=== PATIENT | male | born 1965 | race American Indian/Alaskan Native ===

== ENCOUNTER 2018-12-09 07:05 | Emergency (ER) | payer SELFPAY ==
[2018-12-09] MEDS ORDERED: ASPIRIN PO ONE (07:25)
--- NOTE | 2018-12-09 07:52 | XRay Report ---
ROUTINE CHEST, TWO VIEWS: HISTORY: chest pain. The trachea, heart, mediastinal contour, lung benoit and bony thorax are unremarkable. IMPRESSION: Unremarkable chest x-ray.
[2018-12-09 07:59] LABS: BUN/Creatinine Ratio 10; Blood Urea Nitrogen 7 mg/dL (9-20); Calcium 8.6 mg/dL (8.4-10.2); Hemolysis Index 8
[2018-12-09 08:39] LABS: Hematocrit 45.8 % (35.5-45.6); Hemoglobin 15.6 gm/dl (11.8-15.2); Mean Corpuscular HGB Conc 34 % (32-34); Mean Corpuscular Volume 105 fl (84-94); Platelet Count 110 K/mm3 (140-440); Red Blood Count 4.36 M/mm3 (3.65-5.03); Red Cell Distribution Width 14.3 % (13.2-15.2)
[2018-12-09] MEDS ORDERED: MORPHINE IV ONE (09:17)
[2018-12-09 10:06] LABS: Basophils % (Manual) 0 % (0.0-1.8); Total Cells Counted 100
[2018-12-09 10:07] LABS: Platelet Estimate Consistent w Auto; RBC Morphology Normal
--- NOTE | 2018-12-09 11:07 | Cat Scan Report ---
PROCEDURE: CT ANGIO CHEST TECHNIQUE: Multiple axial images were obtained through the chest after administration of IV contrast . Reformatted sagittal and coronal images were available for review. HISTORY: chest pain and sob h/o of DVT not taking warfarin COMPARISONS: None FINDINGS: Heart and pericardium: Normal. Thoracic aorta: Normal caliber. Conventional branching pattern of the aortic arch. Pulmonary vasculature: No filling defect to suggest pulmonary embolism. Lymph nodes: No enlarged thoracic lymph nodes. Lungs: Scattered peribronchovascular glass opacities in the right middle lobe and right lower lobe. Paraseptal blebs in the right apex. Pleural space: No effusion, thickening, or pneumothorax. Musculoskeletal structures: No significant abnormality. Upper abdominal structures: No significant abnormality. IMPRESSION: No evidence of pulmonary embolism. Groundglass opacities in the right middle lobe and right lower lobe concerning for infection or infla mmation. This document is electronically signed by Silvana Wong MD., December 09 2018 11:05:18 AM ET
[2018-12-09] MEDS ORDERED: VIBRAMYCIN PO ONE (12:10)
[2018-12-09] MEDS ORDERED: ZITHROMAX PO ONE (12:10)
--- NOTE | 2018-12-09 12:14 | Emergency Department Report ---
ED General Adult HPI - General Chief complaint: Chest Pain Stated complaint: CHEST PAINS Time Seen by Provider: 12/09/18 09:00 Source: patient Mode of arrival: Ambulatory Limitations: No Limitations - History of Present Illness Initial comments: She is a 53-year-old male past medical history of DVT who presents with chest pain that occurred earlier on today while he was working. He states that the pain is an 8 out of 10 as a intermittent type pain and he felt his heart was pounding hard when this occurred. He states that he is supposed to be on Cou madin for his DVT but he hasn't been on because he couldn't stand taking the medicine Severity scale (0 -10): 7 - Related Data Previous Rx's Medication Instructions Recorded Last Taken Type HYDROcodone/APAP 5-325 [[place] 1 each PO Q6HR PRN #15 tablet 09/25/13 Unknown Rx 5-325 mg TAB] Naproxen Sodium (Nf) [Anaprox DS 550 mg PO BID PRN #14 tablet 09/25/13 Unknown Rx TAB] Warfarin Sodium [Coumadin] 12.5 mg PO DAILY 30 Days tablet 09/15/14 Unknown Rx levoFLOXacin [Levaquin] 750 mg PO QDAY #3 tablet 12/09/18 Unknown Rx Allergies Allergy/AdvReac Type Severity Reaction Status Date / Time No Known Allergies Allergy Unverified 06/11/13 13:49 ED Review of Systems ROS: Stated complaint: CHEST PAINS Other details as noted in HPI Constitutional: denies: chills, fever Eyes: denies: eye pain, eye discharge, vision change ENT: denies: ear pain, throat pain Respiratory: denies: cough, shortness of breath, wheezing Cardiovascular: chest pain. denies: palpitations Endocrine: no symptoms reported Gastrointestinal: denies: abdominal pain, nausea, diarrhea Genitourinary: denies: urgency, dysuria Musculoskeletal: denies: back pain, joint swelling, arthralgia Skin: denies: rash, lesions Neurological: denies: headache, weakness, paresthesias Psychiatric: denies: anxiety, depression Hematological/Lymphatic: denies: easy bleeding, easy bruising ED Past Medical Hx - Past Medical History Previous Medical History?: Yes Hx Hypertension: Yes Hx Heart Attack/AMI: No Hx Congestive Heart Failure: No Hx Diabetes: Yes (Brother) Hx Deep Vein Thrombosis: Yes Hx Pulmonary Embolism: Yes Hx Liver Disease: No Hx Renal Disease: No Hx Sickle Cell Disease: No Hx Arthritis: No Hx Seizures: No Hx Kidney Stones: No Hx Asthma: No Hx COPD: No Hx Tuberculosis: No Hx Dementia: No Hx HIV: No Additional medical history: DVT BLE - Surgical History Past Surgical History?: No Hx Coronary Stent: No Hx Open Heart Surgery: No Hx Pacemaker: No Hx Internal Defibrillator: No Hx Cholecystectomy: No Hx Appendectomy: No Hx Breast Surgery: No - Social History Smoking Status: Current Every Day Smoker Substance Use Type: Alcohol - Medications Home Medications: Home Medications Medication Instructions Recorded Confirmed Last Taken Type HYDROcodone/APAP 5-325 [[place] 1 each PO Q6HR PRN #15 tablet 09/25/13 09/08/14 Unknown Rx 5-325 mg TAB] Naproxen Sodium (Nf) [Anaprox DS 550 mg PO BID PRN #14 tablet 09/25/13 09/08/14 Unknown Rx TAB] Warfarin Sodium [Coumadin] 12.5 mg PO DAILY 30 Days tablet 09/15/14 Unknown Rx levoFLOXacin [Levaquin] 750 mg PO QDAY #3 tablet 12/09/18 Unknown Rx ED Physical Exam - General Limitations: No Limitations General appearance: alert, in no apparent distress - Head Head exam: Present: atraumatic, normocephalic - Eye Eye exam: Present: normal appearance - ENT ENT exam: Present: mucous membranes moist - Neck Neck exam: Present: normal inspection - Respiratory Respiratory exam: Present: normal lung sounds bilaterally. Absent: respiratory distress - Cardiovascular Cardiovascular Exam: Present: regular rate, normal rhythm. Absent: systolic murmur, diastolic murmur, rubs, gallop - GI/Abdominal GI/Abdominal exam: Present: soft, normal bowel sounds - Rectal Rectal exam: Present: deferred - Extremities Exam Extremities exam: Present: normal inspection - Back Exam Back exam: Present: normal inspection - Neurological Exam Neurological exam: Present: alert, oriented X3 - Psychiatric Psychiatric exam: Present: normal affect, normal mood - Skin Skin exam: Present: warm, dry, intact, normal color. Absent: rash ED Course Vital Signs 12/09/18 12/09/18 12/09/18 08:51 09:00 09:15 Pulse Rate 81 76 81 Respiratory 18 12 16 Rate Blood Pressure 125/86 132/90 O2 Sat by Pulse 100 99 98 Oximetry 12/09/18 12/09/18 12/09/18 09:30 09:45 10:17 Pulse Rate 97 H 74 Respiratory 24 18 Rate Blood Pressure 128/86 131/84 131/84 O2 Sat by Pulse 97 96 99 Oximetry 12/09/18 12/09/18 12/09/18 10:30 10:45 11:00 Pulse Rate 61 53 L 53 L Respiratory 14 14 13 Rate Blood Pressure 134/81 130/79 137/81 O2 Sat by Pulse 95 97 Oximetry 12/09/18 12/09/18 12/09/18 11:15 11:30 11:45 Pulse Rate 54 L 79 83 Respiratory 16 14 14 Rate Blood Pressure 127/76 117/85 127/76 O2 Sat by Pulse 96 94 Oximetry 12/09/18 12/09/18 12/09/18 13:30 13:45 14:00 Pulse Rate Respiratory Rate Blood Pressure 132/78 121/75 122/75 O2 Sat by Pulse Oximetry 12/09/18 12/09/18 12/09/18 14:15 14:30 14:45 Pulse Rate Respiratory Rate Blood Pressure 119/67 124/73 123/69 O2 Sat by Pulse Oximetry 12/09/18 15:00 Pulse Rate Respiratory Rate Blood Pressure 119/70 O2 Sat by Pulse Oximetry ED Medical Decision Making - Lab Data Result diagrams: 12/09/18 07:29 12/09/18 07:26 Lab Results 12/09/18 12/09/18 12/09/18 Range/Units 07:26 07:29 10:26 WBC 3.7 L (4.5-11.0) K/mm3 RBC 4.36 (3.65-5.03) M/mm3 Hgb 15.6 H (11.8-15.2) gm/dl Hct 45.8 H (35.5-45.6) % MCV 105 H (84-94) fl MCH 36 H (28-32) pg MCHC 34 (32-34) % RDW 14.3 (13.2-15.2) % Plt Count 110 L (140-440) K/mm3 Add Manual Diff Complete Total Counted 100 Seg Neutrophils % Major Gifts Officer Seg Neuts % (Manual) 28.0 L (40.0-70.0) % Band Neutrophils % 0 % Lymphocytes % (Manual) 58.0 H (13.4-35.0) % Reactive Lymphs % (Man) 0 % Monocytes % (Manual) 10.0 H (0.0-7.3) % Eosinophils % (Manual) 4.0 (0.0-4.3) % Basophils % (Manual) 0 (0.0-1.8) % Metamyelocytes % 0 % Myelocytes % 0 % Promyelocytes % 0 % Blast Cells % 0 % Nucleated RBC % Not Reportable Seg Neutrophils # Man 1.0 L (1.8-7.7) K/mm3 Band Neutrophils # 0.0 K/mm3 Lymphocytes # (Manual) 2.1 (1.2-5.4) K/mm3 Abs React Lymphs (Man) 0.0 K/mm3 Monocytes # (Manual) 0.4 (0.0-0.8) K/mm3 Eosinophils # (Manual) 0.1 (0.0-0.4) K/mm3 Basophils # (Manual) 0.0 (0.0-0.1) K/mm3 Metamyelocytes # 0.0 K/mm3 Myelocytes # 0.0 K/mm3 Promyelocytes # 0.0 K/mm3 Blast Cells # 0.0 K/mm3 WBC Morphology Not Reportable Hypersegmented Neuts Not Reportable Hyposegmented Neuts Not Reportable Hypogranular Neuts Not Reportable Smudge Cells Not Reportable Toxic Granulation Not Reportable Toxic Vacuolation Not Reportable Dohle Bodies Not Reportable Pelger-Huet Anomaly Not Reportable Zeina Rods Not Reportable Platelet Estimate Consistent w auto Clumped Platelets Not Reportable Plt Clumps, EDTA Not Reportable Large Platelets Not Reportable Giant Platelets Not Reportable Platelet Satelliting Not Reportable Plt Morphology Comment Not Reportable RBC Morphology Normal Dimorphic RBCs Not Reportable Polychromasia Not Reportable Hypochromasia Not Reportable Poikilocytosis Not Reportable Anisocytosis Not Reportable Microcytosis Not Reportable Macrocytosis Not Reportable Spherocytes Not Reportable Pappenheimer Bodies Not Reportable Sickle Cells Not Reportable Target Cells Not Reportable Tear Drop Cells Not Reportable Ovalocytes Not Reportable Helmet Cells Not Reportable Triana-O'Neill Bodies Not Reportable Polk Rings Not Reportable Audrey Cells Not Reportable Bite Cells Not Reportable Crenated Cell Not Reportable Elliptocytes Not Reportable Acanthocytes (Spur) Not Reportable Rouleaux Not Reportable Hemoglobin C Crystals Not Reportable Schistocytes Not Reportable Malaria parasites Not Reportable Barry Bodies Not Reportable Hem Pathologist Commnt No Sodium 144 (137-145) mmol/L Potassium 4.8 (3.6-5.0) mmol/L Chloride 100.7 (98-107) mmol/L Carbon Dioxide 26 (22-30) mmol/L Anion Gap 22 mmol/L BUN 7 L (9-20) mg/dL Creatinine 0.7 L (0.8-1.5) mg/dL Estimated GFR > 60 ml/min BUN/Creatinine Ratio 10 % Glucose 81 (75-100) mg/dL Calcium 8.6 (8.4-10.2) mg/dL Troponin T < 0.010 < 0.010 (0.00-0.029) ng/mL - EKG Data -: EKG Interpreted by Me - EKG Data 12/09/18 12:16 EKG shows sinus rhythm, probable atrial septal infarct and no T-wave inversions or ST depressions normal axis - Radiology Data Radiology results: report reviewed, image reviewed - Medical Decision Making Chief medical diagnosis: Pneumonia Differential medical diagnosis: DVT, SVT I will get CT scan of chest I will get CBC BMP oral pain medicine and give patient oral antibiotics. An IV pain medication Next patient's ultrasound of leg just shows chronic DVT and CTA of the chest shows pna Critical care attestation.: If time is entered above; I have spent that time in minutes in the direct care of this critically ill patient, excluding procedure time. ED Disposition Clinical Impression: DVT (deep venous thrombosis) Qualifiers: DVT location: lower extremity Affected thrombotic vein of extremity: unspecified vein of extremity Chronicity: chronic Laterality: left Qualified Code(s): I82.502 - Chronic embolism and thrombosis of unspecified deep veins of left lower extremity Pneumonia Qualifiers: Pneumonia type: due to unspecified organism Laterality: right Lung location: unspecified part of lung Qualified Code(s): J18.9 - Pneumonia, unspecified organism Disposition: DC-01 TO HOME OR SELFCARE Is pt being admited?: No Does the pt Need Aspirin: No Condition: Stable Instructions: Bacterial Pneumonia (ED) Prescriptions: levoFLOXacin [Levaquin] 750 mg PO QDAY #3 tablet Referrals: RICCO BELL MD [Primary Care Provider] - 3-5 Days
--- NOTE | 2018-12-09 14:30 | Vascular Lab Report ---
PROCEDURE: VL VENOUS DUPLEX LE LT TECHNIQUE: Duplex Doppler imaging of the veins of the left lower extremity was performed HISTORY: left leg swelling COMPARISONS: Lower extremity venous ultrasound performed on September 07, 2014 FINDINGS: The left common femoral vein, superficial femoral vein, popliteal vein, and peroneal veins are partia lly compressible. No definite echogenic thrombus is visualized within the lumen of these veins. There are normal waveforms and augmentation. There is deformity venous reflux within the left popliteal ve in measuring approximately 1258 ms. Of note findings are overall similar to the study performed in 2015. IMPRESSION: Partially compressible left common femoral vein, superficial femoral vein, popliteal vein, and perone al veins, similar to the study performed in 2015. Findings likely represent chronic thrombosis, howev er nonocclusive acute thrombus is not excluded. This document is electronically signed by Silvana Wong MD., December 09 2018 02:28:07 PM ET
[2018-12-09 15:10] VITALS: BP 119/70
== END 2018-12-09 15:29 | disposition home or self-care (01) ==
LOC: ED 07:05
DX: J18.9 Pneumonia, unspecified organism (principal); I82.502 Chronic embolism and thrombosis of unspecified deep veins of left lower extremity; I10 Essential (primary) hypertension; E11.9 Type 2 diabetes mellitus without complications; F17.200 Nicotine dependence, unspecified, uncomplicated; Z79.899 Other long term (current) drug therapy; Z86.711 Personal history of pulmonary embolism
CPT/HCPCS: 36415; 71046; 71275; 80048; 84484; 85007; 85025; 93005; 93010; 93971; 96374; 99285; J2270; Q9967

== ENCOUNTER 2019-11-09 15:05 | Emergency (ER) | payer SELFPAY ==
--- NOTE | 2019-11-09 15:57 | Emergency Department Report ---
Blank Doc - Documentation Documentation: 54-year-old male that presents with chest pain, SOB, and left leg pain and swe lling. This initial assessment/diagnostic orders/clinical plan/treatment(s) is/are subject to change based on patient's health status, clinical progression and re- assessment by fellow clinical providers in the ED. Further treatment and workup at subsequent clinical providers discretion. Patient/guardians urged not to elope from the ED as their condition may be serious if not clinically assessed and managed. Initial orders include: 1- Patient sent to MAIN ED for further evaluation and treatment 2- cardiac work-up 3- US doppler LE
--- NOTE | 2019-11-09 16:23 | XRay Report ---
CHEST 2 VIEWS INDICATION: Chest Pain. COMPARISON: 12/09/2018 FINDINGS: Support devices: None. Heart: Within normal limits. Lungs/pleura: No acute air space or interstitial disease. No pneumothorax. Additional findings: None. IMPRESSION: No acute findings. Signer Name: Pascual Bertrand Jr, MD Signed: 11/09/2019 4:19 PM Workstation Name: [id number]
[2019-11-09 16:39] LABS: Basophils % (Auto) 1.1 % (0.0-1.8); Eosinophils % (Auto) 0.9 % (0.0-4.3); Hematocrit 38.8 % (35.5-45.6); Hemoglobin 13.2 gm/dl (11.8-15.2); Lymphocytes # (Auto) 2.1 K/mm3 (1.2-5.4); Lymphocytes % (Auto) 50.4 % (13.4-35.0); Mean Corpuscular HGB Conc 34 % (32-34); Mean Corpuscular Volume 105 fl (84-94); Monocytes # (Auto) 0.5 K/mm3 (0.0-0.8); Monocytes % (Auto) 11.1 % (0.0-7.3); Platelet Count 124 K/mm3 (140-440); Red Blood Count 3.68 M/mm3 (3.65-5.03); Red Cell Distribution Width 15.6 % (13.2-15.2)
[2019-11-09 16:48] LABS: INR 0.94 (0.87-1.13); Partial Thromboplastin Time 29.7 Sec. (24.2-36.6)
[2019-11-09 16:51] LABS: Alanine Aminotransferase 23 units/L (7-56); Albumin 4.2 g/dL (3.9-5); BUN/Creatinine Ratio 13; Blood Urea Nitrogen 8 mg/dL (9-20); Calcium 8.4 mg/dL (8.4-10.2); Hemolysis Index 9
--- NOTE | 2019-11-09 18:56 | Vascular Lab Report ---
DUPLEX DOPPLER LOWER EXTREMITY VEINS, LEFT INDICATION: left leg pain and swelling. TECHNIQUE: Duplex doppler imaging was performed through the veins of the left lower extremity using venous compr ession and other maneuvers. COMPARISON: None available. FINDINGS: Common Femoral vein: Nonocclusive thrombus Superficial Femoral vein: Occlusive thrombus. Popliteal vein: Nonocclusive thrombus. Calf veins: Negative. Additional findings: There is a 3.9 cm left popliteal/Hicks's cyst. IMPRESSION: 1. Extensive deep venous thrombosis left lower extremity, as above. Signer Name: Ar Willams MD Signed: 11/09/2019 6:52 PM Workstation Name: [id number]
[2019-11-09] MEDS ORDERED: HEPARIN 10,000 UNITS/10 ML VIAL IV ONE (20:13)
[2019-11-09] MEDS ORDERED: ENOXAPARIN 100 MG/1 ML INJ SUB-Q ONE (20:29)
[2019-11-09] MEDS ORDERED: HEPARIN/ 0.45% NACL DRIP 25,000 UNIT/500 ML BAG IV SCH (21:00)
--- NOTE | 2019-11-09 21:49 | Emergency Department Report ---
ED Lower Extremity HPI - General Chief Complaint: Extremity Problem,Nontraumatic Stated Complaint: CHEST PAIN, BLOOD CLOT Time Seen by Provider: 11/09/19 15:55 Source: patient, old records reviewed Mode of arrival: Ambulatory Limitations: No Limitations - History of Present Illness Initial Comments: 54-year-old male with a past medical history of previous DVT 3 to 4 years ago of Coumadin for at least 2 years presents to the hospital complaining of left leg pain and swelling x2 weeks. Patient denies any recent trauma or injury. Patient has been noncompliant with the Coumadin and he denies having a Maura filter. Patient also is experiencing bilateral chest pain, shortness of breath, and back pain. He denies history of coagulopathy or long distance travel. As per triage patient reported a 30 pound weight loss in the last 4 months. Patient has been noncompliant with Coumadin because he feels like he makes him feel off balance. Upon medical record review patient was here in December 2018 with left leg DVT and medication noncompliance as well - Related Data Previous Rx's Medication Instructions Recorded Last Taken Type HYDROcodone/APAP 5-325 [[place] 1 each PO Q6HR PRN #15 tablet 09/25/13 Unknown Rx 5-325 mg TAB] Naproxen Sodium (Nf) [Anaprox DS 550 mg PO BID PRN #14 tablet 09/25/13 Unknown Rx TAB] Warfarin Sodium [Coumadin] 12.5 mg PO DAILY 30 Days tablet 09/15/14 Unknown Rx levoFLOXacin [Levaquin] 750 mg PO QDAY #3 tablet 12/09/18 Unknown Rx Apixaban [Eliquis] 1 dose PO BID 30 Days tablet 11/09/19 Unknown Rx Allergies Allergy/AdvReac Type Severity Reaction Status Date / Time No Known Allergies Allergy Unverified 06/11/13 13:49 ED Review of Systems ROS: Stated complaint: CHEST PAIN, BLOOD CLOT Other details as noted in HPI Comment: All other systems reviewed and negative ED Past Medical Hx - Past Medical History Previous Medical History?: Yes Hx Hypertension: Yes Hx Heart Attack/AMI: No Hx Congestive Heart Failure: No Hx Diabetes: Yes (Brother) Hx Deep Vein Thrombosis: Yes Hx Pulmonary Embolism: Yes Hx Liver Disease: No Hx Renal Disease: No Hx Sickle Cell Disease: No Hx Arthritis: No Hx Seizures: No Hx Kidney Stones: No Hx Asthma: No Hx COPD: No Hx Tuberculosis: No Hx Dementia: No Hx HIV: No Additional medical history: DVT BLE - Surgical History Past Surgical History?: No Hx Coronary Stent: No Hx Open Heart Surgery: No Hx Pacemaker: No Hx Internal Defibrillator: No Hx Cholecystectomy: No Hx Appendectomy: No Hx Breast Surgery: No - Social History Smoking Status: Never Smoker Substance Use Type: None - Medications Home Medications: Home Medications Medication Instructions Recorded Confirmed Last Taken Type HYDROcodone/APAP 5-325 [[place] 1 each PO Q6HR PRN #15 tablet 09/25/13 09/08/14 Unknown Rx 5-325 mg TAB] Naproxen Sodium (Nf) [Anaprox DS 550 mg PO BID PRN #14 tablet 09/25/13 09/08/14 Unknown Rx TAB] Warfarin Sodium [Coumadin] 12.5 mg PO DAILY 30 Days tablet 09/15/14 Unknown Rx levoFLOXacin [Levaquin] 750 mg PO QDAY #3 tablet 12/09/18 Unknown Rx Apixaban [Eliquis] 1 dose PO BID 30 Days tablet 11/09/19 Unknown Rx ED Physical Exam - General Limitations: No Limitations - Other Other exam information: General: No acute distress Head: Atraumatic Eyes: normal appearance ENT: Moist mucous membranes Neck: Normal appearance, no midline tenderness Chest: Clear to auscultation bilaterally CV: Regular rate and rhythm Abdomen: Soft, normal bowel sounds, nontender, nondistended, no rebound or guarding Back: Normal inspection Extremity: Left leg swelling and calf tenderness, no warmth or erythema Neuro: Alert O x 3, no facial asymmetry, speech clear, no gross motor sensory deficit Psych: Appropriate behavior Skin: No rash ED Course Vital Signs 11/09/19 11/09/19 16:09 20:47 Temperature 98.9 F Pulse Rate 104 H 70 Respiratory 18 14 Rate Blood Pressure 131/85 144/87 O2 Sat by Pulse 97 100 Oximetry ED Lower Extremity MDM - Lab Data Result diagrams: 11/09/19 16:13 11/09/19 16:13 Lab Results 11/09/19 11/09/19 11/09/19 Range/Units 16:13 16:13 16:13 WBC 4.1 L (4.5-11.0) K/mm3 RBC 3.68 (3.65-5.03) M/mm3 Hgb 13.2 (11.8-15.2) gm/dl Hct 38.8 (35.5-45.6) % MCV 105 H (84-94) fl MCH 36 H (28-32) pg MCHC 34 (32-34) % RDW 15.6 H (13.2-15.2) % Plt Count 124 L (140-440) K/mm3 Lymph % (Auto) 50.4 H (13.4-35.0) % [place] % (Auto) 11.1 H (0.0-7.3) % Eos % (Auto) 0.9 (0.0-4.3) % Baso % (Auto) 1.1 (0.0-1.8) % Lymph # 2.1 (1.2-5.4) K/mm3 [place] # 0.5 (0.0-0.8) K/mm3 Eos # 0.0 (0.0-0.4) K/mm3 Baso # 0.0 (0.0-0.1) K/mm3 Seg Neutrophils % 36.5 L (40.0-70.0) % Seg Neutrophils # 1.5 L (1.8-7.7) K/mm3 PT 12.7 (12.2-14.9) Sec. INR 0.94 (0.87-1.13) APTT 29.7 (24.2-36.6) Sec. Sodium 140 (137-145) mmol/L Potassium 3.0 L (3.6-5.0) mmol/L Chloride 101.2 (98-107) mmol/L Carbon Dioxide 21 L (22-30) mmol/L Anion Gap 21 mmol/L BUN 8 L (9-20) mg/dL Creatinine 0.6 L (0.8-1.5) mg/dL Estimated GFR > 60 ml/min BUN/Creatinine Ratio 13 % Glucose 134 H (75-100) mg/dL Calcium 8.4 (8.4-10.2) mg/dL Total Bilirubin 0.60 (0.1-1.2) mg/dL AST 55 H (5-40) units/L ALT 23 (7-56) units/L Alkaline Phosphatase 59 (35-129) units/L Troponin T (0.00-0.029) ng/mL Total Protein 7.2 (6.3-8.2) g/dL Albumin 4.2 (3.9-5) g/dL Albumin/Globulin Ratio 1.4 % 11/09/19 11/09/19 Range/Units 16:13 19:35 WBC (4.5-11.0) K/mm3 RBC (3.65-5.03) M/mm3 Hgb (11.8-15.2) gm/dl Hct (35.5-45.6) % MCV (84-94) fl MCH (28-32) pg MCHC (32-34) % RDW (13.2-15.2) % Plt Count (140-440) K/mm3 Lymph % (Auto) (13.4-35.0) % [place] % (Auto) (0.0-7.3) % Eos % (Auto) (0.0-4.3) % Baso % (Auto) (0.0-1.8) % Lymph # (1.2-5.4) K/mm3 [place] # (0.0-0.8) K/mm3 Eos # (0.0-0.4) K/mm3 Baso # (0.0-0.1) K/mm3 Seg Neutrophils % (40.0-70.0) % Seg Neutrophils # (1.8-7.7) K/mm3 PT (12.2-14.9) Sec. INR (0.87-1.13) APTT (24.2-36.6) Sec. Sodium (137-145) mmol/L Potassium (3.6-5.0) mmol/L Chloride (98-107) mmol/L Carbon Dioxide (22-30) mmol/L Anion Gap mmol/L BUN (9-20) mg/dL Creatinine (0.8-1.5) mg/dL Estimated GFR ml/min BUN/Creatinine Ratio % Glucose (75-100) mg/dL Calcium (8.4-10.2) mg/dL Total Bilirubin (0.1-1.2) mg/dL AST (5-40) units/L ALT (7-56) units/L Alkaline Phosphatase (35-129) units/L Troponin T < 0.010 < 0.010 (0.00-0.029) ng/mL Total Protein (6.3-8.2) g/dL Albumin (3.9-5) g/dL Albumin/Globulin Ratio % - Radiology Data Radiology results: report reviewed CHEST 2 VIEWS INDICATION: Chest Pain. COMPARISON: 12/09/2018 FINDINGS: Support devices: None. Heart: Within normal limits. Lungs/pleura: No acute air space or interstitial disease. No pneumothorax. Additional findings: None. IMPRESSION: No acute findings. DUPLEX DOPPLER LOWER EXTREMITY VEINS, LEFT INDICATION: left leg pain and swelling. TECHNIQUE: Duplex doppler imaging was performed through the veins of the left lower extremity using venous compression and other maneuvers. COMPARISON: None available. FINDINGS: Common Femoral vein: Nonocclusive thrombus Superficial Femoral vein: Occlusive thrombus. Popliteal vein: Nonocclusive thrombus. Calf veins: Negative. Additional findings: There is a 3.9 cm left popliteal/Hicks's cyst. IMPRESSION: 1. Extensive deep venous thrombosis left lower extremity, as above. CTA chest: no acute PTE, chronic nonocclusive PTE in the proximal right lower lobe pulmonary arterial tree identical to exam from 11 months ago (12/09/2018) Mild groundglass and reticular opacities in the right lower lung are stable. May be postinflammatory change. Mild dependent atelectasis in the left lung base otherwise lung clear - Medical Decision Making Patient presents to the hospital left leg pain and recurrent diagnosis of left leg DVT compared to December 2018. CTA nonocclusive PTE chronic as per radiology read. Patient does not want admission to the hospital and will sign AMA. Maggi ent has been noncompliant with Coumadin because it makes him feel unsteady when he walks. He will be provided a 30-day free trial off her Eliquis and encouraged to follow-up with vascular and primary care doctor as an outpatient. Patient did receive 1 dose of Lovenox in the ED prior to discharge. Patient provided p.o. potassium prior to discharge for mild hypokalemia - Differential Diagnosis DVT, PE Critical Care Time: No Critical care attestation.: If time is entered above; I have spent that time in minutes in the direct care of this critically ill patient, excluding procedure time. ED Disposition Clinical Impression: Chronic pulmonary embolism, Noncompliance with medication regimen DVT (deep venous thrombosis) Qualifiers: DVT location: lower extremity Chronicity: acute Laterality: left Disposition: - LEFT AGAINST MED ADVICE Is pt being admited?: No Does the pt Need Aspirin: No Condition: Stable Instructions: Pulmonary Embolism (GEN), Deep Venous Thrombosis (ED) Additional Instructions: Take the medication as prescribed. You have been provided a 30-day trial offer for Eliquis. Start your medication in the morning. Please follow-up with a primary care doctor for further refills in his medication. Also follow-up with the vascular surgeon for further treatment and monitoring of your blood clot. Follow-up with your doctor or doctor/clinic provided. Return if symptoms worsen as indicated by your discharge instructions. Prescriptions: Apixaban [Eliquis] 1 dose PO BID 30 Days tablet Referrals: UNIQUE STUBBSPASADENA MD MATT [Primary Care Provider] - 3-5 Days PAULA WASHINGTON MD [Staff Physician] - 3-5 Days [facility] [Provider Group] - 3-5 Days [facility] [Provider Group] - 3-5 Days Forms: AMA Form, Work/School Release Form(ED) Time of Disposition: 22:30
[2019-11-09] MEDS ORDERED: POTASSIUM CHLORIDE ER 20 MEQ TAB PO ONE (22:00)
[2019-11-09 22:54] VITALS: BP 122/79
--- NOTE | 2019-11-10 14:43 | Cat Scan Report ---
CTA CHEST WITH IV CONTRAST INDICATION: sob, + dvt. TECHNIQUE: Axial CT images were obtained through the chest after injection of IV contrast. 3 plane MIP reconstru ctions were produced. All CT scans at this location are performed using CT dose reduction for ALARA b y means of automated exposure control. COMPARISON: CT 12/09/2018 FINDINGS: Pulmonary Arteries: There is a small amount of nonocclusive, chronic PTE within the proximal right lo wer lobe pulmonary arterial tree (series 3 images 184-201). No acute, occlusive PTE. Thoracic Aorta: No acute abnormality. Heart: Normal. Lungs: There is mild groundglass and reticular disease within the inferior right middle lobe and with in the posterior right lower lobe, this is similar to the prior. There is mild atelectasis in the dep endent left lung base. Pleura: No pleural effusion. No pneumothorax. Lymph Nodes: No significant adenopathy. Additional Findings: None. Upper Abdomen: No acute findings. Skeletal Structures: No significant osseous abnormality. IMPRESSION: 1. No acute PTE. Chronic nonocclusive PTE in the proximal right lower lobe pulmonary arterial tree is identical to the exam from 11 months ago. 2. Mild groundglass and reticular opacities in the right lower lung are stable. This may be postinfla mmatory change. There is mild dependent atelectasis in the left lung base. Lungs are otherwise clear. Signer Name: Ar Willams MD Signed: 11/09/2019 9:06 PM Workstation Name: [id number]
== END 2019-11-09 22:56 | disposition left against medical advice (07) ==
LOC: ED 15:05
DX: I27.82 Chronic pulmonary embolism (principal); I82.492 Acute embolism and thrombosis of other specified deep vein of left lower extremity; I10 Essential (primary) hypertension; E11.9 Type 2 diabetes mellitus without complications; Z79.899 Other long term (current) drug therapy; Z91.14 Patient's other noncompliance with medication regimen
CPT/HCPCS: 36415; 71046; 71275; 80053; 84484; 85025; 85610; 85730; 93005; 93010; 93971; 96372; 99285; J1650; Q9967

== ENCOUNTER 2019-12-23 12:36 | Inpatient (IN) | payer SELFPAY ==
--- NOTE | 2019-12-23 13:19 | XRay Report ---
CHEST 2 VIEWS INDICATION: Chest Pain. COMPARISON: Chest x-ray from 11/09/2019 FINDINGS: Support devices: None. Heart: Within normal limits. Lungs/pleura: No acute air space or interstitial disease. No pneumothorax. Additional findings: None. IMPRESSION: 1. No acute findings. Signer Name: Trenton Ty MD Signed: 12/23/2019 1:15 PM Workstation Name: [id number]
[2019-12-23 14:06] LABS: Basophils # (Auto) 0.1 K/mm3 (0.0-0.1); Basophils % (Auto) 2.7 % (0.0-1.8); Eosinophils % (Auto) 0.8 % (0.0-4.3); Hematocrit 41.5 % (35.5-45.6); Hemoglobin 14.2 gm/dl (11.8-15.2); Lymphocytes # (Auto) 1.8 K/mm3 (1.2-5.4); Lymphocytes % (Auto) 50.8 % (13.4-35.0); Mean Corpuscular HGB Conc 34 % (32-34); Mean Corpuscular Volume 106 fl (84-94); Monocytes # (Auto) 0.4 K/mm3 (0.0-0.8); Monocytes % (Auto) 10.1 % (0.0-7.3); Platelet Count 189 K/mm3 (140-440); Red Blood Count 3.93 M/mm3 (3.65-5.03); Red Cell Distribution Width 15.6 % (13.2-15.2)
--- NOTE | 2019-12-23 15:28 | Emergency Department Report ---
ED Chest Pain HPI - General Chief Complaint: Chest Pain Stated Complaint: CHEST PAIN Time Seen by Provider: 12/23/19 15:08 Source: patient Mode of arrival: Ambulatory Limitations: No Limitations - History of Present Illness Initial Comments: 54-year-old male with a past medical history of pulmonary embolism, DVT, and hypertension presents to the hospital complaining of intermittent chest tightness across his chest x1 week. Symptoms come and go without exertion. Very mild shortness of breath reported without nausea, vomiting, or diaphoresis. Pain was more persistent since 4 AM. Patient complains of intermittent cough productive of green phlegm without fever. Patient was seen by me last month and had a CT angiogram that showed a nonocclusive chronic PE as well as extensive deep venous thrombosis left lower extremity. Patient was noncompliant with his Coumadin at that time. Patient does not have a [place] filter. I started the patient on Eliquis twice daily x30-day supply. Patient states he has about 6 tablets left. He admits to intermittent compliance with Eliquis stating that when he drinks alcohol he does not take the Eliquis. Patient apparently drinks most weekends. Patient has not followed up with her primary care doctor as advised. He reports he had a negative stress test 4 to 5 years ago, he smokes cigarettes, denies elevated cholesterol. History of hypertension but he has never been placed on meds. Patient states his mom might have had CAD before the age of 65, - Related Data Home Medications Medication Instructions Recorded Confirmed Last Taken Apixaban [Eliquis] 5 mg PO BID 12/23/19 12/23/19 Unknown Allergies Allergy/AdvReac Type Severity Reaction Status Date / Time No Known Allergies Allergy Unverified 06/11/13 13:49 Heart Score - HEART Score History: Slightly suspicious EKG: Normal Age: 45-65 Risk factors: 1-2 risk factors Troponin: < normal limit HEART Score: 2 ED Review of Systems ROS: Stated complaint: CHEST PAIN Other details as noted in HPI Comment: All other systems reviewed and negative ED Past Medical Hx - Past Medical History Previous Medical History?: Yes Hx Hypertension: Yes Hx Heart Attack/AMI: No Hx Congestive Heart Failure: No Hx Diabetes: Yes (Brother) Hx Deep Vein Thrombosis: Yes Hx Pulmonary Embolism: Yes Hx Liver Disease: No Hx Renal Disease: No Hx Sickle Cell Disease: No Hx Arthritis: No Hx Seizures: No Hx Kidney Stones: No Hx Asthma: No Hx COPD: No Hx Tuberculosis: No Hx Dementia: No Hx HIV: No Additional medical history: DVT BLE - Surgical History Past Surgical History?: No Hx Coronary Stent: No Hx Open Heart Surgery: No Hx Pacemaker: No Hx Internal Defibrillator: No Hx Cholecystectomy: No Hx Appendectomy: No Hx Breast Surgery: No - Social History Smoking Status: Current Every Day Smoker Substance Use Type: Alcohol - Medications Home Medications: Home Medications Medication Instructions Recorded Confirmed Last Taken Type Apixaban [Eliquis] 5 mg PO BID 12/23/19 12/23/19 Unknown History ED Physical Exam - General Limitations: No Limitations ED Course Vital Signs 12/23/19 12/23/19 12/23/19 12:48 14:35 15:14 Temperature 98.6 F Pulse Rate 98 H 52 L 80 Respiratory 18 25 H 17 Rate Blood Pressure 116/73 141/100 141/100 O2 Sat by Pulse 98 99 99 Oximetry 12/23/19 12/23/19 12/23/19 15:19 15:30 15:45 Temperature Pulse Rate 69 68 62 Respiratory 10 L 20 21 Rate Blood Pressure 120/87 133/82 O2 Sat by Pulse 100 99 99 Oximetry 12/23/19 12/23/19 12/23/19 16:00 16:15 17:27 Temperature Pulse Rate 57 L 80 78 Respiratory 20 18 16 Rate Blood Pressure 139/85 139/85 147/76 O2 Sat by Pulse 99 99 99 Oximetry 12/23/19 17:30 Temperature Pulse Rate 57 L Respiratory 19 Rate Blood Pressure 142/79 O2 Sat by Pulse 99 Oximetry - Consultations Consultation #1: 12/23/19 18:36 case d/w With cardiology Dr booth. possible nstemi, heparin drip has been initiated, will consult, repeat trop pending FRANCOISE score - Francoise Score Age > 65: (0) No Aspirin use within the Past 7 Days: (0) No 3 or more CAD Risk Factors: (0) No 2 or more Angina events in past 24 hrs: (1) Yes Known CAD with more than 50% Stenosis: (0) No Elevated Cardiac Markers: (0) No ST Deviation Greater than 0.5mm: (0) No FRANCOISE Score: 1 ED Medical Decision Making - Lab Data Result diagrams: 12/23/19 13:24 12/23/19 13:24 Lab Results 12/23/19 12/23/19 12/23/19 Range/Units 13:24 13:24 15:24 WBC 3.5 L (4.5-11.0) K/mm3 RBC 3.93 (3.65-5.03) M/mm3 Hgb 14.2 (11.8-15.2) gm/dl Hct 41.5 (35.5-45.6) % MCV 106 H (84-94) fl MCH 36 H (28-32) pg MCHC 34 (32-34) % RDW 15.6 H (13.2-15.2) % Plt Count 189 (140-440) K/mm3 Lymph % (Auto) 50.8 H (13.4-35.0) % [place] % (Auto) 10.1 H (0.0-7.3) % Eos % (Auto) 0.8 (0.0-4.3) % Baso % (Auto) 2.7 H (0.0-1.8) % Lymph # 1.8 (1.2-5.4) K/mm3 [place] # 0.4 (0.0-0.8) K/mm3 Eos # 0.0 (0.0-0.4) K/mm3 Baso # 0.1 (0.0-0.1) K/mm3 Seg Neutrophils % 35.6 L (40.0-70.0) % Seg Neutrophils # 1.2 L (1.8-7.7) K/mm3 PT (12.2-14.9) Sec. INR (0.87-1.13) APTT (24.2-36.6) Sec. Sodium 140 (137-145) mmol/L Potassium 3.8 (3.6-5.0) mmol/L Chloride 103.4 (98-107) mmol/L Carbon Dioxide 25 (22-30) mmol/L Anion Gap 15 mmol/L BUN 8 L (9-20) mg/dL Creatinine 0.7 L (0.8-1.5) mg/dL Estimated GFR > 60 ml/min BUN/Creatinine Ratio 11 % Glucose 80 (75-100) mg/dL Calcium 9.1 (8.4-10.2) mg/dL Troponin T 0.165 H* (0.00-0.029) ng/mL Triglycerides 85 (2-149) mg/dL Cholesterol 174 (50-199) mg/dL LDL Cholesterol Direct 70 (50-130) mg/dL HDL Cholesterol 101 H (40-59) mg/dL Cholesterol/HDL Ratio 1.72 % 12/23/19 Range/Units 16:36 WBC (4.5-11.0) K/mm3 RBC (3.65-5.03) M/mm3 Hgb (11.8-15.2) gm/dl Hct (35.5-45.6) % MCV (84-94) fl MCH (28-32) pg MCHC (32-34) % RDW (13.2-15.2) % Plt Count (140-440) K/mm3 Lymph % (Auto) (13.4-35.0) % [place] % (Auto) (0.0-7.3) % Eos % (Auto) (0.0-4.3) % Baso % (Auto) (0.0-1.8) % Lymph # (1.2-5.4) K/mm3 [place] # (0.0-0.8) K/mm3 Eos # (0.0-0.4) K/mm3 Baso # (0.0-0.1) K/mm3 Seg Neutrophils % (40.0-70.0) % Seg Neutrophils # (1.8-7.7) K/mm3 PT 12.9 (12.2-14.9) Sec. INR 0.96 (0.87-1.13) APTT 30.9 (24.2-36.6) Sec. Sodium (137-145) mmol/L Potassium (3.6-5.0) mmol/L Chloride (98-107) mmol/L Carbon Dioxide (22-30) mmol/L Anion Gap mmol/L BUN (9-20) mg/dL Creatinine (0.8-1.5) mg/dL Estimated GFR ml/min BUN/Creatinine Ratio % Glucose (75-100) mg/dL Calcium (8.4-10.2) mg/dL Troponin T (0.00-0.029) ng/mL Triglycerides (2-149) mg/dL Cholesterol (50-199) mg/dL LDL Cholesterol Direct (50-130) mg/dL HDL Cholesterol (40-59) mg/dL Cholesterol/HDL Ratio % - EKG Data -: EKG Interpreted by Me EKG shows normal: sinus rhythm, ST-T waves (No STEMI) Rate: normal (87) - EKG Data When compared to previous EKG there are: no significant change - Radiology Data Radiology results: report reviewed CHEST 2 VIEWS INDICATION: Chest Pain. COMPARISON: Chest x-ray from 11/09/2019 FINDINGS: Support devices: None. Heart: Within normal limits. Lungs/pleura: No acute air space or interstitial disease. No pneumothorax. Additional findings: None. IMPRESSION: 1. No acute findings. CT angiography of the chest with 2-D reconstructions INDICATION: Chest pain, prior PTE COMPARISON: 11/09/2019 Thin section axial images were obtained as well as 2-D reformatted MIP images in all 3 planes FINDINGS: There is no hilar or mediastinal adenopathy. No pleural or pericardial effusion. Lung windows show no nodules, masses or infiltrates. Interstitial lung disease appears unchanged. There is no thoracic aortic aneurysm or dissection present. Routine axial images as well as 2-D reconstructions through the pulmonary arteries show the previously described chronic PTE in the right lower lobe but no new emboli are seen.. IMPRESSION: No appreciable change. - Medical Decision Making pt with intermittent chest tightness with mild elevation in troponin which is new compared to previous ED work-up. CT angiogram without acute changes and shows continued chronic nonocclusive pulmonary embolism. Patient provided aspirin and heparin drip initiated. Cardiology consulted. - Differential Diagnosis VT, UNSTABLE ANGINA, PE, ATYPICAL CP Critical Care Time: No Critical care attestation.: If time is entered above; I have spent that time in minutes in the direct care of this critically ill patient, excluding procedure time. ED Disposition Clinical Impression: Chronic pulmonary embolism, Chest pain, Noncompliance with medication regimen, Alcohol use disorder, Elevated troponin, Smoker Disposition: OP ADMIT IP TO THIS HOSP Is pt being admited?: Yes Condition: Stable Time of Disposition: 18:19 (Dr Villagomez/hosp)
[2019-12-23] MEDS ORDERED: ASPIRIN 325 MG TAB PO ONE (16:06)
[2019-12-23 16:12] LABS: BUN/Creatinine Ratio 11; Blood Urea Nitrogen 8 mg/dL (9-20); Calcium 9.1 mg/dL (8.4-10.2); Hemolysis Index 1
[2019-12-23 16:21] LABS: Chol/HDL Ratio 1.72 %
[2019-12-23 16:57] LABS: INR 0.96 (0.87-1.13)
[2019-12-23 16:58] LABS: Partial Thromboplastin Time 30.9 Sec. (24.2-36.6)
--- NOTE | 2019-12-23 18:08 | Cat Scan Report ---
CT angiography of the chest with 2-D reconstructions INDICATION: Chest pain, prior PTE COMPARISON: 11/09/2019 Thin section axial images were obtained as well as 2-D reformatted MIP images in all 3 planes FINDINGS: There is no hilar or mediastinal adenopathy. No pleural or pericardial effusion. Lung windo ws show no nodules, masses or infiltrates. Interstitial lung disease appears unchanged. There is no t horacic aortic aneurysm or dissection present. Routine axial images as well as 2-D reconstructions th rough the pulmonary arteries show the previously described chronic PTE in the right lower lobe but no new emboli are seen.. IMPRESSION: No appreciable change. Automated exposure control was utilized to diminish radiation dose. Signer Name: William Urena MD Signed: 12/23/2019 4:50 PM Workstation Name: [id number]
[2019-12-23] MEDS: HEPARIN/ 0.45% NACL DRIP 25,000 UNIT/500 ML BAG IV SCH (18:14)
[2019-12-23] MEDS: HEPARIN 10,000 UNITS/10 ML VIAL IV ONE (18:14)
--- NOTE | 2019-12-23 20:09 | History and Physical Report ---
History of Present Illness Date of examination: 12/23/19 Date of admission: 12/23/19 18:43 Chief complaint: Chest pain for 1 week History of present illness: 54-year-old male with a past medical history of pulmonary embolism, DVT, and hypertension presents to the hospital complaining of intermittent chest tightness across his chest x1 week. Symptoms come and go without exertion. Very mild shortness of breath reported without nausea, vomiting, or diaphoresis. Pain was more persistent since 4 AM. Patient complains of intermittent cough productive of green phlegm without fever. Patient was seen by me last month and had a CT angiogram that showed a nonocclusive chronic PE as well as extensive deep venous thrombosis left lower extremity. Patient was noncompliant with his Coumadin at that time. Patient does not have a [place] filter. I started the patient on Eliquis twice daily x30-day supply. Patient states he has about 6 tablets left. He admits to intermittent compliance with Eliquis stating that when he drinks alcohol he does not take the Eliquis. Patient apparently drinks most weekends. Patient has not followed up with her primary care doctor as advised. He reports he had a negative stress test 4 to 5 years ago, he smokes cigarettes, denies elevated cholesterol. History of hypertension but he has never been placed on meds. Patient states his mom might have had CAD before the age of 65, Past Medical History Previous Medical History?: Yes Hypertension: Yes Diabetes: Yes (Brother) Deep Vein Thrombosis: Yes Pulmonary Embolism: Yes Additional medical history: DVT BLE Surgical History Past Surgical History?: No Social History Smoking Status: Current Every Day Smoker Substance Use Type: Alcohol Family history Htn - Medications Home Medications: Home Medications Medication Instructions Recorded Confirmed Last Taken Type Apixaban [Eliquis] 5 mg PO BID 12/23/19 12/23/19 Unknown History Review of Systems ROS: Constitutional no weight loss or weight gain no fever or chills HEENT no sore throat no post nasal drip no diplopia Neck no neck stiffness no lymph gland enlargement Chest and lungs no shortness of breath cough or wheezing CVS no chest pain no diaphoresis no palpitations GI no nausea no vomiting no diarrhea Genitourinary system no dysuria no flank pain Musculoskeletal system no muscle pains no joint pains LENS MARKER no syncope no seizures Skin no rash no itching Psychiatric no depression no homicidal or suicidal tendencies Hematologic no lymphedema or bruising Endocrine no polydipsia no polyuria no cold intolerance no heat intolerance Medications and Allergies Allergies Allergy/AdvReac Type Severity Reaction Status Date / Time No Known Allergies Allergy Unverified 06/11/13 13:49 Home Medications Medication Instructions Recorded Confirmed Last Taken Type Apixaban [Eliquis] 5 mg PO BID 12/23/19 12/23/19 Unknown History Active Meds: Active Medications Heparin Sodium/Sodium Chloride (Heparin/ 0.45% Nacl-25,000 Unit/500 Ml) 25,000 unit in 500 mls @ 18 mls/hr IV TITRATE VERENICE; Protocol Last Admin: 12/23/19 18:14 Dose: 900 units/hr, 18 mls/hr Documented by: Exam - Constitutional Vitals: Temp Pulse Resp BP Pulse Ox 98.6 F 63 19 129/78 98 12/23/19 12:48 12/23/19 19:45 12/23/19 19:45 12/23/19 19:45 12/23/19 19:45 General appearance: Present: no acute distress, well-nourished - EENT Eyes: Present: PERRL ENT: hearing intact, clear oral mucosa - Neck Neck: Present: supple, normal ROM - Respiratory Respiratory effort: normal Respiratory: bilateral: CTA - Cardiovascular Heart rate: 78 Rhythm: regular Heart Sounds: Present: S1 & S2. Absent: rub, click - Extremities Extremities: no ischemia, pulses intact, pulses symmetrical, No edema Peripheral Pulses: within normal limits - Abdominal General gastrointestinal: Present: soft, non-tender, non-distended, normal bowel sounds Male genitourinary: Present: normal - Integumentary Integumentary: Present: clear, warm, dry - Musculoskeletal Musculoskeletal: gait normal, strength equal bilaterally - Psychiatric Psychiatric: appropriate mood/affect, intact judgment & insight - Neurologic Neurologic: CNII-XII intact, moves all extremities - Allied Health Allied health notes reviewed: nursing, case management FRANCOISE score - Francoise Score Age > 65: (0) No Aspirin use within the Past 7 Days: (0) No 3 or more CAD Risk Factors: (0) No 2 or more Angina events in past 24 hrs: (1) Yes Known CAD with more than 50% Stenosis: (0) No Elevated Cardiac Markers: (1) Yes ST Deviation Greater than 0.5mm: (0) No FRANCOISE Score: 2 Results - Labs CBC & Chem 7: 12/23/19 13:24 12/23/19 13:24 Labs: Laboratory Last Values WBC 3.5 K/mm3 (4.5-11.0) L 12/23/19 13:24 RBC 3.93 M/mm3 (3.65-5.03) 12/23/19 13:24 Hgb 14.2 gm/dl (11.8-15.2) 12/23/19 13:24 Hct 41.5 % (35.5-45.6) 12/23/19 13:24 MCV 106 fl (84-94) H 12/23/19 13:24 MCH 36 pg (28-32) H 12/23/19 13:24 MCHC 34 % (32-34) 12/23/19 13:24 RDW 15.6 % (13.2-15.2) H 12/23/19 13:24 Plt Count 189 K/mm3 (140-440) 12/23/19 13:24 Lymph % (Auto) 50.8 % (13.4-35.0) H 12/23/19 13:24 [place] % (Auto) 10.1 % (0.0-7.3) H 12/23/19 13:24 Eos % (Auto) 0.8 % (0.0-4.3) 12/23/19 13:24 Baso % (Auto) 2.7 % (0.0-1.8) H 12/23/19 13:24 Lymph # 1.8 K/mm3 (1.2-5.4) 12/23/19 13:24 [place] # 0.4 K/mm3 (0.0-0.8) 12/23/19 13:24 Eos # 0.0 K/mm3 (0.0-0.4) 12/23/19 13:24 Baso # 0.1 K/mm3 (0.0-0.1) 12/23/19 13:24 Seg Neutrophils % 35.6 % (40.0-70.0) L 12/23/19 13:24 Seg Neutrophils # 1.2 K/mm3 (1.8-7.7) L 12/23/19 13:24 PT 12.9 Sec. (12.2-14.9) 12/23/19 16:36 INR 0.96 (0.87-1.13) 12/23/19 16:36 APTT 30.9 Sec. (24.2-36.6) 12/23/19 16:36 Sodium 140 mmol/L (137-145) 12/23/19 13:24 Potassium 3.8 mmol/L (3.6-5.0) 12/23/19 13:24 Chloride 103.4 mmol/L (98-107) 12/23/19 13:24 Carbon Dioxide 25 mmol/L (22-30) 12/23/19 13:24 Anion Gap 15 mmol/L 12/23/19 13:24 BUN 8 mg/dL (9-20) L 12/23/19 13:24 Creatinine 0.7 mg/dL (0.8-1.5) L 12/23/19 13:24 Estimated GFR > 60 ml/min 12/23/19 13:24 BUN/Creatinine Ratio 11 % 12/23/19 13:24 Glucose 80 mg/dL (75-100) 12/23/19 13:24 Calcium 9.1 mg/dL (8.4-10.2) 12/23/19 13:24 Troponin T 0.165 ng/mL (0.00-0.029) H* 12/23/19 15:24 Triglycerides 85 mg/dL (2-149) 12/23/19 15:24 Cholesterol 174 mg/dL (50-199) 12/23/19 15:24 LDL Cholesterol Direct 70 mg/dL (50-130) 12/23/19 15:24 HDL Cholesterol 101 mg/dL (40-59) H 12/23/19 15:24 Cholesterol/HDL Ratio 1.72 % 12/23/19 15:24 Short CBC 12/23/19 Range/Units 13:24 WBC 3.5 L (4.5-11.0) K/mm3 Hgb 14.2 (11.8-15.2) gm/dl Hct 41.5 (35.5-45.6) % Plt Count 189 (140-440) K/mm3 BMP 12/23/19 13:24 Sodium 140 Potassium 3.8 Chloride 103.4 Carbon Dioxide 25 BUN 8 L Creatinine 0.7 L Glucose 80 Calcium 9.1 Cardiac Enzymes 04/12/23/19 12/23/19 Range/Units 15:24 21:00 23:48 Troponin T 0.165 H* 0.356 H* D 0.276 H* D (0.00-0.029) ng/mL 12/24/19 Range/Units 04:28 Troponin T 0.284 H* (0.00-0.029) ng/mL - Imaging and Cardiology EKG: report reviewed Chest x-ray: report reviewed (NAF) CT scan - chest: report reviewed (CTA Chest --NAF) Davis/IV: IV Catheter Type [Left INT / Saline Lock Antecubital] Assessment and Plan Advance Directives: Yes (FC) VTE prophylaxis?: Chemical Plan of care discussed with patient/family: Yes - Patient Problems (1) NSTEMI (non-ST elevated myocardial infarction) Current Visit: Yes Status: Acute Plan to address problem: On IV Heparin drip For Lexiscan Cardiology consult (2) HTN (hypertension) Current Visit: No Status: Chronic Qualifiers: Hypertension type: essential hypertension Qualified Code(s): I10 - Essential (primary) hypertension Plan to address problem: cont Antihypertensives (3) History of DVT (deep vein thrombosis) Current Visit: No Status: Chronic Plan to address problem: On Eliquis but noncompliant (4) DVT prophylaxis Current Visit: Yes Status: Acute Plan to address problem: On Heparin drip
[2019-12-23] MEDS ORDERED: APIXABAN 5 MG TAB PO SCH (22:00)
[2019-12-24] MEDS ORDERED: ACETAMINOPHEN 325 MG TAB PO PRN (08:00)
[2019-12-24] MEDS ORDERED: oxyCODONE /ACETAMINOPHEN 5-325MG TAB PO PRN (08:00)
[2019-12-24] MEDS ORDERED: ONDANSETRON 4 MG/2 ML INJ IV PRN (08:00)
[2019-12-24] MEDS ORDERED: HYDROmorphone 1 MG/1 ML INJ IV PRN (08:00)
[2019-12-24] MEDS ORDERED: METOCLOPRAMIDE 10 MG/2 ML INJ IV PRN (08:00)
[2019-12-24] MEDS: HEPARIN/ 0.45% NACL DRIP 25,000 UNIT/500 ML BAG IV SCH (09:03)
[2019-12-24] MEDS ORDERED: FAMOTIDINE 20 MG TAB PO SCH (10:00)
[2019-12-24] MEDS ORDERED: SODIUM CHLORIDE 0.9% 500 ML 500 ML IV SCH (10:00)
--- NOTE | 2019-12-24 10:48 | Consultation ---
History of Present Illness Consult date: 12/24/19 Requesting physician: SELVIN FISHER Consult reason: chest pain, elevated troponin History of present illness: The pt is a 54-year-old male with a past medical history of PE and DVT initially diagnosed 4-5 years ago, HTN, tobacco use, ETOH abuse, noncompliance. He has been seen by our practice on a prior admission. He presented with c/o intermittent chest tightness across his chest x1 week. Symptoms come and go without exertion. Very mild shortness of breath reported without nausea, vomiting, or diaphoresis. Pain was more persistent since 4 AM yesterday morning. Patient was seen here in ED last month and had a CT angiogram that showed a nonocclusive chronic PE as well as extensive deep venous thrombosis left lower extremity. Patient was noncompliant with his Coumadin at that time. Patient does not have a Maura filter. Patient was discharged on Eliquis twice daily x30-day supply although he admits that he has not taken any Eliquis in about 2 weeks. Patient has not followed up with any primary care doctor as advised. Echo done 09/2014 showed normal lv function and no wall motion abnormalities. Stress test done 09/2014 was negative for ischemia. Past History Past Medical History: other (as per HPI) Medications and Allergies Allergies Allergy/AdvReac Type Severity Reaction Status Date / Time No Known Allergies Allergy Unverified 06/11/13 13:49 Home Medications Medication Instructions Recorded Confirmed Last Taken Type Apixaban [Eliquis] 5 mg PO BID 12/23/19 12/23/19 Unknown History Active Meds: Active Medications Acetaminophen (Tylenol) 650 mg PO Q4H PRN PRN Reason: Pain MILD(1-3)/Fever >100.5/TROY Famotidine (Pepcid) 20 mg PO BID VERENICE Last Admin: 12/24/19 09:04 Dose: 20 mg Documented by: Hydromorphone HCl (Dilaudid) 0.5 mg IV Q3H PRN PRN Reason: Pain , Severe (7-10) Heparin Sodium/Sodium Chloride (Heparin/ 0.45% Nacl-25,000 Unit/500 Ml) 25,000 unit in 500 mls @ 18 mls/hr IV TITRATE VERENICE; Protocol Last Admin: 12/24/19 09:03 Dose: 950 units/hr, 19 mls/hr Documented by: Sodium Chloride (Nacl 0.9% 500 Ml) 500 mls @ 50 mls/hr IV DIRECT [facility] Stop: 12/24/19 19:59 Metoclopramide HCl (Reglan) 10 mg IV Q6H PRN PRN Reason: Nausea And Vomiting Ondansetron HCl (Zofran) 4 mg IV Q8H PRN PRN Reason: Nausea And Vomiting Oxycodone/Acetaminophen (Percocet 5/325) 1 tab PO Q6H PRN PRN Reason: Pain, Moderate (4-6) Sodium Chloride (Sodium Chloride Flush Syringe 10 Ml) 10 ml IV BID [facility] Last Admin: 12/24/19 09:05 Dose: 10 ml Documented by: Sodium Chloride (Sodium Chloride Flush Syringe 10 Ml) 10 ml IV PRN PRN PRN Reason: LINE FLUSH Review of Systems Constitutional: no weight loss, no weight gain, no fever, no chills, no sweats Ears, nose, mouth and throat: no ear pain, no nose pain, no sinus pressure, no sinus pain Cardiovascular: chest pain, shortness of breath, no orthopnea, no palpitations, no rapid/irregular heart beat, no edema, no syncope, no lightheadedness Respiratory: shortness of breath, no cough, no congestion, no wheezing, no pain on inspiration Gastrointestinal: nausea, no abdominal pain, no vomiting, no diarrhea, no constipation, no change in bowel habits Genitourinary Male: no dysuria, no hematuria, no flank pain, no discharge, no urinary frequency, no urinary hesitancy Musculoskeletal: no neck stiffness, no neck pain, no shooting arm pain, no arm numbness/tingling, no low back pain, no shooting leg pain Integumentary: no rash, no pruritis, no redness, no sores, no wounds Neurological: no head injury, no paralysis, no weakness, no parathesias, no numbness, no tingling, no seizures, no syncope Psychiatric: no anxiety Endocrine: no cold intolerance, no heat intolerance Hematologic/Lymphatic: no easy bruising Allergic/Immunologic: no urticaria Physical Examination Vital Signs Temp Pulse Resp BP Pulse Ox 98.6 F 98 H 18 116/73 98 12/23/19 12:48 12/23/19 12:48 12/23/19 12:48 12/23/19 12:48 12/23/19 12:48 General appearance: no acute distress HEENT: Positive: PERRL, Normocephaly, Mucus Membranes Moist Neck: Positive: neck supple, trachea midline Cardiac: Positive: Reg Rate and Rhythm, S1/S2 Lungs: Positive: Decreased Breath Sounds Neuro: Positive: Grossly Intact Abdomen: Negative: Tender Skin: Negative: Rash Musculoskeletal: No Pain Extremities: Absent: edema Results 12/23/19 13:24 12/23/19 13:24 Coagulation 12/23/19 Range/Units 16:36 PT 12.9 (12.2-14.9) Sec. INR 0.96 (0.87-1.13) APTT 30.9 (24.2-36.6) Sec. Lipids 12/23/19 Range/Units 15:24 Triglycerides 85 (2-149) mg/dL Cholesterol 174 (50-199) mg/dL HDL Cholesterol 101 H (40-59) mg/dL Cholesterol/HDL Ratio 1.72 % CBC 12/23/19 Range/Units 13:24 WBC 3.5 L (4.5-11.0) K/mm3 RBC 3.93 (3.65-5.03) M/mm3 Hgb 14.2 (11.8-15.2) gm/dl Hct 41.5 (35.5-45.6) % Plt Count 189 (140-440) K/mm3 Lymph # 1.8 (1.2-5.4) K/mm3 Dale # 0.4 (0.0-0.8) K/mm3 Eos # 0.0 (0.0-0.4) K/mm3 Baso # 0.1 (0.0-0.1) K/mm3 Comprehensive Metabolic Panel 12/23/19 Range/Units 13:24 Sodium 140 (137-145) mmol/L Potassium 3.8 (3.6-5.0) mmol/L Chloride 103.4 (98-107) mmol/L Carbon Dioxide 25 (22-30) mmol/L BUN 8 L (9-20) mg/dL Creatinine 0.7 L (0.8-1.5) mg/dL Glucose 80 (75-100) mg/dL Calcium 9.1 (8.4-10.2) mg/dL - Imaging and Cardiology Echo: pending EKG: report reviewed, image reviewed EKG interpretations - Telemetry EKG Rhythm: Sinus Rhythm - EKG Sinus rhythms and dysrhythmias: sinus rhythm Assessment and Plan s/p lexiscan MPI stress test today which was negative for ischemia, EF 45%. echo pending. Currently stable cardiac status. Pt may discharge from cardiology standpoint on present cardiac regimen, including Eliquis 5mg BID. Recommend pt follow up in our office with Dr. Cuevas within 2 weeks of disc harge ([phone]). The patient has been seen in conjunction with Dr. Cuevas who agrees with the assessment and plan of care. - Patient Problems (1) NSTEMI (non-ST elevated myocardial infarction) Current Visit: Yes Status: Acute (2) Noncompliance with medication regimen Current Visit: Yes Status: Chronic (3) History of pulmonary embolism Current Visit: Yes Status: Chronic (4) HTN (hypertension) Current Visit: Yes Status: Chronic Qualifiers: Hypertension type: essential hypertension Qualified Code(s): I10 - Essential (primary) hypertension (5) History of DVT (deep vein thrombosis) Current Visit: Yes Status: Chronic (6) Tobacco use Current Visit: Yes Status: Chronic (7) ETOH abuse Current Visit: Yes Status: Chronic
[2019-12-24] MEDS ORDERED: REGADENOSON 0.4 MG/5 ML INJ IV ONE (10:56)
--- NOTE | 2019-12-24 12:13 | Progress Note ---
Assessment and Plan Assessment and plan: (1) NSTEMI (non-ST elevated myocardial infarction) Current Visit: Yes Status: Acute Plan to address problem: On IV Heparin drip For Lexiscan Cardiology consult (2) HTN (hypertension) Current Visit: No Status: Chronic Qualifiers: Hypertension type: essential hypertension Qualified Code(s): I10 - E ssential (primary) hypertension Plan to address problem: cont Antihypertensives (3) History of DVT (deep vein thrombosis) Current Visit: No Status: Chronic Plan to address problem: On Eliquis but noncompliant (4) DVT prophylaxis Current Visit: Yes Status: Acute Plan to address problem: On Heparin drip Hospitalist Physical - Physical exam Narrative exam: GEN: Not in acute distress, obese, lying in bed HEENT: Normocephalic, atraumatic, Neck: supple, No JVD Lungs: Clear to auscultation bilaterally, heart;S1 and S2 reg, no murmurs, rubs or gallop Abd:soft, non tender, non distended, normal bowel sounds, Ext: No edema, no clubbing, no cyanosis, Neuro: Awake,alert,oriented X3 , no focal signs, - Constitutional Vitals: Temp Pulse Resp BP Pulse Ox 98.5 F 74 18 156/84 99 12/24/19 07:41 12/24/19 11:33 12/24/19 10:00 12/24/19 11:33 12/24/19 10:00 General appearance: Present: no acute distress FRANCOISE score - Francoise Score Age > 65: (0) No Aspirin use within the Past 7 Days: (0) No 3 or more CAD Risk Factors: (0) No 2 or more Angina events in past 24 hrs: (1) Yes Known CAD with more than 50% Stenosis: (0) No Elevated Cardiac Markers: (1) Yes ST Deviation Greater than 0.5mm: (0) No FRANCOISE Score: 2 Results - Labs CBC & Chem 7: 12/23/19 13:24 12/23/19 13:24 Labs: Laboratory Last Values WBC 3.5 K/mm3 (4.5-11.0) L 12/23/19 13:24 RBC 3.93 M/mm3 (3.65-5.03) 12/23/19 13:24 Hgb 14.2 gm/dl (11.8-15.2) 12/23/19 13:24 Hct 41.5 % (35.5-45.6) 12/23/19 13:24 MCV 106 fl (84-94) H 12/23/19 13:24 MCH 36 pg (28-32) H 12/23/19 13:24 MCHC 34 % (32-34) 12/23/19 13:24 RDW 15.6 % (13.2-15.2) H 12/23/19 13:24 Plt Count 189 K/mm3 (140-440) 12/23/19 13:24 Lymph % (Auto) 50.8 % (13.4-35.0) H 12/23/19 13:24 [place] % (Auto) 10.1 % (0.0-7.3) H 12/23/19 13:24 Eos % (Auto) 0.8 % (0.0-4.3) 12/23/19 13:24 Baso % (Auto) 2.7 % (0.0-1.8) H 12/23/19 13:24 Lymph # 1.8 K/mm3 (1.2-5.4) 12/23/19 13:24 [place] # 0.4 K/mm3 (0.0-0.8) 12/23/19 13:24 Eos # 0.0 K/mm3 (0.0-0.4) 12/23/19 13:24 Baso # 0.1 K/mm3 (0.0-0.1) 12/23/19 13:24 Seg Neutrophils % 35.6 % (40.0-70.0) L 12/23/19 13:24 Seg Neutrophils # 1.2 K/mm3 (1.8-7.7) L 12/23/19 13:24 PT 12.9 Sec. (12.2-14.9) 12/23/19 16:36 INR 0.96 (0.87-1.13) 12/23/19 16:36 APTT 30.9 Sec. (24.2-36.6) 12/23/19 16:36 Heparin Anti-Xa Level 0.34 U.I./ml (0.3-0.7) 12/24/19 06:51 Sodium 140 mmol/L (137-145) 12/23/19 13:24 Potassium 3.8 mmol/L (3.6-5.0) 12/23/19 13:24 Chloride 103.4 mmol/L (98-107) 12/23/19 13:24 Carbon Dioxide 25 mmol/L (22-30) 12/23/19 13:24 Anion Gap 15 mmol/L 12/23/19 13:24 BUN 8 mg/dL (9-20) L 12/23/19 13:24 Creatinine 0.7 mg/dL (0.8-1.5) L 12/23/19 13:24 Estimated GFR > 60 ml/min 12/23/19 13:24 BUN/Creatinine Ratio 11 % 12/23/19 13:24 Glucose 80 mg/dL (75-100) 12/23/19 13:24 Hemoglobin A1c 4.9 % (4-6) 12/24/19 07:31 Calcium 9.1 mg/dL (8.4-10.2) 12/23/19 13:24 Troponin T 0.284 ng/mL (0.00-0.029) H* 12/24/19 04:28 Triglycerides 85 mg/dL (2-149) 12/23/19 15:24 Cholesterol 174 mg/dL (50-199) 12/23/19 15:24 LDL Cholesterol Direct 70 mg/dL (50-130) 12/23/19 15:24 HDL Cholesterol 101 mg/dL (40-59) H 12/23/19 15:24 Cholesterol/HDL Ratio 1.72 % 12/23/19 15:24 Davis/IV: Voiding Method Urinal IV Catheter Type [Left Forearm Peripheral IV ] IV Catheter Type [Left INT / Saline Lock Antecubital] Active Medications - Current Medications Current Medications: Generic Name Dose Route Start Last Admin Trade Name Freq PRN Reason Stop Dose Admin Acetaminophen 650 mg 12/24/19 08:00 Tylenol PO Q4H PRN Pain MILD(1-3)/Fever >100.5/TROY Famotidine 20 mg 12/24/19 10:00 12/24/19 09:04 Pepcid PO 20 mg BID VERENICE Administration Hydromorphone HCl 0.5 mg 12/24/19 08:00 Dilaudid IV Q3H PRN Pain , Severe (7-10) Heparin Sodium/Sodium Chloride 25,000 unit in 500 mls @ 18 mls/hr 12/23/19 18:00 12/24/19 09:03 Heparin/ 0.45% Nacl-25,000 Unit/500 Ml IV 950 units/hr TITRATE VERENICE 19 mls/hr Administration Protocol 900 UNITS/HR Sodium Chloride 500 mls @ 50 mls/hr 12/24/19 10:00 Nacl 0.9% 500 Ml IV 12/24/19 19:59 DIRECT VERENICE Metoclopramide HCl 10 mg 12/24/19 08:00 Reglan IV Q6H PRN Nausea And Vomiting Ondansetron HCl 4 mg 12/24/19 08:00 Zofran IV Q8H PRN Nausea And Vomiting Oxycodone/Acetaminophen 1 tab 12/24/19 08:00 Percocet 5/325 PO Q6H PRN Pain, Moderate (4-6) Sodium Chloride 10 ml 12/24/19 10:00 12/24/19 09:05 Sodium Chloride Flush Syringe 10 Ml IV 10 ml BID VERENICE Administration Sodium Chloride 10 ml 12/24/19 08:00 Sodium Chloride Flush Syringe 10 Ml IV PRN PRN LINE FLUSH
[2019-12-24 13:42] VITALS: BP 132/92
--- NOTE | 2019-12-24 13:59 | Discharge Summary ---
Providers - Providers Date of Admission: 12/23/19 18:43 Date of discharge: 12/24/19 Attending physician: MANA HOLDER 12/23/19 18:36 Consult to Physician [CONS] Urgent Comment: DR PHILLIP BROWN W/DR GROSS @[id number] Consulting Provider: ERIBERTO GROSS Physician Instructions: Reason For Exam: elevated trop, chest pain, chronic pe Primary care physician: PROCESS CHECKER Hospitalization Condition: Fair Disposition: DC-01 TO HOME OR SELFCARE Core Measure Documentation - Palliative Care Palliative Care/ Comfort Measures: Not Applicable - Core Measures Any of the following diagnoses?: none Exam - Constitutional Vitals: Temp Pulse Resp BP Pulse Ox 98.5 F 58 L 22 132/92 99 12/24/19 12:56 12/24/19 13:41 12/24/19 12:56 12/24/19 13:41 12/24/19 12:56 Plan Activity: no restrictions Diet: low fat, low cholesterol, low salt Plan of Treatment: 1.Follow u with PCP in 1 week. 2.Follow up with Dr. Cuevas in 2 weeks Follow up with: PRIMARY CARE,MD [Primary Care Provider] - 7 Days Prescriptions: Aspirin EC [Halfprin EC] 81 mg PO QDAY #30 tablet. AtorvaSTATin [Lipitor] 40 mg PO QHS #30 tablet Metoprolol [Lopressor TAB] 25 mg PO BID #60 tablet
[2019-12-24] MEDS ORDERED: METOPROLOL TARTRATE 25 MG TAB PO SCH (14:00)
[2019-12-24] MEDS ORDERED: APIXABAN 5 MG TAB PO SCH (14:00)
[2019-12-25] MEDS ORDERED: ASPIRIN 81 MG TAB CHEW PO SCH (10:00)
== END 2019-12-24 16:27 | disposition home or self-care (01) | DRG 281 ==
LOC: ED 12:36 → 4A 18:43
PROVIDERS: ADMIT Internal Medicine; ATTEND Internal Medicine
DX: I21.4 Non-ST elevation (NSTEMI) myocardial infarction (principal); F10.99 Alcohol use, unspecified with unspecified alcohol-induced disorder; I27.82 Chronic pulmonary embolism; I10 Essential (primary) hypertension; E78.00 Pure hypercholesterolemia, unspecified; F17.210 Nicotine dependence, cigarettes, uncomplicated; E11.9 Type 2 diabetes mellitus without complications; Z91.14 Patient's other noncompliance with medication regimen; Z86.718 Personal history of other venous thrombosis and embolism; Z79.01 Long term (current) use of anticoagulants; Z82.49 Family history of ischemic heart disease and other diseases of the circulatory system; Z83.3 Family history of diabetes mellitus; Y90.9 Presence of alcohol in blood, level not specified
CPT/HCPCS: 36415; 71046; 71275; 78452; 80048; 80061; 83036; 84484; 85025; 85520; 85610; 85730; 93005; 93017; 93306; G0378; A9502; J1644; J2785; Q9967

== ENCOUNTER 2020-07-13 01:18 | Emergency (ER) | payer SELFPAY ==
--- NOTE | 2020-07-13 03:35 | XRay Report ---
CHEST 1 VIEW INDICATION / CLINICAL INFORMATION: Chest Pain. COMPARISON: 12/23/2019 FINDINGS: SUPPORT DEVICES: None. HEART / MEDIASTINUM: No significant abnormality. LUNGS / PLEURA: No significant pulmonary or pleural abnormality. No pneumothorax. ADDITIONAL FINDINGS: No significant additional findings. IMPRESSION: 1. No acute findings. No interval change. Signer Name: Sil Patino MD Signed: 07/13/2020 3:31 AM Workstation Name: [id number]
[2020-07-13 03:37] LABS: Hematocrit 42.4 % (35.5-45.6); Hemoglobin 14.8 gm/dl (11.8-15.2); Mean Corpuscular HGB Conc 35 % (32-34); Mean Corpuscular Volume 110 fl (84-94); Red Blood Count 3.87 M/mm3 (3.65-5.03); Red Cell Distribution Width 15.5 % (13.2-15.2)
--- NOTE | 2020-07-13 03:37 | Emergency Department Report ---
ED Chest Pain HPI - General Chief Complaint: Chest Pain Stated Complaint: LF SIDE PAIN Time Seen by Provider: 07/13/20 02:56 Source: patient Mode of arrival: Ambulatory Limitations: No Limitations - History of Present Illness Initial Comments: 85-year-old male presents to ED with left-sided pain x3 days. Patient states pain initially started in his left shoulder and has since radiated down to his left leg and across his entire chest. Patient states pain in the left shoulder is worse with movement of shoulder or rotation of neck leftward . Patient reports runny nose, congestion, cough. He denies fever. Patient denies Covid infection or known exposure to anyone who has tested positive for COVID-19. MD Complaint: chest pain -: days(s) (3) Onset: during rest Pain Location: other (Anterior chest) Pain Radiation: other (Entire left side) Severity: mild Quality: other (Muscle ache) Consistency: intermittent Improves With: remaining still Worsens With: movement re: denies: nausea, vomting, diaphoresis, dyspnea Other Symptoms: cough. denies: fever, leg swelling - Related Data Home Medications Medication Instructions Recorded Confirmed Last Taken Apixaban [Eliquis] 5 mg PO BID 12/23/19 12/23/19 Unknown Previous Rx's Medication Instructions Recorded Last Taken Type Aspirin EC [Halfprin EC] 81 mg PO QDAY #30 tablet. 12/24/19 Unknown Rx AtorvaSTATin [Lipitor] 40 mg PO QHS #30 tablet 12/24/19 Unknown Rx Metoprolol [Lopressor TAB] 25 mg PO BID #60 tablet 12/24/19 Unknown Rx Allergies Allergy/AdvReac Type Severity Reaction Status Date / Time No Known Allergies Allergy Unverified 06/11/13 13:49 Heart Score - HEART Score History: Slightly suspicious EKG: Non-specific Age: 45-65 Risk factors: 1-2 risk factors Troponin: < normal limit HEART Score: 3 ED Review of Systems ROS: Stated complaint: LF SIDE PAIN Other details as noted in HPI Comment: All other systems reviewed and negative Constitutional: denies: fever Respiratory: cough. denies: shortness of breath Cardiovascular: chest pain Musculoskeletal: as per HPI ED Past Medical Hx - Past Medical History Previous Medical History?: Yes Hx Hypertension: Yes Hx Heart Attack/AMI: No Hx Congestive Heart Failure: No Hx Diabetes: Yes (Brother) Hx Deep Vein Thrombosis: Yes Hx Pulmonary Embolism: Yes Hx Liver Disease: No Hx Renal Disease: No Hx Sickle Cell Disease: No Hx Arthritis: No Hx Seizures: No Hx Kidney Stones: No Hx Asthma: No Hx COPD: No Hx Tuberculosis: No Hx Dementia: No Hx HIV: No Additional medical history: DVT BLE - Surgical History Hx Coronary Stent: No Hx Open Heart Surgery: No Hx Pacemaker: No Hx Internal Defibrillator: No Hx Cholecystectomy: No Hx Appendectomy: No Hx Breast Surgery: No - Social History Smoking Status: Current Every Day Smoker Substance Use Type: Alcohol - Medications Home Medications: Home Medications Medication Instructions Recorded Confirmed Last Taken Type Apixaban [Eliquis] 5 mg PO BID 12/23/19 12/23/19 Unknown History Aspirin EC [Halfprin EC] 81 mg PO QDAY #30 tablet. 12/24/19 Unknown Rx AtorvaSTATin [Lipitor] 40 mg PO QHS #30 tablet 12/24/19 Unknown Rx Metoprolol [Lopressor TAB] 25 mg PO BID #60 tablet 12/24/19 Unknown Rx ED Physical Exam - General Limitations: No Limitations General appearance: alert, in no apparent distress - Head Head exam: Present: atraumatic, normocephalic - Eye Eye exam: Present: normal appearance, EOMI - ENT ENT exam: Present: mucous membranes moist - Neck Neck exam: Present: normal inspection - Respiratory Respiratory exam: Present: normal lung sounds bilaterally, chest wall tenderness. Absent: respiratory distress - Cardiovascular Cardiovascular Exam: Present: regular rate, normal rhythm - GI/Abdominal GI/Abdominal exam: Present: soft. Absent: distended, tenderness - Extremities Exam Extremities exam: Present: other (No swelling or deformity to left shoulder, pain with range of motion of left shoulder, tenderness to the left trapezius area) - Neurological Exam Neurological exam: Present: alert, oriented X3 - Psychiatric Psychiatric exam: Present: normal affect, normal mood - Skin Skin exam: Present: warm, dry, intact, normal color ED Course Vital Signs 07/13/20 07/13/20 07/13/20 02:38 03:15 03:30 Temperature 98.1 F 98.5 F Pulse Rate 90 76 78 Respiratory 17 19 13 Rate Blood Pressure 117/80 132/82 132/88 Blood Pressure 132/82 [Left] O2 Sat by Pulse 98 99 94 Oximetry 07/13/20 07/13/20 07/13/20 03:45 04:00 04:15 Temperature Pulse Rate 93 H 67 69 Respiratory 15 19 18 Rate Blood Pressure 132/88 137/83 137/83 Blood Pressure [Left] O2 Sat by Pulse 100 95 96 Oximetry FRANCOISE score - Francoise Score Age > 65: (0) No Aspirin use within the Past 7 Days: (0) No 3 or more CAD Risk Factors: (0) No 2 or more Angina events in past 24 hrs: (1) Yes Known CAD with more than 50% Stenosis: (0) No Elevated Cardiac Markers: (1) Yes ST Deviation Greater than 0.5mm: (0) No FRANCOISE Score: 2 ED Medical Decision Making - Lab Data Result diagrams: 07/13/20 03:00 07/13/20 03:00 - EKG Data -: EKG Interpreted by Me EKG shows normal: sinus rhythm, axis, intervals, QRS complexes, ST-T waves Rate: normal - EKG Data Interpretation: nonspecific ST-T wave yandel - Radiology Data Radiology results: report reviewed, image reviewed - Medical Decision Making 55-year-old male with URI symptoms and left shoulder pain that radiates across the chest and down his left side. Pain seems to be musculoskeletal in origin. EKG shows no acute changes. Troponin is negative. Chest x-ray is unremarkable. Patient had a normal stress test December 2019. Vital signs are stable. Will discharge at this time. Advised patient to obtain Covid testing. - Differential Diagnosis Musculoskeletal strain, ACS, COVID-19 Critical care attestation.: If time is entered above; I have spent that time in minutes in the direct care of this critically ill patient, excluding procedure time. ED Disposition Clinical Impression: URI (upper respiratory infection), Left shoulder strain, Hypokalemia Disposition: TO HOME OR SELFCARE Is pt being admited?: No Condition: Stable Instructions: Viral Respiratory Infection, [id number], Muscle Strain Additional Instructions: You should obtain outpatient COVID-19 testing. Referrals: PRIMARY MD ZHANG [Primary Care Provider] - 3-5 Days [facility] [Provider Group] - 3-5 Days Time of Disposition: 04:54
[2020-07-13 03:55] LABS: Blood Urea Nitrogen 6 mg/dL (9-20); Calcium 8.5 mg/dL (8.4-10.2); Hemolysis Index 7
[2020-07-13 03:58] LABS: BUN/Creatinine Ratio 9
[2020-07-13 04:26] LABS: Platelet Count 81 K/mm3 (140-440)
[2020-07-13] MEDS ORDERED: POTASSIUM CHLORIDE ER 20 MEQ TAB PO ONE (04:55)
[2020-07-13 05:05] VITALS: BP 136/80
[2020-07-13 06:27] LABS: Basophils % (Manual) 0 % (0.0-1.8); Eosinophils % (Manual) 0 % (0.0-4.3); Total Cells Counted 100
[2020-07-13 06:29] LABS: Platelet Estimate Consistent w Auto
== END 2020-07-13 05:10 | disposition home or self-care (01) ==
LOC: ED 01:18
DX: S46.912A Strain of unspecified muscle, fascia and tendon at shoulder and upper arm level, left arm, initial encounter (principal); E87.6 Hypokalemia; J06.9 Acute upper respiratory infection, unspecified; I10 Essential (primary) hypertension; E11.9 Type 2 diabetes mellitus without complications; F17.200 Nicotine dependence, unspecified, uncomplicated; Z79.82 Long term (current) use of aspirin; Z79.899 Other long term (current) drug therapy; X50.9XXA Other and unspecified overexertion or strenuous movements or postures, initial encounter; Y93.89 Activity, other specified; Y92.89 Other specified places as the place of occurrence of the external cause; Y99.8 Other external cause status
CPT/HCPCS: 36415; 71045; 80048; 84484; 85007; 85025; 93005

== ENCOUNTER 2020-07-22 13:50 | Emergency (ER) | payer SELFPAY ==
--- NOTE | 2020-07-22 14:33 | Event Note ---
ED Screening Note ED Screening Note: productive cough 3 days ago chest discomfort after cough no SOB no fever +diarrhea no n/v no sore throat no ear pain no abd pain no leg swelling PMHx DVT 8-9 years ago, HTN was previously on coumadin, stopped about a year ago no allergies to meds This initial assessment/diagnostic orders/clinical plan/treatment(s) is/are subject to change based on patients health status, clinical progression and re- assessment by fellow clinical providers in the ED. Further treatment and workup at subsequent clinical providers discretion. Patient/guardian urged not to elope from the ED as their condition may be serious if not clinically assessed and managed. Initial orders include: labs, cxr, ekg
[2020-07-22 15:01] LABS: Hematocrit 42.8 % (35.5-45.6); Hemoglobin 14.7 gm/dl (11.8-15.2); Mean Corpuscular HGB Conc 34 % (32-34); Red Blood Count 3.88 M/mm3 (3.65-5.03)
[2020-07-22 15:16] LABS: Alanine Aminotransferase 30 units/L (7-56); Albumin 3.9 g/dL (3.9-5); Blood Urea Nitrogen 5 mg/dL (9-20); Calcium 8.7 mg/dL (8.4-10.2); Hemolysis Index 8
[2020-07-22 15:17] LABS: BUN/Creatinine Ratio 8
[2020-07-22 15:18] LABS: Mean Corpuscular Volume 110 fl (84-94); Platelet Count 90 K/mm3 (140-440)
--- NOTE | 2020-07-22 15:24 | XRay Report ---
CHEST 2 VIEWS INDICATION / CLINICAL INFORMATION: productive cough. COMPARISON: 07/13/2020 FINDINGS: SUPPORT DEVICES: None. HEART / MEDIASTINUM: No significant abnormality. LUNGS / PLEURA: No significant pulmonary or pleural abnormality. No pneumothorax. ADDITIONAL FINDINGS: No significant additional findings. IMPRESSION: 1. No acute findings. No significant change Signer Name: Abhilash Priest MD Signed: 07/22/2020 3:19 PM Workstation Name: [id number]
[2020-07-22 15:40] LABS: Basophils % (Manual) 0 % (0.0-1.8); Total Cells Counted 100
[2020-07-22 15:43] LABS: Anisocytosis 1+; Ovalocytes Few; Platelet Estimate Consistent w Auto
--- NOTE | 2020-07-22 22:08 | Emergency Department Report ---
- General Chief Complaint: Chest Pain Stated Complaint: CHEST PAIN/BODY ACHES Time Seen by Provider: 07/22/20 14:31 Source: patient Mode of arrival: Ambulatory Limitations: No Limitations - History of Present Illness Initial Comments: Patient is a 55-year-old F [place] male who works at the [employer] [place] who is presenting with 4 days of cough which is productive of yellow sputum. Patient also states he has some body aches and some subjective chills. He is a heavy smoker. Patient was told he was unable to return back to work until he has COVID-19 testing. He denies any sore throat neck stiffness nausea vomiting. States he does have some sharp pains when he coughs occasionally but this is not consistent. - Related Data Home Medications Medication Instructions Recorded Confirmed Last Taken Apixaban [Eliquis] 5 mg PO BID 12/23/19 12/23/19 Unknown Previous Rx's Medication Instructions Recorded Last Taken Type Aspirin EC [Halfprin EC] 81 mg PO QDAY #30 tablet. 12/24/19 Unknown Rx AtorvaSTATin [Lipitor] 40 mg PO QHS #30 tablet 12/24/19 Unknown Rx Metoprolol [Lopressor TAB] 25 mg PO BID #60 tablet 12/24/19 Unknown Rx methOCARBAMOL [Robaxin TAB] 500 mg PO Q8HR PRN #20 tablet 07/13/20 Unknown Rx Albuterol Mdi (or & Nicu Only) 2 puff IH QID PRN #1 inhalation 07/22/20 Unknown Rx [ProAir HFA Inhaler] Azithromycin [Zithromax Z-AFTAB] 250 mg PO DAILY #6 tablet 07/22/20 Unknown Rx Benzonatate [Tessalon Perles] 100 mg PO Q8HR #14 capsule 07/22/20 Unknown Rx Fluticasone [Flonase] 1 spray NS QDAY #1 bottle 07/22/20 Unknown Rx HYDROcodone/APAP 5-325 [[place] 1 each PO Q6HR PRN #14 tablet 07/22/20 Unknown Rx 5/325] predniSONE [Deltasone] 20 mg PO QDAY #5 tab 07/22/20 Unknown Rx Allergies Allergy/AdvReac Type Severity Reaction Status Date / Time No Known Allergies Allergy Verified 07/22/20 14:02 ED Review of Systems ROS: Stated complaint: CHEST PAIN/BODY ACHES Other details as noted in HPI Comment: All other systems reviewed and negative ED Past Medical Hx - Past Medical History Hx Hypertension: Yes Hx Heart Attack/AMI: No Hx Congestive Heart Failure: No Hx Diabetes: Yes (Brother) Hx Deep Vein Thrombosis: Yes Hx Pulmonary Embolism: Yes Hx Liver Disease: No Hx Renal Disease: No Hx Sickle Cell Disease: No Hx Arthritis: No Hx Seizures: No Hx Kidney Stones: No Hx Asthma: No Hx COPD: No Hx Tuberculosis: No Hx Dementia: No Hx HIV: No Additional medical history: DVT BLE - Surgical History Hx Coronary Stent: No Hx Open Heart Surgery: No Hx Pacemaker: No Hx Internal Defibrillator: No Hx Cholecystectomy: No Hx Appendectomy: No Hx Breast Surgery: No - Social History Smoking Status: Current Every Day Smoker Substance Use Type: Alcohol - Medications Home Medications: Home Medications Medication Instructions Recorded Confirmed Last Taken Type Apixaban [Eliquis] 5 mg PO BID 12/23/19 12/23/19 Unknown History Aspirin EC [Halfprin EC] 81 mg PO QDAY #30 tablet. 12/24/19 Unknown Rx AtorvaSTATin [Lipitor] 40 mg PO QHS #30 tablet 12/24/19 Unknown Rx Metoprolol [Lopressor TAB] 25 mg PO BID #60 tablet 12/24/19 Unknown Rx methOCARBAMOL [Robaxin TAB] 500 mg PO Q8HR PRN #20 tablet 07/13/20 Unknown Rx Albuterol Mdi (or & Nicu Only) 2 puff IH QID PRN #1 inhalation 07/22/20 Unknown Rx [ProAir HFA Inhaler] Azithromycin [Zithromax Z-AFTBA] 250 mg PO DAILY #6 tablet 07/22/20 Unknown Rx Benzonatate [Tessalon Perles] 100 mg PO Q8HR #14 capsule 07/22/20 Unknown Rx Fluticasone [Flonase] 1 spray NS QDAY #1 bottle 07/22/20 Unknown Rx HYDROcodone/APAP 5-325 [[place] 1 each PO Q6HR PRN #14 tablet 07/22/20 Unknown Rx 5/325] predniSONE [Deltasone] 20 mg PO QDAY #5 tab 07/22/20 Unknown Rx ED Physical Exam - General Limitations: No Limitations General appearance: alert, in no apparent distress - Head Head exam: Present: atraumatic, normocephalic - Eye Eye exam: Present: normal appearance - ENT ENT exam: Present: normal orophraynx, mucous membranes moist - Neck Neck exam: Present: normal inspection - Respiratory Respiratory exam: Present: normal lung sounds bilaterally. Absent: respiratory distress, wheezes, rales, rhonchi - Cardiovascular Cardiovascular Exam: Present: regular rate, normal rhythm, normal heart sounds. Absent: systolic murmur, diastolic murmur, rubs, gallop - GI/Abdominal GI/Abdominal exam: Present: soft, normal bowel sounds. Absent: distended, tenderness, guarding, rebound - Rectal Rectal exam: Present: deferred - Extremities Exam Extremities exam: Present: normal inspection - Back Exam Back exam: Present: normal inspection - Neurological Exam Neurological exam: Present: alert, oriented X3 - Psychiatric Psychiatric exam: Present: normal affect, normal mood - Skin Skin exam: Present: warm, dry, intact, normal color. Absent: rash ED Course Vital Signs 07/22/20 14:03 Temperature 99.0 F Pulse Rate 121 H Respiratory 18 Rate Blood Pressure 128/99 O2 Sat by Pulse 98 Oximetry ED Medical Decision Making - Lab Data Result diagrams: 07/22/20 14:43 07/22/20 14:43 Lab Results 07/22/20 07/22/20 Range/Units 14:43 14:43 WBC 2.8 L (4.5-11.0) K/mm3 RBC 3.88 (3.65-5.03) M/mm3 Hgb 14.7 (11.8-15.2) gm/dl Hct 42.8 (35.5-45.6) % MCV 110 H (84-94) fl MCH 38 H (28-32) pg MCHC 34 (32-34) % RDW 15.0 (13.2-15.2) % Plt Count 90 L (140-440) K/mm3 [place] % (Auto) Medical Aides Teacher Add Manual Diff Complete Total Counted 100 Seg Neuts % (Manual) 56.0 (40.0-70.0) % Band Neutrophils % 0 % Lymphocytes % (Manual) 26.0 (13.4-35.0) % Reactive Lymphs % (Man) 0 % Monocytes % (Manual) 17.0 H (0.0-7.3) % Eosinophils % (Manual) 1.0 (0.0-4.3) % Basophils % (Manual) 0 (0.0-1.8) % Metamyelocytes % 0 % Myelocytes % 0 % Promyelocytes % 0 % Blast Cells % 0 % Nucleated RBC % Not Reportable Seg Neutrophils # Man 1.6 L (1.8-7.7) K/mm3 Band Neutrophils # 0.0 K/mm3 Lymphocytes # (Manual) 0.7 L (1.2-5.4) K/mm3 Abs React Lymphs (Man) 0.0 K/mm3 Monocytes # (Manual) 0.5 (0.0-0.8) K/mm3 Eosinophils # (Manual) 0.0 (0.0-0.4) K/mm3 Basophils # (Manual) 0.0 (0.0-0.1) K/mm3 Metamyelocytes # 0.0 K/mm3 Myelocytes # 0.0 K/mm3 Promyelocytes # 0.0 K/mm3 Blast Cells # 0.0 K/mm3 WBC Morphology Not Reportable Hypersegmented Neuts Not Reportable Hyposegmented Neuts Not Reportable Hypogranular Neuts Not Reportable Smudge Cells Not Reportable Toxic Granulation Not Reportable Toxic Vacuolation Not Reportable Dohle Bodies Not Reportable Pelger-Huet Anomaly Not Reportable Zeina Rods Not Reportable Platelet Estimate Consistent w auto Clumped Platelets Not Reportable Plt Clumps, EDTA Not Reportable Large Platelets Not Reportable Giant Platelets Not Reportable Platelet Satelliting Not Reportable Plt Morphology Comment Not Reportable RBC Morphology Not Reportable Dimorphic RBCs Not Reportable Polychromasia Not Reportable Hypochromasia Not Reportable Poikilocytosis Not Reportable Anisocytosis 1+ Microcytosis Not Reportable Macrocytosis Not Reportable Spherocytes Not Reportable Pappenheimer Bodies Not Reportable Sickle Cells Not Reportable Target Cells Not Reportable Tear Drop Cells Not Reportable Ovalocytes Few Helmet Cells Not Reportable Triana-[place] Bodies Not Reportable [place] Rings Not Reportable [place] Cells Not Reportable Bite Cells Not Reportable Crenated Cell Not Reportable Elliptocytes Not Reportable Acanthocytes (Spur) Not Reportable Rouleaux Not Reportable Hemoglobin C Crystals Not Reportable Schistocytes Not Reportable Malaria parasites Not Reportable Barry Bodies Not Reportable Hem Pathologist Commnt No Sodium 139 (137-145) mmol/L Potassium 3.1 L (3.6-5.0) mmol/L Chloride 96.8 L (98-107) mmol/L Carbon Dioxide 30 (22-30) mmol/L Anion Gap 15 mmol/L BUN 5 L (9-20) mg/dL Creatinine 0.6 L (0.8-1.3) mg/dL Estimated GFR > 60 ml/min BUN/Creatinine Ratio 8 % Glucose 93 (75-100) mg/dL Calcium 8.7 (8.4-10.2) mg/dL Total Bilirubin 0.90 (0.1-1.2) mg/dL AST 73 H (5-40) units/L ALT 30 (7-56) units/L Alkaline Phosphatase 71 (35-129) units/L Troponin T < 0.010 (0.00-0.029) ng/mL Total Protein 7.7 (6.3-8.2) g/dL Albumin 3.9 (3.9-5) g/dL Albumin/Globulin Ratio 1.0 % - Radiology Data Patient: OLGA TOBIN MR#: [id number] : 1965 Acct:[id number] Age/Sex: 55 / M ADM Date: 07/22/20 Loc: ED Attending Dr: Ordering Physician: ASHLEY MILLER Date of Service: 07/22/20 Procedure(s): XR chest routine 2V Accession Number(s): [id number] cc: ASHLEY MILLER Fluoro Time In Minutes: CHEST 2 VIEWS INDICATION / CLINICAL INFORMATION: productive cough. COMPARISON: 07/13/2020 FINDINGS: SUPPORT DEVICES: None. HEART / MEDIASTINUM: No significant abnormality. LUNGS / PLEURA: No significant pulmonary or pleural abnormality. No pneumothorax. ADDITIONAL FINDINGS: No significant additional findings. IMPRESSION: 1. No acute findings. No significant change Signer Name: Abhilash Priest MD Signed: 07/22/2020 3:19 PM Workstation Name: [id number] - Medical Decision Making Patient's differential includes pneumonia, acute bronchitis, smokers bronchitis, bronchitis secondary to COVID-19. Acute coronary syndrome congestive heart failure. Patient's chest x-ray is within normal limits. His oxygen levels 100%. There is since the patient does have a chills body aches cough and diarrhea COVID-19 is top of the differential. He does have an appointment in 3 days to get COVID-19 testing. Patient is been instructed to quarantine until that time. Will give medication for symptomatic relief. Will add azithromycin since the patient bronchitis is of a high risk nature since the patient does have a heavy smoking history. Patient will be discharged home. Critical care attestation.: If time is entered above; I have spent that time in minutes in the direct care of this critically ill patient, excluding procedure time. ED Disposition Clinical Impression: Acute bronchitis, Suspected COVID-19 virus infection, Costochondral chest pain, Smoker Disposition: TO HOME OR SELFCARE Is pt being admited?: No Does the pt Need Aspirin: No Condition: Stable Instructions: Acute Bronchitis (ED), Chest Pain (ED), Acute Bronchitis, Adult, Chest Wall Pain, [id number], COVID-19 Frequently Asked Questions, Coping with Quitting Smoking, Steps to Quit Smoking Referrals: [facility] MD MATT [Referring] - 3-5 Days Time of Disposition: 22:11
[2020-07-22 22:25] VITALS: BP 127/68
== END 2020-07-22 22:23 | disposition home or self-care (01) ==
LOC: ED 13:50
DX: J20.9 Acute bronchitis, unspecified (principal); M94.0 Chondrocostal junction syndrome [Tietze]; F17.200 Nicotine dependence, unspecified, uncomplicated; I10 Essential (primary) hypertension; E11.9 Type 2 diabetes mellitus without complications; Z79.82 Long term (current) use of aspirin; Z79.899 Other long term (current) drug therapy; Z20.828 Contact with and (suspected) exposure to other viral communicable diseases
CPT/HCPCS: 36415; 71046; 80053; 84484; 85007; 85025; 93005; 99283

== ENCOUNTER 2020-12-07 16:21 | Observation (INO) | payer OTHER, SELFPAY ==
--- NOTE | 2020-12-07 17:29 | Event Note ---
ED Screening Note Date of service: 12/07/20 Time: 17:27 ED Screening Note: 55-year-old male patient with history of hypertension, venous thromboembolism, and tobacco use presents to emergency department with complaints of chest pain and back pain starting yesterday. Patient attributes his pain to lifting something heavy at work. Describes the pain as "sharp." States he was previously treated for DVT with Coumadin but stopped taking his medication "a while ago." General: Awake, appropriately interactive, no acute distress. Neck: Supple. Full range of motion intact. Cardiovascular: Regular rate and rhythm. Normal peripheral perfusion. Reproducible anterior chest wall tenderness. Pulmonary: No respiratory distress. Patient is speaking normally without use of accessory muscles. Skin: No apparent rashes or lesions. Neurological: No facial asymmetry. Speech is clear. Follows commands. Patient is alert and oriented. Musculoskeletal: Moves all four extremities spontaneously with normal range of motion. Psych: Cooperative. Appropriate mood and affect. I have greeted and performed a focused rapid initial assessment of this patient. A comprehensive ED assessment and evaluation of the patient, analysis of all test results, and completion of the medical decision-making process will be conducted by additional ED providers. This initial assessment/diagnostic orders/clinical plan/treatment(s) is/are subject to change based on patients health status, clinical progression and re-assessment. Further treatment and workup at subsequent clinical provider's discretion. Patient/guardian urged not to elope from the ED as their condition may be serious if not clinically assessed and managed.
[2020-12-07 17:40] LABS: Hematocrit 39.8 % (35.5-45.6); Hemoglobin 13.8 gm/dl (11.8-15.2); Mean Corpuscular HGB Conc 35 % (32-34); Red Blood Count 3.53 M/mm3 (3.65-5.03); Red Cell Distribution Width 14.8 % (13.2-15.2)
[2020-12-07 17:45] LABS: Mean Corpuscular Volume 113 fl (84-94); Platelet Count 73 K/mm3 (140-440)
--- NOTE | 2020-12-07 18:06 | XRay Report ---
CHEST PA AND LATERAL VIEWS INDICATION: chest pain. COMPARISON: 07/22/2020 FINDINGS: Support devices: None Heart: Normal and unchanged Lungs/Pleura: No acute pulmonary or pleural findings. IMPRESSION: 1. No active disease and no interval change. 2 Signer Name: Francisco J Valencia MD Signed: 12/07/2020 6:01 PM Workstation Name: [id number]
[2020-12-07 18:08] LABS: Alanine Aminotransferase 44 units/L (7-56); BUN/Creatinine Ratio 13; Blood Urea Nitrogen 10 mg/dL (9-20); Calcium 8.4 mg/dL (8.4-10.2); Hemolysis Index 17
[2020-12-07 18:18] LABS: Total Cells Counted 100
[2020-12-07 18:20] LABS: Anisocytosis 1+; Macrocytosis Rare; Platelet Estimate Consistent w Auto
[2020-12-08] MEDS ORDERED: MAGNESIUM SULFATE 2 GM/50 ML BAG IV ONE (00:58)
[2020-12-08] MEDS ORDERED: metroNIDAZOLE 500 MG TAB PO ONE (01:07)
[2020-12-08] MEDS ORDERED: ASPIRIN 325 MG TAB PO ONE (01:08)
[2020-12-08] MEDS ORDERED: fentaNYL 100 MCG/2 ML INJ IV ONE (01:08)
[2020-12-08] MEDS ORDERED: ONDANSETRON 4 MG/2 ML INJ IV ONE (01:08)
[2020-12-08] MEDS ORDERED: CYCLOBENZAPRINE 10 MG TAB PO ONE (01:08)
--- NOTE | 2020-12-08 01:12 | Emergency Department Report ---
HPI - General Chief Complaint: Extremity Injury, Upper Time Seen by Provider: 12/08/20 00:57 - HPI HPI: Room 23 The patient is a 55-year-old male present with a chief complaint of chest pain, back pain and STD exposure. The patient states yesterday while pulling machine up the stairs he felt a pull in his back in the lumbar spine region. Patient states he has had pain ever since. The patient states approximate 1 hour later he developed intermittent substernal chest pain has been sharp in nature associated with shortness of breath. Patient denies nausea/vomiting or diaphoresis. Patient denies cough or fever. The patient notes also states that his sexual partner was recently diagnosed with trichomonas and told him that he needs to be checked out. Patient denies dysuria or penile discharge. The patient states he last had intercourse with his partner 2 days ago. Patient states his last stress test occurred 2 years ago but he is never had a cardiac catheterization ED Past Medical Hx - Past Medical History Hx Hypertension: Yes Hx Deep Vein Thrombosis: Yes Hx Pulmonary Embolism: Yes Additional medical history: DVT BLE - Family History Family history: diabetes (Brother) - Social History Smoking Status: Current Every Day Smoker (1/2 pack/day) Substance Use Type: None (Denies illicit drug use), Alcohol (Frequently) - Medications Home Medications: Home Medications Medication Instructions Recorded Confirmed Last Taken Type Apixaban [Eliquis] 5 mg PO BID 12/23/19 12/23/19 Unknown History Aspirin EC [Halfprin EC] 81 mg PO QDAY #30 tablet. 12/24/19 Unknown Rx AtorvaSTATin [Lipitor] 40 mg PO QHS #30 tablet 12/24/19 Unknown Rx Metoprolol [Lopressor TAB] 25 mg PO BID #60 tablet 12/24/19 Unknown Rx methOCARBAMOL [Robaxin TAB] 500 mg PO Q8HR PRN #20 tablet 07/13/20 Unknown Rx Albuterol Mdi (or & Nicu Only) 2 puff IH QID PRN #1 inhalation 07/22/20 Unknown Rx [ProAir HFA Inhaler] Azithromycin [Zithromax Z-AFTAB] 250 mg PO DAILY #6 tablet 07/22/20 Unknown Rx Benzonatate [Tessalon Perles] 100 mg PO Q8HR #14 capsule 07/22/20 Unknown Rx Fluticasone [Flonase] 1 spray NS QDAY #1 bottle 07/22/20 Unknown Rx HYDROcodone/APAP 5-325 [[place] 1 each PO Q6HR PRN #14 tablet 07/22/20 Unknown Rx 5/325] predniSONE [Deltasone] 20 mg PO QDAY #5 tab 07/22/20 Unknown Rx ED Review of Systems ROS: Stated complaint: CHEST PAIN Other details as noted in HPI Constitutional: denies: diaphoresis, fever Eyes: denies: eye pain ENT: denies: throat pain Respiratory: shortness of breath. denies: cough Cardiovascular: chest pain Endocrine: no symptoms reported Gastrointestinal: denies: nausea, vomiting Genitourinary: denies: dysuria, discharge Musculoskeletal: back pain Neurological: denies: headache Physical Exam - Physical Exam Vital Signs: Vital Signs 12/07/20 17:16 Temperature 98.2 F Pulse Rate 96 H Respiratory 16 Rate Blood Pressure 127/78 O2 Sat by Pulse 95 Oximetry Physical Exam: GENERAL: The patient is well-developed well-nourished male lying on stretcher not appearing to be in acute distress. [] HEENT: Normocephalic. Atraumatic. Extraocular motions are intact. Patient has moist mucous membranes. NECK: Supple. Trachea midline CHEST/LUNGS: Clear to auscultation. There is no respiratory distress noted. HEART/CARDIOVASCULAR: Regular. There is no tachycardia. There is no gallop rub or murmur. ABDOMEN: Abdomen is soft, nontender. Patient has normal bowel sounds. There is no abdominal distention. SKIN: There is no rash. There is no edema. There is no diaphoresis. NEURO: The patient is awake, alert, and oriented. The patient is cooperative. The patient has no focal neurologic deficits. The patient has normal speech MUSCULOSKELETAL: There is paraspinous lumbar pain. There is no evidence of acute injury. ED Course Vital Signs 12/07/20 17:16 Temperature 98.2 F Pulse Rate 96 H Respiratory 16 Rate Blood Pressure 127/78 O2 Sat by Pulse 95 Oximetry ED Medical Decision Making - Lab Data Result diagrams: 12/07/20 17:24 12/07/20 17:24 Laboratory Tests 12/07/20 12/07/20 12/07/20 17:24 17:24 20:51 WBC 3.3 L RBC 3.53 L Hgb 13.8 Hct 39.8 MCV 113 H MCH 39 H MCHC 35 H RDW 14.8 Plt Count 73 L [place] % (Auto) Manager Fine Add Manual Diff Complete Total Counted 100 Seg Neuts % (Manual) 64.0 Lymphocytes % (Manual) 25.0 Monocytes % (Manual) 11.0 H Promyelocytes % 0 Nucleated RBC % Not Reportable Seg Neutrophils # Man 2.1 Band Neutrophils # 0.0 Lymphocytes # (Manual) 0.8 L Abs React Lymphs (Man) 0.0 Monocytes # (Manual) 0.4 Eosinophils # (Manual) 0.0 Basophils # (Manual) 0.0 Metamyelocytes # 0.0 Myelocytes # 0.0 Promyelocytes # 0.0 Blast Cells # 0.0 WBC Morphology Not Reportable Hypersegmented Neuts Not Reportable Hyposegmented Neuts Not Reportable Hypogranular Neuts Not Reportable Smudge Cells Not Reportable Toxic Granulation Not Reportable Toxic Vacuolation Not Reportable Dohle Bodies Not Reportable Pelger-Huet Anomaly Not Reportable Zeina Rods Not Reportable Platelet Estimate Consistent w auto Clumped Platelets Not Reportable Plt Clumps, EDTA Not Reportable Large Platelets Not Reportable Giant Platelets Not Reportable Platelet Satelliting Not Reportable Plt Morphology Comment Not Reportable RBC Morphology Not Reportable Dimorphic RBCs Not Reportable Polychromasia Not Reportable Hypochromasia Not Reportable Poikilocytosis Not Reportable Anisocytosis 1+ Microcytosis Not Reportable Macrocytosis Rare Spherocytes Not Reportable Pappenheimer Bodies Not Reportable Sickle Cells Not Reportable Target Cells Not Reportable Tear Drop Cells Not Reportable Ovalocytes Not Reportable Helmet Cells Not Reportable Triana-[place] Bodies Not Reportable [place] Rings Not Reportable [place] Cells Not Reportable Bite Cells Not Reportable Crenated Cell Not Reportable Elliptocytes Not Reportable Acanthocytes (Spur) Not Reportable Rouleaux Not Reportable Hemoglobin C Crystals Not Reportable Schistocytes Not Reportable Malaria parasites Not Reportable Barry Bodies Not Reportable Hem Pathologist Commnt No D-Dimer Sodium 142 Potassium 3.8 Chloride 101.8 Carbon Dioxide 26 Anion Gap 18 BUN 10 Creatinine 0.8 Estimated GFR > 60 BUN/Creatinine Ratio 13 Glucose 81 Calcium 8.4 Magnesium 1.50 L Total Bilirubin 0.80 AST 121 H ALT 44 Alkaline Phosphatase 69 Troponin T < 0.010 < 0.010 Total Protein 7.2 Albumin 4.0 Albumin/Globulin Ratio 1.3 12/08/20 01:10 WBC RBC Hgb Hct MCV MCH MCHC RDW Plt Count [place] % (Auto) Add Manual Diff Total Counted Seg Neuts % (Manual) Lymphocytes % (Manual) Monocytes % (Manual) Promyelocytes % Nucleated RBC % Seg Neutrophils # Man Band Neutrophils # Lymphocytes # (Manual) Abs React Lymphs (Man) Monocytes # (Manual) Eosinophils # (Manual) Basophils # (Manual) Metamyelocytes # Myelocytes # Promyelocytes # Blast Cells # WBC Morphology Hypersegmented Neuts Hyposegmented Neuts Hypogranular Neuts Smudge Cells Toxic Granulation Toxic Vacuolation Dohle Bodies Pelger-Huet Anomaly Zeina Rods Platelet Estimate Clumped Platelets Plt Clumps, EDTA Large Platelets Giant Platelets Platelet Satelliting Plt Morphology Comment RBC Morphology Dimorphic RBCs Polychromasia Hypochromasia Poikilocytosis Anisocytosis Microcytosis Macrocytosis Spherocytes Pappenheimer Bodies Sickle Cells Target Cells Tear Drop Cells Ovalocytes Helmet Cells Triana-[place] Bodies [place] Rings [place] Cells Bite Cells Crenated Cell Elliptocytes Acanthocytes (Spur) Rouleaux Hemoglobin C Crystals Schistocytes Malaria parasites Barry Bodies Hem Pathologist Commnt D-Dimer 1749.30 H Sodium Potassium Chloride Carbon Dioxide Anion Gap BUN Creatinine Estimated GFR BUN/Creatinine Ratio Glucose Calcium Magnesium Total Bilirubin AST ALT Alkaline Phosphatase Troponin T Total Protein Albumin Albumin/Globulin Ratio - EKG Data -: EKG Interpreted by Me EKG shows normal: sinus rhythm Rate: normal - EKG Data When compared to previous EKG there are: changes noted Interpretation: nonspecific ST-T wave yandel (New biphasic T waves in leads V4, V5 when compared to previous EKG dated 07/22/2020) - Radiology Data Radiology results: report reviewed (Chest x-ray, CT chest), image reviewed (Chest x-ray, CT chest) interpreted by me: Chest x-ray-no focal infiltrates, no pneumothorax. No foreign body seen [facility] [address] [place] [address] XRay Report Signed Patient: OLGA TOBIN MR#: [id number] : 1965 Acct:[id number] Age/Sex: 55 / M ADM Date: 12/07/20 Loc: ED Attending Dr: Ordering Physician: ASHLEY JUAREZ Date of Service: 12/07/20 Procedure(s): XR chest routine 2V Accession Number(s): [id number] cc: ASHLEY JUAREZ Fluoro Time In Minutes: CHEST PA AND LATERAL VIEWS INDICATION: chest pain. COMPARISON: 07/22/2020 FINDINGS: Support devices: None Heart: Normal and unchanged Lungs/Pleura: No acute pulmonary or pleural findings. IMPRESSION: 1. No active disease and no interval change. 2 Signer Name: Francisco J Valencia MD Signed: 12/07/2020 6:01 PM Workstation Name: [id number] Transcribed By: TM Dictated By: Francisco J Valencia MD Electronically Authenticated By: Francisco J Valencia MD Signed Date/Time: 12/07/201800 DD/ 1800 TD/TT: [place] [address] Cat Scan Report Signed Patient: OLGA TOBIN MR#: [id number] : 1965 Acct:[id number] Age/Sex: 55 / M ADM Date: 12/07/20 Loc: ED Attending Dr: Ordering Physician: ENRICO RAO MD Date of Service: 12/08/20 Procedure(s): CT angio chest Accession Number(s): [id number] cc: ENRICO RAO MD CTA CHEST WITH CONTRAST INDICATION / CLINICAL INFORMATION: P.E. PROTOCOL!!! Sharp chest pain, S.O.B. Hx of P.E.'s and DVT. TECHNIQUE: Axial CT images were obtained through the chest after injection of 100 cc of Omnipaque 350 IV contrast. 3 plane MIP and/or 3D reconstructions were produced. All CT scans at this location are performed using CT dose reduction for ALARA by means of automated exposure control. COMPARISON: None available. FINDINGS: PULMONARY ARTERIES: No acute pulmonary emboli. The right pulmonary arteries are small characteristic of prior pulmonary embolus. THORACIC AORTA: No significant abnormality. HEART: No significant abnormality. CORONARY ARTERY CALCIFICATION: None. MEDIASTINUM / ROSA MARIA: No significant abnormality. PLEURA: No pleural effusion. No pneumothorax. LUNGS: There are chronic parenchymal opacities in the right lung base characteristic of scar. ADDITIONAL FINDINGS: None. UPPER ABDOMEN: No acute findings. SKELETAL STRUCTURES: No significant osseous abnormality. IMPRESSION: 1. No CT evidence for acute pulmonary embolism. 2. No acute findings. Signer Name: Abhilash Priest MD Signed: 12/08/2020 2:53 AM Workstation Name: [id number] Transcribed By: SS Dictated By: Abhilash Priest MD Electronically Authenticated By: Abhilash Priest MD Signed Date/Time: 12/08/20252 DD/ 6 TD/TT: Print Cancel - Differential Diagnosis ACS, PE, pericarditis, GERD, lumbar strain, STD exposure Critical care attestation.: If time is entered above; I have spent that time in minutes in the direct care of this critically ill patient, excluding procedure time. ED Disposition Clinical Impression: Chest pain, Acute lumbar myofascial strain, Exposure to trichomonas Disposition: OP ADMIT IP TO THIS HOSP Is pt being admited?: Yes Does the pt Need Aspirin: Yes Condition: Fair Instructions: Nonspecific Chest Pain, Adult Referrals: JUAQUIN QUEVEDO MD [Primary Care Provider] - 3-5 Days Time of Disposition: 03:01 (Hospitalist paged Dr Gabriel)) Heart Score - HEART Score History: Moderately suspicious EKG: Non-specific Age: 45-65 Risk factors: 1-2 risk factors Troponin: < normal limit HEART Score: 4 - EKG Read Time Time EKG Completed: 02:06 EKG Read Time: 02:06
[2020-12-08] MEDS ORDERED: NITROGLYCERIN 2% OINT 1 GM TP ONE (02:36)
--- NOTE | 2020-12-08 02:58 | Cat Scan Report ---
CTA CHEST WITH CONTRAST INDICATION / CLINICAL INFORMATION: P.E. PROTOCOL!!! Sharp chest pain, S.O.B. Hx of P.E.'s and DVT. TECHNIQUE: Axial CT images were obtained through the chest after injection of 100 cc of Omnipaque 350 IV contrast. 3 plane MIP and/or 3D reconstructions were produced. All CT scans at this location are performed using CT dose reduction for ALARA by means of automated exposure control. COMPARISON: None available. FINDINGS: PULMONARY ARTERIES: No acute pulmonary emboli. The right pulmonary arteries are small characteristic of prior pulmonary embolus. THORACIC AORTA: No significant abnormality. HEART: No significant abnormality. CORONARY ARTERY CALCIFICATION: None. MEDIASTINUM / ROSA MARIA: No significant abnormality. PLEURA: No pleural effusion. No pneumothorax. LUNGS: There are chronic parenchymal opacities in the right lung base characteristic of scar. ADDITIONAL FINDINGS: None. UPPER ABDOMEN: No acute findings. SKELETAL STRUCTURES: No significant osseous abnormality. IMPRESSION: 1. No CT evidence for acute pulmonary embolism. 2. No acute findings. Signer Name: Abhilash Priest MD Signed: 12/08/2020 2:53 AM Workstation Name: [id number]
[2020-12-08 04:02] LABS: Bilirubin,Urine NEG (Negative); Blood,Urine NEG (Negative); Color,Urine Yellow (Yellow); Mucus,Urine 3+ /HPF; WBC,Urine < 1.0 /HPF (0.0-6.0)
[2020-12-08] MEDS ORDERED: ALBUTEROL 8.5 GM MDI INHALATION IH PRN (04:30)
[2020-12-08] MEDS ORDERED: HYDROcodone/ACETAMINOPHEN 5-325 MG TAB PO PRN (04:30)
[2020-12-08] MEDS ORDERED: NITROGLYCERIN 0.4 MG TAB SUBL SL PRN (04:31)
[2020-12-08] MEDS ORDERED: ACETAMINOPHEN 325 MG TAB PO PRN (04:31)
[2020-12-08] MEDS ORDERED: traMADol 50 MG TAB PO PRN (04:31)
[2020-12-08] MEDS ORDERED: hydrALAZINE 20 MG/1 ML INJ IV PRN (04:33)
[2020-12-08] MEDS ORDERED: MORPHINE 2 MG/1 ML INJ IV PRN (04:33)
--- NOTE | 2020-12-08 04:39 | History and Physical Report ---
History of Present Illness Date of examination: 12/08/20 Date of admission: 12/08/20 03:03 Chief complaint: Chest pain back pain History of present illness: 55-year-old male with history of hypertension, venous thromboembolism, and tobacco use presents to emergency department with complaints of chest pain and back pain starting yesterday. Chest pain to lifting something heavy at work. Patient developed intermittent substernal chest pain has been sharp in nature associated with shortness of breath. Patient denies nausea/vomiting or diaphoresis. The patient notes also states that his sexual partner was recently diagnosed with trichomonas and told him that he needs to be checked out. Patient denies dysuria or penile discharge. Patient was previously treated for DVT with Coumadin but stopped taking his medication "a while ago." Past History Past Medical History: DVT, hypertension, pulmonary embolism, other (Smoker) Medications and Allergies Allergies Allergy/AdvReac Type Severity Reaction Status Date / Time No Known Allergies Allergy Verified 07/22/20 14:02 Home Medications Medication Instructions Recorded Confirmed Last Taken Type Apixaban [Eliquis] 5 mg PO BID 12/23/19 12/08/20 Unknown History Aspirin EC [Halfprin EC] 81 mg PO QDAY #30 tablet. 12/24/19 12/08/20 Unknown Rx AtorvaSTATin [Lipitor] 40 mg PO QHS #30 tablet 12/24/19 12/08/20 Unknown Rx Metoprolol [Lopressor TAB] 25 mg PO BID #60 tablet 12/24/19 12/08/20 Unknown Rx methOCARBAMOL [Robaxin TAB] 500 mg PO Q8HR PRN #20 tablet 07/13/20 12/08/20 Unknown Rx Albuterol Mdi (or & Nicu Only) 2 puff IH QID PRN #1 inhalation 07/22/20 12/08/20 Unknown Rx [ProAir HFA Inhaler] Benzonatate [Tessalon Perles] 100 mg PO Q8HR #14 capsule 07/22/20 12/08/20 Unknown Rx Fluticasone [Flonase] 1 spray NS QDAY #1 bottle 07/22/20 12/08/20 Unknown Rx HYDROcodone/APAP 5-325 [[place] 1 each PO Q6HR PRN #14 tablet 07/22/20 12/08/20 Unknown Rx 5/325] Active Meds: Active Medications Albuterol (Albuterol 8.5 Gm Mdi Inhalation) 2 puff IH QID PRN PRN Reason: Shortness Of Breath Aspirin (Aspirin Ec 81 Mg Tab) 81 mg PO QDAY [facility] Atorvastatin Calcium (Atorvastatin 40 Mg Tab) 40 mg PO QHS [facility] Benzonatate (Benzonatate 100 Mg Cap) 100 mg PO Q8HR [facility] Fluticasone Propionate (Fluticasone Propionate Nasal [place] 16 Gm) 50 mcg NS QDAY [facility] Miscellaneous Medication (Apixaban) 5 mg PO BID [facility] Review of Systems Cardiovascular: chest pain Musculoskeletal: low back pain Exam - Constitutional Vitals: Temp Pulse Resp BP Pulse Ox 98.2 F 96 H 16 127/78 95 12/07/20 17:16 12/07/20 17:16 12/07/20 17:16 12/07/20 17:16 12/07/20 17:16 General appearance: Present: no acute distress, well-nourished - EENT Eyes: Present: PERRL ENT: hearing intact, clear oral mucosa - Neck Neck: Present: supple, normal ROM - Respiratory Respiratory effort: normal Respiratory: bilateral: CTA - Cardiovascular Heart Sounds: Present: S1 & S2. Absent: rub, click - Extremities Extremities: pulses symmetrical, No edema Peripheral Pulses: within normal limits - Abdominal General gastrointestinal: Present: soft, non-tender, non-distended, normal bowel sounds Male genitourinary: Present: normal - Integumentary Integumentary: Present: clear, warm, dry - Musculoskeletal Musculoskeletal: strength equal bilaterally, other (Back pain) - Psychiatric Psychiatric: appropriate mood/affect, intact judgment & insight - Neurologic Neurologic: CNII-XII intact, moves all extremities HEART Score - HEART Score EKG: Non-specific Age: 45-65 Risk factors: 1-2 risk factors Troponin: Troponin T < 0.010 ng/mL (0.00-0.029) 12/07/20 20:51 Troponin: < normal limit Results - Labs CBC & Chem 7: 12/07/20 17:24 12/07/20 17:24 Labs: Laboratory Last Values WBC 3.3 K/mm3 (4.5-11.0) L 12/07/20 17:24 RBC 3.53 M/mm3 (3.65-5.03) L 12/07/20 17:24 Hgb 13.8 gm/dl (11.8-15.2) 12/07/20 17:24 Hct 39.8 % (35.5-45.6) 12/07/20 17:24 MCV 113 fl (84-94) H 12/07/20 17:24 MCH 39 pg (28-32) H 12/07/20 17:24 MCHC 35 % (32-34) H 12/07/20 17:24 RDW 14.8 % (13.2-15.2) 12/07/20 17:24 Plt Count 73 K/mm3 (140-440) L 12/07/20 17:24 [place] % (Auto) Hydramatic Specialist 12/07/20 17:24 Add Manual Diff Complete 12/07/20 17:24 Total Counted 100 12/07/20 17:24 Seg Neuts % (Manual) 64.0 % (40.0-70.0) 12/07/20 17:24 Lymphocytes % (Manual) 25.0 % (13.4-35.0) 12/07/20 17:24 Monocytes % (Manual) 11.0 % (0.0-7.3) H 12/07/20 17:24 Promyelocytes % 0 % 12/07/20 17:24 Nucleated RBC % Not Reportable 12/07/20 17:24 Seg Neutrophils # Man 2.1 K/mm3 (1.8-7.7) 12/07/20 17:24 Band Neutrophils # 0.0 K/mm3 12/07/20 17:24 Lymphocytes # (Manual) 0.8 K/mm3 (1.2-5.4) L 12/07/20 17:24 Abs React Lymphs (Man) 0.0 K/mm3 12/07/20 17:24 Monocytes # (Manual) 0.4 K/mm3 (0.0-0.8) 12/07/20 17:24 Eosinophils # (Manual) 0.0 K/mm3 (0.0-0.4) 12/07/20 17:24 Basophils # (Manual) 0.0 K/mm3 (0.0-0.1) 12/07/20 17:24 Metamyelocytes # 0.0 K/mm3 12/07/20 17:24 Myelocytes # 0.0 K/mm3 12/07/20 17:24 Promyelocytes # 0.0 K/mm3 12/07/20 17:24 Blast Cells # 0.0 K/mm3 12/07/20 17:24 WBC Morphology Not Reportable 12/07/20 17:24 Hypersegmented Neuts Not Reportable 12/07/20 17:24 Hyposegmented Neuts Not Reportable 12/07/20 17:24 Hypogranular Neuts Not Reportable 12/07/20 17:24 Smudge Cells Not Reportable 12/07/20 17:24 Toxic Granulation Not Reportable 12/07/20 17:24 Toxic Vacuolation Not Reportable 12/07/20 17:24 Dohle Bodies Not Reportable 12/07/20 17:24 Pelger-Huet Anomaly Not Reportable 12/07/20 17:24 Zeina Rods Not Reportable 12/07/20 17:24 Platelet Estimate Consistent w auto 12/07/20 17:24 Clumped Platelets Not Reportable 12/07/20 17:24 Plt Clumps, EDTA Not Reportable 12/07/20 17:24 Large Platelets Not Reportable 12/07/20 17:24 Giant Platelets Not Reportable 12/07/20 17:24 Platelet Satelliting Not Reportable 12/07/20 17:24 Plt Morphology Comment Not Reportable 12/07/20 17:24 RBC Morphology Not Reportable 12/07/20 17:24 Dimorphic RBCs Not Reportable 12/07/20 17:24 Polychromasia Not Reportable 12/07/20 17:24 Hypochromasia Not Reportable 12/07/20 17:24 Poikilocytosis Not Reportable 12/07/20 17:24 Anisocytosis 1+ 12/07/20 17:24 Microcytosis Not Reportable 12/07/20 17:24 Macrocytosis Rare 12/07/20 17:24 Spherocytes Not Reportable 12/07/20 17:24 Pappenheimer Bodies Not Reportable 12/07/20 17:24 Sickle Cells Not Reportable 12/07/20 17:24 Target Cells Not Reportable 12/07/20 17:24 Tear Drop Cells Not Reportable 12/07/20 17:24 Ovalocytes Not Reportable 12/07/20 17:24 Helmet Cells Not Reportable 12/07/20 17:24 [place] Bodies Not Reportable 12/07/20 17:24 [place] Rings Not Reportable 12/07/20 17:24 [place] Cells Not Reportable 12/07/20 17:24 Bite Cells Not Reportable 12/07/20 17:24 Crenated Cell Not Reportable 12/07/20 17:24 Elliptocytes Not Reportable 12/07/20 17:24 Acanthocytes (Spur) Not Reportable 12/07/20 17:24 Rouleaux Not Reportable 12/07/20 17:24 Hemoglobin C Crystals Not Reportable 12/07/20 17:24 Schistocytes Not Reportable 12/07/20 17:24 Malaria parasites Not Reportable 12/07/20 17:24 [place] Bodies Not Reportable 12/07/20 17:24 Hem Pathologist Commnt No 12/07/20 17:24 D-Dimer 1749.30 ng/mlDDU (0-234) H 12/08/20 01:10 Sodium 142 mmol/L (137-145) 12/07/20 17:24 Potassium 3.8 mmol/L (3.6-5.0) 12/07/20 17:24 Chloride 101.8 mmol/L (98-107) 12/07/20 17:24 Carbon Dioxide 26 mmol/L (22-30) 12/07/20 17:24 Anion Gap 18 mmol/L 12/07/20 17:24 BUN 10 mg/dL (9-20) 12/07/20 17:24 Creatinine 0.8 mg/dL (0.8-1.3) 12/07/20 17:24 Estimated GFR > 60 ml/min 12/07/20 17:24 BUN/Creatinine Ratio 13 % 12/07/20 17:24 Glucose 81 mg/dL (75-100) 12/07/20 17:24 Calcium 8.4 mg/dL (8.4-10.2) 12/07/20 17:24 Magnesium 1.50 mg/dL (1.7-2.3) L 12/07/20 17:24 Total Bilirubin 0.80 mg/dL (0.1-1.2) 12/07/20 17:24 AST 121 units/L (5-40) H 12/07/20 17:24 ALT 44 units/L (7-56) 12/07/20 17:24 Alkaline Phosphatase 69 units/L (35-129) 12/07/20 17:24 Troponin T < 0.010 ng/mL (0.00-0.029) 12/07/20 20:51 Total Protein 7.2 g/dL (6.3-8.2) 12/07/20 17:24 Albumin 4.0 g/dL (3.9-5) 12/07/20 17:24 Albumin/Globulin Ratio 1.3 % 12/07/20 17:24 Urine Color Yellow (Yellow) 12/08/20 03:46 Urine Turbidity Clear (Clear) 12/08/20 03:46 Urine pH 6.0 (5.0-7.0) 12/08/20 03:46 Ur Specific [place] 1.040 (1.003-1.030) H 12/08/20 03:46 Urine Protein 30 mg/dl mg/dL (Negative) 12/08/20 03:46 Urine Glucose (UA) Neg mg/dL (Negative) 12/08/20 03:46 Urine Ketones Neg mg/dL (Negative) 12/08/20 03:46 Urine Blood Neg (Negative) 12/08/20 03:46 Urine Nitrite Neg (Negative) 12/08/20 03:46 Urine Bilirubin Neg (Negative) 12/08/20 03:46 Urine Urobilinogen 4.0 mg/dL (<2.0) 12/08/20 03:46 Ur Leukocyte Esterase Neg (Negative) 12/08/20 03:46 Urine WBC (Auto) < 1.0 /HPF (0.0-6.0) 12/08/20 03:46 Urine RBC (Auto) 3.0 /HPF (0.0-6.0) 12/08/20 03:46 Urine Mucus 3+ /HPF 12/08/20 03:46 - Imaging and Cardiology Chest x-ray: image reviewed CT scan - chest: image reviewed Assessment and Plan VTE prophylaxis?: Chemical Plan of care discussed with patient/family: Yes - Patient Problems (1) Chest pain Current Visit: Yes Status: Acute Plan to address problem: Admit the patient to the cardiac telemetry. Put the patient on chest pain pathway. Aspirin 81 mg p.o. daily. Lipitor 40 mg p.o. daily. We do the serial cardiac enzyme. We also do Lexiscan. If needed will consult cardiology. Lipid panel BMP in the morning. Eliquis 5 mg p.o. twice a day (2) Acute lumbar myofascial strain Current Visit: Yes Status: Acute Plan to address problem: Tylenol 650 mg p.o. every 6 hours as needed. Morphine 2 mg IV every 4 hours as needed. (3) Exposure to trichomonas Current Visit: Yes Status: Acute Plan to address problem: Terazol 500 mg IV every 8 hours. we will send the urine for culture. If needed will consult ID (4) Chronic pulmonary embolism Current Visit: No Status: Acute Plan to address problem: Patient is on Eliquis 5 mg p.o. twice a day for pulmonary embolism and DVT prophylaxis (5) DVT prophylaxis Current Visit: No Status: Acute Plan to address problem: Patient is on Eliquis 5 mg p.o. twice a day for DVT prophylaxis and Protonix 40 mg p.o. daily for GI prophylaxis. Patient is a full code
[2020-12-08] MEDS ORDERED: cefTRIAXone/NS 2 GM/100 ML 2 GM/100 ML BAG IV SCH (05:00)
[2020-12-08] MEDS ORDERED: ALBUTEROL 2.5 MG/3 ML NEBU IH PRN (05:13)
[2020-12-08] MEDS: BENZONATATE 100 MG CAP PO SCH ×3 (05:42→21:07)
[2020-12-08] MEDS: metroNIDAZOLE/NS 500 MG/100 ML 500 MG/100 ML BAG IV SCH ×2 (05:43→12:59)
[2020-12-08] MEDS ORDERED: HEPARIN 5,000 UNIT/1 ML VIAL SUB-Q SCH (06:00)
[2020-12-08 07:45] LABS: Hematocrit 36.5 % (35.5-45.6); Hemoglobin 12.5 gm/dl (11.8-15.2); Mean Corpuscular HGB Conc 34 % (32-34); Mean Corpuscular Volume 113 fl (84-94); Red Blood Count 3.23 M/mm3 (3.65-5.03)
[2020-12-08 07:46] LABS: Platelet Count 62 K/mm3 (140-440)
[2020-12-08 08:03] LABS: Blood Urea Nitrogen 7 mg/dL (9-20); Calcium 7.9 mg/dL (8.4-10.2); Hemolysis Index 8
[2020-12-08 08:23] LABS: BUN/Creatinine Ratio 10
[2020-12-08] MEDS: ASPIRIN EC 81 MG TAB PO SCH (09:02)
[2020-12-08] MEDS: PANTOPRAZOLE 40 MG TAB PO SCH (09:03)
[2020-12-08] MEDS: APIXABAN 5 MG TAB PO SCH ×2 (09:03→21:07)
[2020-12-08] MEDS: METOPROLOL TARTRATE 25 MG TAB PO SCH ×2 (09:10→17:22)
[2020-12-08 09:14] LABS: Total Cells Counted 100
[2020-12-08 09:15] LABS: Anisocytosis Few; Macrocytosis 1+
[2020-12-08 09:16] LABS: Platelet Estimate Consistent w Auto
[2020-12-08] MEDS ORDERED: PANTOPRAZOLE 40 MG TAB PO SCH (10:00)
[2020-12-08] MEDS: FLUTICASONE PROPIONATE NASAL SPRAY 16 GM NS SCH (11:37)
[2020-12-08] MEDS: NICOTINE 21 MG/24 HR PATCH TD SCH (13:18)
--- NOTE | 2020-12-08 13:41 | Event Note ---
Patient seen and examined He complains of back pain after he he tried to lift an object. He denies any leg weakness or numbness He alsoo complains of chest pain and his stress test will be done tomorrow. Continue pain medications for his back pain. Will try topical analgesics He already received flagyl for exposure to confirmed trichomonas. Plan DC tomorrow if stress test is negative. PT for back pain.
[2020-12-08] MEDS ORDERED: LORazepam 2 MG/ML VIAL IV ONE (17:30)
[2020-12-08] MEDS ORDERED: LORazepam 2 MG/ML VIAL IV PRN (18:00)
[2020-12-09] MEDS: BENZONATATE 100 MG CAP PO SCH ×3 (06:09→21:24)
[2020-12-09] MEDS ORDERED: REGADENOSON 0.4 MG/5 ML INJ IV ONE (08:17)
[2020-12-09] MEDS: FLUTICASONE PROPIONATE NASAL SPRAY 16 GM NS SCH (10:47)
[2020-12-09] MEDS: PANTOPRAZOLE 40 MG TAB PO SCH (10:48)
[2020-12-09] MEDS: APIXABAN 5 MG TAB PO SCH ×2 (10:48→21:24)
[2020-12-09] MEDS: ASPIRIN EC 81 MG TAB PO SCH (10:48)
[2020-12-09] MEDS: NICOTINE 21 MG/24 HR PATCH TD SCH (10:48)
[2020-12-09] MEDS: METOPROLOL TARTRATE 25 MG TAB PO SCH ×2 (10:51→18:14)
--- NOTE | 2020-12-09 11:11 | Nuclear Medicine Report ---
APPROVED REPORT Exam: Nuclear Stress Test Indication: Chest pain BMI: 0 Stress Test Details Stress Test: Pharmacologic stress testing performed using 0.4 mg of regadenoson per 5 mL given IV over 10 seconds. HR Resting HR: 69 bpmMax Heart Rate (APMHR): 163 bpm Max HR Achieved: 105 bpmTarget HR (85% APMHR): 138 bpm % of APMHR: 64 Recovery HR: 86 bpm HR response to stress: Normal HR response to stress BP Resting BP: 162/89 mmHg Max BP: 158/92 mmHg Recovery BP: 142/81 mmHg BP response to stress: Normal blood pressure response to stress. ECG Resting ECG: Sinus Rhythm Stress ECG: Sinus Tachycardia Arrhythmia: VPC's Clinical Reason for Termination: Completed protocol NM EXAM: Myocardial Perfusion REST/STRESS Imaging Protocol: Rest Tc-99m/Stress Tc-99m 1 day Resting Data Rest SPECT myocardial perfusion imaging was performed in supine position 45 minutes following the intravenous injection of 10 mCi of Tc-99m Myoview. Time of rest injection: 0700 Pharmacologic Stress Pharmacologic stress test was performed by injecting Regadenoson 0.4 mg IV push followed by the intravenous injection of 28 mCi of Tc-99m Myoview. Time of stress injection: 0915 Gated Stress SPECT was performed 45 minutes after stress injection. Study Quality Study: excellent Lung Uptake: Normal Study Data TID = 1.04. Perfusion The rest and stress images show normal perfusion. Normal perfusion on both the stress and rest images. Wall Motion The rest and stress images show normal left ventricular wall motion. Nuclear Conclusion ECG Findings: negative for ischemia Clinical Findings: negative for ischemia Nuclear Findings: negative for ischemia Exercise Capacity: not assessed Left Ventricular Function: normal Normal study. No scintigraphic evidence for myocardial ischemia or scar. Normal left ventricular size and function with no regional wall motion abnormalities.
--- NOTE | 2020-12-09 11:20 | Electrocardiograph Report ---
[facility] Test Date: 2020-12-07 Test Time: 17:38:03 Pat Name: OLGA TOBIN Department: Room: A485 1 Gender: M [employer] Operator: : 1965 Requested By: JOAN FISHER Order Number: [id number] Reading MD: Beau Aguilera Measurements Intervals [place] Rate: 92 P: 81 NE: 203 QRS: -31 QRSD: 80 T: 65 QT: 391 QTc: 483 Interpretive Statements Sinus rhythm Borderline prolonged NE interval Probable left atrial enlargement NONSPECIFIC REPOL ABNORMALITY, ANTERIOR LEADS No previous ECG available for comparison Electronically Signed On 12-09-2020 11:20:09 EDT by Beau Aguilera
--- NOTE | 2020-12-09 11:25 | Electrocardiograph Report ---
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
[2020-12-09] MEDS ORDERED: chlordiazePOXIDE 25 MG CAP PO SCH (12:09)
[2020-12-09] MEDS: chlordiazePOXIDE 25 MG CAP PO SCH ×2 (12:40→21:24)
--- NOTE | 2020-12-09 12:58 | Progress Note ---
Assessment and Plan Assessment and plan: #Chest pain Stress test negative for any reversible ischemia #Acute low back pain No numbness or weakness of the legs This has improved with pain medications. Continue pain medications #Chronic pulmonary embolism Continue Eliquis 5 mg twice daily #Alcohol withdrawal CIWA score less than 8 this a.m. Continue Librium Patient has a risk of falls due to unsteadiness. He is on Eliquis and has a risk of brain bleed if he falls. Physical therapy to see patient #Exposure to trichomonas vaginalis Received Flagyl 2000 mg one-time dose #DVT prophylaxis-already on Eliquis Full code Disposition-likely home when stable and gait has improved History Interval history: 12/09. His stress test is negative. He was placed on alcoholic withdrawal protocol as he was tremulous yesterday. He is unsteady this AM. CIWA is less than 8. he will be on librium for now. He has a a risk of fall and he is on oral anticoagulation. Hospitalist Physical - Physical exam Narrative exam: VITAL SIGNS: Reviewed. GENERAL: Awake HEAD: No signs of head trauma. EYES: Pupils are equal. Extraocular motions intact. MOUTH: Oropharynx is normal. NECK: No adenopathy, no JVD. CHEST: Chest with diminished breath sounds bilaterally. No wheezes, rales, or rhonchi. CARDIAC: normal S1 and S2, without murmurs, gallops, or rubs. ABDOMEN: Soft, non tender and non distended. No rebound or guarding, and no masses palpated. Bowel Sounds normal. MUSCULOSKELETAL: No edema NEUROLOGIC EXAM: Alert and oriented x3. No focal neurologic deficits. Has unsteady gait SKIN: No obvious lesions - Constitutional Vitals: Temp Pulse Resp BP Pulse Ox 97.6 F 76 18 164/103 97 12/09/20 03:34 12/09/20 10:51 12/09/20 04:00 12/09/20 10:51 12/09/20 03:34 HEART Score - HEART Score EKG: Non-specific Age: 45-65 Risk factors: 1-2 risk factors Troponin: Troponin T < 0.010 ng/mL (0.00-0.029) 12/08/20 12:34 Troponin: < normal limit Results - Labs CBC & Chem 7: 12/08/20 07:16 12/08/20 07:16 Labs: Laboratory Last Values WBC 3.0 K/mm3 (4.5-11.0) L 12/08/20 07:16 RBC 3.23 M/mm3 (3.65-5.03) L 12/08/20 07:16 Hgb 12.5 gm/dl (11.8-15.2) 12/08/20 07:16 Hct 36.5 % (35.5-45.6) 12/08/20 07:16 MCV 113 fl (84-94) H 12/08/20 07:16 MCH 39 pg (28-32) H 12/08/20 07:16 MCHC 34 % (32-34) 12/08/20 07:16 RDW 15.0 % (13.2-15.2) 12/08/20 07:16 Plt Count 62 K/mm3 (140-440) L 12/08/20 07:16 Pratt % (Auto) Real Estate Appraiser Supervisor 12/08/20 07:16 Add Manual Diff Complete 12/08/20 07:16 Total Counted 100 12/08/20 07:16 Seg Neuts % (Manual) 46.0 % (40.0-70.0) 12/08/20 07:16 Lymphocytes % (Manual) 44.0 % (13.4-35.0) H 12/08/20 07:16 Monocytes % (Manual) 7.0 % (0.0-7.3) 12/08/20 07:16 Eosinophils % (Manual) 1.0 % (0.0-4.3) 12/08/20 07:16 Basophils % (Manual) 2.0 % (0.0-1.8) H 12/08/20 07:16 Promyelocytes % 0 % 12/07/20 17:24 Nucleated RBC % Not Reportable 12/08/20 07:16 Seg Neutrophils # Man 1.4 K/mm3 (1.8-7.7) L 12/08/20 07:16 Band Neutrophils # 0.0 K/mm3 12/08/20 07:16 Lymphocytes # (Manual) 1.3 K/mm3 (1.2-5.4) 12/08/20 07:16 Abs React Lymphs (Man) 0.0 K/mm3 12/08/20 07:16 Monocytes # (Manual) 0.2 K/mm3 (0.0-0.8) 12/08/20 07:16 Eosinophils # (Manual) 0.0 K/mm3 (0.0-0.4) 12/08/20 07:16 Basophils # (Manual) 0.1 K/mm3 (0.0-0.1) 12/08/20 07:16 Metamyelocytes # 0.0 K/mm3 12/08/20 07:16 Myelocytes # 0.0 K/mm3 12/08/20 07:16 Promyelocytes # 0.0 K/mm3 12/08/20 07:16 Blast Cells # 0.0 K/mm3 12/08/20 07:16 WBC Morphology Not Reportable 12/08/20 07:16 Hypersegmented Neuts Not Reportable 12/08/20 07:16 Hyposegmented Neuts Not Reportable 12/08/20 07:16 Hypogranular Neuts Not Reportable 12/08/20 07:16 Smudge Cells Not Reportable 12/08/20 07:16 Toxic Granulation Not Reportable 12/08/20 07:16 Toxic Vacuolation Not Reportable 12/08/20 07:16 Dohle Bodies Not Reportable 12/08/20 07:16 Pelger-Huet Anomaly Not Reportable 12/08/20 07:16 Zeina Rods Not Reportable 12/08/20 07:16 Platelet Estimate Consistent w auto 12/08/20 07:16 Clumped Platelets Not Reportable 12/08/20 07:16 Plt Clumps, EDTA Not Reportable 12/08/20 07:16 Large Platelets Not Reportable 12/08/20 07:16 Giant Platelets Not Reportable 12/08/20 07:16 Platelet Satelliting Not Reportable 12/08/20 07:16 Plt Morphology Comment Not Reportable 12/08/20 07:16 RBC Morphology Not Reportable 12/08/20 07:16 Dimorphic RBCs Not Reportable 12/08/20 07:16 Polychromasia Not Reportable 12/08/20 07:16 Hypochromasia Not Reportable 12/08/20 07:16 Poikilocytosis Not Reportable 12/08/20 07:16 Anisocytosis Few 12/08/20 07:16 Microcytosis Not Reportable 12/08/20 07:16 Macrocytosis 1+ 12/08/20 07:16 Spherocytes Not Reportable 12/08/20 07:16 Pappenheimer Bodies Not Reportable 12/08/20 07:16 Sickle Cells Not Reportable 12/08/20 07:16 Target Cells Not Reportable 12/08/20 07:16 Tear Drop Cells Not Reportable 12/08/20 07:16 Ovalocytes Not Reportable 12/08/20 07:16 Helmet Cells Not Reportable 12/08/20 07:16 [place] Bodies Not Reportable 12/08/20 07:16 [place] Rings Not Reportable 12/08/20 07:16 [place] Cells Not Reportable 12/08/20 07:16 Bite Cells Not Reportable 12/08/20 07:16 Crenated Cell Not Reportable 12/08/20 07:16 Elliptocytes Not Reportable 12/08/20 07:16 Acanthocytes (Spur) Not Reportable 12/08/20 07:16 Rouleaux Not Reportable 12/08/20 07:16 Hemoglobin C Crystals Not Reportable 12/08/20 07:16 Schistocytes Not Reportable 12/08/20 07:16 Malaria parasites Not Reportable 12/08/20 07:16 Barry Bodies Not Reportable 12/08/20 07:16 Hem Pathologist Commnt No 12/08/20 07:16 D-Dimer 1749.30 ng/mlDDU (0-234) H 12/08/20 01:10 Sodium 138 mmol/L (137-145) 12/08/20 07:16 Potassium 3.6 mmol/L (3.6-5.0) 12/08/20 07:16 Chloride 100.6 mmol/L (98-107) 12/08/20 07:16 Carbon Dioxide 27 mmol/L (22-30) 12/08/20 07:16 Anion Gap 14 mmol/L 12/08/20 07:16 BUN 7 mg/dL (9-20) L 12/08/20 07:16 Creatinine 0.7 mg/dL (0.8-1.3) L 12/08/20 07:16 Estimated GFR > 60 ml/min 12/08/20 07:16 BUN/Creatinine Ratio 10 % 12/08/20 07:16 Glucose 66 mg/dL (75-100) L 12/08/20 07:16 Calcium 7.9 mg/dL (8.4-10.2) L 12/08/20 07:16 Magnesium 1.50 mg/dL (1.7-2.3) L 12/07/20 17:24 Total Bilirubin 0.80 mg/dL (0.1-1.2) 12/07/20 17:24 AST 121 units/L (5-40) H 12/07/20 17:24 ALT 44 units/L (7-56) 12/07/20 17:24 Alkaline Phosphatase 69 units/L (35-129) 12/07/20 17:24 Troponin T < 0.010 ng/mL (0.00-0.029) 12/08/20 12:34 Total Protein 7.2 g/dL (6.3-8.2) 12/07/20 17:24 Albumin 4.0 g/dL (3.9-5) 12/07/20 17:24 Albumin/Globulin Ratio 1.3 % 12/07/20 17:24 Urine Color Yellow (Yellow) 12/08/20 03:46 Urine Turbidity Clear (Clear) 12/08/20 03:46 Urine pH 6.0 (5.0-7.0) 12/08/20 03:46 Ur Specific [place] 1.040 (1.003-1.030) H 12/08/20 03:46 Urine Protein 30 mg/dl mg/dL (Negative) 12/08/20 03:46 Urine Glucose (UA) Neg mg/dL (Negative) 12/08/20 03:46 Urine Ketones Neg mg/dL (Negative) 12/08/20 03:46 Urine Blood Neg (Negative) 12/08/20 03:46 Urine Nitrite Neg (Negative) 12/08/20 03:46 Urine Bilirubin Neg (Negative) 12/08/20 03:46 Urine Urobilinogen 4.0 mg/dL (<2.0) 12/08/20 03:46 Ur Leukocyte Esterase Neg (Negative) 12/08/20 03:46 Urine WBC (Auto) < 1.0 /HPF (0.0-6.0) 12/08/20 03:46 Urine RBC (Auto) 3.0 /HPF (0.0-6.0) 12/08/20 03:46 Urine Mucus 3+ /HPF 12/08/20 03:46 Davis/IV: Voiding Method Toilet Active Medications - Current Medications Current Medications: Generic Name Dose Route Start Last Admin Trade Name Freq PRN Reason Stop Dose Admin Acetaminophen 650 mg 12/08/20 04:31 Acetaminophen 325 Mg Tab PO Q6H PRN Pain, Mild (1-3) Hydrocodone Bitart/Acetaminophen 1 each 12/08/20 04:30 Hydrocodone/Acetaminophen 5-325 Mg Tab PO Q6H PRN PAIN (4-6) Albuterol 2.5 mg 12/08/20 05:13 Albuterol 2.5 Mg/3 Ml Nebu IH QIDRT PRN Shortness Of Breath Apixaban 5 mg 12/08/20 10:00 12/09/20 10:48 Apixaban 5 Mg Tab PO 5 mg Q12HR VERENICE Administration Aspirin 81 mg 12/08/20 10:00 12/09/20 10:48 Aspirin Ec 81 Mg Tab PO 81 mg QDAY VERENICE Administration Atorvastatin Calcium 40 mg 12/08/20 22:00 12/08/20 21:07 Atorvastatin 40 Mg Tab PO 40 mg QHS VERENICE Administration Benzonatate 100 mg 12/08/20 06:00 12/09/20 06:09 Benzonatate 100 Mg Cap PO 100 mg Q8HR VERENICE Administration Chlordiazepoxide HCl 25 mg 12/09/20 13:00 Chlordiazepoxide 25 Mg Cap PO Q8H VERENICE Fluticasone Propionate 50 mcg 12/08/20 10:00 12/09/20 10:47 Fluticasone Propionate Nasal [place] 16 Gm NS 50 mcg QDAY VERENICE Administration Hydralazine HCl 10 mg 12/08/20 04:33 Hydralazine 20 Mg/1 Ml Inj IV Q6H PRN htn Lorazepam 2 mg 12/08/20 18:00 12/08/20 23:10 Lorazepam 2 Mg/Ml Vial IV 2 mg Q1H PRN Administration CIWA-Ar 8-15 Methocarbamol 500 mg 12/08/20 04:30 Methocarbamol 500 Mg Tab PO Q8H PRN Muscle Spasm Metoprolol Tartrate 25 mg 12/08/20 08:00 12/09/20 10:51 Metoprolol Tartrate 25 Mg Tab PO 25 mg BID@0800,1700 VERENICE Administration Morphine Sulfate 2 mg 12/08/20 04:33 Morphine 2 Mg/1 Ml Inj IV Q4H PRN Pain , Severe (7-10) Nicotine 21 mg 12/08/20 14:00 12/09/20 10:48 Nicotine 21 Mg/24 Hr Patch TD 21 mg QDAY VERENICE Administration Nitroglycerin 0.4 mg 12/08/20 04:31 Nitroglycerin 0.4 Mg Tab Subl SL Q5M PRN Chest Pain Pantoprazole Sodium 40 mg 12/08/20 07:30 12/09/20 10:48 Pantoprazole 40 Mg Tab PO 40 mg QDAC VERENICE Administration Sodium Chloride 10 ml 12/08/20 04:31 Sodium Chloride 0.9% 10 Ml Flush Syringe IV PRN PRN LINE FLUSH Tramadol HCl 50 mg 12/08/20 04:31 Tramadol 50 Mg Tab PO Q6H PRN Pain, (1-3)
[2020-12-10] MEDS: BENZONATATE 100 MG CAP PO SCH (05:08)
[2020-12-10] MEDS: chlordiazePOXIDE 25 MG CAP PO SCH (05:08)
[2020-12-10 06:49] VITALS: BP 142/94
--- NOTE | 2020-12-10 08:53 | Discharge Summary ---
Providers - Providers Date of Admission: 12/08/20 03:03 Date of discharge: 12/10/20 Attending physician: ERROL AMARAL 12/08/20 Consult to Cardiac Rehabilitation [CONS] Routine Reason For Exam: Phase I 12/08/20 13:41 Physical Therapy Evaluation and Treat [CONS] Routine Comment: Reason For Exam: For back pain Primary care physician: JUAQUIN QUEVEDO Hospitalization Condition: Fair Hospital course: 55-year-old male with history of hypertension, venous thromboembolism, and tobacco use presents to emergency department with complaints of chest pain and back pain starting yesterday. Chest pain to lifting something heavy at work. Patient developed intermittent substernal chest pain has been sharp in nature associated with shortness of breath. Patient denies nausea/vomiting or diaphoresis. The patient notes also states that his sexual partner was recently diagnosed with trichomonas and told him that he needs to be checked out. Patient denies dysuria or penile discharge. Patient was previously treated for DVT with Coumadin but stopped taking his medication "a while ago.". Here in the ER, patient was placed on observation for stress test. He was given Flagyl for possible trichomonas treatment. Hospital course 12/08. Patient could not get a stress test this a.m. as he had breakfast. S tarted on alcohol withdrawal protocol today. Vitals remained stable. His back pain has resolved. 12/09. His stress test is negative. He was placed on alcoholic withdrawal protocol as he was tremulous yesterday. He is unsteady this AM. CIWA is less than 8. he will be on librium for now. He has a a risk of fall and he is on oral anticoagulation. 12/10. CIWA score less than 5 this AM. Patient is able to ambulate without any issues. He will be discharged to continue his home medications. He will follow-up with his PCP in 2 weeks Disposition: [id number] TO HOME OR SELFCARE Final Discharge Diagnosis (Prints w/discharge instructions): Chest pain Time spent for discharge: 25 minutes - Discharge Diagnoses (1) Acute lumbar myofascial strain Status: Acute (2) Chest pain Status: Acute (3) Exposure to trichomonas Status: Acute (4) Alcohol use disorder Status: Acute Core Measure Documentation - Palliative Care Palliative Care/ Comfort Measures: Not Applicable - Core Measures Any of the following diagnoses?: none Exam - Physical Exam Narrative exam: VITAL SIGNS: Reviewed. GENERAL: Awake HEAD: No signs of head trauma. EYES: Pupils are equal. Extraocular motions intact. MOUTH: Oropharynx is normal. NECK: No adenopathy, no JVD. CHEST: Chest with diminished breath sounds bilaterally. No wheezes, rales, or rhonchi. CARDIAC: normal S1 and S2, without murmurs, gallops, or rubs. ABDOMEN: Soft, non tender and non distended. No rebound or guarding, and no masses palpated. Bowel Sounds normal. MUSCULOSKELETAL: No edema NEUROLOGIC EXAM: Alert and oriented x3. No focal neurologic deficits. Has unsteady gait SKIN: No obvious lesions - Constitutional Vitals: Temp Pulse Resp BP Pulse Ox 98.4 F 75 20 142/94 99 12/10/20 04:39 12/10/20 04:39 12/10/20 04:39 12/10/20 04:39 12/10/20 04:39 Plan Diet: regular Additional Instructions: Alcohol cessation has been advised. Follow-up with PCP in 2 weeks Follow up with: JUAQUIN QUEVEDO MD [Primary Care Provider] - 3-5 Days
[2020-12-10] MEDS: METOPROLOL TARTRATE 25 MG TAB PO SCH (09:15)
[2020-12-10] MEDS: PANTOPRAZOLE 40 MG TAB PO SCH (09:15)
[2020-12-10] MEDS: ASPIRIN EC 81 MG TAB PO SCH (09:15)
[2020-12-10] MEDS: APIXABAN 5 MG TAB PO SCH (09:15)
[2020-12-10] MEDS: FLUTICASONE PROPIONATE NASAL SPRAY 16 GM NS SCH (09:15)
== END 2020-12-10 09:40 | disposition home or self-care (01) ==
LOC: ED 16:21 → 4A 12-08 03:03
PROVIDERS: ADMIT Hospitalist; ATTEND Internal Medicine
DX: R07.89 Other chest pain (principal); S39.012A Strain of muscle, fascia and tendon of lower back, initial encounter; I27.82 Chronic pulmonary embolism; A59.9 Trichomoniasis, unspecified; I10 Essential (primary) hypertension; F17.210 Nicotine dependence, cigarettes, uncomplicated; F10.239 Alcohol dependence with withdrawal, unspecified; Z86.718 Personal history of other venous thrombosis and embolism; Z79.01 Long term (current) use of anticoagulants; Z79.82 Long term (current) use of aspirin; X50.0XXA Overexertion from strenuous movement or load, initial encounter; Y93.89 Activity, other specified; Y92.89 Other specified places as the place of occurrence of the external cause; Y99.8 Other external cause status
CPT/HCPCS: 36415; 71046; 71275; 78452; 80048; 80053; 81001; 83735; 84484; 85007; 85025; 85379; 93005; 93017; 96365; 96366; 96367; 96375; 96376; 97162; 99285; 99406; A9270; A9502; G0378; J2060; J2405; J2785; J3010; J3475; Q9967

== ENCOUNTER 2021-02-28 11:28 | Emergency (ER) | payer OTHER ==
[2021-02-28] MEDS ORDERED: ASPIRIN 325 MG TAB PO ONE (11:40)
[2021-02-28 12:00] LABS: Basophils # (Auto) 0.1 K/mm3 (0.0-0.1); Basophils % (Auto) 1.4 % (0.0-1.8); Eosinophils % (Auto) 0.3 % (0.0-4.3); Hematocrit 41.7 % (35.5-45.6); Hemoglobin 14.2 gm/dl (11.8-15.2); Lymphocytes # (Auto) 1.3 K/mm3 (1.2-5.4); Lymphocytes % (Auto) 35.3 % (13.4-35.0); Mean Corpuscular HGB Conc 34 % (32-34); Monocytes # (Auto) 0.5 K/mm3 (0.0-0.8); Monocytes % (Auto) 15.1 % (0.0-7.3); Red Blood Count 3.73 M/mm3 (3.65-5.03); Red Cell Distribution Width 14.9 % (13.2-15.2)
[2021-02-28 12:02] LABS: Mean Corpuscular Volume 112 fl (84-94); Platelet Count 61 K/mm3 (140-440)
[2021-02-28 12:26] LABS: Alanine Aminotransferase 74 units/L (7-56); Albumin 4.4 g/dL (3.9-5); Blood Urea Nitrogen 9 mg/dL (9-20); Calcium 8.7 mg/dL (8.4-10.2); Hemolysis Index 9
[2021-02-28 12:29] LABS: BUN/Creatinine Ratio 13
[2021-02-28] MEDS ORDERED: ACETAMINOPHEN 325 MG TAB ONE (13:57)
[2021-02-28] MEDS ORDERED: ASPIRIN 325 MG TAB ONE (13:59)
[2021-02-28] MEDS ORDERED: ACETAMINOPHEN 500 MG TAB PO ONE (14:15)
[2021-02-28] MEDS ORDERED: FAMOTIDINE 20 MG TAB PO ONE (14:15)
--- NOTE | 2021-02-28 14:15 | Emergency Department Report ---
<SAMMIE JERONIMO - Last Filed: 02/28/21 17:23> ED Chest Pain HPI - General Chief Complaint: Chest Pain Stated Complaint: CHEST PAIN, BACK PAIN Time Seen by Provider: 02/28/21 13:55 Source: patient Mode of arrival: Ambulatory Limitations: No Limitations - History of Present Illness Initial Comments: 55-year-old male with a past medical history of alcohol abuse, PE/DVT not currently compliant with anticoagulants, hypertension and hyperlipidemia presents to the ER today with complaints of substernal chest pain. Patient states that the pain has been intermittent for the past 2 days. He describes it as a "tight" pain. 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 He states that it is nonradiating. He reports "a little" shortness of breath. He denies any nausea, vomiting, cough, wheezing, diaphoresis, fever or chills. He denies any lower extremity swelling or calf pain. He also complains of lower back pain mainly on the left side which started yesterday. He states that he woke up with the pain and it is worse with movement and certain positions. He states that he does work at a job where he does lots of strenuous activity but does not recall any injury to his low back. He states that the pain is nonradiating, and he denies any associated abdominal pain, bowel or bladder incontinence, saddle anesthesia, lower extremity weakness, numbness or tingling or any other symptoms. Reviewed patient's past visit-patient was recently discharged from the hospital after being admitted for similar chest pain and back pain. Patient had a negative nuclear stress test at the time. CT at the time was also negative. Patient was discharged home in stable condition with instructions to continue his home medication and follow-up. Patient admits that he has not followed up since he left the hospital. He admits that his not been taking his anticoagulants. He has been tried on Coumadin, Xarelto and Eliquis and states that they all make him feel funny. Complaint: chest pain -: days(s) (2) - Related Data Home Medications Medication Instructions Recorded Confirmed Last Taken Apixaban [Eliquis] 5 mg PO BID 12/23/19 12/08/20 Unknown Previous Rx's Medication Instructions Recorded Last Taken Type Aspirin EC [Halfprin EC] 81 mg PO QDAY #30 tablet. 12/24/19 Unknown Rx AtorvaSTATin [Lipitor] 40 mg PO QHS #30 tablet 12/24/19 Unknown Rx Metoprolol [Lopressor TAB] 25 mg PO BID #60 tablet 12/24/19 Unknown Rx methOCARBAMOL [Robaxin TAB] 500 mg PO Q8HR PRN #20 tablet 07/13/20 Unknown Rx Albuterol Mdi (or & Nicu Only) 2 puff IH QID PRN #1 inhalation 07/22/20 Unknown Rx [ProAir HFA Inhaler] Benzonatate [Tessalon Perles] 100 mg PO Q8HR #14 capsule 07/22/20 Unknown Rx Fluticasone [Flonase] 1 spray NS QDAY #1 bottle 07/22/20 Unknown Rx HYDROcodone/APAP 5-325 [[place] 1 each PO Q6HR PRN #14 tablet 07/22/20 Unknown Rx 5-325 mg TAB] Ibuprofen [Motrin 600 MG tab] 600 mg PO Q8H PRN #20 tablet 02/28/21 Unknown Rx Allergies Allergy/AdvReac Type Severity Reaction Status Date / Time No Known Allergies Allergy Verified 07/22/20 14:02 Heart Score - HEART Score History: Slightly suspicious EKG: Normal Age: 45-65 Risk factors: > 3 risk factors or hx of atherosclerotic disease Troponin: < normal limit HEART Score: 3 ED Review of Systems Comment: All other systems reviewed and negative Constitutional: denies: chills, fever Eyes: denies: eye pain, eye discharge, vision change ENT: denies: ear pain, throat pain Respiratory: denies: cough, shortness of breath, SOB with exertion, SOB at rest, wheezing Cardiovascular: chest pain. denies: palpitations, dyspnea on exertion, edema, syncope, paroxysmal nocturnal dyspnea Gastrointestinal: denies: abdominal pain, nausea, diarrhea, constipation, hematemesis, hematochezia Genitourinary: denies: urgency, dysuria Musculoskeletal: back pain. denies: joint swelling, arthralgia Skin: denies: rash, lesions Neurological: denies: headache, weakness, numbness, paresthesias, confusion, abnormal gait, vertigo Psychiatric: denies: anxiety, depression, auditory hallucinations, visual hallucinations, homicidal thoughts, suicidal thoughts Hematological/Lymphatic: denies: easy bleeding, easy bruising, swollen glands ED Past Medical Hx - Past Medical History Previous Medical History?: Yes Hx Hypertension: Yes Hx Heart Attack/AMI: No Hx Congestive Heart Failure: No Hx Diabetes: Yes (Brother) Hx Deep Vein Thrombosis: Yes Hx Pulmonary Embolism: Yes Hx Liver Disease: No Hx Renal Disease: No Hx Sickle Cell Disease: No Hx Arthritis: No Hx Seizures: No Hx Kidney Stones: No Hx Asthma: No Hx COPD: No Hx Tuberculosis: No Hx Dementia: No Hx HIV: No Additional medical history: DVT BLE - Surgical History Past Surgical History?: No Hx Coronary Stent: No Hx Open Heart Surgery: No Hx Pacemaker: No Hx Internal Defibrillator: No Hx Cholecystectomy: No Hx Appendectomy: No Hx Breast Surgery: No - Social History Smoking Status: Never Smoker Substance Use Type: Alcohol - Medications Home Medications: Home Medications Medication Instructions Recorded Confirmed Last Taken Type Apixaban [Eliquis] 5 mg PO BID 12/23/19 12/08/20 Unknown History Aspirin EC [Halfprin EC] 81 mg PO QDAY #30 tablet. 12/24/19 12/08/20 Unknown Rx AtorvaSTATin [Lipitor] 40 mg PO QHS #30 tablet 12/24/19 12/08/20 Unknown Rx Metoprolol [Lopressor TAB] 25 mg PO BID #60 tablet 12/24/19 12/08/20 Unknown Rx methOCARBAMOL [Robaxin TAB] 500 mg PO Q8HR PRN #20 tablet 07/13/20 12/08/20 Unknown Rx Albuterol Mdi (or & Nicu Only) 2 puff IH QID PRN #1 inhalation 07/22/20 12/08/20 Unknown Rx [ProAir HFA Inhaler] Benzonatate [Tessalon Perles] 100 mg PO Q8HR #14 capsule 07/22/20 12/08/20 Unkn own Rx Fluticasone [Flonase] 1 spray NS QDAY #1 bottle 07/22/20 12/08/20 Unknown Rx HYDROcodone/APAP 5-325 [[place] 1 each PO Q6HR PRN #14 tablet 07/22/20 12/08/20 Unknown Rx 5-325 mg TAB] Ibuprofen [Motrin 600 MG tab] 600 mg PO Q8H PRN #20 tablet 02/28/21 Unknown Rx ED Physical Exam - General Limitations: No Limitations General appearance: alert, in no apparent distress - Head Head exam: Present: atraumatic, normocephalic, normal inspection - Eye Eye exam: Present: normal appearance, PERRL, EOMI Pupils: Present: normal accommodation - Neck Neck exam: Present: normal inspection, full ROM - Respiratory Respiratory exam: Present: normal lung sounds bilaterally. Absent: respiratory distress, wheezes, rhonchi, stridor - Cardiovascular Cardiovascular Exam: Present: regular rate, normal rhythm, normal heart sounds - GI/Abdominal GI/Abdominal exam: Present: soft, tenderness. Absent: distended, guarding, rebound, rigid - Extremities Exam Extremities exam: Present: normal inspection, full ROM. Absent: tenderness, calf tenderness - Neurological Exam Neurological exam: Present: alert, oriented X3, CN II-XII intact, normal gait - Psychiatric Psychiatric exam: Present: normal affect, normal mood - Skin Skin exam: Present: intact DEN score - Den Score Age > 65: (0) No Aspirin use within the Past 7 Days: (0) No 3 or more CAD Risk Factors: (0) No 2 or more Angina events in past 24 hrs: (1) Yes Known CAD with more than 50% Stenosis: (0) No Elevated Cardiac Markers: (1) Yes ST Deviation Greater than 0.5mm: (0) No DEN Score: 2 ED Medical Decision Making - Lab Data Result diagrams: 02/28/21 11:44 02/28/21 11:44 - EKG Data EKG shows normal: sinus rhythm Rate: tachycardia (102) - EKG Data When compared to previous EKG there are: no significant change (when compared to EKG from 12/09/20) - Radiology Data Radiology results: report reviewed Patient: OLGA TOBIN MR#: [id number] : 1965 Acct:[id number] Age/Sex: 55 / M ADM Date: 02/28/21 Loc: ED Attending Dr: Ordering Physician: ENRICO RAO MD Date of Service: 02/28/21 Procedure(s): XR chest routine 2V Accession Number(s): [id number] cc: ENRICO RAO MD Fluoro Time In Minutes: XR chest routine 2V INDICATION / CLINICAL INFORMATION: CP. COMPARISON: 12/07/2020 FINDINGS: SUPPORT DEVICES: None. HEART /PULMONARY VASCULATURE: No significant abnormality. LUNGS / PLEURA: No significant pulmonary or pleural abnormality. No pneumothorax. ADDITIONAL FINDINGS: No significant additional findings. IMPRESSION: 1. No acute findings. Signer Name: Susanne Marinelli MD Signed: 02/28/2021 5:16 PM Workstation Name: [id number] Transcribed By: STEFANY Dictated By: SUSANNE MARINELLI MD Electronically Authenticated By: SUSANNE MARINELLI MD Signed Date/Time: 02/28/211715 DD/ 15 TD/TT: - Medical Decision Making Labs /EKG/CXR reviewed - D-dimer elevated but remaining w/u including trop x 2 neg and EKG shows no acute changes especially when compared to previous EKG from 12/21. CTA pending The patient's care has been transferred to and accepted by[Dr Noble]. We discussed: The patient's chief complaints; labs and imaging that have been completed and those that are still pending; any treatment provided and the patient's response to treatment; any significant change in condition; the treatment plan prior to the transfer of care. The accepting provider will follow up on all pending labs and imaging and make any necessary changes to the current impression and/or treatment plan. The accepting physician/midlevel is now responsible for the patient's care and final disposition. ED Disposition Clinical Impression: Chest pain, Low back pain, History of alcohol abuse, Transaminitis, Smoker, History of pulmonary embolism Disposition: DC-01 TO HOME OR SELFCARE Condition: Stable Instructions: Nonspecific Chest Pain, Adult Additional Instructions: Please follow-up with a primary care physician in the next 2 days. I am giving you a referral for a local primary care physician, Dr. Tate, and a primary care clinic, [facility]. I am giving you a referral for a local ornamental ironworking supervisor, Dr. Kate Berry. Please call the office of Dr. Berry tomorrow morning for a close outpatient follow-up in the next few days. Please try and quit smoking cigarettes. Please try to quit drinking alcohol as it has caused you to have elevated liver enzymes. I am giving you a referral for a local gastroenterology group, [facility], to follow-up regarding your elevated liver enzymes. Because of your elevated liver enzymes, please avoid use of any Tylenol/acetaminophen. Return to the emergency department with any worsening of your symptoms, new or concerning symptoms not addressed during this current emergency department visit, or with any acute distress. Prescriptions: Ibuprofen [Motrin 600 MG tab] 600 mg PO Q8H PRN #20 tablet PRN Reason: Pain Referrals: AJAY BERRY MD [Staff Physician] - 2-3 Days (Please call tomorrow morning for an appointment in the next few days.) Forms: Work/School Release Form(ED) <WOO NOBLE - Last Filed: 02/28/21 18:50> Heart Score - EKG Read Time Time EKG Completed: 11:34 EKG Read Time: 11:41 - Critical Actions Critical Actions: 0-3 pts:0.9-1.7%risk of adverse cardiac event.Candidate for discharge ED Review of Systems ROS: Stated complaint: CHEST PAIN, BACK PAIN Other details as noted in HPI ED Course Vital Signs 02/28/21 11:39 Temperature 98.5 F Pulse Rate 105 H Respiratory 20 Rate Blood Pressure 131/85 O2 Sat by Pulse 95 Oximetry - Consultations Consultation #1: 02/28/21 18:[address] Berry, ornamental ironworking supervisor on-call for [facility] cardiology. She agrees that the patient appears safe for discharge home at this time given the recent negative stress test, negative troponin levels, negative CT angiography of the chest today. She recommends that the patient call their office tomorrow for close outpatient follow-up appointment. DEN score - Den Score Elevated Cardiac Markers: (0) No ED Medical Decision Making - Lab Data Result diagrams: 02/28/21 11:44 02/28/21 11:44 - Radiology Data Radiology results: report reviewed CTA CHEST WITH CONTRAST INDICATION / CLINICAL INFORMATION: Chest pain/hx PE 100 ML OMNI 350 . TECHNIQUE: Axial CT images were obtained through the chest after injection of 100 cc Omnipaque 350 IV contrast. 3 plane MIP and/or 3D reconstructions were produced. All CT scans at this location are performed using CT dose reduction for ALARA by means of automated exposure control. COMPARISON: 12/08/2020 FINDINGS: PULMONARY ARTERIES: No pulmonary emboli. THORACIC AORTA: No significant abnormality. HEART: No significant abnormality. CORONARY ARTERY CALCIFICATION: None. MEDIASTINUM / ROSA MARIA: No significant abnormality. PLEURA: No pleural effusion. No pneumothorax. LUNGS: There are patchy airspace opacities noted in the right lower lobe and right middle lobe. These appear unchanged ADDITIONAL FINDINGS: None. UPPER ABDOMEN: No acute findings. SKELETAL STRUCTURES: No significant osseous abnormality. IMPRESSION: 1. No CT evidence for pulmonary embolism. 2. No acute findings. - Medical Decision Making This patient presents to the emergency department with a 2-day history of some midsternal chest pain. EKG did not have any morphology consistent with ST elevation myocardial infarction. Labs are mostly unremarkable including negative troponins x2, but the patient did have a elevated D-dimer level. For this reason the patient had a CT angiography of the chest that did not show any pulmonary embolism, dissection, or any other acute processes. Patient had a negative stress test in December of this year. He has a low heart and DEN score. I spoke with cardiology who agrees with the plan for discharge with close outpatient follow-up. The patient is also in agreement with this plan. I discussed the patient's transaminitis secondary to his alcohol use. We discussed avoiding Tylenol/acetaminophen and he has been given an outpatient referral for gastroenterology. The patient will return to the emergency department with any worsening of his symptoms, new or concerning symptoms not addressed during this emergency department visit, or with any acute distress. Critical Care Time: No Critical care attestation.: If time is entered above; I have spent that time in minutes in the direct care of this critically ill patient, excluding procedure time. ED Disposition Is pt being admited?: No Time of Disposition: 18:32
[2021-02-28 16:02] LABS: Bilirubin,Urine SM (Negative); Blood,Urine NEG (Negative); Color,Urine Amber (Yellow); Mucus,Urine 3+ /HPF
[2021-02-28 16:09] LABS: Ictotest,Urine Negative (Negative)
[2021-02-28] MEDS ORDERED: POTASSIUM CHLORIDE ER 20 MEQ TAB PO ONE (17:19)
--- NOTE | 2021-02-28 17:21 | XRay Report ---
XR chest routine 2V INDICATION / CLINICAL INFORMATION: CP. COMPARISON: 12/07/2020 FINDINGS: SUPPORT DEVICES: None. HEART /PULMONARY VASCULATURE: No significant abnormality. LUNGS / PLEURA: No significant pulmonary or pleural abnormality. No pneumothorax. ADDITIONAL FINDINGS: No significant additional findings. IMPRESSION: 1. No acute findings. Signer Name: William Marinelli MD Signed: 02/28/2021 5:16 PM Workstation Name: [id number]
--- NOTE | 2021-02-28 17:55 | Cat Scan Report ---
CTA CHEST WITH CONTRAST INDICATION / CLINICAL INFORMATION: Chest pain/hx PE 100 ML OMNI 350 . TECHNIQUE: Axial CT images were obtained through the chest after injection of 100 cc Omnipaque 350 IV contrast. 3 plane MIP and/or 3D reconstructions were produced. All CT scans at this location are per formed using CT dose reduction for ALARA by means of automated exposure control. COMPARISON: 12/08/2020 FINDINGS: PULMONARY ARTERIES: No pulmonary emboli. THORACIC AORTA: No significant abnormality. HEART: No significant abnormality. CORONARY ARTERY CALCIFICATION: None. MEDIASTINUM / ROSA MARIA: No significant abnormality. PLEURA: No pleural effusion. No pneumothorax. LUNGS: There are patchy airspace opacities noted in the right lower lobe and right middle lobe. These appear unchanged ADDITIONAL FINDINGS: None. UPPER ABDOMEN: No acute findings. SKELETAL STRUCTURES: No significant osseous abnormality. IMPRESSION: 1. No CT evidence for pulmonary embolism. 2. No acute findings. Signer Name: Abhilash Priest MD Signed: 02/28/2021 5:50 PM Workstation Name: [id number]
[2021-02-28 18:51] VITALS: BP 137/78
--- NOTE | 2021-03-01 09:55 | Electrocardiograph Report ---
[facility] Test Date: 2021-02-28 Test Time: 11:34:45 Pat Name: OLGA TOBIN Department: Room: Gender: M Planning Aide: ANETA : 1965 Requested By: ED DOC Order Number: [id number] Reading MD: Beau Aguilera Measurements Intervals [place] Rate: 102 P: 97 SD: 195 QRS: 8 QRSD: 88 T: 59 QT: 357 QTc: 466 Interpretive Statements Sinus tachycardia Probable left atrial enlargement non specific st-t Compared to ECG 12/08/2020 02:00:59 Electronically Signed On 03-01-2021 9:55:24 EDT by Beau Aguilera
== END 2021-02-28 18:50 | disposition home or self-care (01) ==
LOC: ED 11:28
DX: R07.89 Other chest pain (principal); M54.5 Low back pain; R74.01 Elevation of levels of liver transaminase levels; F10.10 Alcohol abuse, uncomplicated; I10 Essential (primary) hypertension; Z86.711 Personal history of pulmonary embolism; Z79.1 Long term (current) use of non-steroidal anti-inflammatories (NSAID); Z79.899 Other long term (current) drug therapy
CPT/HCPCS: 36415; 71046; 71275; 80053; 81001; 83690; 84484; 85025; 85379; 93005; 99284; Q9967

== ENCOUNTER 2021-08-01 19:51 | Inpatient (IN) | payer SELFPAY ==
[2021-08-01] MEDS ORDERED: SODIUM CHLORIDE 0.9% 1000 ML 1,000 ML IV ONE (20:17)
--- NOTE | 2021-08-01 20:19 | Emergency Department Report ---
ED General Adult HPI - General Chief complaint: Alcohol Stated complaint: CHEST PAIN Time Seen by Provider: 08/01/21 20:04 Source: patient, family Mode of arrival: Wheelchair Limitations: No Limitations - History of Present Illness Initial comments: Patient present with epigastric pain. He describing a sharp epigastric pain that does not radiate. It is stabbing. Pain started over the last day or so. He has had nausea with vomiting. There is no hematemesis or coffee-ground emesis. Patient denies melenic stool. There is no history of recent travel or trauma. His is concerned because he is very shaky. Patient admits that he drinks alcohol on a regular basis. Last drink was yesterday. He drinks vodka. He believes that he is in alcohol withdrawal. He does not have any hallucinations. - Related Data Home Medications Medication Instructions Recorded Confirmed Last Taken Apixaban [Eliquis] 5 mg PO BID 12/23/19 12/08/20 Unknown Previous Rx's Medication Instructions Recorded Last Taken Type Aspirin EC [Halfprin EC] 81 mg PO QDAY #30 tablet. 12/24/19 Unknown Rx AtorvaSTATin [Lipitor] 40 mg PO QHS #30 tablet 12/24/19 Unknown Rx Metoprolol [Lopressor TAB] 25 mg PO BID #60 tablet 12/24/19 Unknown Rx methOCARBAMOL [Robaxin TAB] 500 mg PO Q8HR PRN #20 tablet 07/13/20 Unknown Rx Albuterol Mdi (or & Nicu Only) 2 puff IH QID PRN #1 inhalation 07/22/20 Unknown Rx [ProAir HFA Inhaler] Benzonatate [Tessalon Perles] 100 mg PO Q8HR #14 capsule 07/22/20 Unknown Rx Fluticasone [Flonase] 1 spray NS QDAY #1 bottle 07/22/20 Unknown Rx HYDROcodone/APAP 5-325 [Ira 1 each PO Q6HR PRN #14 tablet 07/22/20 Unknown Rx 5-325 mg TAB] Ibuprofen [Motrin 600 MG tab] 600 mg PO Q8H PRN #20 tablet 02/28/21 Unknown Rx Allergies Allergy/AdvReac Type Severity Reaction Status Date / Time No Known Allergies Allergy Verified 08/01/21 20:07 ED Review of Systems ROS: Stated complaint: CHEST PAIN Other details as noted in HPI Comment: All other systems reviewed and negative Eyes: denies: vision change ENT: denies: throat pain Respiratory: denies: cough Cardiovascular: denies: chest pain Endocrine: denies: unexplained weight loss Gastrointestinal: as per HPI Genitourinary: denies: dysuria Musculoskeletal: denies: back pain Skin: denies: rash Neurological: denies: headache Hematological/Lymphatic: denies: easy bruising ED Past Medical Hx - Past Medical History Hx Hypertension: Yes Hx Heart Attack/AMI: No Hx Congestive Heart Failure: No Hx Diabetes: No (Brother) Hx Deep Vein Thrombosis: Yes Hx Pulmonary Embolism: Yes Hx Liver Disease: No Hx Renal Disease: No Hx Sickle Cell Disease: No Hx Arthritis: No Hx Seizures: No Hx Kidney Stones: No Hx Asthma: No Hx COPD: No Hx Tuberculosis: No Hx Dementia: No Hx HIV: No Additional medical history: DVT BLE - Surgical History Hx Coronary Stent: No Hx Open Heart Surgery: No Hx Pacemaker: No Hx Internal Defibrillator: No Hx Cholecystectomy: No Hx Appendectomy: No Hx Breast Surgery: No - Family History Family history: other (Alcoholism) - Social History Smoking Status: Never Smoker Substance Use Type: Alcohol - Medications Home Medications: Home Medications Medication Instructions Recorded Confirmed Last Taken Type Apixaban [Eliquis] 5 mg PO BID 12/23/19 12/08/20 Unknown History Aspirin EC [Halfprin EC] 81 mg PO QDAY #30 tablet. 12/24/19 12/08/20 Unknown Rx AtorvaSTATin [Lipitor] 40 mg PO QHS #30 tablet 12/24/19 12/08/20 Unknown Rx Metoprolol [Lopressor TAB] 25 mg PO BID #60 tablet 12/24/19 12/08/20 Unknown Rx methOCARBAMOL [Robaxin TAB] 500 mg PO Q8HR PRN #20 tablet 07/13/20 12/08/20 Unknown Rx Albuterol Mdi (or & Nicu Only) 2 puff IH QID PRN #1 inhalation 07/22/20 12/08/20 Unknown Rx [ProAir HFA Inhaler] Benzonatate [Tessalon Perles] 100 mg PO Q8HR #14 capsule 07/22/20 12/08/20 Unknown Rx Fluticasone [Flonase] 1 spray NS QDAY #1 bottle 07/22/20 12/08/20 Unknown Rx HYDROcodone/APAP 5-325 [Ira 1 each PO Q6HR PRN #14 tablet 07/22/20 12/08/20 Unknown Rx 5-325 mg TAB] Ibuprofen [Motrin 600 MG tab] 600 mg PO Q8H PRN #20 tablet 02/28/21 Unknown Rx ED Physical Exam - General Limitations: No Limitations, Other (Pulse ox noted and normal) General appearance: alert, in distress (Moderate) - Head Head exam: Present: atraumatic, normocephalic, normal inspection - Eye Eye exam: Present: normal appearance, EOMI. Absent: scleral icterus - ENT ENT exam: Present: normal exam, normal external ear exam - Neck Neck exam: Present: normal inspection. Absent: meningismus - Respiratory Respiratory exam: Present: normal lung sounds bilaterally. Absent: respiratory distress - Cardiovascular Cardiovascular Exam: Present: normal rhythm, tachycardia - GI/Abdominal GI/Abdominal exam: Present: soft, tenderness (Epigastric). Absent: guarding, rebound, pulsatile mass - Extremities Exam Extremities exam: Present: normal capillary refill - Back Exam Back exam: Absent: CVA tenderness (R), CVA tenderness (L) - Neurological Exam Neurological exam: Present: alert, oriented X3, CN II-XII intact, normal gait, other (Generalized tremor) - Psychiatric Psychiatric exam: Present: normal affect, normal mood - Skin Skin exam: Present: warm, dry ED Course Vital Signs 08/01/21 08/01/21 08/01/21 20:04 20:43 20:46 Temperature 98.2 F Pulse Rate 97 H 79 Respiratory 17 13 Rate Blood Pressure 150/93 Blood Pressure 161/104 [Right] O2 Sat by Pulse 98 100 100 Oximetry 08/01/21 08/01/21 08/01/21 21:00 21:16 21:30 Temperature Pulse Rate 89 80 92 H Respiratory 10 L 16 17 Rate Blood Pressure 161/97 161/97 145/81 Blood Pressure [Right] O2 Sat by Pulse 100 100 100 Oximetry 08/01/21 08/01/21 22:00 22:30 Temperature Pulse Rate 71 72 Respiratory 19 19 Rate Blood Pressure 159/97 146/81 Blood Pressure [Right] O2 Sat by Pulse 99 99 Oximetry - Reevaluation(s) Reevaluation #1: 08/01/21 20:18 IV labs ordered. Records reviewed. Reevaluation #2: 08/01/21 23:09 Labs of been noted. Patient was improved after Ativan. He was admitted ED Medical Decision Making - Lab Data Result diagrams: 08/01/21 20:35 08/01/21 20:35 Rhythm strip: Normal sinus rhythm without ectopy. Monitor observe 10 seconds. - EKG Data -: EKG Interpreted by Me - EKG Data 08/01/21 20:24 5-EKG shows normal sinus rhythm at 89. Intervals are normal including a QRS of 97 and a QT corrected of 465. Patient has no ST elevation to suggest infarct. There is T wave inversion in 2, 3, aVF. There is T wave flattening in V5 and V6. There is a biphasic T wave in V4. There is artifact noted. There does not appear to be any change from prior. - Medical Decision Making Patient presents with tremors and epigastric pain. There is no evidence of acute pancreatitis. He certainly could have alcoholic ulcer disease or alcoholic gastritis. He does have evidence of acute alcohol withdrawal. He is not hallucinating. This does not represent DTs. He did have vasomotor instability given his tachycardia. Patient had a high CIWA score. He has been aggressively treated with benzodiazepines and will be admitted. He is not suicidal homicidal. There is no evidence that he is delusional. Critical Care Time: Yes (45 minutes) Critical care attestation.: If time is entered above; I have spent that time in minutes in the direct care of this critically ill patient, excluding procedure time. ED Disposition Clinical Impression: Hypomagnesemia, Acute epigastric pain Alcohol withdrawal Qualifiers: Complication of substance-induced condition: with unspecified complication Qualified Code(s): F10.239 - Alcohol dependence with withdrawal, unspecified Disposition: 09 ADMITTED INPATIENT Is pt being admited?: Yes Condition: Stable Referrals: PRIMARY CARE, [Primary Care Provider] - 3-5 Days
[2021-08-01 20:48] LABS: Hematocrit 43.3 % (35.5-45.6); Hemoglobin 14.4 gm/dl (11.8-15.2); Mean Corpuscular HGB Conc 33 % (32-34); Mean Corpuscular Volume 109 fl (84-94); Red Blood Count 3.99 M/mm3 (3.65-5.03); Red Cell Distribution Width 13.9 % (13.2-15.2)
[2021-08-01 21:01] LABS: Platelet Count 70 K/mm3 (140-440)
[2021-08-01 21:07] LABS: Alanine Aminotransferase 85 units/L (7-56); Albumin 4.6 g/dL (3.9-5); Bilirubin,Direct 0.4 mg/dL (0-0.2); Blood Urea Nitrogen 8 mg/dL (9-20); Calcium 8.5 mg/dL (8.4-10.2); Hemolysis Index 43
[2021-08-01 21:10] LABS: BUN/Creatinine Ratio 13
[2021-08-01] MEDS: LORazepam 2 MG/ML VIAL IV PRN ×2 (21:26→23:30)
[2021-08-01] MEDS ORDERED: MAGNESIUM SULFATE 2 GM/50 ML BAG IV ONE (21:42)
[2021-08-01] MEDS ORDERED: ACETAMINOPHEN 325 MG TAB PO PRN (23:00)
[2021-08-01] MEDS ORDERED: NITROGLYCERIN 0.4 MG TAB SUBL SL PRN (23:00)
[2021-08-01] MEDS ORDERED: MORPHINE 2 MG/1 ML INJ IV PRN (23:00)
[2021-08-01] MEDS ORDERED: traMADol 50 MG TAB PO PRN (23:00)
[2021-08-01] MEDS ORDERED: IBUPROFEN 600 MG TAB PO PRN (23:09)
[2021-08-01] MEDS ORDERED: ALBUTEROL 8.5 GM MDI INHALATION IH PRN (23:09)
--- NOTE | 2021-08-01 23:14 | History and Physical Report ---
History of Present Illness Date of examination: 08/01/21 Date of admission: 08/01/21 Chief complaint: Chest pain Alcohol withdrawal History of present illness: 56 years old male with past medical history of PE and DVT on Eliquis , hypertension tobacco abuse alcohol abuse was brought to the emergency room for chest pain/epigastric pain which is stabbing does not radiate for the last day also. Patient also complained of nausea vomiting. Patient denied any coffee- ground emesis or melanotic stool. Also patient is very shaky. Patient drinks about a pint of alcohol on a regular basis. Last drink was yesterday. He drinks vodka. He believes that he is in alcohol withdrawal. He does not have any hallucinations. Patient does have evidence of acute alcohol withdrawal. He is not hallucinating. This does not represent DTs. He did have vasomotor instability given his tachycardia. Patient had a high CIWA score. He has been aggressively treated with benzodiazepines and will be admitted. He is not suicidal homicidal. There is no evidence that he is delusional. Med rec is done Past History Past Medical History: DVT, hypertension, other (Tobacco abuse, alcohol abuse) Medications and Allergies Allergies Allergy/AdvReac Type Severity Reaction Status Date / Time No Known Allergies Allergy Verified 08/01/21 20:07 Home Medications Medication Instructions Recorded Confirmed Last Taken Type Apixaban [Eliquis] 5 mg PO BID 12/23/19 12/08/20 Unknown History Aspirin EC [Halfprin EC] 81 mg PO QDAY #30 tablet. 12/24/19 12/08/20 Unknown Rx AtorvaSTATin [Lipitor] 40 mg PO QHS #30 tablet 12/24/19 12/08/20 Unknown Rx Metoprolol [Lopressor TAB] 25 mg PO BID #60 tablet 12/24/19 12/08/20 Unknown Rx methOCARBAMOL [Robaxin TAB] 500 mg PO Q8HR PRN #20 tablet 07/13/20 12/08/20 Unknown Rx Albuterol Mdi (or & Nicu Only) 2 puff IH QID PRN #1 inhalation 07/22/20 12/08/20 Unknown Rx [ProAir HFA Inhaler] Benzonatate [Tessalon Perles] 100 mg PO Q8HR #14 capsule 07/22/20 12/08/20 Unknown Rx Fluticasone [Flonase] 1 spray NS QDAY #1 bottle 07/22/20 12/08/20 Unknown Rx HYDROcodone/APAP 5-325 [[place] 1 each PO Q6HR PRN #14 tablet 07/22/20 12/08/20 Unknown Rx 5-325 mg TAB] Ibuprofen [Motrin 600 MG tab] 600 mg PO Q8H PRN #20 tablet 02/28/21 Unknown Rx Active Meds: Active Medications Lorazepam (Lorazepam 2 Mg/Ml Vial) 2 mg IV Q1H PRN PRN Reason: CIWA-Ar 04-16 Last Admin: 08/01/21 21:26 Dose: 2 mg Documented by: Review of Systems All systems: negative Cardiovascular: chest pain Gastrointestinal: abdominal pain, nausea, vomiting, heartburn Exam - Constitutional Vitals: Temp Pulse Resp BP Pulse Ox 98.2 F 72 19 146/81 99 08/01/21 20:04 08/01/21 22:30 08/01/21 22:30 08/01/21 22:30 08/01/21 22:30 General appearance: Present: no acute distress, well-nourished - EENT Eyes: Present: PERRL ENT: hearing intact, clear oral mucosa - Neck Neck: Present: supple, normal ROM - Respiratory Respiratory effort: normal Respiratory: bilateral: diminished - Cardiovascular Heart Sounds: Present: S1 & S2. Absent: rub, click - Extremities Extremities: pulses symmetrical, No edema Peripheral Pulses: within normal limits - Abdominal General gastrointestinal: Present: soft, non-tender, non-distended, normal bowel sounds Male genitourinary: Present: normal - Integumentary Integumentary: Present: clear, warm, dry - Musculoskeletal Musculoskeletal: gait normal, strength equal bilaterally - Psychiatric Psychiatric: appropriate mood/affect, intact judgment & insight - Neurologic Neurologic: CNII-XII intact, moves all extremities Results - Labs CBC & Chem 7: 08/01/21 20:35 08/01/21 20:35 Labs: Laboratory Last Values WBC 3.8 K/mm3 (4.5-11.0) L 08/01/21 20:35 RBC 3.99 M/mm3 (3.65-5.03) 08/01/21 20:35 Hgb 14.4 gm/dl (11.8-15.2) 08/01/21 20:35 Hct 43.3 % (35.5-45.6) 08/01/21 20:35 MCV 109 fl (84-94) H 08/01/21 20:35 MCH 36 pg (28-32) H 08/01/21 20:35 MCHC 33 % (32-34) 08/01/21 20:35 RDW 13.9 % (13.2-15.2) 08/01/21 20:35 Plt Count 70 K/mm3 (140-440) L 08/01/21 20:35 Sodium 137 mmol/L (137-145) 08/01/21 20:35 Potassium 3.6 mmol/L (3.6-5.0) 08/01/21 20:35 Chloride 94.7 mmol/L (98-107) L 08/01/21 20:35 Carbon Dioxide 20 mmol/L (22-30) L 08/01/21 20:35 Anion Gap 26 mmol/L 08/01/21 20:35 BUN 8 mg/dL (9-20) L 08/01/21 20:35 Creatinine 0.6 mg/dL (0.8-1.3) L 08/01/21 20:35 Estimated GFR > 60 ml/min 08/01/21 20:35 BUN/Creatinine Ratio 13 % 08/01/21 20:35 Glucose 104 mg/dL (75-100) H 08/01/21 20:35 Calcium 8.5 mg/dL (8.4-10.2) 08/01/21 20:35 Magnesium 1.00 mg/dL (1.7-2.3) L 08/01/21 20:35 Total Bilirubin 1.30 mg/dL (0.1-1.2) H 08/01/21 20:35 Direct Bilirubin 0.4 mg/dL (0-0.2) H 08/01/21 20:35 Indirect Bilirubin 0.9 mg/dL 08/01/21 20:35 AST 155 units/L (5-40) H 08/01/21 20:35 ALT 85 units/L (7-56) H 08/01/21 20:35 Alkaline Phosphatase 80 units/L (35-129) 08/01/21 20:35 Total Protein 7.8 g/dL (6.3-8.2) 08/01/21 20:35 Albumin 4.6 g/dL (3.9-5) 08/01/21 20:35 Albumin/Globulin Ratio 1.4 % 08/01/21 20:35 Lipase 36 units/L (13-60) 08/01/21 20:35 Assessment and Plan VTE prophylaxis?: Chemical Plan of care discussed with patient/family: Yes - Patient Problems (1) Acute coronary syndrome Current Visit: Yes Status: Acute Plan to address problem: Admit the patient to the medical telemetry. Aspirin 81 mg p.o. daily. Lipitor 40 mg p.o. daily. Eliquis 5 mg p.o. twice a day. Serial cardiac enzymes. Echocardiogram. Consult cardiology if needed (2) Alcohol withdrawal Current Visit: Yes Status: Acute Qualifiers: Complication of substance-induced condition: with unspecified complication Qualified Code(s): F10.239 - Alcohol dependence with withdrawal, unspecified Plan to address problem: We will put the patient on CIWA protocol with Ativan we also put the patient on banana bag daily we will put the patient on thiamine folic acid daily and consult patient regarding quit drinking (3) ETOH abuse Current Visit: No Status: Chronic (4) HTN (hypertension) Current Visit: No Status: Chronic Qualifiers: Hypertension type: essential hypertension Qualified Code(s): I10 - Essential (primary) hypertension Plan to address problem: Hydralazine 10 mg IV every 6 hours as needed. We continue the home medication. We will monitor the patient closely (5) History of DVT (deep vein thrombosis) Current Visit: No Status: Chronic Plan to address problem: Patient is on Eliquis 5 mg p.o. twice a day. We continue the other home medication (6) History of pulmonary embolism Current Visit: No Status: Chronic Plan to address problem: Patient is on Eliquis 5 mg p.o. twice a day (7) Tobacco use Current Visit: No Status: Chronic Plan to address problem: We counseled the patient regarding quitting smoking. (8) DVT prophylaxis Current Visit: No Status: Acute Plan to address problem: Eliquis 5 mg p.o. twice a day for DVT prophylaxis. Protonix 40 mg p.o. daily for GI prophylaxis. Patient is a full code
[2021-08-01] MEDS ORDERED: ALBUTEROL 2.5 MG/3 ML NEBU IH PRN (23:16)
[2021-08-01] MEDS ORDERED: hydrALAZINE 20 MG/1 ML INJ IV PRN (23:18)
[2021-08-01] MEDS ORDERED: THIAMINE 100 MG, FOLIC ACID 1 MG, MULTIPLE VITAMIN INJ, ADULT 10 ML in SODIUM CHLORIDE ... IV ONE (23:48)
[2021-08-02] MEDS: LORazepam 2 MG/ML VIAL IV PRN ×10 (01:44→23:38)
[2021-08-02] MEDS ORDERED: fentaNYL 100 MCG/2 ML INJ IV ONE (01:49)
[2021-08-02] MEDS: BENZONATATE 100 MG CAP PO SCH ×3 (06:16→21:43)
--- NOTE | 2021-08-02 08:34 | Progress Note ---
Assessment and Plan Assessment and plan: --hyponatremia Gentle hydration with normal saline Monitor electrolytes --hypo magnesemia Replenished with mag self IV, monitor electrolytes --hypo phosphatemia IV sodium phosphate, monitor electrolytes --Atypical chest pain Current Visit: Yes Status: Acute Aspirin 81 mg p.o. daily. Lipitor 40 mg p.o. daily. Eliquis 5 mg p.o. twice a day. Serial cardiac enzymes. Echocardiogram. Cardiology evaluation if needed Patient had negative stress test in December 2020 --Alcohol withdrawal Symptoms Current Visit: Yes Status: Acute Continue CIWA protocol with Ativan , thiamine , folic acid , multivitamin IV fluids , restraints as needed --h/o ETOH abuse Current Visit: No Status: Chronic Counseling done strongly advised to quit alcohol use patient was also advised alcohol rehabilitation If needed --GERD; Current Visit: No Status: Chronic Continue Protonix --HTN (hypertension) Current Visit: No Status: Chronic Moderate control continue current antihypertensives , and as needed hydralazine 10 mg IV every 6 hours --History of DVT (deep vein thrombosis) Current Visit: No Status: Chronic Continue Eliquis 5 mg p.o. twice a day --History of pulmonary embolism Current Visit: No Status: Chronic Patient is on Eliquis 5 mg p.o. twice a day --Ongoing tobacco use Current Visit: No Status: Chronic Smoking cessation counseling done, strongly advised to quit Risks and consequences discussed in detail with the patient Spent more than 15 minutes Nicotine patch 21 daily --DVT prophylaxis Current Visit: No Status: Acute Patient is already on Eliquis 5 mg p.o. twice a day Closely monitor the patient and adjust management as needed Plan of care reviewed with the patient and his nurse Case management for discharge planning when stable Daily Hospital course; 08/02/2021; patient is on CIWA protocol, restraints for safety Smoking cessation counseling, counseling to quit alcohol intake and seek alcohol rehabilitation upon discharge History Interval history: I seen and examined the patient in ER awaiting bed assignment Patient's chart and medications reviewed Patient was admitted with atypical chest pain and alcohol withdrawal symptoms Patient is severely tremulous and agitated on CIWA protocol In mild distress Hospitalist Physical - Constitutional Vitals: Temp Pulse Resp BP Pulse Ox 98.2 F 68 18 152/83 97 08/01/21 20:04 08/02/21 06:30 08/02/21 07:58 08/02/21 06:30 08/02/21 07:58 General appearance: Present: mild distress, well-nourished, other (Severe tremulousness and agitation) - EENT Eyes: Present: PERRL, EOM intact - Neck Neck: Present: supple, normal ROM - Respiratory Respiratory effort: normal Respiratory: bilateral: diminished, negative: rales, rhonchi, wheezing - Cardiovascular Rhythm: regular Heart Sounds: Present: S1 & S2 - Extremities Extremities: no ischemia, No edema - Abdominal General gastrointestinal: soft, non-tender, non-distended, normal bowel sounds - Integumentary Integumentary: Present: clear, warm - Psychiatric Psychiatric: agitated, other (Confused and tremulous) - Neurologic Neurologic: moves all extremities HEART Score - HEART Score Troponin: Troponin T < 0.010 ng/mL (0.00-0.029) 08/02/21 05:33 Results - Labs CBC & Chem 7: 08/01/21 20:35 08/02/21 14:09 Labs: Laboratory Last Values WBC 3.8 K/mm3 (4.5-11.0) L 08/01/21 20:35 RBC 3.99 M/mm3 (3.65-5.03) 08/01/21 20:35 Hgb 14.4 gm/dl (11.8-15.2) 08/01/21 20:35 Hct 43.3 % (35.5-45.6) 08/01/21 20:35 MCV 109 fl (84-94) H 08/01/21 20:35 MCH 36 pg (28-32) H 08/01/21 20:35 MCHC 33 % (32-34) 08/01/21 20:35 RDW 13.9 % (13.2-15.2) 08/01/21 20:35 Plt Count 70 K/mm3 (140-440) L 08/01/21 20:35 Sodium 137 mmol/L (137-145) 08/01/21 20:35 Potassium 3.6 mmol/L (3.6-5.0) 08/01/21 20:35 Chloride 94.7 mmol/L (98-107) L 08/01/21 20:35 Carbon Dioxide 20 mmol/L (22-30) L 08/01/21 20:35 Anion Gap 26 mmol/L 08/01/21 20:35 BUN 8 mg/dL (9-20) L 08/01/21 20:35 Creatinine 0.6 mg/dL (0.8-1.3) L 08/01/21 20:35 Estimated GFR > 60 ml/min 08/01/21 20:35 BUN/Creatinine Ratio 13 % 08/01/21 20:35 Glucose 104 mg/dL (75-100) H 08/01/21 20:35 Calcium 8.5 mg/dL (8.4-10.2) 08/01/21 20:35 Magnesium 1.00 mg/dL (1.7-2.3) L 08/01/21 20:35 Total Bilirubin 1.30 mg/dL (0.1-1.2) H 08/01/21 20:35 Direct Bilirubin 0.4 mg/dL (0-0.2) H 08/01/21 20:35 Indirect Bilirubin 0.9 mg/dL 08/01/21 20:35 AST 155 units/L (5-40) H 08/01/21 20:35 ALT 85 units/L (7-56) H 08/01/21 20:35 Alkaline Phosphatase 80 units/L (35-129) 08/01/21 20:35 Troponin T < 0.010 ng/mL (0.00-0.029) 08/02/21 05:33 Total Protein 7.8 g/dL (6.3-8.2) 08/01/21 20:35 Albumin 4.6 g/dL (3.9-5) 08/01/21 20:35 Albumin/Globulin Ratio 1.4 % 08/01/21 20:35 Lipase 36 units/L (13-60) 08/01/21 20:35 Active Medications - Current Medications Current Medications: Generic Name Dose Route Start Last Admin Trade Name Freq PRN Reason Stop Dose Admin Acetaminophen 650 mg 08/01/21 23:00 Acetaminophen 325 Mg Tab PO Q6H PRN Pain, Mild (1-3) Albuterol 2.5 mg 08/01/21 23:16 Albuterol 2.5 Mg/3 Ml Nebu IH Q4HRT PRN Shortness Of Breath Apixaban 5 mg 08/02/21 10:00 Apixaban 5 Mg Tab PO BID [facility] Aspirin 81 mg 08/02/21 10:00 Aspirin 81 Mg Tab Chew PO QDAY [facility] Atorvastatin Calcium 40 mg 08/02/21 22:00 Atorvastatin 40 Mg Tab PO QHS [facility] Benzonatate 100 mg 08/02/21 06:00 08/02/21 06:16 Benzonatate 100 Mg Cap PO 100 mg Q8HR [facility] Administration Fluticasone Propionate 50 mcg 08/02/21 10:00 Fluticasone Propionate Nasal [place] 16 Gm NS QDAY [facility] Hydralazine HCl 10 mg 08/01/21 23:18 Hydralazine 20 Mg/1 Ml Inj IV Q6H PRN Blood Pressure Sodium Chloride 1,000 mls @ 100 mls/hr 08/01/21 23:00 Nacl 0.9% 1000 Ml IV DIRECT [facility] Multivitamins/Minerals 10 ml/ 1,011.2 mls @ 252.8 mls/hr 08/02/21 22:00 Folic Acid 1 mg/ Thiamine HCl IV 100 mg/ Sodium Chloride QDAY@2200 [facility] Ibuprofen 600 mg 08/01/21 23:09 Ibuprofen 600 Mg Tab PO Q8H PRN PAIN Lorazepam 2 mg 08/01/21 20:15 08/02/21 06:16 Lorazepam 2 Mg/Ml Vial IV 2 mg Q1H PRN Administration CIWA-Ar 8-15 Methocarbamol 500 mg 08/01/21 23:09 Methocarbamol 500 Mg Tab PO Q8H PRN Muscle Spasm Metoprolol Tartrate 25 mg 08/02/21 10:00 Metoprolol Tartrate 25 Mg Tab PO BID [facility] Morphine Sulfate 2 mg 08/01/21 23:00 Morphine 2 Mg/1 Ml Inj IV Q5MIN PRN Chest Pain unrelieved by NTG Nitroglycerin 0.4 mg 08/01/21 23:00 Nitroglycerin 0.4 Mg Tab Subl SL Q5M PRN Chest Pain Pantoprazole Sodium 40 mg 08/02/21 10:00 Pantoprazole 40 Mg Tab PO QDAY [facility] Sodium Chloride 10 ml 08/01/21 23:00 Sodium Chloride 0.9% 10 Ml Flush Syringe IV PRN PRN LINE FLUSH Tramadol HCl 50 mg 08/01/21 23:00 Tramadol 50 Mg Tab PO Q6H PRN Pain, Moderate (4-6)
--- NOTE | 2021-08-02 09:55 | Electrocardiograph Report ---
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
--- NOTE | 2021-08-02 09:56 | Electrocardiograph Report ---
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
[2021-08-02] MEDS ORDERED: HEPARIN 5,000 UNIT/1 ML VIAL SUB-Q SCH (10:00)
[2021-08-02] MEDS ORDERED: ASPIRIN EC 81 MG TAB PO SCH (10:00)
[2021-08-02] MEDS: FLUTICASONE PROPIONATE NASAL SPRAY 16 GM NS SCH (10:37)
[2021-08-02] MEDS: ASPIRIN 81 MG TAB CHEW PO SCH (11:32)
[2021-08-02] MEDS: APIXABAN 5 MG TAB PO SCH ×2 (11:33→21:43)
[2021-08-02] MEDS: METOPROLOL TARTRATE 25 MG TAB PO SCH ×2 (11:33→21:43)
[2021-08-02] MEDS: PANTOPRAZOLE 40 MG TAB PO SCH (11:33)
[2021-08-02 14:53] LABS: Blood Urea Nitrogen 7 mg/dL (9-20); Calcium 8.3 mg/dL (8.4-10.2); Hemolysis Index 22
[2021-08-02 14:54] LABS: BUN/Creatinine Ratio 14
[2021-08-02] MEDS ORDERED: SODIUM PHOSPHATE 45 MMOL in SODIUM CHLORIDE 0.9% 500 ML 500 ML IV ONE (17:24)
[2021-08-02] MEDS ORDERED: MAGNESIUM SULFATE 3 GM in SODIUM CHLORIDE 0.9% 100 ML IV ONE (17:24)
[2021-08-02] MEDS: THIAMINE IV SCH (22:52)
[2021-08-02] MEDS: [UNRECOGNIZED DRUG - OTHER] IV SCH (22:52)
[2021-08-02] MEDS: FOLIC ACID IV SCH (22:52)
[2021-08-02] MEDS: MULTIPLE VITAMIN IV SCH (22:52)
[2021-08-03] MEDS: LORazepam 2 MG/ML VIAL IV PRN ×4 (00:38→16:23)
[2021-08-03] MEDS: BENZONATATE 100 MG CAP PO SCH ×3 (06:11→21:20)
--- NOTE | 2021-08-03 09:57 | Progress Note ---
Assessment and Plan Assessment and plan: --hyponatremia Gentle hydration with normal saline Monitor electrolytes --hypo magnesemia Replenished with mag self IV, monitor electrolytes --hypo phosphatemia IV sodium phosphate, monitor electrolytes --Atypical chest pain Current Visit: Yes Status: Acute Aspirin 81 mg p.o. daily. Lipitor 40 mg p.o. daily. Eliquis 5 mg p.o. twice a day. Serial cardiac enzymes. Echocardiogram. Cardiology evaluation if needed Patient had negative stress test in December 2020 --Alcohol withdrawal Symptoms Current Visit: Yes Status: Acute Continue CIWA protocol with Ativan , thiamine , folic acid , multivitamin IV fluids , restraints as needed --h/o ETOH abuse Current Visit: No Status: Chronic Counseling done strongly advised to quit alcohol use patient was also advised alcohol rehabilitation If needed --GERD; Current Visit: No Status: Chronic Continue Protonix --HTN (hypertension) Current Visit: No Status: Chronic Moderate control continue current antihypertensives , and as needed hydralazine 10 mg IV every 6 hours --History of DVT (deep vein thrombosis) Current Visit: No Status: Chronic Continue Eliquis 5 mg p.o. twice a day --History of pulmonary embolism Current Visit: No Status: Chronic Patient is on Eliquis 5 mg p.o. twice a day --Ongoing tobacco use Current Visit: No Status: Chronic Smoking cessation counseling done, strongly advised to quit Risks and consequences discussed in detail with the patient Spent more than 15 minutes Nicotine patch 21 daily --DVT prophylaxis Current Visit: No Status: Acute Patient is already on Eliquis 5 mg p.o. twice a day Closely monitor the patient and adjust management as needed Plan of care reviewed with the patient and his nurse Case management for discharge planning when stable Daily Hospital course; 08/02/2021; patient is on CIWA protocol, restraints for safety Smoking cessation counseling, counseling to quit alcohol intake and seek alcohol rehabilitation upon discharge 08/03/2021; patient is in withdrawal symptoms, on CIWA protocol and restraints for safety Continue current management History Interval history: I have seen and examined the patient at the bedside Patient's chart and medications reviewed Patient has alcohol withdrawal symptoms with tremulousness agitation Requiring four-point restraints On CIWA protocol Hospitalist Physical - Constitutional Vitals: Temp Pulse Resp BP Pulse Ox 99.4 F 103 H 19 155/93 98 08/03/21 03:45 08/03/21 03:45 08/03/21 03:45 08/03/21 03:45 08/03/21 05:00 General appearance: Present: mild distress, well-nourished, other (Severe tremulousness and agitation) - EENT Eyes: Present: PERRL, EOM intact - Neck Neck: Present: supple, normal ROM - Respiratory Respiratory effort: normal Respiratory: bilateral: diminished, negative: rales, rhonchi, wheezing - Cardiovascular Rhythm: regular Heart Sounds: Present: S1 & S2 - Extremities Extremities: no ischemia, No edema - Abdominal General gastrointestinal: soft, non-tender, non-distended, normal bowel sounds - Integumentary Integumentary: Present: clear, warm - Psychiatric Psychiatric: appropriate mood/affect, cooperative, other (Agitated) - Neurologic Neurologic: moves all extremities HEART Score - HEART Score Troponin: Troponin T < 0.010 ng/mL (0.00-0.029) 08/02/21 11:12 Results - Labs CBC & Chem 7: 08/01/21 20:35 08/02/21 14:09 Labs: Laboratory Last Values WBC 3.8 K/mm3 (4.5-11.0) L 08/01/21 20:35 RBC 3.99 M/mm3 (3.65-5.03) 08/01/21 20:35 Hgb 14.4 gm/dl (11.8-15.2) 08/01/21 20:35 Hct 43.3 % (35.5-45.6) 08/01/21 20:35 MCV 109 fl (84-94) H 08/01/21 20:35 MCH 36 pg (28-32) H 08/01/21 20:35 MCHC 33 % (32-34) 08/01/21 20:35 RDW 13.9 % (13.2-15.2) 08/01/21 20:35 Plt Count 70 K/mm3 (140-440) L 08/01/21 20:35 Sodium 132 mmol/L (137-145) L 08/02/21 14:09 Potassium 3.9 mmol/L (3.6-5.0) 08/02/21 14:09 Chloride 95.3 mmol/L (98-107) L 08/02/21 14:09 Carbon Dioxide 12 mmol/L (22-30) L D 08/02/21 14:09 Anion Gap 29 mmol/L 08/02/21 14:09 BUN 7 mg/dL (9-20) L 08/02/21 14:09 Creatinine 0.5 mg/dL (0.8-1.3) L 08/02/21 14:09 Estimated GFR > 60 ml/min 08/02/21 14:09 BUN/Creatinine Ratio 14 % 08/02/21 14:09 Glucose 135 mg/dL (75-100) H 08/02/21 14:09 Calcium 8.3 mg/dL (8.4-10.2) L 08/02/21 14:09 Phosphorus 2.00 mg/dL (2.5-4.5) L 08/02/21 14:09 Magnesium 1.50 mg/dL (1.7-2.3) L 08/02/21 14:09 Total Bilirubin 1.30 mg/dL (0.1-1.2) H 08/01/21 20:35 Direct Bilirubin 0.4 mg/dL (0-0.2) H 08/01/21 20:35 Indirect Bilirubin 0.9 mg/dL 08/01/21 20:35 AST 155 units/L (5-40) H 08/01/21 20:35 ALT 85 units/L (7-56) H 08/01/21 20:35 Alkaline Phosphatase 80 units/L (35-129) 08/01/21 20:35 Troponin T < 0.010 ng/mL (0.00-0.029) 08/02/21 11:12 Total Protein 7.8 g/dL (6.3-8.2) 08/01/21 20:35 Albumin 4.6 g/dL (3.9-5) 08/01/21 20:35 Albumin/Globulin Ratio 1.4 % 08/01/21 20:35 Lipase 36 units/L (13-60) 08/01/21 20:35 Davis/IV: Voiding Method Condom Catheter Active Medications - Current Medications Current Medications: Generic Name Dose Route Start Last Admin Trade Name Freq PRN Reason Stop Dose Admin Acetaminophen 650 mg 08/01/21 23:00 Acetaminophen 325 Mg Tab PO Q6H PRN Pain, Mild (1-3) Albuterol 2.5 mg 08/01/21 23:16 Albuterol 2.5 Mg/3 Ml Nebu IH Q4HRT PRN Shortness Of Breath Apixaban 5 mg 08/02/21 10:00 08/02/21 21:43 Apixaban 5 Mg Tab PO 5 mg BID [facility] Administration Aspirin 81 mg 08/02/21 10:00 08/02/21 11:32 Aspirin 81 Mg Tab Chew PO Not Given QDAY [facility] Atorvastatin Calcium 40 mg 08/02/21 22:00 08/02/21 21:44 Atorvastatin 40 Mg Tab PO 40 mg QHS [facility] Administration Benzonatate 100 mg 08/02/21 06:00 08/03/21 06:11 Benzonatate 100 Mg Cap PO 100 mg Q8HR [facility] Administration Fluticasone Propionate 50 mcg 08/02/21 10:00 08/02/21 10:37 Fluticasone Propionate Nasal [place] 16 Gm NS Not Given QDAY [facility] Hydralazine HCl 10 mg 08/01/21 23:18 08/02/21 08:41 Hydralazine 20 Mg/1 Ml Inj IV 10 mg Q6H PRN Administration Blood Pressure Sodium Chloride 1,000 mls @ 100 mls/hr 08/01/21 23:00 Nacl 0.9% 1000 Ml IV DIRECT [facility] Multivitamins/Minerals 10 ml/ 1,011.2 mls @ 252.8 mls/hr 08/02/21 22:00 08/02/21 22:52 Folic Acid 1 mg/ Thiamine HCl IV 252.8 mls/hr 100 mg/ Sodium Chloride QDAY@2200 [facility] Administration Lorazepam 2 mg 08/01/21 20:15 08/03/21 08:07 Lorazepam 2 Mg/Ml Vial IV 2 mg Q1H PRN Administration CIWA-Ar 8-15 Methocarbamol 500 mg 08/01/21 23:09 Methocarbamol 500 Mg Tab PO Q8H PRN Muscle Spasm Metoprolol Tartrate 25 mg 08/02/21 10:00 08/02/21 21:43 Metoprolol Tartrate 25 Mg Tab PO 25 mg BID [facility] Administration Morphine Sulfate 2 mg 08/01/21 23:00 Morphine 2 Mg/1 Ml Inj IV Q5MIN PRN Chest Pain unrelieved by NTG Nitroglycerin 0.4 mg 08/01/21 23:00 Nitroglycerin 0.4 Mg Tab Subl SL Q5M PRN Chest Pain Pantoprazole Sodium 40 mg 08/02/21 10:00 08/02/21 11:33 Pantoprazole 40 Mg Tab PO Not Given QDAY [facility] Sodium Chloride 10 ml 08/01/21 23:00 Sodium Chloride 0.9% 10 Ml Flush Syringe IV PRN PRN LINE FLUSH Tramadol HCl 50 mg 08/01/21 23:00 Tramadol 50 Mg Tab PO Q6H PRN Pain, Moderate (4-6)
[2021-08-03] MEDS: APIXABAN 5 MG TAB PO SCH ×2 (09:59→21:20)
[2021-08-03] MEDS: METOPROLOL TARTRATE 25 MG TAB PO SCH ×2 (09:59→21:20)
[2021-08-03] MEDS: PANTOPRAZOLE 40 MG TAB PO SCH (09:59)
[2021-08-03] MEDS: SODIUM CHLORIDE 0.9% 1000 ML 1,000 ML IV SCH (13:08)
[2021-08-03] MEDS: ASPIRIN 81 MG TAB CHEW PO SCH (13:21)
--- NOTE | 2021-08-03 18:35 | Progress Note ---
Assessment and Plan Assessment and plan: --Hypokalemia; potassium 3.5 Current Visit: Yes Status: Acute Replenish both potassium and phosphate with IV K-Phos Monitor electrolytes --hypo phosphatemia phosphate 1.6 Current Visit: Yes Status: Acute IV potassium phosphate, monitor electrolytes --hyponatremia /sodium today 137 Current Visit: Yes Status: Acute Gentle hydration with normal saline Continue to monitor electrolytes --hypo magnesemia Current Visit: Yes Status: Acute Replenished with mag self IV, monitor electrolytes --Atypical chest pain Current Visit: Yes Status: Acute Aspirin 81 mg p.o. daily. Lipitor 40 mg p.o. daily. Eliquis 5 mg p.o. twice a day. Serial cardiac enzymes. Echocardiogram. Cardiology evaluation if needed Patient had negative stress test in December 2020 --Alcohol withdrawal Symptoms Current Visit: Yes Status: Acute Continue CIWA protocol with Ativan , thiamine , folic acid , multivitamin IV fluids , restraints as needed --h/o ETOH abuse Current Visit: No Status: Chronic Counseling done strongly advised to quit alcohol use patient was also advised alcohol rehabilitation If needed --GERD; Current Visit: No Status: Chronic Continue Protonix --HTN (hypertension) Current Visit: No Status: Chronic Moderate control continue current antihypertensives , and as needed hydralazine 10 mg IV every 6 hours --History of DVT (deep vein thrombosis) Current Visit: No Status: Chronic Continue Eliquis 5 mg p.o. twice a day --History of pulmonary embolism Current Visit: No Status: Chronic Patient is on Eliquis 5 mg p.o. twice a day --Ongoing tobacco use Current Visit: No Status: Chronic Smoking cessation counseling done, strongly advised to quit Risks and consequences discussed in detail with the patient Spent more than 15 minutes Nicotine patch 21 daily --DVT prophylaxis Current Visit: No Status: Acute Patient is already on Eliquis 5 mg p.o. twice a day Closely monitor the patient and adjust management as needed Plan of care reviewed with the patient and his nurse Case management for discharge planning when stable Daily Hospital course; 08/02/2021; patient is on CIWA protocol, restraints for safety Smoking cessation counseling, counseling to quit alcohol intake and seek alcohol rehabilitation upon discharge 08/03/2021; patient is in withdrawal symptoms, on CIWA protocol and restraints for safety Continue current management 08/04/2021; patient feels slightly better continue CIWA, DC four-point restraints continue, roll belt and softness History Interval history: I have seen and examined the patient at the bedside Patient's chart and medications reviewed Patient is much better today very little tremulousness mild restlessness christian red to yesterday Still on restraints we will stop four-point and continue soft wrist and roll belt Continue CIWA protocol Hospitalist Physical - Constitutional Vitals: Temp Pulse Resp BP Pulse Ox 98.5 F 99 H 18 150/97 98 08/03/21 16:03 08/03/21 16:03 08/03/21 16:03 08/03/21 16:03 08/03/21 16:03 General appearance: Present: mild distress, well-nourished, other (Severe tremulousness and agitation) - EENT Eyes: Present: PERRL, EOM intact - Neck Neck: Present: supple, normal ROM - Respiratory Respiratory effort: normal Respiratory: bilateral: diminished, negative: rales, rhonchi, wheezing - Cardiovascular Rhythm: regular Heart Sounds: Present: S1 & S2 - Extremities Extremities: no ischemia, No edema - Abdominal General gastrointestinal: soft, non-tender, non-distended, normal bowel sounds - Integumentary Integumentary: Present: clear, warm - Psychiatric Psychiatric: appropriate mood/affect, agitated, other (Tremulous ) - Neurologic Neurologic: moves all extremities HEART Score - HEART Score Troponin: Troponin T < 0.010 ng/mL (0.00-0.029) 08/02/21 11:12 Results - Labs CBC & Chem 7: 08/01/21 20:35 08/04/21 05:27 Labs: Laboratory Last Values WBC 3.8 K/mm3 (4.5-11.0) L 08/01/21 20:35 RBC 3.99 M/mm3 (3.65-5.03) 08/01/21 20:35 Hgb 14.4 gm/dl (11.8-15.2) 08/01/21 20:35 Hct 43.3 % (35.5-45.6) 08/01/21 20:35 MCV 109 fl (84-94) H 08/01/21 20:35 MCH 36 pg (28-32) H 08/01/21 20:35 MCHC 33 % (32-34) 08/01/21 20:35 RDW 13.9 % (13.2-15.2) 08/01/21 20:35 Plt Count 70 K/mm3 (140-440) L 08/01/21 20:35 Sodium 132 mmol/L (137-145) L 08/02/21 14:09 Potassium 3.9 mmol/L (3.6-5.0) 08/02/21 14:09 Chloride 95.3 mmol/L (98-107) L 08/02/21 14:09 Carbon Dioxide 12 mmol/L (22-30) L D 08/02/21 14:09 Anion Gap 29 mmol/L 08/02/21 14:09 BUN 7 mg/dL (9-20) L 08/02/21 14:09 Creatinine 0.5 mg/dL (0.8-1.3) L 08/02/21 14:09 Estimated GFR > 60 ml/min 08/02/21 14:09 BUN/Creatinine Ratio 14 % 08/02/21 14:09 Glucose 135 mg/dL (75-100) H 08/02/21 14:09 Calcium 8.3 mg/dL (8.4-10.2) L 08/02/21 14:09 Phosphorus 2.00 mg/dL (2.5-4.5) L 08/02/21 14:09 Magnesium 1.50 mg/dL (1.7-2.3) L 08/02/21 14:09 Total Bilirubin 1.30 mg/dL (0.1-1.2) H 08/01/21 20:35 Direct Bilirubin 0.4 mg/dL (0-0.2) H 08/01/21 20:35 Indirect Bilirubin 0.9 mg/dL 08/01/21 20:35 AST 155 units/L (5-40) H 08/01/21 20:35 ALT 85 units/L (7-56) H 08/01/21 20:35 Alkaline Phosphatase 80 units/L (35-129) 08/01/21 20:35 Troponin T < 0.010 ng/mL (0.00-0.029) 08/02/21 11:12 Total Protein 7.8 g/dL (6.3-8.2) 08/01/21 20:35 Albumin 4.6 g/dL (3.9-5) 08/01/21 20:35 Albumin/Globulin Ratio 1.4 % 08/01/21 20:35 Lipase 36 units/L (13-60) 08/01/21 20:35 Davis/IV: Voiding Method Condom Catheter Active Medications - Current Medications Current Medications: Generic Name Dose Route Start Last Admin Trade Name Freq PRN Reason Stop Dose Admin Acetaminophen 650 mg 08/01/21 23:00 Acetaminophen 325 Mg Tab PO Q6H PRN Pain, Mild (1-3) Albuterol 2.5 mg 08/01/21 23:16 Albuterol 2.5 Mg/3 Ml Nebu IH Q4HRT PRN Shortness Of Breath Apixaban 5 mg 08/02/21 10:00 08/03/21 09:59 Apixaban 5 Mg Tab PO 5 mg BID VERENICE Administration Aspirin 81 mg 08/02/21 10:00 08/03/21 13:21 Aspirin 81 Mg Tab Chew PO 81 mg QDAY VERENICE Administration Atorvastatin Calcium 40 mg 08/02/21 22:00 08/02/21 21:44 Atorvastatin 40 Mg Tab PO 40 mg QHS VERENICE Administration Benzonatate 100 mg 08/02/21 06:00 08/03/21 13:20 Benzonatate 100 Mg Cap PO 100 mg Q8HR VERENICE Administration Fluticasone Propionate 50 mcg 08/02/21 10:00 08/02/21 10:37 Fluticasone Propionate Nasal [place] 16 Gm NS Not Given QDAY VERENICE Hydralazine HCl 10 mg 08/01/21 23:18 08/02/21 08:41 Hydralazine 20 Mg/1 Ml Inj IV 10 mg Q6H PRN Administration Blood Pressure Sodium Chloride 1,000 mls @ 100 mls/hr 08/01/21 23:00 08/03/21 13:08 Nacl 0.9% 1000 Ml IV 100 mls/hr DIRECT VERENICE Administration Multivitamins/Minerals 10 ml/ 1,011.2 mls @ 252.8 mls/hr 08/02/21 22:00 08/02/21 22:52 Folic Acid 1 mg/ Thiamine HCl IV 252.8 mls/hr 100 mg/ Sodium Chloride QDAY@2200 VERENICE Administration Lorazepam 2 mg 08/01/21 20:15 08/03/21 16:23 Lorazepam 2 Mg/Ml Vial IV 2 mg Q1H PRN Administration CIWA-Ar 8-15 Methocarbamol 500 mg 08/01/21 23:09 Methocarbamol 500 Mg Tab PO Q8H PRN Muscle Spasm Metoprolol Tartrate 25 mg 08/02/21 10:00 08/03/21 09:59 Metoprolol Tartrate 25 Mg Tab PO 25 mg BID VERENICE Administration Morphine Sulfate 2 mg 08/01/21 23:00 Morphine 2 Mg/1 Ml Inj IV Q5MIN PRN Chest Pain unrelieved by NTG Nitroglycerin 0.4 mg 08/01/21 23:00 Nitroglycerin 0.4 Mg Tab Subl SL Q5M PRN Chest Pain Pantoprazole Sodium 40 mg 08/02/21 10:00 08/03/21 09:59 Pantoprazole 40 Mg Tab PO 40 mg QDAY VERENICE Administration Sodium Chloride 10 ml 08/01/21 23:00 Sodium Chloride 0.9% 10 Ml Flush Syringe IV PRN PRN LINE FLUSH Tramadol HCl 50 mg 08/01/21 23:00 Tramadol 50 Mg Tab PO Q6H PRN Pain, Moderate (4-6)
[2021-08-03] MEDS: THIAMINE IV SCH (23:39)
[2021-08-03] MEDS: [UNRECOGNIZED DRUG - OTHER] IV SCH (23:39)
[2021-08-03] MEDS: MULTIPLE VITAMIN IV SCH (23:39)
[2021-08-03] MEDS: FOLIC ACID IV SCH (23:39)
[2021-08-04] MEDS: BENZONATATE 100 MG CAP PO SCH ×3 (05:27→21:19)
[2021-08-04 06:35] LABS: Alanine Aminotransferase 48 units/L (7-56); Albumin 3.5 g/dL (3.9-5); Blood Urea Nitrogen 9 mg/dL (9-20); Calcium 7.6 mg/dL (8.4-10.2); Hemolysis Index 7
[2021-08-04 06:40] LABS: BUN/Creatinine Ratio 15
[2021-08-04] MEDS: SODIUM CHLORIDE 0.9% 1000 ML 1,000 ML IV SCH ×2 (11:27→20:08)
--- NOTE | 2021-08-04 12:17 | Electrocardiograph Report ---
[facility] Test Date: 2021-08-04 Test Time: 08:07:54 Pat Name: OLGA TOBIN Department: Room: A485 1 Gender: M Adult Educator: STEVEN : 1965 Requested By: RAPHAEL INFANTE Order Number: [id number] Reading MD: Lj Cuevas Measurements Intervals [place] Rate: 87 P: 76 [place]: 181 QRS: -24 QRSD: 91 T: 4 QT: 400 QTc: 481 Interpretive Statements Sinus rhythm Probable left atrial enlargement Compared to ECG 08/01/2021 20:34:11 T-wave abnormality no longer present Electronically Signed On 08-04-2021 12:17:19 EST by Lj Cuevas
[2021-08-04] MEDS: THIAMINE 100 MG TAB PO SCH (12:28)
[2021-08-04] MEDS: METOPROLOL TARTRATE 25 MG TAB PO SCH ×2 (12:28→21:19)
[2021-08-04] MEDS: APIXABAN 5 MG TAB PO SCH ×2 (12:28→21:19)
[2021-08-04] MEDS: ASPIRIN 81 MG TAB CHEW PO SCH (12:28)
[2021-08-04] MEDS: PANTOPRAZOLE 40 MG TAB PO SCH (12:31)
--- NOTE | 2021-08-04 12:52 | Progress Note ---
Hospitalist Physical - Constitutional Vitals: Temp Pulse Resp BP Pulse Ox 98.7 F 118 H 18 154/88 98 08/04/21 03:56 08/04/21 12:28 08/04/21 03:56 08/04/21 03:56 08/04/21 08:00 General appearance: Present: mild distress, well-nourished, other (Severe tremulousness and agitation) HEART Score - HEART Score Troponin: Troponin T < 0.010 ng/mL (0.00-0.029) 08/02/21 11:12 Results - Labs CBC & Chem 7: 08/01/21 20:35 08/04/21 05:27 Labs: Laboratory Last Values WBC 3.8 K/mm3 (4.5-11.0) L 08/01/21 20:35 RBC 3.99 M/mm3 (3.65-5.03) 08/01/21 20:35 Hgb 14.4 gm/dl (11.8-15.2) 08/01/21 20:35 Hct 43.3 % (35.5-45.6) 08/01/21 20:35 MCV 109 fl (84-94) H 08/01/21 20:35 MCH 36 pg (28-32) H 08/01/21 20:35 MCHC 33 % (32-34) 08/01/21 20:35 RDW 13.9 % (13.2-15.2) 08/01/21 20:35 Plt Count 70 K/mm3 (140-440) L 08/01/21 20:35 Sodium 137 mmol/L (137-145) 08/04/21 05:27 Potassium 3.5 mmol/L (3.6-5.0) L 08/04/21 05:27 Chloride 104.7 mmol/L (98-107) 08/04/21 05:27 Carbon Dioxide 18 mmol/L (22-30) L 08/04/21 05:27 Anion Gap 18 mmol/L 08/04/21 05:27 BUN 9 mg/dL (9-20) 08/04/21 05:27 Creatinine 0.6 mg/dL (0.8-1.3) L 08/04/21 05:27 Estimated GFR > 60 ml/min 08/04/21 05:27 BUN/Creatinine Ratio 15 % 08/04/21 05:27 Glucose 90 mg/dL (75-100) 08/04/21 05:27 Calcium 7.6 mg/dL (8.4-10.2) L 08/04/21 05:27 Phosphorus 1.60 mg/dL (2.5-4.5) L 08/04/21 05:27 Magnesium 1.90 mg/dL (1.7-2.3) 08/04/21 05:27 Total Bilirubin 1.00 mg/dL (0.1-1.2) 08/04/21 05:27 Direct Bilirubin 0.4 mg/dL (0-0.2) H 08/01/21 20:35 Indirect Bilirubin 0.9 mg/dL 08/01/21 20:35 AST 74 units/L (5-40) H 08/04/21 05:27 ALT 48 units/L (7-56) 08/04/21 05:27 Alkaline Phosphatase 63 units/L (35-129) 08/04/21 05:27 Troponin T < 0.010 ng/mL (0.00-0.029) 08/02/21 11:12 Total Protein 6.1 g/dL (6.3-8.2) L D 08/04/21 05:27 Albumin 3.5 g/dL (3.9-5) L 08/04/21 05:27 Albumin/Globulin Ratio 1.3 % 08/04/21 05:27 Lipase 36 units/L (13-60) 08/01/21 20:35 Davis/IV: Voiding Method Condom Catheter Active Medications - Current Medications Current Medications: Generic Name Dose Route Start Last Admin Trade Name Freq PRN Reason Stop Dose Admin Acetaminophen 650 mg 08/01/21 23:00 Acetaminophen 325 Mg Tab PO Q6H PRN Pain, Mild (1-3) Albuterol 2.5 mg 08/01/21 23:16 Albuterol 2.5 Mg/3 Ml Nebu IH Q4HRT PRN Shortness Of Breath Apixaban 5 mg 08/02/21 10:00 08/04/21 12:28 Apixaban 5 Mg Tab PO 5 mg BID VERENICE Administration Aspirin 81 mg 08/02/21 10:00 08/04/21 12:28 Aspirin 81 Mg Tab Chew PO 81 mg QDAY VERENICE Administration Atorvastatin Calcium 40 mg 08/02/21 22:00 08/03/21 21:20 Atorvastatin 40 Mg Tab PO 40 mg QHS VERENICE Administration Benzonatate 100 mg 08/02/21 06:00 08/04/21 05:27 Benzonatate 100 Mg Cap PO 100 mg Q8HR VERENICE Administration Fluticasone Propionate 50 mcg 08/02/21 10:00 08/02/21 10:37 Fluticasone Propionate Nasal [place] 16 Gm NS Not Given QDAY [facility] Folic Acid 1 mg 08/04/21 11:00 Folic Acid 1 Mg Tab PO DAILY [facility] Hydralazine HCl 10 mg 08/01/21 23:18 08/02/21 08:41 Hydralazine 20 Mg/1 Ml Inj IV 10 mg Q6H PRN Administration Blood Pressure Sodium Chloride 1,000 mls @ 100 mls/hr 08/01/21 23:00 08/04/21 11:27 Nacl 0.9% 1000 Ml IV 100 mls/hr DIRECT VERENICE Administration Lorazepam 2 mg 08/01/21 20:15 08/03/21 16:23 Lorazepam 2 Mg/Ml Vial IV 2 mg Q1H PRN Administration CIWA-Ar 8-15 Methocarbamol 500 mg 08/01/21 23:09 Methocarbamol 500 Mg Tab PO Q8H PRN Muscle Spasm Metoprolol Tartrate 25 mg 08/02/21 10:00 08/04/21 12:28 Metoprolol Tartrate 25 Mg Tab PO 25 mg BID VERENICE Administration Morphine Sulfate 2 mg 08/01/21 23:00 Morphine 2 Mg/1 Ml Inj IV Q5MIN PRN Chest Pain unrelieved by NTG Multivitamins 1 each 08/04/21 11:00 Multivitamins ,Therapeutic Tab PO DAILY [facility] Nitroglycerin 0.4 mg 08/01/21 23:00 Nitroglycerin 0.4 Mg Tab Subl SL Q5M PRN Chest Pain Pantoprazole Sodium 40 mg 08/02/21 10:00 08/04/21 12:31 Pantoprazole 40 Mg Tab PO 40 mg QDAY [facility] Administration Sodium Chloride 10 ml 08/01/21 23:00 Sodium Chloride 0.9% 10 Ml Flush Syringe IV PRN PRN LINE FLUSH Thiamine HCl 100 mg 08/04/21 11:00 08/04/21 12:28 Thiamine 100 Mg Tab PO 100 mg QDAY [facility] Administration Tramadol HCl 50 mg 08/01/21 23:00 Tramadol 50 Mg Tab PO Q6H PRN Pain, Moderate (4-6)
[2021-08-04] MEDS: FOLIC ACID 1 MG TAB PO SCH (13:13)
[2021-08-04] MEDS: MULTIVITAMINS ,THERAPEUTIC TAB PO SCH (13:13)
[2021-08-04] MEDS: FLUTICASONE PROPIONATE NASAL SPRAY 16 GM NS SCH ×2 (15:43→15:44)
[2021-08-05] MEDS: LORazepam 2 MG/ML VIAL IV PRN (02:08)
[2021-08-05] MEDS: BENZONATATE 100 MG CAP PO SCH ×3 (05:18→22:00)
[2021-08-05 07:18] LABS: BUN/Creatinine Ratio 14; Blood Urea Nitrogen 7 mg/dL (9-20); Calcium 7.8 mg/dL (8.4-10.2); Hemolysis Index 14
[2021-08-05] MEDS: THIAMINE 100 MG TAB PO SCH (10:28)
[2021-08-05] MEDS: PANTOPRAZOLE 40 MG TAB PO SCH (10:28)
[2021-08-05] MEDS: METOPROLOL TARTRATE 25 MG TAB PO SCH ×2 (10:28→22:00)
[2021-08-05] MEDS: APIXABAN 5 MG TAB PO SCH ×2 (10:28→22:00)
[2021-08-05] MEDS: MULTIVITAMINS ,THERAPEUTIC TAB PO SCH (10:28)
[2021-08-05] MEDS: ASPIRIN 81 MG TAB CHEW PO SCH (10:28)
[2021-08-05] MEDS: FOLIC ACID 1 MG TAB PO SCH (10:28)
[2021-08-05] MEDS: FLUTICASONE PROPIONATE NASAL SPRAY 16 GM NS SCH (10:28)
[2021-08-05] MEDS: SODIUM CHLORIDE 0.9% 1000 ML 1,000 ML IV SCH (10:29)
--- NOTE | 2021-08-05 17:07 | Progress Note ---
Assessment and Plan Assessment and plan: --Hypokalemia; potassium 3.6 Current Visit: Yes Status: Acute Potassium in normal range Closely monitor electrolytes --hypo phosphatemia phosphate 2.4 Current Visit: Yes Status: Acute Oral Neutra-Phos twice a day total 6 doses Closely monitor electrolytes --hyponatremia /sodium today 140 Current Visit: Yes Status: Acute Gentle hydration with normal saline Resolved, monitor electrolytes --hypo magnesemia Current Visit: Yes Status: Acute Resolved, magnesium normal range Monitor electrolytes --Atypical chest pain/resolved Current Visit: Yes Status: Acute Aspirin 81 mg p.o. daily. Lipitor 40 mg p.o. daily. Eliquis 5 mg p.o. twice a day. Serial cardiac enzymes. Echocardiogram. Cardiology evaluation if needed Patient had negative stress test in December 2020 --Alcohol withdrawal Symptoms Current Visit: Yes Status: Acute Symptoms slightly improved continue CIWA protocol with Ativan , thiamine , folic acid , multivitamin IV fluids , restraints as needed --h/o ETOH abuse Current Visit: No Status: Chronic Counseling done strongly advised to quit alcohol use patient was also advised alcohol rehabilitation If needed --GERD; Current Visit: No Status: Chronic Continue Protonix --HTN (hypertension) Current Visit: No Status: Chronic Moderate control continue current antihypertensives , and as needed hydralazine 10 mg IV every 6 hours --History of DVT (deep vein thrombosis) Current Visit: No Status: Chronic Continue Eliquis 5 mg p.o. twice a day --History of pulmonary embolism Current Visit: No Status: Chronic Patient is on Eliquis 5 mg p.o. twice a day --Mild protein calorie malnutrition; Current Visit: No Status: Chronic Treat the underlying cause, nutrition supplements --Ongoing tobacco use Current Visit: No Status: Chronic Smoking cessation counseling done, strongly advised to quit Risks and consequences discussed in detail with the patient Spent more than 15 minutes Nicotine patch 21 daily --DVT prophylaxis Current Visit: No Status: Acute Patient is already on Eliquis 5 mg p.o. twice a day Tomorrow if patient is more alert and stable Patient will ambulate as tolerated We will consider PT if needed Possible discharge in 1 to 2 days if stable Plan of care reviewed with the patient and his nurse Closely monitor the patient and adjust management as needed Daily Hospital course; 08/02/2021; patient is on CIWA protocol, restraints for safety Smoking cessation counseling, counseling to quit alcohol intake and seek alcohol rehabilitation upon discharge 08/03/2021; patient is in withdrawal symptoms, on CIWA protocol and restraints for safety Continue current management 08/04/2021; patient feels slightly better continue CIWA, DC four-point restraints continue, roll belt and softness 08/05/2021; patient is more alert and awake Slight agitation, restraint only with soft wrist Continue CIWA, hypophosphatemia, managed with oral Neutra-Phos total 6 doses Closely monitor electrolytes History Interval history: I seen and examined the patient at bedside today Patient's chart and medications reviewed Patient is more alert and awake, going to the bathroom unassisted However nurse reports that patient gets agitated and confused at times Very minimal tremulousness, no history of seizures Hospitalist Physical - Constitutional Vitals: Temp Pulse Resp BP Pulse Ox 98.3 F 54 L 18 133/77 98 08/05/21 10:48 08/05/21 10:48 08/05/21 10:48 08/05/21 10:48 08/05/21 10:48 General appearance: Present: no acute distress, well-nourished, other (Very minimal episodes of tremulousness intermittent) - EENT Eyes: Present: PERRL, EOM intact - Neck Neck: Present: supple, normal ROM - Respiratory Respiratory effort: normal Respiratory: bilateral: diminished, negative: rales, rhonchi, wheezing - Cardiovascular Rhythm: regular Heart Sounds: Present: S1 & S2 - Extremities Extremities: no ischemia, No edema - Abdominal General gastrointestinal: soft, non-tender, non-distended, normal bowel sounds - Integumentary Integumentary: Present: clear, warm - Psychiatric Psychiatric: appropriate mood/affect, cooperative - Neurologic Neurologic: moves all extremities HEART Score - HEART Score Troponin: Troponin T < 0.010 ng/mL (0.00-0.029) 08/02/21 11:12 Results - Labs CBC & Chem 7: 08/01/21 20:35 08/05/21 05:50 Labs: Laboratory Last Values WBC 3.8 K/mm3 (4.5-11.0) L 08/01/21 20:35 RBC 3.99 M/mm3 (3.65-5.03) 08/01/21 20:35 Hgb 14.4 gm/dl (11.8-15.2) 08/01/21 20:35 Hct 43.3 % (35.5-45.6) 08/01/21 20:35 MCV 109 fl (84-94) H 08/01/21 20:35 MCH 36 pg (28-32) H 08/01/21 20:35 MCHC 33 % (32-34) 08/01/21 20:35 RDW 13.9 % (13.2-15.2) 08/01/21 20:35 Plt Count 70 K/mm3 (140-440) L 08/01/21 20:35 Sodium 140 mmol/L (137-145) 08/05/21 05:50 Potassium 3.6 mmol/L (3.6-5.0) 08/05/21 05:50 Chloride 106.2 mmol/L (98-107) 08/05/21 05:50 Carbon Dioxide 18 mmol/L (22-30) L 08/05/21 05:50 Anion Gap 19 mmol/L 08/05/21 05:50 BUN 7 mg/dL (9-20) L 08/05/21 05:50 Creatinine 0.5 mg/dL (0.8-1.3) L 08/05/21 05:50 Estimated GFR > 60 ml/min 08/05/21 05:50 BUN/Creatinine Ratio 14 % 08/05/21 05:50 Glucose 88 mg/dL (75-100) 08/05/21 05:50 Calcium 7.8 mg/dL (8.4-10.2) L 08/05/21 05:50 Phosphorus 2.40 mg/dL (2.5-4.5) L D 08/05/21 05:50 Magnesium 1.70 mg/dL (1.7-2.3) 08/05/21 05:50 Total Bilirubin 1.00 mg/dL (0.1-1.2) 08/04/21 05:27 Direct Bilirubin 0.4 mg/dL (0-0.2) H 08/01/21 20:35 Indirect Bilirubin 0.9 mg/dL 08/01/21 20:35 AST 74 units/L (5-40) H 08/04/21 05:27 ALT 48 units/L (7-56) 08/04/21 05:27 Alkaline Phosphatase 63 units/L (35-129) 08/04/21 05:27 Troponin T < 0.010 ng/mL (0.00-0.029) 08/02/21 11:12 Total Protein 6.1 g/dL (6.3-8.2) L D 08/04/21 05:27 Albumin 3.5 g/dL (3.9-5) L 08/04/21 05:27 Albumin/Globulin Ratio 1.3 % 08/04/21 05:27 Lipase 36 units/L (13-60) 08/01/21 20:35 Davis/IV: Voiding Method Urinal Active Medications - Current Medications Current Medications: Generic Name Dose Route Start Last Admin Trade Name Freq PRN Reason Stop Dose Admin Acetaminophen 650 mg 08/01/21 23:00 Acetaminophen 325 Mg Tab PO Q6H PRN Pain, Mild (1-3) Albuterol 2.5 mg 08/01/21 23:16 Albuterol 2.5 Mg/3 Ml Nebu IH Q4HRT PRN Shortness Of Breath Apixaban 5 mg 08/02/21 10:00 08/05/21 10:28 Apixaban 5 Mg Tab PO 5 mg BID VERENICE Administration Aspirin 81 mg 08/02/21 10:00 08/05/21 10:28 Aspirin 81 Mg Tab Chew PO 81 mg QDAY VERENICE Administration Atorvastatin Calcium 40 mg 08/02/21 22:00 08/04/21 21:19 Atorvastatin 40 Mg Tab PO 40 mg QHS VERENICE Administration Benzonatate 100 mg 08/02/21 06:00 08/05/21 14:30 Benzonatate 100 Mg Cap PO 100 mg Q8HR VERENICE Administration Fluticasone Propionate 50 mcg 08/02/21 10:00 08/05/21 10:28 Fluticasone Propionate Nasal [place] 16 Gm NS 50 mcg QDAY VERENICE Administration Folic Acid 1 mg 08/04/21 11:00 08/05/21 10:28 Folic Acid 1 Mg Tab PO 1 mg DAILY VERENICE Administration Hydralazine HCl 10 mg 08/01/21 23:18 08/02/21 08:41 Hydralazine 20 Mg/1 Ml Inj IV 10 mg Q6H PRN Administration Blood Pressure Lorazepam 2 mg 08/01/21 20:15 08/05/21 02:08 Lorazepam 2 Mg/Ml Vial IV 2 mg Q1H PRN Administration CIWA-Ar 8-15 Methocarbamol 500 mg 08/01/21 23:09 08/04/21 13:13 Methocarbamol 500 Mg Tab PO 500 mg Q8H PRN Administration Muscle Spasm Metoprolol Tartrate 25 mg 08/02/21 10:00 08/05/21 10:28 Metoprolol Tartrate 25 Mg Tab PO 25 mg BID VERENICE Administration Morphine Sulfate 2 mg 08/01/21 23:00 Morphine 2 Mg/1 Ml Inj IV Q5MIN PRN Chest Pain unrelieved by NTG Multivitamins 1 each 08/04/21 11:00 08/05/21 10:28 Multivitamins ,Therapeutic Tab PO 1 each DAILY VERENICE Administration Nitroglycerin 0.4 mg 08/01/21 23:00 Nitroglycerin 0.4 Mg Tab Subl SL Q5M PRN Chest Pain Pantoprazole Sodium 40 mg 08/02/21 10:00 08/05/21 10:28 Pantoprazole 40 Mg Tab PO 40 mg QDAY VERENICE Administration Potassium Phos/Sodium Phos 1 each 08/05/21 22:00 Phos-Nak Powder Packet PO 08/08/21 10:01 Q12HR VERENICE Sodium Chloride 10 ml 08/01/21 23:00 Sodium Chloride 0.9% 10 Ml Flush Syringe IV PRN PRN LINE FLUSH Thiamine HCl 100 mg 08/04/21 11:00 08/05/21 10:28 Thiamine 100 Mg Tab PO 100 mg QDAY VERENICE Administration Tramadol HCl 50 mg 08/01/21 23:00 Tramadol 50 Mg Tab PO Q6H PRN Pain, Moderate (4-6)
[2021-08-05] MEDS: PHOS-NAK POWDER PACKET PO SCH (22:00)
[2021-08-06] MEDS: BENZONATATE 100 MG CAP PO SCH ×2 (06:12→14:35)
[2021-08-06] MEDS ORDERED: MAGNESIUM SULFATE 4 GM/100 ML BAG IV ONE (07:50)
--- NOTE | 2021-08-06 08:00 | Progress Note ---
Assessment and Plan Assessment and plan: --Severe hypokalemia; potassium 2.7 Current Visit: Yes Status: Acute 40 mEq p.o. KCl q. 4 hours x 2 Maintain dose of KCl 10 mEq daily Monitor electrolytes --hypo phosphatemia phosphate ; Current Visit: Yes Status: Acute Continue oral Neutra-Phos twice a day total 6 doses Closely monitor electrolytes --hyponatremia ; Current Visit: Yes Status: Acute Resolved, monitor electrolytes --Severe hypo magnesemia MG 1.2 Current Visit: Yes Status: Acute Replenish with IV mag sulfate 4 g And oral Mag-Ox 400 mg p.o. daily Monitor electrolytes --Atypical chest pain/resolved Current Visit: Yes Status: Acute Aspirin 81 mg p.o. daily. Lipitor 40 mg p.o. daily. Eliquis 5 mg p.o. twice a day. Cardiac enzymes x2 negative Echo; EF 50 to 55% Patient had negative stress test in December 2020 --Alcohol withdrawal Symptoms Current Visit: Yes Status: Acute Symptoms slightly improved continue CIWA protocol with Ativan , thiamine , folic acid , multivitamin IV fluids , restraints as needed --h/o ETOH abuse Current Visit: No Status: Chronic Counseling done strongly advised to quit alcohol use patient was also advised alcohol rehabilitation If needed --GERD; Current Visit: No Status: Chronic Continue Protonix --HTN (hypertension) Current Visit: No Status: Chronic Moderate control continue current antihypertensives , and as needed hydralazine 10 mg IV every 6 hours --History of DVT (deep vein thrombosis) Current Visit: No Status: Chronic Continue Eliquis 5 mg p.o. twice a day --History of pulmonary embolism Current Visit: No Status: Chronic Patient is on Eliquis 5 mg p.o. twice a day --Mild protein calorie malnutrition; Current Visit: No Status: Chronic Treat the underlying cause, nutrition supplements --Ongoing tobacco use Current Visit: No Status: Chronic Smoking cessation counseling done, strongly advised to quit Risks and consequences discussed in detail with the patient Spent more than 15 minutes Nicotine patch as needed --DVT prophylaxis Current Visit: No Status: Acute Patient is already on Eliquis 5 mg p.o. twice a day Consult PT evaluation, management and DC needs Possible discharge in 1 to 2 days if stable Plan of care reviewed with the patient and his nurse Closely monitor the patient and adjust management as needed Daily Hospital course; 08/02/2021; patient is on CIWA protocol, restraints for safety Smoking cessation counseling, counseling to quit alcohol intake and seek alcohol rehabilitation upon discharge 08/03/2021; patient is in withdrawal symptoms, on CIWA protocol and restraints for safety Continue current management 08/04/2021; patient feels slightly better continue CIWA, DC four-point restraints continue, roll belt and softness 08/05/2021; patient is more alert and awake Slight agitation, restraint only with soft wrist Continue CIWA, hypophosphatemia, managed with oral Neutra-Phos total 6 doses Closely monitor electrolytes 08/06/2021; severe hypokalemia, severe hypomagnesemia Replenish with potassium chloride and mag sulfate Closely monitor electrolytes, PT evaluation . Possible discharge in 1 to 2 days if stable Hospitalist Physical - Constitutional Vitals: Temp Pulse Resp BP Pulse Ox 98.9 F 61 18 149/84 98 08/05/21 15:16 08/05/21 22:00 08/05/21 15:16 08/05/21 21:19 08/05/21 23:46 General appearance: Present: no acute distress, well-nourished, other (Very minimal episodes of tremulousness intermittent) - EENT Eyes: Present: PERRL, EOM intact - Neck Neck: Present: supple, normal ROM HEART Score - HEART Score Troponin: Troponin T < 0.010 ng/mL (0.00-0.029) 08/02/21 11:12 Results - Labs CBC & Chem 7: 08/01/21 20:35 08/06/21 05:12 Labs: Laboratory Last Values WBC 3.8 K/mm3 (4.5-11.0) L 08/01/21 20:35 RBC 3.99 M/mm3 (3.65-5.03) 08/01/21 20:35 Hgb 14.4 gm/dl (11.8-15.2) 08/01/21 20:35 Hct 43.3 % (35.5-45.6) 08/01/21 20:35 MCV 109 fl (84-94) H 08/01/21 20:35 MCH 36 pg (28-32) H 08/01/21 20:35 MCHC 33 % (32-34) 08/01/21 20:35 RDW 13.9 % (13.2-15.2) 08/01/21 20:35 Plt Count 70 K/mm3 (140-440) L 08/01/21 20:35 Sodium 140 mmol/L (137-145) 08/05/21 05:50 Potassium 2.7 mmol/L (3.6-5.0) L* D 08/06/21 05:12 Chloride 106.2 mmol/L (98-107) 08/05/21 05:50 Carbon Dioxide 18 mmol/L (22-30) L 08/05/21 05:50 Anion Gap 19 mmol/L 08/05/21 05:50 BUN 7 mg/dL (9-20) L 08/05/21 05:50 Creatinine 0.5 mg/dL (0.8-1.3) L 08/05/21 05:50 Estimated GFR > 60 ml/min 08/05/21 05:50 BUN/Creatinine Ratio 14 % 08/05/21 05:50 Glucose 88 mg/dL (75-100) 08/05/21 05:50 Calcium 7.8 mg/dL (8.4-10.2) L 08/05/21 05:50 Phosphorus 3.40 mg/dL (2.5-4.5) D 08/06/21 05:12 Magnesium 1.20 mg/dL (1.7-2.3) L 08/06/21 05:12 Total Bilirubin 1.00 mg/dL (0.1-1.2) 08/04/21 05:27 Direct Bilirubin 0.4 mg/dL (0-0.2) H 08/01/21 20:35 Indirect Bilirubin 0.9 mg/dL 08/01/21 20:35 AST 74 units/L (5-40) H 08/04/21 05:27 ALT 48 units/L (7-56) 08/04/21 05:27 Alkaline Phosphatase 63 units/L (35-129) 08/04/21 05:27 Troponin T < 0.010 ng/mL (0.00-0.029) 08/02/21 11:12 Total Protein 6.1 g/dL (6.3-8.2) L D 08/04/21 05:27 Albumin 3.5 g/dL (3.9-5) L 08/04/21 05:27 Albumin/Globulin Ratio 1.3 % 08/04/21 05:27 Lipase 36 units/L (13-60) 08/01/21 20:35 Davis/IV: Voiding Method Urinal Active Medications - Current Medications Current Medications: Generic Name Dose Route Start Last Admin Trade Name Freq PRN Reason Stop Dose Admin Acetaminophen 650 mg 08/01/21 23:00 Acetaminophen 325 Mg Tab PO Q6H PRN Pain, Mild (1-3) Albuterol 2.5 mg 08/01/21 23:16 Albuterol 2.5 Mg/3 Ml Nebu IH Q4HRT PRN Shortness Of Breath Apixaban 5 mg 08/02/21 10:00 08/05/21 22:00 Apixaban 5 Mg Tab PO 5 mg BID VERENICE Administration Aspirin 81 mg 08/02/21 10:00 08/05/21 10:28 Aspirin 81 Mg Tab Chew PO 81 mg QDAY VERENICE Administration Atorvastatin Calcium 40 mg 08/02/21 22:00 08/05/21 22:00 Atorvastatin 40 Mg Tab PO 40 mg QHS VERENICE Administration Benzonatate 100 mg 08/02/21 06:00 08/06/21 06:12 Benzonatate 100 Mg Cap PO 100 mg Q8HR VERENICE Administration Fluticasone Propionate 50 mcg 08/02/21 10:00 08/05/21 10:28 Fluticasone Propionate Nasal [place] 16 Gm NS 50 mcg QDAY VERENICE Administration Folic Acid 1 mg 08/04/21 11:00 08/05/21 10:28 Folic Acid 1 Mg Tab PO 1 mg DAILY VERENICE Administration Hydralazine HCl 10 mg 08/01/21 23:18 08/02/21 08:41 Hydralazine 20 Mg/1 Ml Inj IV 10 mg Q6H PRN Administration Blood Pressure Magnesium Sulfate 4 gm in 100 mls @ 25 mls/hr 08/06/21 07:50 Magnesium Sulfate 4gm/100ml IV 08/06/21 11:49 ONCE ONE Lorazepam 2 mg 08/01/21 20:15 08/05/21 02:08 Lorazepam 2 Mg/Ml Vial IV 2 mg Q1H PRN Administration CIWA-Ar 8-15 Magnesium Oxide 400 mg 08/06/21 10:00 Magnesium Oxide 400 Mg Tab PO QDAY VERENICE Methocarbamol 500 mg 08/01/21 23:09 08/04/21 13:13 Methocarbamol 500 Mg Tab PO 500 mg Q8H PRN Administration Muscle Spasm Metoprolol Tartrate 25 mg 08/02/21 10:00 08/05/21 22:00 Metoprolol Tartrate 25 Mg Tab PO 25 mg BID VERENICE Administration Morphine Sulfate 2 mg 08/01/21 23:00 Morphine 2 Mg/1 Ml Inj IV Q5MIN PRN Chest Pain unrelieved by NTG Multivitamins 1 each 08/04/21 11:00 08/05/21 10:28 Multivitamins ,Therapeutic Tab PO 1 each DAILY VERENICE Administration Nitroglycerin 0.4 mg 08/01/21 23:00 Nitroglycerin 0.4 Mg Tab Subl SL Q5M PRN Chest Pain Pantoprazole Sodium 40 mg 08/02/21 10:00 08/05/21 10:28 Pantoprazole 40 Mg Tab PO 40 mg QDAY VERENICE Administration Potassium Chloride 40 meq 08/06/21 08:00 Potassium Chloride Er 20 Meq Tab PO 08/06/21 12:01 Q4H VERENICE Potassium Phos/Sodium Phos 1 each 08/05/21 22:00 08/05/21 22:00 Phos-Nak Powder Packet PO 08/08/21 10:01 1 each Q12HR VERENICE Administration Sodium Chloride 10 ml 08/01/21 23:00 Sodium Chloride 0.9% 10 Ml Flush Syringe IV PRN PRN LINE FLUSH Thiamine HCl 100 mg 08/04/21 11:00 08/05/21 10:28 Thiamine 100 Mg Tab PO 100 mg QDAY VERENICE Administration Tramadol HCl 50 mg 08/01/21 23:00 Tramadol 50 Mg Tab PO Q6H PRN Pain, Moderate (4-6)
[2021-08-06] MEDS ORDERED: MAGNESIUM OXIDE 400 MG TAB PO SCH (10:00)
[2021-08-06] MEDS: PANTOPRAZOLE 40 MG TAB PO SCH (10:32)
[2021-08-06] MEDS: APIXABAN 5 MG TAB PO SCH (10:32)
[2021-08-06] MEDS: MULTIVITAMINS ,THERAPEUTIC TAB PO SCH (10:32)
[2021-08-06] MEDS: METOPROLOL TARTRATE 25 MG TAB PO SCH (10:32)
[2021-08-06] MEDS: PHOS-NAK POWDER PACKET PO SCH (10:32)
[2021-08-06] MEDS: ASPIRIN 81 MG TAB CHEW PO SCH (10:32)
[2021-08-06] MEDS: POTASSIUM CHLORIDE ER 20 MEQ TAB PO SCH ×2 (10:32→12:22)
[2021-08-06] MEDS: THIAMINE 100 MG TAB PO SCH (10:32)
[2021-08-06] MEDS: FOLIC ACID 1 MG TAB PO SCH (10:32)
[2021-08-06] MEDS: FLUTICASONE PROPIONATE NASAL SPRAY 16 GM NS SCH (10:50)
--- NOTE | 2021-08-06 15:27 | Progress Note ---
Hospitalist Physical - Constitutional Vitals: Temp Pulse Resp BP Pulse Ox 98.9 F 64 20 145/94 98 08/05/21 15:16 08/06/21 10:00 08/06/21 03:10 08/06/21 08:24 08/06/21 10:00 General appearance: Present: no acute distress, well-nourished, other (Very minimal episodes of tremulousness intermittent) HEART Score - HEART Score Troponin: Troponin T < 0.010 ng/mL (0.00-0.029) 08/02/21 11:12 Results - Labs CBC & Chem 7: 08/01/21 20:35 08/06/21 05:12 Labs: Laboratory Last Values WBC 3.8 K/mm3 (4.5-11.0) L 08/01/21 20:35 RBC 3.99 M/mm3 (3.65-5.03) 08/01/21 20:35 Hgb 14.4 gm/dl (11.8-15.2) 08/01/21 20:35 Hct 43.3 % (35.5-45.6) 08/01/21 20:35 MCV 109 fl (84-94) H 08/01/21 20:35 MCH 36 pg (28-32) H 08/01/21 20:35 MCHC 33 % (32-34) 08/01/21 20:35 RDW 13.9 % (13.2-15.2) 08/01/21 20:35 Plt Count 70 K/mm3 (140-440) L 08/01/21 20:35 Sodium 140 mmol/L (137-145) 08/05/21 05:50 Potassium 2.7 mmol/L (3.6-5.0) L* D 08/06/21 05:12 Chloride 106.2 mmol/L (98-107) 08/05/21 05:50 Carbon Dioxide 18 mmol/L (22-30) L 08/05/21 05:50 Anion Gap 19 mmol/L 08/05/21 05:50 BUN 7 mg/dL (9-20) L 08/05/21 05:50 Creatinine 0.5 mg/dL (0.8-1.3) L 08/05/21 05:50 Estimated GFR > 60 ml/min 08/05/21 05:50 BUN/Creatinine Ratio 14 % 12/04/21 05:50 Glucose 88 mg/dL (75-100) 08/05/21 05:50 Calcium 7.8 mg/dL (8.4-10.2) L 08/05/21 05:50 Phosphorus 3.40 mg/dL (2.5-4.5) D 08/06/21 05:12 Magnesium 1.20 mg/dL (1.7-2.3) L 08/06/21 05:12 Total Bilirubin 1.00 mg/dL (0.1-1.2) 08/04/21 05:27 Direct Bilirubin 0.4 mg/dL (0-0.2) H 08/01/21 20:35 Indirect Bilirubin 0.9 mg/dL 08/01/21 20:35 AST 74 units/L (5-40) H 08/04/21 05:27 ALT 48 units/L (7-56) 08/04/21 05:27 Alkaline Phosphatase 63 units/L (35-129) 08/04/21 05:27 Troponin T < 0.010 ng/mL (0.00-0.029) 08/02/21 11:12 Total Protein 6.1 g/dL (6.3-8.2) L D 08/04/21 05:27 Albumin 3.5 g/dL (3.9-5) L 08/04/21 05:27 Albumin/Globulin Ratio 1.3 % 08/04/21 05:27 Lipase 36 units/L (13-60) 08/01/21 20:35 Davis/IV: Voiding Method Toilet Active Medications - Current Medications Current Medications: Generic Name Dose Route Start Last Admin Trade Name Freq PRN Reason Stop Dose Admin Acetaminophen 650 mg 08/01/21 23:00 Acetaminophen 325 Mg Tab PO Q6H PRN Pain, Mild (1-3) Albuterol 2.5 mg 08/01/21 23:16 Albuterol 2.5 Mg/3 Ml Nebu IH Q4HRT PRN Shortness Of Breath Apixaban 5 mg 08/02/21 10:00 08/06/21 10:32 Apixaban 5 Mg Tab PO 5 mg BID VERENICE Administration Aspirin 81 mg 08/02/21 10:00 08/06/21 10:32 Aspirin 81 Mg Tab Chew PO 81 mg QDAY VERENICE Administration Atorvastatin Calcium 40 mg 08/02/21 22:00 08/05/21 22:00 Atorvastatin 40 Mg Tab PO 40 mg QHS VERENICE Administration Benzonatate 100 mg 08/02/21 06:00 08/06/21 14:35 Benzonatate 100 Mg Cap PO 100 mg Q8HR VERENICE Administration Fluticasone Propionate 50 mcg 08/02/21 10:00 08/06/21 10:50 Fluticasone Propionate Nasal [place] 16 Gm NS 50 mcg QDAY VERENICE Administration Folic Acid 1 mg 08/04/21 11:00 08/06/21 10:32 Folic Acid 1 Mg Tab PO 1 mg DAILY VERENICE Administration Hydralazine HCl 10 mg 08/01/21 23:18 08/02/21 08:41 Hydralazine 20 Mg/1 Ml Inj IV 10 mg Q6H PRN Administration Blood Pressure Lorazepam 2 mg 08/01/21 20:15 08/05/21 02:08 Lorazepam 2 Mg/Ml Vial IV 2 mg Q1H PRN Administration [facility]-Ar 8-15 Magnesium Oxide 400 mg 08/06/21 10:00 08/06/21 10:32 Magnesium Oxide 400 Mg Tab PO 400 mg QDAY VERENICE Administration Methocarbamol 500 mg 08/01/21 23:09 08/04/21 13:13 Methocarbamol 500 Mg Tab PO 500 mg Q8H PRN Administration Muscle Spasm Metoprolol Tartrate 25 mg 08/02/21 10:00 08/06/21 10:32 Metoprolol Tartrate 25 Mg Tab PO 25 mg BID VERENICE Administration Morphine Sulfate 2 mg 08/01/21 23:00 Morphine 2 Mg/1 Ml Inj IV Q5MIN PRN Chest Pain unrelieved by NTG Multivitamins 1 each 08/04/21 11:00 08/06/21 10:32 Multivitamins ,Therapeutic Tab PO 1 each DAILY VERENICE Administration Nitroglycerin 0.4 mg 08/01/21 23:00 Nitroglycerin 0.4 Mg Tab Subl SL Q5M PRN Chest Pain Pantoprazole Sodium 40 mg 08/02/21 10:00 08/06/21 10:32 Pantoprazole 40 Mg Tab PO 40 mg QDAY VERENICE Administration Potassium Phos/Sodium Phos 1 each 08/05/21 22:00 08/06/21 10:32 Phos-Nak Powder Packet PO 08/08/21 10:01 1 each Q12HR VERENICE Administration Sodium Chloride 10 ml 08/01/21 23:00 Sodium Chloride 0.9% 10 Ml Flush Syringe IV PRN PRN LINE FLUSH Thiamine HCl 100 mg 08/04/21 11:00 08/06/21 10:32 Thiamine 100 Mg Tab PO 100 mg QDAY VERENICE Administration Tramadol HCl 50 mg 08/01/21 23:00 Tramadol 50 Mg Tab PO Q6H PRN Pain, Moderate (4-6)
--- NOTE | 2021-08-06 15:32 | Discharge Summary ---
Providers - Providers Date of Admission: 08/01/21 23:00 Date of discharge: 08/06/21 Attending physician: ASIYA VARMA 08/01/21 Consult to Cardiac Rehabilitation [CONS] Routine Reason For Exam: Phase I Primary care physician: [employer] Hospitalization Condition: Stable Hospital course: --Severe hypokalemia; potassium 2.7 Current Visit: Yes Status: Acute 40 mEq p.o. KCl q. 4 hours x 2 Maintain dose of KCl 10 mEq daily Monitor electrolytes --hypo phosphatemia phosphate ; Current Visit: Yes Status: Acute Continue oral Neutra-Phos twice a day total 6 doses Closely monitor electrolytes --hyponatremia ; Current Visit: Yes Status: Acute Resolved, monitor electrolytes --Severe hypo magnesemia MG 1.2 Current Visit: Yes Status: Acute Replenish with IV mag sulfate 4 g And oral Mag-Ox 400 mg p.o. daily Monitor electrolytes --Atypical chest pain/resolved Current Visit: Yes Status: Acute Aspirin 81 mg p.o. daily. Lipitor 40 mg p.o. daily. Eliquis 5 mg p.o. twice a day. Cardiac enzymes x2 negative Echo; EF 50 to 55% Patient had negative stress test in December 2020 --Alcohol withdrawal Symptoms Current Visit: Yes Status: Acute Symptoms slightly improved continue CIWA protocol with Ativan , thiamine , folic acid , multivitamin IV fluids , restraints as needed --h/o ETOH abuse Current Visit: No Status: Chronic Counseling done strongly advised to quit alcohol use patient was also advised alcohol rehabilitation If needed --GERD; Current Visit: No Status: Chronic Continue Protonix --HTN (hypertension) Current Visit: No Status: Chronic Moderate control continue current antihypertensives , and as needed hydralazine 10 mg IV every 6 hours --History of DVT (deep vein thrombosis) Current Visit: No Status: Chronic Continue Eliquis 5 mg p.o. twice a day --History of pulmonary embolism Current Visit: No Status: Chronic Patient is on Eliquis 5 mg p.o. twice a day --Mild protein calorie malnutrition; Current Visit: No Status: Chronic Treat the underlying cause, nutrition supplements --Ongoing tobacco use Current Visit: No Status: Chronic Smoking cessation counseling done, strongly advised to quit Risks and consequences discussed in detail with the patient Spent more than 15 minutes Nicotine patch as needed --DVT prophylaxis Current Visit: No Status: Acute Patient is already on Eliquis 5 mg p.o. twice a day Consult PT evaluation, management and DC needs Possible discharge in 1 to 2 days if stable Plan of care reviewed with the patient and his nurse Closely monitor the patient and adjust management as needed Daily Hospital course; 08/02/2021; patient is on CIWA protocol, restraints for safety Smoking cessation counseling, counseling to quit alcohol intake and seek alcohol rehabilitation upon discharge 08/03/2021; patient is in withdrawal symptoms, on CIWA protocol and restraints for safety Continue current management 08/04/2021; patient feels slightly better continue CIWA, DC four-point restraints continue, roll belt and softness 08/05/2021; patient is more alert and awake Slight agitation, restraint only with soft wrist Continue CIWA, hypophosphatemia, managed with oral Neutra-Phos total 6 doses Closely monitor electrolytes 08/06/2021; severe hypokalemia, severe hypomagnesemia Replenish with potassium chloride and mag sulfate Closely monitor electrolytes, PT evaluation . Possible discharge in 1 to 2 days if stable Disposition: 01 HOME / SELF CARE / HOMELESS Final Discharge Diagnosis (Prints w/discharge instructions): Acute metabolic encephalopathy. Alcohol withdrawal symptoms. History of chronic alcohol use. GERD. Hypertension. Severe hypokalemia/resolved. Hypophosphatemia/resolved. Hypomagnesemia/resolved. Atypical chest pain/resolved. History of DVT on Eliquis. History of PE on Eliquis. Mild protein calorie malnutrition. Ongoing tobacco use Time spent for discharge: 40 min Core Measure Documentation - Palliative Care Palliative Care/ Comfort Measures: Not Applicable - Core Measures Any of the following diagnoses?: none Exam - Constitutional Vitals: Temp Pulse Resp BP Pulse Ox 98.9 F 64 20 145/94 98 08/05/21 15:16 08/06/21 10:00 08/06/21 03:10 08/06/21 08:24 08/06/21 10:00 General appearance: Present: no acute distress, well-nourished - EENT Eyes: Present: PERRL, EOM intact - Neck Neck: Present: supple, normal ROM - Respiratory Respiratory effort: normal Respiratory: bilateral: diminished, negative: rales, rhonchi, wheezing - Cardiovascular Rhythm: regular Heart Sounds: Present: S1 & S2 - Extremities Extremities: no ischemia, No edema - Abdominal General gastrointestinal: Present: soft, non-tender, non-distended, normal bowel sounds - Integumentary Integumentary: Present: clear, warm - Musculoskeletal Musculoskeletal: strength equal bilaterally - Psychiatric Psychiatric: appropriate mood/affect, cooperative - Neurologic Neurologic: moves all extremities Plan Activity: advance as tolerated Diet: regular Special Instructions: smoking cessation Additional Instructions: Advised to quit alcohol intake. Smoking cessation. Advised to follow alcohol rehabilitation. Advised to seek alcohol Anonymous support group. If you have worsening symptoms contact MD or go to the nearest emergency room Follow up with: PRIMARY CARE,MD [Primary Care Provider] - 3-5 Days Prescriptions: Apixaban [Eliquis] 5 mg PO BID #60 Fluticasone [Flonase] 50 mcg NS QDAY #1 bottle Folic Acid [Folvite] 1 mg PO DAILY #30 tablet Metoprolol [Lopressor TAB] 25 mg PO BID #60 tablet Magnesium Oxide [Mag-Ox] 400 mg PO QDAY #7 tablet Multivitamin Tab [Multiple Vitamin TAB (Theragran)] 1 each PO DAILY #30 tablet Potassium Chloride 10 meq PO DAILY #7 tablet.er Pantoprazole [Protonix TAB] 40 mg PO QDAY #30 tablet methOCARBAMOL [Robaxin TAB] 500 mg PO Q8H PRN #20 tablet PRN Reason: Muscle Spasm Benzonatate [Tessalon Perles] 100 mg PO Q8HR #20 capsule Thiamine [Vitamin B-1] 100 mg PO QDAY #30 tablet
[2021-08-06 17:50] VITALS: BP 138/81
== END 2021-08-06 19:01 | disposition home or self-care (01) | DRG 640 ==
LOC: ED 19:51 → 4A 23:00
PROVIDERS: ADMIT Hospitalist; ATTEND Internal Medicine
DX: E87.6 Hypokalemia (principal); G93.41 Metabolic encephalopathy; I24.9 Acute ischemic heart disease, unspecified; F10.239 Alcohol dependence with withdrawal, unspecified; E44.1 Mild protein-calorie malnutrition; E87.1 Hypo-osmolality and hyponatremia; R07.89 Other chest pain; Z72.0 Tobacco use; Z20.822 Contact with and (suspected) exposure to COVID-19; I10 Essential (primary) hypertension; Z86.711 Personal history of pulmonary embolism; Z86.718 Personal history of other venous thrombosis and embolism; E83.42 Hypomagnesemia; K21.9 Gastro-esophageal reflux disease without esophagitis; E83.39 Other disorders of phosphorus metabolism
CPT/HCPCS: 36415; 80048; 80053; 80076; 83690; 83735; 84100; 84132; 84484; 85027; 93005; 93306; 94640; G0378; J3490; Q0162; J0360; J2060; J3411; J3475; J7030; J7040

== ENCOUNTER 2021-10-26 20:05 | Inpatient (IN) | payer SELFPAY ==
--- NOTE | 2021-10-26 21:40 | XRay Report ---
CHEST 2 VIEWS INDICATION / CLINICAL INFORMATION: chest pain. COMPARISON: 02/28/2021 FINDINGS: SUPPORT DEVICES: None. HEART / MEDIASTINUM: No significant abnormality. LUNGS / PLEURA: No significant pulmonary or pleural abnormality. No pneumothorax. ADDITIONAL FINDINGS: No significant additional findings. IMPRESSION: 1. No acute findings. Signer Name: Michael Mireles DO Signed: 10/26/2021 9:35 PM Workstation Name: [id number]
[2021-10-26 21:46] LABS: Hematocrit 42.7 % (35.5-45.6); Hemoglobin 14.6 gm/dl (11.8-15.2); Mean Corpuscular HGB Conc 34 % (32-34); Mean Corpuscular Volume 103 fl (84-94); Platelet Count 103 K/mm3 (140-440); Red Blood Count 4.13 M/mm3 (3.65-5.03); Red Cell Distribution Width 14.7 % (13.2-15.2)
[2021-10-26 22:01] LABS: Alanine Aminotransferase 33 units/L (7-56); Albumin 4.6 g/dL (3.9-5); BUN/Creatinine Ratio 9; Blood Urea Nitrogen 8 mg/dL (9-20); Calcium 8.9 mg/dL (8.4-10.2); Hemolysis Index 9
[2021-10-26] MEDS ORDERED: PANTOPRAZOLE 40 MG INJ IV ONE (22:23)
[2021-10-26] MEDS ORDERED: chlordiazePOXIDE 25 MG CAP PO PRN (22:23)
[2021-10-26] MEDS ORDERED: LORazepam 2 MG/ML VIAL IV PRN ×3 (22:23)
[2021-10-26] MEDS ORDERED: LACTATED RINGERS 1,000 ML IV ONE (22:23)
[2021-10-26] MEDS ORDERED: NITROGLYCERIN 0.4 MG TAB SUBL SL PRN (22:23)
[2021-10-26] MEDS ORDERED: diazePAM 10 MG/2 ML SYRINGE IV ONE (22:23)
--- NOTE | 2021-10-26 22:24 | Emergency Department Report ---
ED General Adult HPI - General Chief complaint: Medical Clearance Stated complaint: Multiple complaints PUI?: No Time Seen by Provider: 10/26/21 22:09 Source: patient, RN notes reviewed, old records reviewed Mode of arrival: Ambulatory Limitations: No Limitations - History of Present Illness Initial comments: The patient was evaluated in the emergency department for symptoms described in the history of present illness. He/she was evaluated in the context of the global COVID-19 pandemic, which necessitated consideration that the patient might be at risk for infection with the virus that causes COVID-19. Institutional protocols and algorithms that pertain to the evaluation of patients at risk for COVID-19 are in a state of rapid change based on information released by regulatory bodies including the CDC and federal and state organizations. These policies and algorithms were followed during the patient's care in the emergency department. Please note that these policies, procedures and recommendations changed on a rapid basis. 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 The patient is a 56-year-old gentleman who presents to the ER today with multiple complaints, including central nonradiating chest pain, right-sided abdominal and flank pain, headache, blurry vision, and sensation of right leg weakness and numbness, with sensation of his right leg "giving out on me", which started at 130 this morning. Patient denies loss of vision, fever, vomiting, hematemesis and bright red blood per rectum. Patient reports alcohol consumption earlier on today. -: Gradual, hour(s) Location: head, chest, abdomen, right, upper extremity Radiation: extremity, abdomen Severity scale (0 -10): 0 Consistency: intermittent Improves with: none Worsens with: none - Related Data Home Medications Medication Instructions Recorded Confirmed Last Taken Ibuprofen [Ibu-200] 400 mg PO PRN PRN 08/02/21 08/02/21 3 Days Ago ~07/30/21 Multivit-Min/FA/Lycopen/Lutein 1 each PO Q48H 08/02/21 08/02/21 2 Days Ago [Centrum Silver Tablet] ~07/31/21 Previous Rx's Medication Instructions Recorded Last Taken Type Apixaban [Eliquis] 5 mg PO BID #60 tablet 08/06/21 Unknown Rx Benzonatate [Tessalon Perles] 100 mg PO Q8HR #20 capsule 08/06/21 Unknown Rx Fluticasone [Flonase] 50 mcg NS QDAY #1 bottle 08/06/21 Unknown Rx Folic Acid [Folvite] 1 mg PO DAILY #30 tablet 08/06/21 Unknown Rx Magnesium Oxide [Mag-Ox] 400 mg PO QDAY #7 tablet 08/06/21 Unknown Rx Metoprolol [Lopressor TAB] 25 mg PO BID #60 tablet 08/06/21 Unknown Rx Multivitamin Tab [Multiple Vitamin 1 each PO DAILY #30 tablet 08/06/21 Unknown Rx TAB (Theragran)] Pantoprazole [Protonix TAB] 40 mg PO QDAY #30 tablet 08/06/21 Unknown Rx Potassium Chloride 10 meq PO DAILY #7 tablet.er 08/06/21 Unknown Rx Thiamine [Vitamin B-1] 100 mg PO QDAY #30 tablet 08/06/21 Unknown Rx methOCARBAMOL [Robaxin TAB] 500 mg PO Q8H PRN #20 tablet 08/06/21 Unknown Rx Allergies Allergy/AdvReac Type Severity Reaction Status Date / Time No Known Allergies Allergy Verified 08/01/21 20:07 ED Review of Systems ROS: Stated complaint: CHEST PAIN Other details as noted in HPI Constitutional: denies: fever Eyes: denies: eye discharge ENT: denies: epistaxis Respiratory: denies: cough Cardiovascular: chest pain, palpitations Gastrointestinal: abdominal pain. denies: vomiting, melena, hematochezia Genitourinary: denies: dysuria Neurological: headache, weakness, abnormal gait Psychiatric: anxiety. denies: homicidal thoughts, suicidal thoughts ED Past Medical Hx - Past Medical History Previous Medical History?: Yes Hx Hypertension: Yes Hx Heart Attack/AMI: No Hx Congestive Heart Failure: No Hx Diabetes: No (Brother) Hx Deep Vein Thrombosis: Yes Hx Pulmonary Embolism: Yes Hx Liver Disease: No Hx Renal Disease: No Hx Sickle Cell Disease: No Hx Arthritis: No Hx Seizures: No Hx Kidney Stones: No Hx Asthma: No Hx COPD: No Hx Tuberculosis: No Hx Dementia: No Hx HIV: No Additional medical history: DVT BLE - Surgical History Past Surgical History?: No Hx Coronary Stent: No Hx Open Heart Surgery: No Hx Pacemaker: No Hx Internal Defibrillator: No Hx Cholecystectomy: No Hx Appendectomy: No Hx Breast Surgery: No - Social History Smoking Status: Never Smoker Substance Use Type: Alcohol - Medications Home Medications: Home Medications Medication Instructions Recorded Confirmed Last Taken Type Ibuprofen [Ibu-200] 400 mg PO PRN PRN 08/02/21 08/02/21 3 Days Ago History ~07/30/21 Multivit-Min/FA/Lycopen/Lutein 1 each PO Q48H 08/02/21 08/02/21 2 Days Ago History [Centrum Silver Tablet] ~07/31/21 Apixaban [Eliquis] 5 mg PO BID #60 tablet 08/06/21 Unknown Rx Benzonatate [Tessalon Perles] 100 mg PO Q8HR #20 capsule 08/06/21 Unknown Rx Fluticasone [Flonase] 50 mcg NS QDAY #1 bottle 08/06/21 Unknown Rx Folic Acid [Folvite] 1 mg PO DAILY #30 tablet 08/06/21 Unknown Rx Magnesium Oxide [Mag-Ox] 400 mg PO QDAY #7 tablet 08/06/21 Unknown Rx Metoprolol [Lopressor TAB] 25 mg PO BID #60 tablet 08/06/21 Unknown Rx Multivitamin Tab [Multiple Vitamin 1 each PO DAILY #30 tablet 08/06/21 Unknown Rx TAB (Theragran)] Pantoprazole [Protonix TAB] 40 mg PO QDAY #30 tablet 08/06/21 Unknown Rx Potassium Chloride 10 meq PO DAILY #7 tablet.er 08/06/21 Unknown Rx Thiamine [Vitamin B-1] 100 mg PO QDAY #30 tablet 08/06/21 Unknown Rx methOCARBAMOL [Robaxin TAB] 500 mg PO Q8H PRN #20 tablet 08/06/21 Unknown Rx ED Physical Exam - General Limitations: No Limitations General appearance: alert, anxious - Head Head exam: Present: atraumatic, normocephalic - Eye Eye exam: Present: normal appearance, EOMI. Absent: nystagmus - ENT ENT exam: Present: normal exam, normal orophraynx, mucous membranes moist, normal external ear exam, other (Tongue fasciculations noted) - Neck Neck exam: Present: normal inspection, full ROM. Absent: tenderness, meningismus - Respiratory Respiratory exam: Present: normal lung sounds bilaterally. Absent: respiratory distress, wheezes, rales, rhonchi, stridor, decreased breath sounds - Cardiovascular Cardiovascular Exam: Present: normal rhythm, tachycardia, normal heart sounds. Absent: bradycardia, irregular rhythm, systolic murmur, diastolic murmur, rubs, gallop - GI/Abdominal GI/Abdominal exam: Present: soft, tenderness, hernia (Right-sided reducible inguinal hernia). Absent: distended, guarding, rebound, rigid, pulsatile mass - Rectal Rectal exam: Present: deferred - Extremities Exam Extremities exam: Present: normal inspection, full ROM, other (2+ pulses noted in the bilateral upper and lower extremities. There is no palpable cord. negative Homans sign. Muscular compartments are soft. The pelvis is stable.). Absent: pedal edema, calf tenderness - Back Exam Back exam: Present: normal inspection, full ROM. Absent: tenderness, CVA tenderness (R), CVA tenderness (L), paraspinal tenderness, vertebral tenderness - Neurological Exam Neurological exam: Present: alert, oriented X3, motor sensory deficit (Decrease sensation to light touch right lower extremity), other (There is no facial droop. The tongue is midline. EOMI. 5/5 strength in bilateral upper extremities and left lower extremity. 4.5 strength out of 5 in right leg light touch bilateral upper extremities, and left lower extremity. Decreased sensation to light touch right lower extremity) - Psychiatric Psychiatric exam: Present: anxious. Absent: homicidal ideation, suicidal ideation - Skin Skin exam: Present: warm, dry, intact, normal color. Absent: rash ED Course Vital Signs 10/26/21 20:25 Temperature 98.8 F Pulse Rate 121 H Respiratory 17 Rate Blood Pressure 123/80 [Right] O2 Sat by Pulse 99 Oximetry - Reevaluation(s) Reevaluation #1: 10/26/21 22:52 Differential diagnosis, including not limited to: Migraine headache, tension headache, cluster headache, intracranial hemorrhage, subacute stroke, large vessel occlusion, carotid dissection, aortic dissection, pulmonary embolism, GERD, gastritis, hiatal hernia, pneumonia, costochondritis, AAA, colitis, diverticulitis, hernia, alcohol withdrawal, electrolyte derangement Assessment and plan: 56-year-old gentleman with multiple medical problems, and multiple complaints today. In terms of the patient's complaint of headache and right lower extremity giving out on him and numbness, patient presents more than 4.5 hours after his last known well time. He is therefore not a TPA candidate. NIH score low, this is unlikely to be a large vessel occlusion. However, given complaint of chest pain with neurologic deficits, we will obtain CT scan of the brain, and CT angiogram head and neck. If in the unlikely event in the aortic and/or carotid dissection is present, CT angiogram should detect. Swallow screen, neurochecks. Contacted neurology on-call, Dr. Naqvi. Discussed the patient's history, physical, laboratory studies, and plan imaging studies. She agrees with the plan of care, and is in agreement with admission seshan no finding be identified require transfer for emergent intervention. \\ In terms of the patient's chest pain, we will obtain serial EKG, serial troponin, CT angiogram of the chest to evaluate for pulmonary embolism/dissection. Patient not risk stratified well by D-dimer as he is not low pretest probability. In terms of the patient's abdominal pain, we will obtain CT scan of the abdomen pelvis. Suspect that there is a component of alcohol withdrawal present. Start Valium, banana bag, alcohol withdrawal protocol, replenish magnesium, replace potassium. If no contraindications, administer aspirin after initial work-up. Patient is agreeable to admission hospitalization. Reassess after CT scans have been completed. 10/27/21 00:[address] scan brain negative for acute findings. CT angiogram head and neck negative for acute findings. CT angiogram chest negative for acute findings. CT scan abdomen pelvis negative for acute findings. Does not have vomiting or diarrhea, do not clinically suspect enteritis. Hospital physician, Dr. Gabriel to admit to IMS - EJ/Peripheral Line Arm R Time Out Performed: Yes Indications: other (IV placed to expedite acquisition of diagnostic) Skin Cleansed in Sterile Fashion: Yes Size: 20 Dressing Placed: Tegaderm Patient Tolerated Procedure: well ED Medical Decision Making - Lab Data Result diagrams: 10/26/21 21:22 10/26/21 21:22 Vital Signs 10/26/21 20:25 Temperature 98.8 F Pulse Rate 121 H Respiratory 17 Rate Blood Pressure 123/80 [Right] O2 Sat by Pulse 99 Oximetry Lab Results 10/26/21 10/26/21 10/26/21 Range/Units 21:22 21:22 21:52 WBC 4.9 (4.5-11.0) K/mm3 RBC 4.13 (3.65-5.03) M/mm3 Hgb 14.6 (11.8-15.2) gm/dl Hct 42.7 (35.5-45.6) % MCV 103 H (84-94) fl MCH 35 H (28-32) pg MCHC 34 (32-34) % RDW 14.7 (13.2-15.2) % Plt Count 103 L (140-440) K/mm3 D-Dimer 255.05 H (0-234) ng/mlDDU Sodium 137 (137-145) mmol/L Potassium 3.0 L (3.6-5.0) mmol/L Chloride 96.7 L (98-107) mmol/L Carbon Dioxide 20 L (22-30) mmol/L Anion Gap 23 mmol/L BUN 8 L (9-20) mg/dL Creatinine 0.9 (0.8-1.3) mg/dL Estimated GFR > 60 ml/min BUN/Creatinine Ratio 9 % Glucose 99 (75-100) mg/dL Calcium 8.9 (8.4-10.2) mg/dL Magnesium (1.7-2.3) mg/dL Total Bilirubin 0.90 (0.1-1.2) mg/dL AST 70 H (5-40) units/L ALT 33 (7-56) units/L Alkaline Phosphatase 69 (35-129) units/L Troponin T < 0.010 (0.00-0.029) ng/mL Total Protein 7.7 (6.3-8.2) g/dL Albumin 4.6 (3.9-5) g/dL Albumin/Globulin Ratio 1.5 % 10/26/21 Range/Units 22:00 WBC (4.5-11.0) K/mm3 RBC (3.65-5.03) M/mm3 Hgb (11.8-15.2) gm/dl Hct (35.5-45.6) % MCV (84-94) fl MCH (28-32) pg MCHC (32-34) % RDW (13.2-15.2) % Plt Count (140-440) K/mm3 D-Dimer (0-234) ng/mlDDU Sodium (137-145) mmol/L Potassium (3.6-5.0) mmol/L Chloride (98-107) mmol/L Carbon Dioxide (22-30) mmol/L Anion Gap mmol/L BUN (9-20) mg/dL Creatinine (0.8-1.3) mg/dL Estimated GFR ml/min BUN/Creatinine Ratio % Glucose (75-100) mg/dL Calcium (8.4-10.2) mg/dL Magnesium 1.40 L (1.7-2.3) mg/dL Total Bilirubin (0.1-1.2) mg/dL AST (5-40) units/L ALT (7-56) units/L Alkaline Phosphatase (35-129) units/L Troponin T (0.00-0.029) ng/mL Total Protein (6.3-8.2) g/dL Albumin (3.9-5) g/dL Albumin/Globulin Ratio % - EKG Data -: EKG Interpreted by Nc EKG shows normal: sinus rhythm Rate: tachycardia - EKG Data 10/26/21 22:49 The EKG is interpreted at 20: 12 Sinus rhythm, tachycardia, rate 113 bpm. Left axis deviation, left ventricular hypertrophy, T wave abnormalities, and motion artifact. This is an abnormal EKG. This is not a STEMI. - Radiology Data Radiology results: pending, report reviewed, image reviewed CHEST 2 VIEWS INDICATION / CLINICAL INFORMATION: chest pain. COMPARISON: 02/28/2021 FINDINGS: SUPPORT DEVICES: None. HEART / MEDIASTINUM: No significant abnormality. LUNGS / PLEURA: No significant pulmonary or pleural abnormality. No pneumothorax. ADDITIONAL FINDINGS: No significant additional findings. IMPRESSION: 1. No acute findings. Signer Name: Michael Mireles DO Signed: 10/26/2021 8:35 PM Workstation Name: [id number] CT angio neck INDICATION / CLINICAL INFORMATION: 56 years Male; headache, right leg weakness numbness. TECHNIQUE: Thin cut axial images obtained through the head during IV bolus contrast administration. Sagittal, coronal, and 3 plane MIP reconstructions performed by the technologist. NASCET type criteria used evaluate stenoses. All CT scans at this location are performed using CT dose reduction for ALARA by means of automated exposure control. . COMPARISON: None available. FINDINGS: ARCH: Bovine arch configuration noted. CAROTID ARTERIES: The visualized common and internal carotid arteries are widely patent. VERTEBRAL ARTERIES: Slight left dominant vertebral system seen. No significant stenosis appreciated. ADDITIONAL FINDINGS: Mild osseous foraminal narrowing seen on the right at C5-6 from uncinate hypertrophy. Similar findings on the left at C4-5. Mild disc disease at various levels. No dominant herniation or significant canal stenosis appreciated. Mucous retention cyst/polyps seen in both maxillary antra, right greater than left. Poor dentition noted. Degene rative changes seen in the sternoclavicular joints bilaterally. IMPRESSION: No significant stenosis appreciated on this CTA of the neck. Signer Name: Mehrdad Eli MD, III Signed: 10/26/2021 10:46 PM Workstation Name: [email or web address] INDICATION / CLINICAL INFORMATION: acute chest pain,hx of PE. TECHNIQUE: Axial CT images were obtained through the chest after injection of IV contrast. 3 plane MIP and/or 3D reconstructions were produced. All CT scans at this location are performed using CT dose reduction for ALARA by means of automated exposure control. COMPARISON: CTA from 02/28/2021 FINDINGS: PULMONARY ARTERIES: Right-sided pulmonary arteries are diminutive but stable, compatible with sequela of prior pulmonary embolus. There is no acute central or segmental pulmonary embolus. THORACIC AORTA: Mild atherosclerotic calcification without acute abnormality. HEART: Mild cardiac enlargement. No significant coronary artery calcifications. LYMPHADENOPATHY: No significant thoracic lymphadenopathy. LUNGS/PLEURA: No acute airspace disease. There is stable scarring within the right middle lobe and right lower lobe. Mild emphysema. No pleural effusion or pneumothorax. OTHER FINDINGS: None. UPPER ABDOMEN: Detailed separately. SKELETAL SYSTEM: No acute osseous findings. IMPRESSION: No acute findings in the chest. No evidence of acute pulmonary embolism. Signer Name: William Marinelli MD Signed: 10/26/2021 10:16 PM Workstation Name: [id number] CT abdomen pelvis w con INDICATION / CLINICAL INFORMATION: acute abd pain. TECHNIQUE: Axial CT images were obtained through the abdomen and pelvis after IV contrast. All CT scans at this location are performed using CT dose reduction for ALARA by means of automated exposure control. COMPARISON: None available. FINDINGS: LOWER CHEST: Unchanged parenchymal scarring in the right lung base. LIVER: Enlarged liver with steatosis. GALLBLADDER/BILIARY TREE: No significant abnormality PANCREAS: No significant abnormality SPLEEN: No significant abnormality ADRENALS: No significant abnormality KIDNEYS / URETER: Left renal cyst. No acute abnormality. URINARY BLADDER: Bladder is partially decompressed. There is mild bladder wall thickening and mild perivesicular stranding. REPRODUCTIVE ORGANS: No significant abnormality STOMACH / BOWEL: Scattered nondilated fluid-filled small bowel within the abdomen, greater on the right. No evidence of small bowel obstruction. The colon is unremarkable. The appendix is normal in caliber. LYMPH NODES: No significant adenopathy. VASCULATURE: Mild atherosclerotic calcification without acute abnormality. OTHER: No free air, free fluid, or focal fluid collection is identified. Small fat-containing right inguinal hernia without complication. SKELETAL SYSTEM: No acute osseous findings. IMPRESSION: 1. Mild fluid-filled small bowel within the abdomen, greatest within the right mid abdomen. Findings are nonspecific but may reflect mild enteritis. 2. Otherwise, no acute process of the abdomen or pelvis. 3. Chronic and incidental findings as detailed above. Signer Name: William Marinelli MD Signed: 10/26/2021 10:21 PM Workstation Name: [id number] . CT angio head INDICATION / CLINICAL INFORMATION: 56 years Male; acute francis, right leg weakness numbness. TECHNIQUE: Thin cut axial images obtained through the head during IV bolus contrast administration. Sagittal, coronal, and 3 plane MIP reconstructions performed by the technologist. NASCET type criteria used evaluate stenoses. Automated exposure control utilized for radiation reduction purposes. . COMPARISON: None available. FINDINGS: INTERNAL CAROTID ARTERIES: No significant narrowing appreciated. VERTEBROBASILAR SYSTEM: No significant narrowing appreciated. DISTAL BRANCHES: Distal branches of the anterior, middle, and posterior cerebral arteries are fairly symmetric in appearance and number. ANEURYSM: None identified. There is a small infundibulum associated with superior cerebellar artery on the left Hola of no clinical significance. ADDITIONAL FINDINGS: Mild mucosal thickening in the ethmoids. IMPRESSION: No significant abnormality on this CTA of the head. Signer Name: Mehrdad Eli MD, III Signed: 10/26/2021 10:40 PM Workstation Name: [id number] CT head/brain wo con INDICATION / CLINICAL INFORMATION: 56 years Male; headache, right leg weakness numbness. TECHNIQUE: Routine CT head without contrast. All CT scans at this location are performed using CT dose reduction for ALARA by means of automated exposure control. COMPARISON: None. FINDINGS: BRAIN / INTRACRANIAL CONTENTS: No acute hemorrhage, mass effect, midline shift, hydrocephalus, or acute, large territorial infarct. Mild, diffuse cerebral and cerebellar atrophy. There are mild areas of decreased attenuation in the white matter of the cerebral hemispheres. These are nonspecific findings and may be related to microangiopathy (hypertension, diabetes, atherosclerosis), given the patient's age. CRANIOCERVICAL JUNCTION: No significant abnormality. ORBITS: No significant abnormality of visualized orbits. SINUSES / MASTOIDS: Minimal mucosal thickening in the ethmoids. ADDITIONAL FINDINGS: None. IMPRESSION: 1. No focal mass, hemorrhage, hydrocephalus, or acute, large territorial infarct. Signer Name: Mehrdad Eli MD, III Signed: 10/26/2021 10:31 PM Workstation Name: [email or web address] Critical care attestation.: If time is entered above; I have spent that time in minutes in the direct care of this critically ill patient, excluding procedure time. ED Disposition Clinical Impression: Acute chest pain, Acute abdominal pain, Alcohol withdrawal, Hypokalemia, Hypomagnesemia, Acute headache, Right leg numbness Disposition: 09 ADMITTED INPATIENT Is pt being admited?: Yes Condition: Good Instructions: Chest Pain (ED) Heart Score - HEART Score History: Slightly suspicious EKG: Non-specific Age: 45-65 Risk factors: 1-2 risk factors Troponin: < normal limit HEART Score: 3 - EKG Read Time Time EKG Completed: 20:12 EKG Read Time: 20:12 - Critical Actions Critical Actions: 0-3 pts:0.9-1.7%risk of adverse cardiac event.Candidate for marion vargas - Assessment Assessment Interval: Baseline - Level of Consciousness 1a. Level of Consciousness: alert/keenly responsive - LOC Questions 1b. LOC Questions: answers both correctly - LOC Command 1c. LOC Commands: performs tasks correctly - Best Gaze 2. Best Gaze: normal - Visual 3. Visual: no visual loss - Facial Palsy 4. Facial Palsy: normal symmetrical movement - Motor Arm 5a. Motor Arm Left: no drift 5b. Motor Arm Right: no drift - Motor Leg 6a. Motor Leg Left: no drift 6b. Motor Leg Right: no drift - Limb Ataxia 7. Limb Ataxia: absent - Sensory 8. Sensory: mild/moderate sensory loss - Best Language 9. Best Language: no aphasia - Dysarthria 10. Dysarthria: normal - Extinction and Inattention 11. Extinction/Inattention: no abnormality - Scoring Total Score: 1 Stroke Severity: Minor Stroke
--- NOTE | 2021-10-26 22:34 | Emergency Department Report ---
Blank Doc - Documentation Documentation: [facility] Consult Note # Demographics Consult Type: General Neurology Patient Location: Emergency Room First Name: Sabas Last Name: Florian Date of : 1965 Age: 56 Gender: Male Facility: [facility] Time of Initial Page (Eastern Time): 10/26/2021, 22:20 Time of Return Call (Eastern Time): 10/26/2021, 22:20 Phone Only Consult: 56yo M presents with chest pain, abdominal pain, TROY, some leg weakness and numbness. was last well around 0130 today. on exam has decreased sensation on the right and mild weakness. # PMH-FH-SH Past Medical History: DVT/PE Social History: excessive alcohol Medications: ran out of Plug.dj 2-3 weeks ago # Assessment Impression: possible stroke # Plan Blood Pressure Management: labetolol Target Blood Pressure: SBP < 220 SBP > 100 Labs: hemoglobin A1c lipid panel Imaging: (urgency: routine): MRI Brain without contrast CTA head/neck if able with other scans needed Diagnostic Test: echo without bubble study Therapy/Evaluation: NPO until swallow evaluation PT/OT evaluation speech/swallow consultation Medication: aspirin 81 mg daily start statin with goal of LDL < 70 DVT Prophylaxis: SCD Other: LDL < 70 If patient has any neurological deterioration please call me back immediately permissive hypertension telemetry monitoring I have discussed my recommendations with the referring provider Additional Recommendations: treatment of EtOH withdrawal as you are doing Disposition: admit # Logistics Telemedicine: phone only
[2021-10-26] MEDS ORDERED: MAGNESIUM OXIDE 400 MG TAB PO STA (22:48)
[2021-10-26] MEDS ORDERED: POTASSIUM CHLORIDE ER 20 MEQ TAB PO ONE (22:48)
[2021-10-26] MEDS ORDERED: THIAMINE 100 MG, FOLIC ACID 1 MG, MULTIPLE VITAMIN INJ, ADULT 10 ML in SODIUM CHLORIDE ... IV ONE (22:48)
[2021-10-26] MEDS ORDERED: MAGNESIUM SULFATE 2 GM/50 ML BAG IV ONE (22:48)
--- NOTE | 2021-10-26 23:21 | Cat Scan Report ---
CT angio chest INDICATION / CLINICAL INFORMATION: acute chest pain,hx of PE. TECHNIQUE: Axial CT images were obtained through the chest after injection of IV contrast. 3 plane NC P and/or 3D reconstructions were produced. All CT scans at this location are performed using CT dose reduction for ALARA by means of automated exposure control. COMPARISON: CTA from 02/28/2021 FINDINGS: PULMONARY ARTERIES: Right-sided pulmonary arteries are diminutive but stable, compatible with sequela of prior pulmonary embolus. There is no acute central or segmental pulmonary embolus. THORACIC AORTA: Mild atherosclerotic calcification without acute abnormality. HEART: Mild cardiac enlargement. No significant coronary artery calcifications. LYMPHADENOPATHY: No significant thoracic lymphadenopathy. LUNGS/PLEURA: No acute airspace disease. There is stable scarring within the right middle lobe and ri ght lower lobe. Mild emphysema. No pleural effusion or pneumothorax. OTHER FINDINGS: None. UPPER ABDOMEN: Detailed separately. SKELETAL SYSTEM: No acute osseous findings. IMPRESSION: No acute findings in the chest. No evidence of acute pulmonary embolism. Signer Name: William Marinelli MD Signed: 10/26/2021 11:16 PM Workstation Name: [id number]
--- NOTE | 2021-10-26 23:25 | Cat Scan Report ---
CT abdomen pelvis w con INDICATION / CLINICAL INFORMATION: acute abd pain. TECHNIQUE: Axial CT images were obtained through the abdomen and pelvis after IV contrast. All CT sc ans at this location are performed using CT dose reduction for ALARA by means of automated exposure c ontrol. COMPARISON: None available. FINDINGS: LOWER CHEST: Unchanged parenchymal scarring in the right lung base. LIVER: Enlarged liver with steatosis. GALLBLADDER/BILIARY TREE: No significant abnormality PANCREAS: No significant abnormality SPLEEN: No significant abnormality ADRENALS: No significant abnormality KIDNEYS / URETER: Left renal cyst. No acute abnormality. URINARY BLADDER: Bladder is partially decompressed. There is mild bladder wall thickening and mild pe rivesicular stranding. REPRODUCTIVE ORGANS: No significant abnormality STOMACH / BOWEL: Scattered nondilated fluid-filled small bowel within the abdomen, greater on the rig ht. No evidence of small bowel obstruction. The colon is unremarkable. The appendix is normal in ching allison. LYMPH NODES: No significant adenopathy. VASCULATURE: Mild atherosclerotic calcification without acute abnormality. OTHER: No free air, free fluid, or focal fluid collection is identified. Small fat-containing right i nguinal hernia without complication. SKELETAL SYSTEM: No acute osseous findings. IMPRESSION: 1. Mild fluid-filled small bowel within the abdomen, greatest within the right mid abdomen. Findings are nonspecific but may reflect mild enteritis. 2. Otherwise, no acute process of the abdomen or pelvis. 3. Chronic and incidental findings as detailed above. Signer Name: William Marinelli MD Signed: 10/26/2021 11:21 PM Workstation Name: [id number]
--- NOTE | 2021-10-26 23:36 | Cat Scan Report ---
CT head/brain wo con INDICATION / CLINICAL INFORMATION: 56 years Male; headache, right leg weakness numbness. TECHNIQUE: Routine CT head without contrast. All CT scans at this location are performed using CT dos e reduction for ALARA by means of automated exposure control. COMPARISON: None. FINDINGS: BRAIN / INTRACRANIAL CONTENTS: No acute hemorrhage, mass effect, midline shift, hydrocephalus, or acu te, large territorial infarct. Mild, diffuse cerebral and cerebellar atrophy. There are mild areas of decreased attenuation in the white matter of the cerebral hemispheres. These are nonspecific findings and may be related to microangiopathy (hypertension, diabetes, atheroscleros is), given the patient's age. CRANIOCERVICAL JUNCTION: No significant abnormality. ORBITS: No significant abnormality of visualized orbits. SINUSES / MASTOIDS: Minimal mucosal thickening in the ethmoids. ADDITIONAL FINDINGS: None. IMPRESSION: 1. No focal mass, hemorrhage, hydrocephalus, or acute, large territorial infarct. Signer Name: Mehrdad Eli MD, III Signed: 10/26/2021 11:31 PM Workstation Name: [id number]
--- NOTE | 2021-10-26 23:44 | Cat Scan Report ---
. CT angio head INDICATION / CLINICAL INFORMATION: 56 years Male; acute francis, right leg weakness numbness. TECHNIQUE: Thin cut axial images obtained through the head during IV bolus contrast administration. S agittal, coronal, and 3 plane MIP reconstructions performed by the technologist. NASCET type criteria used evaluate stenoses. Automated exposure control utilized for radiation reduction purposes. . COMPARISON: None available. FINDINGS: INTERNAL CAROTID ARTERIES: No significant narrowing appreciated. VERTEBROBASILAR SYSTEM: No significant narrowing appreciated. DISTAL BRANCHES: Distal branches of the anterior, middle, and posterior cerebral arteries are fairly symmetric in appearance and number. ANEURYSM: None identified. There is a small infundibulum associated with superior cerebellar artery o n the left Hola of no clinical significance. ADDITIONAL FINDINGS: Mild mucosal thickening in the ethmoids. IMPRESSION: No significant abnormality on this CTA of the head. Signer Name: Mehrdad Eli MD, III Signed: 10/26/2021 11:40 PM Workstation Name: [facility]INE[facility] [id number]
--- NOTE | 2021-10-26 23:51 | Cat Scan Report ---
CT angio neck INDICATION / CLINICAL INFORMATION: 56 years Male; headache, right leg weakness numbness. TECHNIQUE: Thin cut axial images obtained through the head during IV bolus contrast administration. S agittal, coronal, and 3 plane MIP reconstructions performed by the technologist. NASCET type criteria used evaluate stenoses. All CT scans at this location are performed using CT dose reduction for ALAR A by means of automated exposure control. . COMPARISON: None available. FINDINGS: ARCH: Bovine arch configuration noted. CAROTID ARTERIES: The visualized common and internal carotid arteries are widely patent. VERTEBRAL ARTERIES: Slight left dominant vertebral system seen. No significant stenosis appreciated. ADDITIONAL FINDINGS: Mild osseous foraminal narrowing seen on the right at C5-6 from uncinate hypertr ophy. Similar findings on the left at C4-5. Mild disc disease at various levels. No dominant herniati on or significant canal stenosis appreciated. Mucous retention cyst/polyps seen in both maxillary antra, right greater than left. Poor dentition noted. Degenerative changes seen in the sternoclavicular joints bilaterally. IMPRESSION: No significant stenosis appreciated on this CTA of the neck. Signer Name: Mehrdad Eli MD, III Signed: 10/26/2021 11:46 PM Workstation Name: [id number]
[2021-10-27] MEDS ORDERED: ASPIRIN 81 MG TAB CHEW PO ONE (00:17)
[2021-10-27] MEDS ORDERED: NITROGLYCERIN 0.4 MG TAB SUBL SL PRN (00:55)
[2021-10-27] MEDS ORDERED: traMADol 50 MG TAB PO PRN (00:55)
[2021-10-27] MEDS ORDERED: MORPHINE 4 MG/1 ML INJ IV PRN (00:55)
[2021-10-27] MEDS ORDERED: ACETAMINOPHEN 325 MG TAB PO PRN (00:55)
--- NOTE | 2021-10-27 01:07 | History and Physical Report ---
History of Present Illness Date of examination: 10/27/21 Date of admission: 10/27/21 Chief complaint: Chest pain, abdominal pain Headache and some leg weakness and numbness History of present illness: 56-year-old with history of DVT/PE on Eliquis, hypertension, tobacco abuse, alcohol abuse was brought to the emergency room because of multiple complaints, including central nonradiating chest pain, right-sided abdominal and flank pain, headache, blurry vision, and sensation of right leg weakness and numbness, with sensation of his right leg "giving out on me", which started at 1.30 this morning. Patient denies loss of vision, fever, vomiting, hematemesis and bright red blood per rectum. Patient reports alcohol consumption earlier on today. In the emergency room initial cardiac enzyme is negative, troponin is 0.010. CT scan brain negative for acute findings. CT angiogram head and neck negative for acute findings. CT angiogram chest negative for acute findings. CT scan abdomen pelvis negative for acute findings. Does not have vomiting or diarrhea, do not clinically suspect enteritis. Patient is seen and evaluated by telemetry neurology. So going to admit the patient to put the patient on chest pain pathway also put on CIWA protocol and order MRI of the brain and consult neurology Past History Past Medical History: DVT, hypertension, other (PE) Social history: smoking, alcohol abuse (Tobacco alcohol abuse) Medications and Allergies Allergies Allergy/AdvReac Type Severity Reaction Status Date / Time No Known Allergies Allergy Verified 08/01/21 20:07 Home Medications Medication Instructions Recorded Confirmed Last Taken Type Ibuprofen [Ibu-200] 400 mg PO PRN PRN 08/02/21 08/02/21 3 Days Ago History ~07/30/21 Multivit-Min/FA/Lycopen/Lutein 1 each PO Q48H 08/02/21 08/02/21 2 Days Ago History [Centrum Silver Tablet] ~07/31/21 Apixaban [Eliquis] 5 mg PO BID #60 tablet 08/06/21 Unknown Rx Benzonatate [Tessalon Perles] 100 mg PO Q8HR #20 capsule 08/06/21 Unknown Rx Fluticasone [Flonase] 50 mcg NS QDAY #1 bottle 08/06/21 Unknown Rx Folic Acid [Folvite] 1 mg PO DAILY #30 tablet 08/06/21 Unknown Rx Magnesium Oxide [Mag-Ox] 400 mg PO QDAY #7 tablet 08/06/21 Unknown Rx Metoprolol [Lopressor TAB] 25 mg PO BID #60 tablet 08/06/21 Unknown Rx Multivitamin Tab [Multiple Vitamin 1 each PO DAILY #30 tablet 08/06/21 Unknown Rx TAB (Theragran)] Pantoprazole [Protonix TAB] 40 mg PO QDAY #30 tablet 08/06/21 Unknown Rx Potassium Chloride 10 meq PO DAILY #7 tablet.er 08/06/21 Unknown Rx Thiamine [Vitamin B-1] 100 mg PO QDAY #30 tablet 08/06/21 Unknown Rx methOCARBAMOL [Robaxin TAB] 500 mg PO Q8H PRN #20 tablet 08/06/21 Unknown Rx Active Meds: Active Medications Chlordiazepoxide HCl (Chlordiazepoxide 25 Mg Cap) 50 mg PO Q1HR PRN PRN Reason: CIWA-Ar 8-15 Thiamine HCl 100 mg/ Folic Acid 1 mg/ Multivitamins/Minerals 10 ml/ Sodium Chloride 1,011.2 mls @ 250 mls/hr IV ONCE ONE Stop: 10/27/21 02:50 Lorazepam (Lorazepam 2 Mg/Ml Vial) 2 mg IV Q1HR PRN PRN Reason: CIWA-Ar 8-15 Lorazepam (Lorazepam 2 Mg/Ml Vial) 4 mg IV Q1HR PRN PRN Reason: CIWA-Ar 16-25 Lorazepam (Lorazepam 2 Mg/Ml Vial) 4 mg IV Q15MIN PRN PRN Reason: CIWA-Ar >25 Nitroglycerin (Nitroglycerin 0.4 Mg Tab Subl) 0.4 mg SL .Q5MIN PRN PRN Reason: Chest Pain Review of Systems Constitutional: weakness Cardiovascular: chest pain Neurological: weakness, parathesias, numbness Exam - Constitutional Vitals: Temp Pulse Resp BP Pulse Ox 98.8 F 121 H 17 123/80 99 10/26/21 20:25 10/26/21 20:25 10/26/21 20:25 10/26/21 20:25 10/26/21 20:25 General appearance: Present: no acute distress, well-nourished - EENT Eyes: Present: PERRL ENT: hearing intact, clear oral mucosa - Neck Neck: Present: supple, normal ROM - Respiratory Respiratory effort: normal Respiratory: bilateral: CTA - Cardiovascular Heart Sounds: Present: S1 & S2. Absent: rub, click - Extremities Extremities: pulses symmetrical, No edema Peripheral Pulses: within normal limits - Abdominal General gastrointestinal: Present: soft, non-tender, non-distended, normal bowel sounds Male genitourinary: Present: normal - Integumentary Integumentary: Present: clear, warm, dry - Musculoskeletal Musculoskeletal: gait normal, strength equal bilaterally - Psychiatric Psychiatric: appropriate mood/affect, intact judgment & insight - Neurologic Neurologic: CNII-XII intact, moves all extremities, other (alert, oriented X3, motor sensory deficit (Decrease sensation to light touch right lower extremity), other (There is no facial droop. The tongue is midline. EOMI. 5/5 strength in bilateral upper extremities and left lower extremity. 4.5 strength out of 5 in right leg light touch bilateral upper ) HEART Score - HEART Score EKG: Non-specific Age: 45-65 Risk factors: 1-2 risk factors Troponin: Troponin T < 0.010 ng/mL (0.00-0.029) 10/26/21 21:22 Troponin: < normal limit - Critical Actions Critical Actions: 0-3 pts:0.9-1.7%risk of adverse cardiac event.Candidate for discharge Results - Labs CBC & Chem 7: 10/26/21 21:22 10/26/21 21:22 Labs: Laboratory Last Values WBC 4.9 K/mm3 (4.5-11.0) 10/26/21 21: RBC 4.13 M/mm3 (3.65-5.03) 10/26/21 21: Hgb 14.6 gm/dl (11.8-15.2) 10/26/21 21:22 Hct 42.7 % (35.5-45.6) 10/26/21 21:22 MCV 103 fl (84-94) H 10/26/21 21: MCH 35 pg (28-32) H 10/26/21 21: MCHC 34 % (32-34) 10/26/21 21:22 RDW 14.7 % (13.2-15.2) 10/26/21 21: Plt Count 103 K/mm3 (140-440) L 10/26/21 21:22 D-Dimer 255.05 ng/mlDDU (0-234) H 10/26/21 21:52 Sodium 137 mmol/L (137-145) 10/26/21 21:22 Potassium 3.0 mmol/L (3.6-5.0) L 10/26/21 21:22 Chloride 96.7 mmol/L (98-107) L 10/26/21 21:22 Carbon Dioxide 20 mmol/L (22-30) L 10/26/21 21:22 Anion Gap 23 mmol/L 10/26/21 21:22 BUN 8 mg/dL (9-20) L 10/26/21 21:22 Creatinine 0.9 mg/dL (0.8-1.3) 10/26/21 21:22 Estimated GFR > 60 ml/min 10/26/21 21:22 BUN/Creatinine Ratio 9 % 10/26/21 21:22 Glucose 99 mg/dL (75-100) 10/26/21 21:22 Calcium 8.9 mg/dL (8.4-10.2) 10/26/21 21:22 Magnesium 1.40 mg/dL (1.7-2.3) L 10/26/21 22:00 Total Bilirubin 0.90 mg/dL (0.1-1.2) 10/26/21 21:22 AST 70 units/L (5-40) H 10/26/21 21:22 ALT 33 units/L (7-56) 10/26/21 21:22 Alkaline Phosphatase 69 units/L (35-129) 10/26/21 21:22 Troponin T < 0.010 ng/mL (0.00-0.029) 10/26/21 21:22 Total Protein 7.7 g/dL (6.3-8.2) 10/26/21 21:22 Albumin 4.6 g/dL (3.9-5) 10/26/21 21:22 Albumin/Globulin Ratio 1.5 % 10/26/21 21:22 Plasma/Serum Alcohol 0.25 % (0-0.07) H 10/26/21 22:40 - Imaging and Cardiology CT scan - chest: report reviewed CT Scan - head: report reviewed Assessment and Plan VTE prophylaxis?: Chemical Plan of care discussed with patient/family: Yes - Patient Problems (1) Acute coronary syndrome Status: Acute Plan to address problem: Admit the patient to the medical telemetry. Aspirin 325 mg p.o. daily. Lipitor 40 mg p.o. daily. Eliquis 5 mg p.o. twice daily. We will do the serial cardiac enzymes. We also do a Lexiscan (2) CVA (cerebral vascular accident) Status: Acute Plan to address problem: Aspirin 325 mg p.o. daily. Lipitor 40 mg p.o. daily. PT OT any speech evaluation. MRI of the brain. Neurology evaluation (3) Alcohol withdrawal Status: Acute Plan to address problem: We will put the patient on CIWA protocol. We will also put the patient on thiamine 100 mg p.o. daily folic acid 1 mg p.o. daily and multivitamin 1 tablet p.o. daily (4) Chronic pulmonary embolism Status: Acute Plan to address problem: Patient is on Eliquis 5 mg p.o. twice daily (5) Smoker Status: Acute Plan to address problem: We counseled the patient regarding quitting smoking. We will also put the patient on nicotine patch if needed (6) HTN (hypertension) Status: Chronic Qualifiers: Hypertension type: essential hypertension Qualified Code(s): I10 - Essential (primary) hypertension Plan to address problem: Hydralazine 10 mg IV every 6 hours as needed. We continue the home medication (7) History of DVT (deep vein thrombosis) Status: Chronic Plan to address problem: Patient is on Eliquis 5 mg p.o. twice a day. We will monitor the patient closely (8) DVT prophylaxis Status: Acute Plan to address problem: Eliquis 5 mg p.o. twice daily for DVT prophylaxis. Pepcid 20 mg p.o. twice daily for GI prophylaxis. Patient is a full code
[2021-10-27] MEDS ORDERED: [UNRECOGNIZED DRUG - OTHER] PO SCH (01:15)
[2021-10-27] MEDS ORDERED: MAGNESIUM OXIDE 400 MG TAB PO STA (01:41)
[2021-10-27] MEDS ORDERED: MAGNESIUM SULFATE 2 GM/50 ML BAG IV ONE (01:45)
[2021-10-27] MEDS ORDERED: POTASSIUM CHLORIDE ER 20 MEQ TAB PO ONE (01:45)
[2021-10-27 04:35] LABS: BUN/Creatinine Ratio 10; Blood Urea Nitrogen 9 mg/dL (9-20); Calcium 8.9 mg/dL (8.4-10.2); Hematocrit 44.7 % (35.5-45.6); Hemoglobin 14.8 gm/dl (11.8-15.2); Hemolysis Index 7; Mean Corpuscular HGB Conc 33 % (32-34); Mean Corpuscular Volume 104 fl (84-94); Platelet Count 90 K/mm3 (140-440); Red Blood Count 4.32 M/mm3 (3.65-5.03); Red Cell Distribution Width 14.3 % (13.2-15.2)
[2021-10-27 06:49] LABS: Basophils % (Manual) 0 % (0.0-1.8); Eosinophils % (Manual) 0 % (0.0-4.3); Total Cells Counted 100
[2021-10-27 06:50] LABS: Platelet Estimate Consistent w Auto; RBC Morphology Normal
[2021-10-27] MEDS ORDERED: REGADENOSON 0.4 MG/5 ML INJ IV ONE (08:20)
--- NOTE | 2021-10-27 09:31 | Consultation ---
History of Present Illness Consult date: 10/27/21 Reason for Consult: multiple complaint ,Hx of PE on eliquis History of present illness: Chest pain, abdominal pain Headache and some leg weakness and numbness History of present illness: 56-year-old with history of DVT/PE on Eliquis initially was started on coumadin then changed to eliquis , he stopped medications --it makes him feel funny !!!, hypertension, tobacco abuse, alcohol abuse was brought to the emergency room because of multiple complaints, including central nonradiating chest pain, right-sided abdominal and flank pain, headache, blurry vision, and sensation of right leg weakness and numbness, with sensation of his right leg "giving out on me", which started at 1.30 this morning. Patient denies loss of vision, fever, vomiting, hematemesis and bright red blood per rectum. Patient reports alcohol consumption earlier on today. In the emergency room initial cardiac enzyme is negative, troponin is 0.010. CT scan brain negative for acute findings. CT angiogram head and neck negative for acute findings. CT angiogram chest negative for acute findings. CT scan abdomen pelvis negative for acute findings. Does not have vomiting or diarrhea, do not clinically suspect enteritis. Patient is seen and evaluated by telemetry neurology. So going to admit the patient to put the patient on chest pain pathway also put on [facility] protocol and order MRI of the brain and consult neurology Past History Past Medical History: DVT, hypertension, other (PE) Social history: smoking, alcohol abuse (Tobacco#1 PPD, alcohol abuse#0.5 pine vodka a day) Medications and Allergies Allergies Allergy/AdvReac Type Severity Reaction Status Date / Time No Known Allergies Allergy Verified 08/01/21 20:07 Home Medications Medication Instructions Recorded Confirmed Last Taken Type Ibuprofen [Ibu-200] 400 mg PO PRN PRN 08/02/21 08/02/21 3 Days Ago History ~07/30/21 Multivit-Min/FA/Lycopen/Lutein 1 each PO Q48H 08/02/21 08/02/21 2 Days Ago History [Centrum Silver Tablet] ~07/31/21 Apixaban [Eliquis] 5 mg PO BID #60 tablet 08/06/21 Unknown Rx Benzonatate [Tessalon Perles] 100 mg PO Q8HR #20 capsule 08/06/21 Unknown Rx Fluticasone [Flonase] 50 mcg NS QDAY #1 bottle 08/06/21 Unknown Rx Folic Acid [Folvite] 1 mg PO DAILY #30 tablet 08/06/21 Unknown Rx Magnesium Oxide [Mag-Ox] 400 mg PO QDAY #7 tablet 08/06/21 Unknown Rx Metoprolol [Lopressor TAB] 25 mg PO BID #60 tablet 08/06/21 Unknown Rx Multivitamin Tab [Multiple Vitamin 1 each PO DAILY #30 tablet 08/06/21 Unknown Rx TAB (Theragran)] Pantoprazole [Protonix TAB] 40 mg PO QDAY #30 tablet 08/06/21 Unknown Rx Potassium Chloride 10 meq PO DAILY #7 tablet.er 08/06/21 Unknown Rx Thiamine [Vitamin B-1] 100 mg PO QDAY #30 tablet 08/06/21 Unknown Rx methOCARBAMOL [Robaxin TAB] 500 mg PO Q8H PRN #20 tablet 08/06/21 Unknown Rx Active Meds: Active Medications Chlordiazepoxide HCl (Chlordiazepoxide 25 Mg Cap) 50 mg PO Q1HR PRN PRN Reason: CIWA-Ar 8-15 Thiamine HCl 100 mg/ Folic Acid 1 mg/ Multivitamins/Minerals 10 ml/ Sodium Chloride 1,011.2 mls @ 250 mls/hr IV ONCE ONE Stop: 10/27/21 02:50 Lorazepam (Lorazepam 2 Mg/Ml Vial) 2 mg IV Q1HR PRN PRN Reason: CIWA-Ar 8-15 Lorazepam (Lorazepam 2 Mg/Ml Vial) 4 mg IV Q1HR PRN PRN Reason: CIWA-Ar 16-25 Lorazepam (Lorazepam 2 Mg/Ml Vial) 4 mg IV Q15MIN PRN PRN Reason: CIWA-Ar >25 Nitroglycerin (Nitroglycerin 0.4 Mg Tab Subl) 0.4 mg SL .Q5MIN PRN PRN Reason: Chest Pain Review of Systems Constitutional: weakness Cardiovascular: chest pain Neurological: weakness, parathesias, numbness Exam Past History Past Medical History: DVT, hypertension, other (PE) Social history: smoking, alcohol abuse (Tobacco alcohol abuse) Medications and Allergies Allergies Allergy/AdvReac Type Severity Reaction Status Date / Time No Known Allergies Allergy Verified 10/27/21 08:18 Home Medications Medication Instructions Recorded Confirmed Last Taken Type Multivit-Min/FA/Lycopen/Lutein 1 each PO Q48H 08/02/21 10/27/21 10/26/21 History [Centrum Silver Tablet] Apixaban [Eliquis] 5 mg PO BID #60 tablet 08/06/21 10/27/21 1 Week Ago Rx ~10/20/21 Benzonatate [Tessalon Perles] 100 mg PO Q8HR #20 capsule 08/06/21 10/27/21 10/26/21 Rx Folic Acid [Folvite] 1 mg PO DAILY #30 tablet 08/06/21 10/27/21 1 Week Ago Rx ~10/20/21 Metoprolol [Lopressor TAB] 25 mg PO BID #60 tablet 08/06/21 10/27/21 10/26/21 Rx Potassium Chloride 10 meq PO DAILY #7 tablet.er 08/06/21 10/27/21 1 Week Ago Rx ~10/20/21 methOCARBAMOL [Robaxin TAB] 500 mg PO Q8H PRN #20 tablet 08/06/21 10/27/21 10/26/21 Rx Active Meds: Active Medications Acetaminophen (Acetaminophen 325 Mg Tab) 650 mg PO Q6H PRN PRN Reason: Pain, Mild (1-3) Apixaban (Apixaban 5 Mg Tab) 5 mg PO BID VERENICE Aspirin (Aspirin Ec 325 Mg Tab) 325 mg PO QDAY VERENICE Atorvastatin Calcium (Atorvastatin 40 Mg Tab) 40 mg PO QHS [facility] Chlordiazepoxide HCl (Chlordiazepoxide 25 Mg Cap) 50 mg PO Q1HR PRN PRN Reason: CIWA-Ar 8-15 Fluticasone Propionate (Fluticasone Propionate Nasal [place] 16 Gm) 50 mcg NS QDAY [facility] Folic Acid (Folic Acid 1 Mg Tab) 1 mg PO DAILY [facility] Lorazepam (Lorazepam 2 Mg/Ml Vial) 2 mg IV Q1HR PRN PRN Reason: CIWA-Ar 8-15 Lorazepam (Lorazepam 2 Mg/Ml Vial) 4 mg IV Q1HR PRN PRN Reason: CIWA-Ar 16-25 Lorazepam (Lorazepam 2 Mg/Ml Vial) 4 mg IV Q15MIN PRN PRN Reason: CIWA-Ar >25 Magnesium Oxide (Magnesium Oxide 400 Mg Tab) 400 mg PO QDAY [facility] Methocarbamol (Methocarbamol 500 Mg Tab) 500 mg PO Q8H PRN PRN Reason: Muscle Spasm Metoprolol Tartrate (Metoprolol Tartrate 25 Mg Tab) 25 mg PO BID VERENICE Morphine Sulfate (Morphine 4 Mg/1 Ml Inj) 2 mg IV Q5MIN PRN PRN Reason: Chest Pain unrelieved by NTG Multivitamins/Minerals (Multivitamins,Ther W-Minerals Tab) 1 each PO Q48HR [facility]EN[facility] Nitroglycerin (Nitroglycerin 0.4 Mg Tab Subl) 0.4 mg SL Q5M PRN PRN Reason: Chest Pain Pantoprazole Sodium (Pantoprazole 40 Mg Tab) 40 mg PO QDAY [facility] Potassium Chloride (Potassium Chloride Er 10 Meq Tab) 10 meq PO QDAY [facility] Sodium Chloride (Sodium Chloride 0.9% 10 Ml Flush Syringe) 10 ml IV PRN PRN PRN Reason: LINE FLUSH Thiamine HCl (Thiamine 100 Mg Tab) 100 mg PO QDAY [facility] Tramadol HCl (Tramadol 50 Mg Tab) 50 mg PO Q6H PRN PRN Reason: Pain, Moderate (4-6) Physical Examination - Vital Signs Vital Signs: Vital Signs Temp Pulse Resp BP Pulse Ox 98.8 F 121 H 17 123/80 99 10/26/21 20:25 10/26/21 20:25 10/26/21 20:25 10/26/21 20:25 10/26/21 20:25 - Constitutional General appearance: comfortable - EENT EENT: Present: PERRL, mucous membranes moist - Respiratory Respiratory: Present: chest non-tender, lungs clear - Cardiovascular Cardiovascular: Present: regular rate, normal S1, normal S2 Extremities: Present: no peripheral edema bilatateraly, no clubbing, cyanosis - Gastrointestinal Gastrointestinal: Present: normoactive bowel sounds - Integumentary Integumentary: Present: normal - Neurologic Cranial nerve examination: PERRL, EOMI, intact Speech examination: intact Sensorimotor examination: intact Detailed motor examination: grossly full strength in, other (tender right calf , gait not done) - Level of Consciousness 1a. Level of Consciousness: alert/keenly responsive - LOC Questions 1b. LOC Questions: answers both correctly - LOC Command 1c. LOC Commands: performs tasks correctly - Best Gaze 2. Best Gaze: normal - Visual 3. Visual: no visual loss - Facial Palsy 4. Facial Palsy: normal symmetrical movement - Motor Arm 5a. Motor Arm Left: no drift 5b. Motor Arm Right: no drift - Motor Leg 6a. Motor Leg Left: no drift 6b. Motor Leg Right: no drift - Limb Ataxia 7. Limb Ataxia: absent - Sensory 8. Sensory: normal - Best Language 9. Best Language: no aphasia - Dysarthria 10. Dysarthria: normal - Extinction and Inattention 11. Extinction/Inattention: no abnormality - Scoring Total Score: 0 Stroke Severity: No Stroke Symptoms Results - Laboratory Findings CBC and BMP: 10/27/21 03:53 10/27/21 03:53 Abnormal Lab Findings: Abnormal Labs 10/26/21 10/26/21 10/26/21 21:22 21:22 21:52 MCV 103 H MCH 35 H Plt Count 103 L Lymphocytes % (Manual) D-Dimer 255.05 H Potassium 3.0 L Chloride 96.7 L Carbon Dioxide 20 L BUN 8 L Glucose Magnesium AST 70 H Plasma/Serum Alcohol 10/26/21 10/26/21 10/27/21 22:00 22:40 03:53 MCV 104 H MCH 34 H Plt Count 90 L Lymphocytes % (Manual) 49.0 H D-Dimer Potassium Chloride Carbon Dioxide BUN Glucose Magnesium 1.40 L AST Plasma/Serum Alcohol 0.25 H 10/27/21 03:53 MCV MCH Plt Count Lymphocytes % (Manual) D-Dimer Potassium 3.5 L Chloride 96.7 L Carbon Dioxide BUN Glucose 73 L Magnesium AST Plasma/Serum Alcohol Assessment and Plan - Imaging and Cardiology CT scan - chest: report reviewed CT Scan - head: report reviewed Assessment and Plan 56-year-old with history of DVT/PE on Eliquis, hypertension, tobacco abuse, alcohol abuse was brought to the emergency room because of multiple complaints, including central nonradiating chest pain, right-sided abdominal and flank pain, headache, blurry vision, and sensation of right leg weakness and numbness, with sensation of his right leg "giving out on me", which started at 1.30 this m orning. - Patient Problems # right side pain none specific ?R/o CVA -exam is unremarkable -NIh#0 -CT brain and CTA brain and neck are unremarkable -MRI brain is pending - strted on ASA and Lipitor -he is not taking Eliquis -Echo is pending -LDL is pending # Acute coronary syndrome -Admit the patient to the medical telemetry. -Aspirin 325 mg p.o. daily. - Lipitor 40 mg p.o. daily. - Eliquis 5 mg p.o. twice daily. - We will do the serial cardiac enzymes. -Jacqueline scan showed Ef#47% # Alcohol withdrawal -We will put the patient on CIWA protocol. We will also put the patient on thiamine 100 mg p.o. daily folic acid 1 mg p.o. daily and multivitamin 1 tablet p.o. daily # Chronic pulmonary embolism/poor compliance with Eliquis -R/O DVT right lower # Smoker -We counseled the patient regarding quitting smoking. We will also put the patient on nicotine patch if needed # HTN (hypertension) -Hydralazine 10 mg IV every 6 hours as needed. We continue the home medication # History of DVT (deep vein thrombosis) -Patient is on Eliquis 5 mg p.o. twice a day not taking at home . -need US LE # DVT prophylaxis -Eliquis 5 mg p.o. twice daily for DVT prophylaxis. Pepcid 20 mg p.o. twice daily for GI prophylaxis. Patient is a full code will follow as needed
[2021-10-27] MEDS ORDERED: NON-FORMULARY EACH (Potassium Chloride [Potassium Chloride] 10 MEQ Tablet.Er) PO SCH (10:00)
[2021-10-27] MEDS ORDERED: NON-FORMULARY EACH (Apixaban 5 MG Tablet) PO SCH (10:00)
[2021-10-27] MEDS ORDERED: HEPARIN 5,000 UNIT/1 ML VIAL SUB-Q SCH (10:00)
[2021-10-27] MEDS ORDERED: MULTIVITAMINS,THER W-MINERALS TAB PO SCH (10:00)
--- NOTE | 2021-10-27 10:06 | Electrocardiograph Report ---
[facility] Test Date: 2021-10-26 Test Time: 20:12:59 Pat Name: OLGA TOBIN Department: Room: A469 Gender: M Management Developer: [id number] : 1965 Requested By: MANA BURROUGHS Order Number: [id number] Reading MD: Lj Cuevas Measurements Intervals [place] Rate: 113 P: 91 KS: 196 QRS: -36 QRSD: 84 T: QT: 325 QTc: 447 Interpretive Statements Sinus tachycardia Probable left ventricular hypertrophy Inferior infarct, old Compared to ECG 08/04/2021 08:07:54 Myocardial infarct finding now present Rate is faster,otherwise no significant change noted. Electronically Signed On 10-27-2021 10:06:10 EST by Lj Cuevas
--- NOTE | 2021-10-27 10:19 | Electrocardiograph Report ---
[facility] Test Date: 2021-10-27 Test Time: 08:27:49 Pat Name: OLGA TOBIN Department: Room: A469 1 Gender: M Process Camera Operator: LIZETTE : 1965 Requested By: RAPHAEL INFANTE Order Number: [id number] Reading MD: Lj Cuevas Measurements Intervals [place] Rate: 71 P: 67 RI: 206 QRS: -32 QRSD: 86 T: 45 QT: 411 QTc: 447 Interpretive Statements Sinus rhythm Borderline prolonged RI interval Left axis deviation Abnormal T, consider ischemia, anterior leads Compared to ECG 10/26/2021 20:12:59 Sinus tachycardia no longer present Electronically Signed On 10-27-2021 10:19:32 EST by Lj Cuevas
[2021-10-27] MEDS: FOLIC ACID 1 MG TAB PO SCH (11:35)
[2021-10-27] MEDS: POTASSIUM CHLORIDE ER 10 MEQ TAB PO SCH (11:35)
[2021-10-27] MEDS: PANTOPRAZOLE 40 MG TAB PO SCH (11:35)
[2021-10-27] MEDS: METOPROLOL TARTRATE 25 MG TAB PO SCH ×2 (11:36→21:40)
[2021-10-27] MEDS: MAGNESIUM OXIDE 400 MG TAB PO SCH (11:36)
[2021-10-27] MEDS: APIXABAN 5 MG TAB PO SCH ×2 (11:36→21:40)
[2021-10-27] MEDS: THIAMINE 100 MG TAB PO SCH (11:36)
--- NOTE | 2021-10-27 11:44 | Nuclear Medicine Report ---
APPROVED REPORT Exam: Nuclear Stress Test Indication: Chest pain [facility] Ht: 5 ft 6 in Wt: 147 lbs BSA: 1.75 m2 HR: 91 bpmBP: 138/88 mmHgBMI: 23.72 Rhythm: NSR Stress Test Details Stress Test: Pharmacologic stress testing performed using 0.4 mg of regadenoson per 5 mL given IV over 10 seconds. Reason for pharmacologic stress test: physical limitation. HR Resting HR: 91 bpm Max HR Achieved: 127 bpm Max Heart Rate (APMHR): 162 bpm Target HR (85% APMHR): 137 bpm % of APMHR: 78 Recovery HR: 89 bpm HR response to stress: Normal HR response to stress BP Resting BP: 128/86 mmHg Max BP: 142/89 mmHg Recovery BP: 142/89 mmHg BP response to stress: Normal blood pressure response to stress. ECG Resting ECG: Sinus Rhythm,T wave inversions in inferolateral leads noted. Stress ECG: Sinus rhythm,no significant change from resting EKG. ST Change: None Arrhythmia: None Recovery ECG: Sinus Rhythm Recovery ST Change: None, Recovery Arrhythmia: oneventricular couplet noted. Clinical Reason for Termination: Completed protocol Overall Exercise Capacity for Age: Normal Stress ECG Conclusion Patientremained in S.R,no significant EKG changes to suggest ischemia. NM EXAM: Myocardial Perfusion REST/STRESS Imaging Protocol: Rest Tc-99m/Stress Tc-99m 1 day Resting Data Rest SPECT myocardial perfusion imaging was performed in supine position 45 minutes following the intravenous injection of 10 mCi of Tc-99m Myoview. Time of rest injection: 0710 The images were gated to evaluate regional wall motion and calculate left ventricular ejection fraction. Pharmacologic Stress Pharmacologic stress test was performed by injecting Regadenoson 0.4 mg IV push followed by the intravenous injection of 28 mCi of Tc-99m Myoview. Time of stress injection: 0940 Gated Stress SPECT was performed 30 minutes after stress injection. The images were gated to evaluate regional wall motion and calculate left ventricular ejection fraction. Study Quality Study: excellent Artifact: Mild Increased GI uptake Lung Uptake: Normal Study Data TID = 0.91. Perfusion Wall Motion Very mildly decreased left ventricular wall motion,post stress calculated LVEF of 47%. Mildly decreased left ventricular systolic function. Nuclear Conclusion ECG Findings: negative for ischemia Clinical Findings: negative for ischemia Nuclear Findings: negative for ischemia Exercise Capacity: not assessed Left Ventricular Function: abnormal Risk Study: low Mildly depressed LVEF with no evidence of significant ischemia noted. Conclusion Patientremained in S.R,no significant EKG changes to suggest ischemia.
[2021-10-27] MEDS: FLUTICASONE PROPIONATE NASAL SPRAY 16 GM NS SCH (18:13)
--- NOTE | 2021-10-27 19:19 | Event Note ---
Date: 10/27/21 Progress note: Chart reviewed, patient interviewed and examined by me today. We will continue current management outlined by the admitting hospitalist as well as neurologist.
--- NOTE | 2021-10-28 09:34 | Electrocardiograph Report ---
[facility] Test Date: 2021-10-28 Test Time: 08:09:59 Pat Name: OLGA TOBIN Department: Room: A469 1 Gender: M Adobe Cq Developer: STEVEN : 1965 Requested By: MIKA MONIQUE Order Number: [id number] Reading MD: Robbie Ruiz Measurements Intervals [place] Rate: 64 P: 121 TN: 192 QRS: 219 QRSD: 86 T: 85 QT: 430 QTc: 444 Interpretive Statements Right and left arm electrode reversal, interpretation assumes no reversal Sinus rhythm Consider left ventricular hypertrophy Inferior infarct, old Abnrm T, consider ischemia, anterolateral lds ST elevation, consider anterior injury Compared to ECG 10/27/2021 08:27:49 Myocardial infarct finding now present ST (T wave) deviation now present Left-axis deviation no longer present T-wave abnormality no longer present Possible ischemia still present Electronically Signed On 10-28-2021 9:34:14 EST by Robbie Ruiz
[2021-10-28] MEDS ORDERED: ASPIRIN EC 325 MG TAB PO SCH (10:00)
[2021-10-28] MEDS: APIXABAN 5 MG TAB PO SCH (10:18)
[2021-10-28] MEDS: METOPROLOL TARTRATE 25 MG TAB PO SCH (10:18)
[2021-10-28] MEDS: POTASSIUM CHLORIDE ER 10 MEQ TAB PO SCH (10:18)
[2021-10-28] MEDS: THIAMINE 100 MG TAB PO SCH (10:18)
[2021-10-28] MEDS: PANTOPRAZOLE 40 MG TAB PO SCH (10:18)
[2021-10-28] MEDS: FOLIC ACID 1 MG TAB PO SCH (10:19)
[2021-10-28] MEDS: MAGNESIUM OXIDE 400 MG TAB PO SCH (10:19)
[2021-10-28] MEDS: FLUTICASONE PROPIONATE NASAL SPRAY 16 GM NS SCH (10:19)
--- NOTE | 2021-10-28 10:39 | Vascular Lab Report ---
DUPLEX DOPPLER LOWER EXTREMITY VEINS, RIGHT INDICATION / CLINICAL INFORMATION: DVT right lower. TECHNIQUE: Duplex doppler imaging was performed through the veins of the right lower extremity using venous compression and other maneuvers. COMPARISON: None available. FINDINGS: RIGHT COMMON FEMORAL VEIN: Negative. RIGHT FEMORAL VEIN: Negative. RIGHT POPLITEAL VEIN: There is a deep vein thrombosis noted within the right popliteal vein. RIGHT CALF VEINS: Negative. ADDITIONAL FINDINGS: None. IMPRESSION: 1. Deep vein thrombosis within the right popliteal vein. CRITICAL RESULT Time of Discovery (DIRECTOR OF OCCUPATIONAL HEALTH/CDT): 9:25 AM Time of Communication (DIRECTOR OF OCCUPATIONAL HEALTH/CDT): 9:30 AM Licensed Practitioner Receiving Report: Nurse Boaz Quintana Read-Back Performed: Yes. Signer Name: Michael Mireles DO Signed: 10/28/2021 10:34 AM Workstation Name: [id number]
[2021-10-28 14:27] LABS: Alanine Aminotransferase 25 units/L (7-56); Albumin 4.5 g/dL (3.9-5); BUN/Creatinine Ratio 17; Blood Urea Nitrogen 10 mg/dL (9-20); Hemolysis Index 8
[2021-10-28 16:08] VITALS: BP 136/85
--- NOTE | 2021-10-28 17:07 | Discharge Summary ---
Providers - Providers Date of Admission: 10/27/21 00:55 Date of discharge: 10/28/21 Attending physician: SONIDO MONIQUE MD 10/27/21 Consult to Cardiac Rehabilitation [CONS] Routine Reason For Exam: Phase I Consult to Physician [CONS] Routine Comment: Consulting Provider: CECELIA HAYDEN Physician Instructions: Reason For Exam: cva 10/27/21 00:55 Occupational Therapy Evaluate and Treat [CONS] Routine Comment: Reason For Exam: Neuro deficits Physical Therapy Evaluation and Treat [CONS] Routine Comment: Reason For Exam: Neuro deficits Primary care physician: PAULA WASHINGTON Hospitalization Condition: Good Disposition: 30 STILL A PATIENT Exam - Constitutional Vitals: Temp Pulse Resp BP Pulse Ox 98.4 F 76 20 136/85 99 10/28/21 15:12 10/28/21 15:12 10/28/21 15:12 10/28/21 15:12 10/28/21 15:12 Plan Activity: advance as tolerated Diet: low fat, low salt Additional Instructions: You have a new blood clot in your right calf vein. Take the blood thinner medicine, apixaban lifelong. Do not miss apixaban. See your family doctor in 1 week for follow-up. Do not drink alcohol. Do not use tobacco products Follow up with: PAULA WASHINGTON MD [Primary Care Provider] - 7 Days Prescriptions: Apixaban [Eliquis] 5 mg PO BID #60 tablet Folic Acid [Folvite] 1 mg PO DAILY #30 tablet Metoprolol [Lopressor TAB] 25 mg PO BID #60 tablet Thiamine [Vitamin B-1] 100 mg PO QDAY #30 tablet
--- NOTE | 2021-10-29 09:37 | Electrocardiograph Report ---
[facility] Test Date: 2021-10-28 Test Time: 11:17:47 Pat Name: OLGA TOBIN Department: Room: A469 1 Gender: M Environmental Monitoring Technician: STEVEN : 1965 Requested By: MIKA MONIQUE Order Number: [id number] Reading MD: Robbie Ruiz Measurements Intervals [place] Rate: 64 P: 57 OR: 194 QRS: -11 QRSD: 81 T: QT: 430 QTc: 445 Interpretive Statements Sinus rhythm Probable left atrial enlargement Nonspecific T abnrm, anterolateral leads Borderline ST elevation, anterior leads Compared to ECG 10/28/2021 08:09:59 Myocardial infarct finding no longer present Possible ischemia no longer present ST (T wave) deviation still present Electronically Signed On 10-29-2021 9:37:24 EST by Robbie Ruiz
== END 2021-10-28 18:24 | disposition home or self-care (01) | DRG 300 ==
LOC: ED 20:05 → 4A 10-27 00:55
PROVIDERS: ADMIT Hospitalist; ATTEND Internal Medicine
DX: I82.431 Acute embolism and thrombosis of right popliteal vein (principal); F10.239 Alcohol dependence with withdrawal, unspecified; I24.9 Acute ischemic heart disease, unspecified; I27.82 Chronic pulmonary embolism; R07.89 Other chest pain; I10 Essential (primary) hypertension; E87.5 Hyperkalemia; E83.42 Hypomagnesemia
CPT/HCPCS: 36415; 70450; 70496; 70498; 71046; 71275; 74177; 78452; 80048; 80053; 80320; 82962; 83735; 84484; 85007; 85025; 85027; 85379; 93005; 93010; 93017; G0378; J3490; Q0162; A9502; C9113; G0480; J2060; J2785; J3411; J3475; J7030; J7120; Q9967

== ENCOUNTER 2021-10-31 22:09 | Emergency (ER) | payer SELFPAY ==
[2021-10-31] MEDS ORDERED: ASPIRIN 325 MG TAB PO ONE (22:39)
[2021-10-31] MEDS ORDERED: PANTOPRAZOLE 40 MG TAB PO ONE (23:00)
--- NOTE | 2021-10-31 23:01 | Emergency Department Report ---
ED General Adult HPI - General Chief complaint: Chest Pain Stated complaint: CHEST PAIN Time Seen by Provider: 10/31/21 22:40 Source: patient, RN notes reviewed, old records reviewed Mode of arrival: Ambulatory Limitations: No Limitations - History of Present Illness Initial comments: The patient was evaluated in the emergency department for symptoms described in the history of present illness. He/she was evaluated in the context of the global COVID-19 pandemic, which necessitated consideration that the patient might be at risk for infection with the virus that causes COVID-19. Institutional protocols and algorithms that pertain to the evaluation of patients at risk for COVID-19 are in a state of rapid change based on information released by regulatory bodies including the CDC and federal and state organizations. These policies and algorithms were followed during the patient's care in the emergency department. Please note that these policies, procedures and recommendations changed on a rapid basis. This is a 56-year-old gentleman who I recently admitted to this hospital with a complaint of chest pain and neurologic symptoms. He had a CT angiogram of the chest which was negative for acute findings, right lower extremity DVT study which demonstrated a DVT, and he was prescribed Eliquis. He is noncompliant with eliquis He reports that he took his first dose of Eliquis yesterday. He presents to the ER today with a complaint of persistent chest tightness. Makes no complaint of shortness of breath, vomiting, dyspnea, hematemesis, bright red blood per rectum, homicidality or suicidality. He reports his chest is on the central, left side and right side. He does not describe exacerbating or relieving factors. The patient also had a cardiac nuclear stress test which did not demonstrate any ischemic findings. He had multiple negative troponins. -: days(s) Location: chest Improves with: none Worsens with: none - Related Data Home Medications Medication Instructions Recorded Confirmed Last Taken Multivit-Min/FA/Lycopen/Lutein 1 each PO Q48H 08/02/21 10/27/21 10/26/21 [Centrum Silver Tablet] Previous Rx's Medication Instructions Recorded Last Taken Type Apixaban [Eliquis] 5 mg PO BID #60 tablet 10/28/21 Unknown Rx Folic Acid [Folvite] 1 mg PO DAILY #30 tablet 10/28/21 Unknown Rx Metoprolol [Lopressor TAB] 25 mg PO BID #60 tablet 10/28/21 Unknown Rx Thiamine [Vitamin B-1] 100 mg PO QDAY #30 tablet 10/28/21 Unknown Rx Acetaminophen [Non-Aspirin Extra 500 mg PO Q6HR PRN #30 tablet 11/01/21 Unknown Rx Strength] Famotidine [Pepcid] 20 mg PO BID #60 tablet 11/01/21 Unknown Rx Multivitamin with Folic Acid [Cvs 400 mcg PO QDAY #30 tablet 11/01/21 Unknown Rx One Daily Essential Tablet] Allergies Allergy/AdvReac Type Severity Reaction Status Date / Time No Known Allergies Allergy Verified 10/27/21 08:18 ED Review of Systems ROS: Stated complaint: CHEST PAIN Other details as noted in HPI Constitutional: denies: fever Eyes: denies: eye discharge ENT: denies: epistaxis Respiratory: denies: wheezing Cardiovascular: chest pain Gastrointestinal: denies: vomiting Musculoskeletal: denies: back pain Hematological/Lymphatic: denies: easy bleeding ED Past Medical Hx - Past Medical History Previous Medical History?: Yes Hx Hypertension: Yes Hx Heart Attack/AMI: No Hx Congestive Heart Failure: No Hx Diabetes: No (Brother) Hx Deep Vein Thrombosis: Yes Hx Pulmonary Embolism: Yes Hx Liver Disease: No Hx Renal Disease: No Hx Sickle Cell Disease: No Hx Arthritis: No Hx Seizures: No Hx Kidney Stones: No Hx Asthma: No Hx COPD: No Hx Tuberculosis: No Hx Dementia: No Hx HIV: No Additional medical history: DVT BLE - Surgical History Hx Coronary Stent: No Hx Open Heart Surgery: No Hx Pacemaker: No Hx Internal Defibrillator: No Hx Cholecystectomy: No Hx Appendectomy: No Hx Breast Surgery: No - Social History Smoking Status: Current Every Day Smoker Substance Use Type: Alcohol - Medications Home Medications: Home Medications Medication Instructions Recorded Confirmed Last Taken Type Multivit-Min/FA/Lycopen/Lutein 1 each PO Q48H 08/02/21 10/27/21 10/26/21 History [Centrum Silver Tablet] Apixaban [Eliquis] 5 mg PO BID #60 tablet 10/28/21 Unknown Rx Folic Acid [Folvite] 1 mg PO DAILY #30 tablet 10/28/21 Unknown Rx Metoprolol [Lopressor TAB] 25 mg PO BID #60 tablet 10/28/21 Unknown Rx Thiamine [Vitamin B-1] 100 mg PO QDAY #30 tablet 10/28/21 Unknown Rx Acetaminophen [Non-Aspirin Extra 500 mg PO Q6HR PRN #30 tablet 11/01/21 Unknown Rx Strength] Famotidine [Pepcid] 20 mg PO BID #60 tablet 11/01/21 Unknown Rx Multivitamin with Folic Acid [Cvs 400 mcg PO QDAY #30 tablet 11/01/21 Unknown Rx One Daily Essential Tablet] ED Physical Exam - General Limitations: No Limitations General appearance: alert, in no apparent distress - Head Head exam: Present: atraumatic, normocephalic - Eye Eye exam: Present: normal appearance, EOMI. Absent: nystagmus - ENT ENT exam: Present: normal exam, normal orophraynx, mucous membranes moist, normal external ear exam - Neck Neck exam: Present: normal inspection, full ROM. Absent: tenderness, meningismus - Respiratory Respiratory exam: Present: normal lung sounds bilaterally. Absent: respiratory distress, wheezes, rales, rhonchi, stridor, decreased breath sounds - Cardiovascular Cardiovascular Exam: Present: regular rate, normal rhythm, normal heart sounds. Absent: bradycardia, tachycardia, irregular rhythm, systolic murmur, diastolic murmur, rubs, gallop - GI/Abdominal GI/Abdominal exam: Present: soft. Absent: distended, tenderness, guarding, rebound, rigid, pulsatile mass - Rectal Rectal exam: Present: deferred - Extremities Exam Extremities exam: Present: normal inspection, full ROM, other (2+ pulses noted in the bilateral upper and lower extremities. There is no palpable cord. negative Homans sign. Muscular compartments are soft. The pelvis is stable.). Absent: pedal edema, calf tenderness - Back Exam Back exam: Present: normal inspection, full ROM. Absent: tenderness, CVA tenderness (R), CVA tenderness (L), paraspinal tenderness, vertebral tenderness - Neurological Exam Neurological exam: Present: alert, oriented X3, normal gait, other (No facial droop. Tongue midline. Extraocular movements intact bilaterally. Facial sensation intact to light touch in V1, V2, V3 distribution bilaterally. 5 and a 5 strength in 4 extremities. Sensation intact to light touch in 4 extr emities.). Absent: motor sensory deficit - Psychiatric Psychiatric exam: Present: normal affect, normal mood - Skin Skin exam: Present: warm, dry, intact, normal color. Absent: rash ED Course Vital Signs 10/31/21 22:28 Temperature 98.7 F Pulse Rate 83 Respiratory 18 Rate Blood Pressure 136/83 O2 Sat by Pulse 92 Oximetry - Reevaluation(s) Reevaluation #1: 11/01/21 00:25 Differential diagnosis, including the not limited to: GERD, gastritis, hiatal hernia, pneumonia, costochondritis, pulmonary embolism, coronary artery disease, alcoholic gastritis Assessment and plan: 56-year-old gentleman, who is low risk for major adverse cardiac event as per heart score, who is not currently tachycardic, tachypneic or hypoxic, repeat pulse ox is 96% on room air, who does have a newly diagnosed right lower extremity popliteal DVT, supposed to be on Eliquis, but is not compliant, presenting with persistent chest pain. Laboratory studies pending, with the exception of D-dimer which is elevated. Given history of lower extremity DVT, noncompliance with Eliquis therapy, elevated D-dimer, recent hospitalization, we will obtain CT scan of the chest to exclude pulmonary embolism. We will treat this patient supportively and symptomatically. He does report that he was able to get his Eliquis filled/taken yesterday. We will reassess after initial data points. He reports chest pain for days, and reports that he has had persistent pain since I last evaluated him. Therefore, as per the [employer] clinical policy, myocardial infarction may be ruled out with 1 set of troponin/cardiac enzymes, as symptoms have been present for greater than 8 hours. 11/01/21 04:35 CT scan of the chest is negative for pulmonary embolism. Laboratory studies are unremarkable with exception of elevated blood alcohol level. The patient is clinically sober at this time. Troponin is negative x1. He may be discharged to follow-up as an outpatient. ED Medical Decision Making - Lab Data Result diagrams: 10/31/21 22:47 10/31/21 22:46 Vital Signs 10/31/21 22:28 Temperature 98.7 F Pulse Rate 83 Respiratory 18 Rate Blood Pressure 136/83 O2 Sat by Pulse 92 Oximetry Lab Results 10/31/21 Range/Units 23:27 D-Dimer 419.12 H (0-234) ng/mlDDU - EKG Data -: EKG Interpreted by Ks EKG shows normal: sinus rhythm Rate: normal - EKG Data Interpretation: unchanged when compared t 11/01/21 00:22 The EKG is interpreted at 22: 36 Sinus rhythm, rate 86 bpm. Borderline leftward axis deviation, high left ventricular voltage, normal P wave axis, QTC 4 6 0 ms, MI interval 210 ms. Abnormal EKG. Not consistent with STEMI. Appears grossly unchanged when compared to prior EKG, with the exception of biphasic T waves V3, higher voltage in the inferior leads. First-degree AV block unchanged. Prolonged QTC unchanged. - Radiology Data Radiology results: pending, report reviewed, image reviewed CHEST PA AND LATERAL VIEWS INDICATION: CHEST PAIN. COMPARISON: 10/26/2021 FI NDINGS: Support devices: None. Heart: Within normal limits. Lungs/Pleura: No acute pulmonary or pleural findings. IMPRESSION: 1. No acute findings. Signer Name: Ar Willams MD Signed: 10/31/2021 10:09 PM Workstation Name: [id number] DUPLEX DOPPLER LOWER EXTREMITY VEINS, RIGHT INDICATION / CLINICAL INFORMATION: DVT right lower. TECHNIQUE: Duplex doppler imaging was performed through the veins of the right lower extremity using venous compression and other maneuvers. COMPARISON: None available. FINDINGS: RIGHT COMMON FEMORAL VEIN: Negative. RIGHT FEMORAL VEIN: Negative. RIGHT POPLITEAL VEIN: There is a deep vein thrombosis noted within the right popliteal vein. RIGHT CALF VEINS: Negative. ADDITIONAL FINDINGS: None. IMPRESSION: 1. Deep vein thrombosis within the right popliteal vein. CRITICAL RESULT Time of Discovery (MEMBER OF THE LEGISLATIVE [employer]SEMBLY/CDT): 9:25 AM Time of Communication ([employer]BER [employer] THE [employer]LATIVE [employer]BL[employer]/CDT): 9:30 AM Licensed Practitioner Receiving Report: Nurse Boaz Quintana Read-Back Performed: Yes. Signer Name: Michael Mireles DO Signed: 10/28/2021 9:34 AM Workstation Name: [id number] CT angio chest INDICATION / CLINICAL INFORMATION: acute chest pain,hx of PE. TECHNIQUE: Axial CT images were obtained through the chest after injection of IV contrast. 3 plane MIP and/or 3D reconstructions were produced. All CT scans at this location are performed using CT dose reduction for ALARA by means of automated exposure control. COMPARISON: CTA from 02/28/2021 FINDINGS: PULMONARY ARTERIES: Right-sided pulmonary arteries are diminutive but stable, compatible with sequela of prior pulmonary embolus. There is no acute central or segmental pulmonary embolus. THORACIC AORTA: Mild atherosclerotic calcification without acute abnormality. HEART: Mild cardiac enlargement. No significant coronary artery calcifications. LYMPHADENOPATHY: No significant thoracic lymphadenopathy. LUNGS/PLEURA: No acute airspace disease. There is stable scarring within the right middle lobe and right lower lobe. Mild emphysema. No pleural effusion or pneumothorax. OTHER FINDINGS: None. UPPER ABDOMEN: Detailed separately. SKEL ETAL SYSTEM: No acute osseous findings. IMPRESSION: No acute findings in the chest. No evidence of acute pulmonary embolism. Signer Name: William Marinelli MD Signed: 10/26/2021 10:16 PM Workstation Name: [id number] CTA CHEST WITH CONTRAST INDICATION / CLINICAL INFORMATION: Acute chest pain, DVT elevated D-dimer. TECHNIQUE: Axial CT images were obtained through the chest after injection of IV contrast. 3 plane MIP and/or 3D reconstructions were produced. All CT scans at this location are performed using CT dose reduction for ALARA by means of automated exposure control. COMPARISON: CT 10/26/2021 FINDINGS: PULMONARY EMBOLUS: None. There is attenuation of right lower lobe pulmonary arteries which is likely the sequelae of remote pulmonary embolus. This is unchanged. THORACIC AORTA: No significant abnormality. HEART: No significant abnormality. CORONARY ARTERY CALCIFICATION: Absent -- None. MEDIASTINUM / ROSA MARIA: No significant abnormality. PLEURA: No pleural effusion. No pneumothorax. LUNGS: No acute air space or interstitial disease. Scarring is again noted in the right middle and lower lobes. ADDITIONAL FINDINGS: None. UPPER ABDOMEN: No acute findings. SKELETAL STRUCTURES: No significant osseous abnormality. IMPRESSION: 1. No CT evidence for acute pulmonary embolism. 2. No acute findings. Signer Name: Ar Willams MD Signed: 11/01/2021 1:15 AM Workstation Name: [id number] Critical care attestation.: If time is entered above; I have spent that time in minutes in the direct care of this critically ill patient, excluding procedure time. ED Disposition Clinical Impression: Noncompliance with medication regimen, Chest pain, History of DVT (deep vein thrombosis), Alcohol abuse Disposition: HOME / SELF CARE / HOMELESS Is pt being admited?: No Does the pt Need Aspirin: No Condition: Good Instructions: Nonspecific Chest Pain, Adult, Deep Vein Thrombosis Additional Instructions: We recommend that the patient discontinue alcohol consumption. Do not consume Motrin, ibuprofen, Naprosyn, Aleve. Please remain compliant with eliquis therapy. Noncompliance with Eliquis therapy may result in spreading/propagation of blood clot, which may cause , disability, paralysis, loss of quality of life. Patient may take [id number] Pepcid, famotidine, Protonix, or Tylenol as needed for physical pain. Take a multivitamin as directed. Follow-up with a primary care doctor or casting operator helper within the next week. We also recommend that the patient not consume alcohol. Please return to the emergency room right away with new pain, worsened pain, migration of pain, projectile vomiting, change in mental status, confusion, inability tolerate liquid feeds, new, worsened or different symptoms not present on the initial emergency room evaluation Prescriptions: Multivitamin with Folic Acid [Cvs One Daily Essential Tablet] 400 mcg PO QDAY #30 tablet Acetaminophen [Non-Aspirin Extra Strength] 500 mg PO Q6HR PRN #30 tablet PRN Reason: Pain , Severe (7-10) Famotidine [Pepcid] 20 mg PO BID #60 tablet Referrals: [facility] [Provider Group] - 3-5 Days [facility] [Provider Group] - 3-5 Days Forms: Work/School Release Form(ED) Heart Score - HEART Score History: Slightly suspicious EKG: Non-specific Age: 45-65 Risk factors: 1-2 risk factors Troponin: < normal limit HEART Score: 3 - EKG Read Time Time EKG Completed: 22:36 EKG Read Time: 22:36 - Critical Actions Critical Actions: 0-3 pts:0.9-1.7%risk of adverse cardiac event.Candidate for discharge
--- NOTE | 2021-10-31 23:13 | XRay Report ---
CHEST PA AND LATERAL VIEWS INDICATION: CHEST PAIN. COMPARISON: 10/26/2021 FINDINGS: Support devices: None. Heart: Within normal limits. Lungs/Pleura: No acute pulmonary or pleural findings. IMPRESSION: 1. No acute findings. Signer Name: Ar Willams MD Signed: 10/31/2021 11:09 PM Workstation Name: [id number]
[2021-11-01] MEDS ORDERED: APIXABAN 5 MG TAB PO STA (00:30)
[2021-11-01 00:37] LABS: Basophils % (Auto) 1.1 % (0.0-1.8); Eosinophils # (Auto) 0.1 K/mm3 (0.0-0.4); Eosinophils % (Auto) 1.4 % (0.0-4.3); Hematocrit 42.5 % (35.5-45.6); Lymphocytes # (Auto) 1.8 K/mm3 (1.2-5.4); Lymphocytes % (Auto) 45.4 % (13.4-35.0); Mean Corpuscular HGB Conc 33 % (32-34); Mean Corpuscular Volume 105 fl (84-94); Monocytes # (Auto) 0.6 K/mm3 (0.0-0.8); Monocytes % (Auto) 14.8 % (0.0-7.3); Platelet Count 134 K/mm3 (140-440); Red Blood Count 4.05 M/mm3 (3.65-5.03); Red Cell Distribution Width 14.8 % (13.2-15.2)
[2021-11-01 01:24] LABS: Alanine Aminotransferase 21 units/L (7-56); Albumin 4.5 g/dL (3.9-5); BUN/Creatinine Ratio 16; Blood Urea Nitrogen 14 mg/dL (9-20); Calcium 8.7 mg/dL (8.4-10.2); Hemolysis Index 5
--- NOTE | 2021-11-01 02:20 | Cat Scan Report ---
CTA CHEST WITH CONTRAST INDICATION / CLINICAL INFORMATION: Acute chest pain, DVT elevated D-dimer. TECHNIQUE: Axial CT images were obtained through the chest after injection of IV contrast. 3 plane LA P and/or 3D reconstructions were produced. All CT scans at this location are performed using CT dose reduction for ALARA by means of automated exposure control. COMPARISON: CT 10/26/2021 FINDINGS: PULMONARY EMBOLUS: None. There is attenuation of right lower lobe pulmonary arteries which is likely the sequelae of remote pulmonary embolus. This is unchanged. THORACIC AORTA: No significant abnormality. HEART: No significant abnormality. CORONARY ARTERY CALCIFICATION: Absent -- None. MEDIASTINUM / ROSA MARIA: No significant abnormality. PLEURA: No pleural effusion. No pneumothorax. LUNGS: No acute air space or interstitial disease. Scarring is again noted in the right middle and lo wer lobes. ADDITIONAL FINDINGS: None. UPPER ABDOMEN: No acute findings. SKELETAL STRUCTURES: No significant osseous abnormality. IMPRESSION: 1. No CT evidence for acute pulmonary embolism. 2. No acute findings. Signer Name: Ar Willams MD Signed: 11/01/2021 2:15 AM Workstation Name: [id number]
[2021-11-01 04:49] VITALS: BP 128/84
--- NOTE | 2021-11-02 13:15 | Electrocardiograph Report ---
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
== END 2021-11-01 04:49 | disposition home or self-care (01) ==
LOC: ED 22:09
DX: R07.9 Chest pain, unspecified (principal); I82.409 Acute embolism and thrombosis of unspecified deep veins of unspecified lower extremity; Z91.14 Patient's other noncompliance with medication regimen; F10.10 Alcohol abuse, uncomplicated; I10 Essential (primary) hypertension; F17.200 Nicotine dependence, unspecified, uncomplicated
CPT/HCPCS: 36415; 71046; 71275; 80053; 84484; 85025; 85379; 93005; 93010; 99284; Q9967; 80320; G0480

== ENCOUNTER 2022-03-31 13:53 | Inpatient (IN) | payer SELFPAY ==
[2022-03-31] MEDS ORDERED: ASPIRIN 325 MG TAB PO ONE (14:41)
--- NOTE | 2022-03-31 15:11 | XRay Report ---
CHEST 2 VIEWS INDICATION / CLINICAL INFORMATION: chest pain that radiates to the back. FINDINGS: SUPPORT DEVICES: None. HEART / MEDIASTINUM: No significant abnormality. LUNGS / PLEURA: No significant pulmonary or pleural abnormality. No pneumothorax. ADDITIONAL FINDINGS: No significant additional findings. IMPRESSION: 1. No acute findings. Signer Name: Cale Martins MD Signed: 03/31/2022 3:07 PM Workstation Name: [id number]
[2022-03-31 17:38] LABS: Basophils % (Auto) 1.5 % (0.0-1.8); Eosinophils % (Auto) 0.7 % (0.0-4.3); Hematocrit 47.7 % (35.5-45.6); Hemoglobin 16.3 gm/dl (11.8-15.2); Lymphocytes # (Auto) 1.3 K/mm3 (1.2-5.4); Lymphocytes % (Auto) 44.7 % (13.4-35.0); Mean Corpuscular HGB Conc 34 % (32-34); Mean Corpuscular Volume 104 fl (84-94); Monocytes # (Auto) 0.4 K/mm3 (0.0-0.8); Monocytes % (Auto) 14.1 % (0.0-7.3); Platelet Count 57 K/mm3 (140-440); Red Blood Count 4.59 M/mm3 (3.65-5.03); Red Cell Distribution Width 17.7 % (13.2-15.2)
[2022-03-31 17:54] LABS: Alanine Aminotransferase 308 units/L (7-56); Albumin 4.9 g/dL (3.9-5); BUN/Creatinine Ratio 10; Blood Urea Nitrogen 9 mg/dL (9-20); Calcium 9.7 mg/dL (8.4-10.2); Hemolysis Index 18
--- NOTE | 2022-03-31 21:59 | Emergency Department Report ---
ED Chest Pain HPI - General Chief Complaint: Back Pain/Injury Stated Complaint: CHEST AND BACK PAIN Time Seen by Provider: 03/31/22 21:18 Source: patient Mode of arrival: Ambulatory Limitations: No Limitations - History of Present Illness Initial Comments: 56-year-old alcoholic male who now presents with chest/epigastric pain radiating to the back that started about 4 days ago progressively getting worse. Patient is heavy alcoholic who says he has been drinking for the last 10 years. When asked specifically for the location of pain patient pointed to the epigastric area and the left upper abdomen. Patient reports some nausea without any emesis. No fever or chills reported. Patient also reported that when he walks his gait is falling to one side of his body. This has been going on for weeks. He also reports some bilateral hand shakiness. No other modifying or associated factors. Severity scale (0 -10): 0 - Related Data Home Medications Medication Instructions Recorded Confirmed Last Taken Multivit-Min/FA/Lycopen/Lutein 1 each PO Q48H 08/02/21 10/27/21 10/26/21 [Centrum Silver Tablet] Previous Rx's Medication Instructions Recorded Last Taken Type Apixaban [Eliquis] 5 mg PO BID #60 tablet 10/28/21 Unknown Rx Folic Acid [Folvite] 1 mg PO DAILY #30 tablet 10/28/21 Unknown Rx Metoprolol [Lopressor TAB] 25 mg PO BID #60 tablet 10/28/21 Unknown Rx Thiamine [Vitamin B-1] 100 mg PO QDAY #30 tablet 10/28/21 Unknown Rx Acetaminophen [Non-Aspirin Extra 500 mg PO Q6HR PRN #30 tablet 11/01/21 Unknown Rx Strength] Famotidine [Pepcid] 20 mg PO BID #60 tablet 11/01/21 Unknown Rx Multivitamin with Folic Acid [Cvs 400 mcg PO QDAY #30 tablet 11/01/21 Unknown Rx One Daily Essential Tablet] Omeprazole Magnesium [PriLOSEC Otc] 20 mg PO BID 30 Days #60 tab NS 04/01/22 Unknown Rx Ondansetron (Nf) [Zofran TAB] 8 mg PO Q8HR PRN 5 Days #15 tablet 04/01/22 Unknown Rx NS chlordiazePOXIDE [Librium] 25 mg PO Q6H 5 Days #20 cap NS 04/01/22 Unknown Rx Allergies Allergy/AdvReac Type Severity Reaction Status Date / Time No Known Allergies Allergy Verified 10/27/21 08:18 Heart Score - HEART Score History: Slightly suspicious EKG: Normal Age: 45-65 Risk factors: No known risk factors Troponin: < normal limit HEART Score: 1 - EKG Read Time Time EKG Completed: 14:17 EKG Read Time: 14:17 - Critical Actions Critical Actions: 0-3 pts:0.9-1.7%risk of adverse cardiac event.Candidate for discharge ED Review of Systems ROS: Stated complaint: CHEST AND BACK PAIN Other details as noted in HPI Cardiovascular: chest pain Gastrointestinal: abdominal pain (epigastric), nausea ED Past Medical Hx - Past Medical History Previous Medical History?: Yes Hx Hypertension: Yes Hx Heart Attack/AMI: No Hx Congestive Heart Failure: No Hx Diabetes: No (Brother) Hx Deep Vein Thrombosis: Yes Hx Pulmonary Embolism: Yes Hx Liver Disease: No Hx Renal Disease: No Hx Sickle Cell Disease: No Hx Arthritis: No Hx Seizures: No Hx Kidney Stones: No Hx Asthma: No Hx COPD: No Hx Tuberculosis: No Hx Dementia: No Hx HIV: No Additional medical history: DVT BLE - Surgical History Hx Coronary Stent: No Hx Open Heart Surgery: No Hx Pacemaker: No Hx Internal Defibrillator: No Hx Cholecystectomy: No Hx Appendectomy: No Hx Breast Surgery: No - Social History Smoking Status: Unknown if ever smoked - Medications Home Medications: Home Medications Medication Instructions Recorded Confirmed Last Taken Type Multivit-Min/FA/Lycopen/Lutein 1 each PO Q48H 08/02/21 10/27/21 10/26/21 History [Centrum Silver Tablet] Apixaban [Eliquis] 5 mg PO BID #60 tablet 10/28/21 Unknown Rx Folic Acid [Folvite] 1 mg PO DAILY #30 tablet 10/28/21 Unknown Rx Metoprolol [Lopressor TAB] 25 mg PO BID #60 tablet 10/28/21 Unknown Rx Thiamine [Vitamin B-1] 100 mg PO QDAY #30 tablet 10/28/21 Unknown Rx Acetaminophen [Non-Aspirin Extra 500 mg PO Q6HR PRN #30 tablet 11/01/21 Unknown Rx Strength] Famotidine [Pepcid] 20 mg PO BID #60 tablet 11/01/21 Unknown Rx Multivitamin with Folic Acid [Cvs 400 mcg PO QDAY #30 tablet 11/01/21 Unknown Rx One Daily Essential Tablet] Omeprazole Magnesium [PriLOSEC Otc] 20 mg PO BID 30 Days #60 tab NS 04/01/22 Unknown Rx Ondansetron (Nf) [Zofran TAB] 8 mg PO Q8HR PRN 5 Days #15 tablet 04/01/22 Unknown Rx NS chlordiazePOXIDE [Librium] 25 mg PO Q6H 5 Days #20 cap NS 04/01/22 Unknown Rx ED Physical Exam - General Limitations: No Limitations General appearance: alert, in no apparent distress - Head Head exam: Present: normal inspection - Eye Eye exam: Present: normal appearance Pupils: Present: normal accommodation - ENT ENT exam: Present: normal exam, normal orophraynx, mucous membranes moist - Neck Neck exam: Present: normal inspection, full ROM. Absent: tenderness - Respiratory Respiratory exam: Present: normal lung sounds bilaterally. Absent: respiratory distress, accessory muscle use - Cardiovascular Cardiovascular Exam: Present: regular rate, normal rhythm, normal heart sounds - GI/Abdominal GI/Abdominal exam: Present: soft, tenderness (epigastric ), normal bowel sounds. Absent: distended - Extremities Exam Extremities exam: Present: normal inspection, full ROM, normal capillary refill. Absent: tenderness, pedal edema - Back Exam Back exam: Present: normal inspection. Absent: tenderness - Neurological Exam Neurological exam: Present: alert, oriented X3 - Psychiatric Psychiatric exam: Present: normal affect, normal mood - Skin Skin exam: Present: warm, normal color ED Course Vital Signs 03/31/22 03/31/22 04/01/22 20:04 22:01 01:44 Temperature 97.8 F Pulse Rate 73 72 105 H Respiratory 16 16 16 Rate Blood Pressure 153/87 143/89 140/96 [Right] O2 Sat by Pulse 99 98 99 Oximetry - Reevaluation(s) Reevaluation #1: 04/01/22 01:58 I was informed that patient is having bilateral hand shakiness --versed 1mg IV x 1 given as ativan is been back ordered-- Reevaluation #2: 04/01/22 06:10 I tried to get this patient up to walk but his shakiness was so much he could not do it-- at this point i called Dr Gabriel and get patient admitted FRANCOISE score - Francoise Score Age > 65: (0) No Aspirin use within the Past 7 Days: (0) No 3 or more CAD Risk Factors: (0) No 2 or more Angina events in past 24 hrs: (1) Yes Known CAD with more than 50% Stenosis: (0) No Elevated Cardiac Markers: (0) No ST Deviation Greater than 0.5mm: (0) No FRANCOISE Score: 1 ED Medical Decision Making - Lab Data Result diagrams: 03/31/22 16:41 03/31/22 16:41 - EKG Data -: EKG Interpreted by Hi EKG shows normal: sinus rhythm Rate: normal - EKG Data 03/31/22 22:04 Noted with normal sinus rhythm at a rate of 97 bpm with normal QT no ST elevation or depression in this borderline ECG. - Radiology Data FINDINGS: LOWER CHEST: Previously seen ground glass opacities along the right middle and lower lobes have improved. No new significant abnormality. LIVER: There is steatosis and hepatomegaly without other significant abnormalities. GALLBLADDER: No significant abnormality. BILE DUCTS: No significant abnormality. PANCREAS: No significant abnormality. SPLEEN: No significant abnormality. ADRENALS: No significant abnormality. RIGHT KIDNEY/URETER: No significant abnormality. LEFT KIDNEY/URETER: Unchanged mid pole cyst measuring 1.1 cm. No other sig nificant abnormality. STOMACH/SMALL BOWEL: No significant abnormality. COLON: No significant abnormality. APPENDIX: No significant abnormality. PERITONEUM: No free fluid. No free air. No fluid collection. LYMPH NODES: No significant adenopathy. VASCULATURE: There is mild atherosclerosis without other significant abnormalities. URINARY BLADDER: No significant abnormality. REPRODUCTIVE ORGANS: No significant abnormality. ADDITIONAL FINDINGS: None. BONES: No acute abnormality. Unchanged degenerative changes of the spine and pelvis. IMPRESSION: 1. No acute findings to explain the patient's abdominal pain. 2. Additional findings as above. - Medical Decision Making Here with chest pain/pressure and epigastric discomfort noted--this is likely alcoholic gastritis vs pancreatitis but --differential could be but not limited to myocardial infarction, pulmonary embolism, costochondritis, anxiety, GERD and or pyelonephritis--in order to rule out the above-- so will go ahead and order routine cardiopulmonary work-up that include troponin, EKG, chest x-ray, BNP, CKMB, and CBC, CMP and urinalysis for any correctable infectious process or electrolyte abnormality as a cause. 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 ED Disposition Clinical Impression: Epigastric abdominal pain, Left upper quadrant abdominal pain Chest pain Qualifiers: Chest pain type: unspecified Qualified Code(s): R07.9 - Chest pain, unspecified Alcohol withdrawal Qualifiers: Complication of substance-induced condition: with unspecified complication Qualified Code(s): F10.939 - Alcohol use, unspecified with withdrawal, unspecified Disposition: ADMITTED INPATIENT Is pt being admited?: Yes Does the pt Need Aspirin: No Condition: Stable Instructions: Abdominal Pain, Adult, Abdominal Pain, Adult, [id number], Nonspecific Chest Pain, Adult, [id number] Additional Instructions: Take your new medication as prescribed to continue to help your symptoms Cut back or quit excessive alcohol drinking to prevent your recurrent symptoms Increase your daily fluid to help your hydration Call and schedule follow-up with your primary doctor in the next 3 to 5 days for progress Please do not hesitate to call or return to emergency room if your symptoms worsen Prescriptions: chlordiazePOXIDE [Librium] 25 mg PO Q6H 5 Days #20 cap NS Omeprazole Magnesium [PriLOSEC Otc] 20 mg PO BID 30 Days #60 tab NS Ondansetron (Nf) [Zofran TAB] 8 mg PO Q8HR PRN 5 Days #15 tablet NS PRN Reason: Nausea Referrals: PAULA WASHINGTON MD [Primary Care Provider] - 3-5 Days Time of Disposition: 06:11
[2022-04-01] MEDS ORDERED: MIDAZOLAM 2 MG/2 ML INJ ONE (01:39)
[2022-04-01] MEDS ORDERED: MIDAZOLAM 2 MG/2 ML INJ IV ONE (02:00)
--- NOTE | 2022-04-01 05:15 | Cat Scan Report ---
CT ABDOMEN AND PELVIS WITH CONTRAST INDICATION / CLINICAL INFORMATION: epigastric pain. TECHNIQUE: Axial CT images were obtained through the abdomen and pelvis after 100 cc Omnipaque [address] scans at this location are performed using CT dose reduction for ALARA by means of automated exposure control. COMPARISON: CT abdomen and pelvis with contrast from 10/26/2021. FINDINGS: LOWER CHEST: Previously seen ground glass opacities along the right middle and lower lobes have impro shahana. No new significant abnormality. LIVER: There is steatosis and hepatomegaly without other significant abnormalities. GALLBLADDER: No significant abnormality. BILE DUCTS: No significant abnormality. PANCREAS: No significant abnormality. SPLEEN: No significant abnormality. ADRENALS: No significant abnormality. RIGHT KIDNEY/URETER: No significant abnormality. LEFT KIDNEY/URETER: Unchanged mid pole cyst measuring 1.1 cm. No other significant abnormality. STOMACH/SMALL BOWEL: No significant abnormality. COLON: No significant abnormality. APPENDIX: No significant abnormality. PERITONEUM: No free fluid. No free air. No fluid collection. LYMPH NODES: No significant adenopathy. VASCULATURE: There is mild atherosclerosis without other significant abnormalities. URINARY BLADDER: No significant abnormality. REPRODUCTIVE ORGANS: No significant abnormality. ADDITIONAL FINDINGS: None. BONES: No acute abnormality. Unchanged degenerative changes of the spine and pelvis. IMPRESSION: 1. No acute findings to explain the patient's abdominal pain. 2. Additional findings as above. Signer Name: Tono Chacon MD Signed: 04/01/2022 5:10 AM Workstation Name: [id number]
[2022-04-01] MEDS ORDERED: MORPHINE 4 MG/1 ML INJ IV PRN (06:19)
[2022-04-01] MEDS ORDERED: ALBUTEROL 2.5 MG/3 ML NEBU IH PRN (06:19)
[2022-04-01] MEDS ORDERED: ONDANSETRON 4 MG/2 ML INJ IV PRN (06:19)
[2022-04-01] MEDS ORDERED: MORPHINE 2 MG/1 ML INJ IV PRN (06:19)
[2022-04-01] MEDS ORDERED: chlordiazePOXIDE 25 MG CAP PO PRN ×2 (06:19)
[2022-04-01] MEDS ORDERED: ACETAMINOPHEN 325 MG TAB PO PRN (06:19)
[2022-04-01] MEDS ORDERED: LORazepam 2 MG/ML VIAL IV PRN ×3 (06:19)
[2022-04-01] MEDS ORDERED: THIAMINE 100 MG, FOLIC ACID 1 MG, MULTIPLE VITAMIN INJ, ADULT 10 ML in SODIUM CHLORIDE ... IV ONE (06:22)
--- NOTE | 2022-04-01 06:28 | History and Physical Report ---
History of Present Illness Date of examination: 04/01/22 Date of admission: 04/01/22 Chief complaint: Chest pain Abdominal pain History of present illness: 56-year-old alcoholic male who now presents with chest/epigastric pain radiating to the back that started about 4 days ago progressively getting worse. Patient is heavy alcoholic who drinks about a quart every day drinking for the last 10 years. When asked specifically for the location of pain patient pointed to the epigastric area and the left upper abdomen. Patient reports some nausea without any emesis. No fever or chills reported. Patient also reported that when he walks his gait is falling to one side of his body. This has been going on for weeks. He also reports some bilateral hand shakiness. No other modifying or associated factors. In the emergency room CT scan of the abdomen pelvis showed no acute abnormality but patient is found to have acute alcohol withdrawal Past History Past Medical History: DVT (Pulmonary embolism, bilateral DVT), hypertension, other (Alcohol abuse) Past Surgical History: No surgical history Social history: smoking, alcohol abuse Family history: hypertension Medications and Allergies Allergies Allergy/AdvReac Type Severity Reaction Status Date / Time No Known Allergies Allergy Verified 10/27/21 08:18 Home Medications Medication Instructions Recorded Confirmed Last Taken Type Multivit-Min/FA/Lycopen/Lutein 1 each PO Q48H 08/02/21 10/27/21 10/26/21 History [Centrum Silver Tablet] Apixaban [Eliquis] 5 mg PO BID #60 tablet 10/28/21 Unknown Rx Folic Acid [Folvite] 1 mg PO DAILY #30 tablet 10/28/21 Unknown Rx Metoprolol [Lopressor TAB] 25 mg PO BID #60 tablet 10/28/21 Unknown Rx Thiamine [Vitamin B-1] 100 mg PO QDAY #30 tablet 10/28/21 Unknown Rx Acetaminophen [Non-Aspirin Extra 500 mg PO Q6HR PRN #30 tablet 11/01/21 Unknown Rx Strength] Famotidine [Pepcid] 20 mg PO BID #60 tablet 11/01/21 Unknown Rx Multivitamin with Folic Acid [Cvs 400 mcg PO QDAY #30 tablet 11/01/21 Unknown Rx One Daily Essential Tablet] Omeprazole Magnesium [PriLOSEC Otc] 20 mg PO BID 30 Days #60 tab NS 04/01/22 Unknown Rx Ondansetron (Nf) [Zofran TAB] 8 mg PO Q8HR PRN 5 Days #15 tablet 04/01/22 Unknown Rx NS chlordiazePOXIDE [Librium] 25 mg PO Q6H 5 Days #20 cap NS 04/01/22 Unknown Rx Review of Systems All systems: negative Cardiovascular: chest pain Gastrointestinal: abdominal pain, nausea, other (Back pain) Exam - Constitutional Vitals: Temp Pulse Resp BP Pulse Ox 97.7 F 93 H 16 154/98 99 04/01/22 06:18 04/01/22 06:18 04/01/22 06:18 04/01/22 06:18 04/01/22 06:18 General appearance: Present: no acute distress, well-nourished - EENT Eyes: Present: PERRL ENT: hearing intact, clear oral mucosa - Neck Neck: Present: supple, normal ROM - Respiratory Respiratory effort: normal Respiratory: bilateral: CTA - Cardiovascular Heart Sounds: Present: S1 & S2. Absent: rub, click - Extremities Extremities: pulses symmetrical, No edema Peripheral Pulses: within normal limits - Abdominal General gastrointestinal: Present: soft, non-tender, non-distended, normal bowel sounds Male genitourinary: Present: normal - Integumentary Integumentary: Present: clear, warm, dry - Musculoskeletal Musculoskeletal: gait normal, strength equal bilaterally - Psychiatric Psychiatric: appropriate mood/affect, intact judgment & insight - Neurologic Neurologic: CNII-XII intact, moves all extremities HEART Score - HEART Score EKG: Normal Age: 45-65 Risk factors: No known risk factors Troponin: Troponin T < 0.010 ng/mL (0.00-0.029) 03/31/22 23:00 Troponin: < normal limit - Critical Actions Critical Actions: 0-3 pts:0.9-1.7%risk of adverse cardiac event.Candidate for discharge Results - Labs CBC & Chem 7: 03/31/22 16:41 03/31/22 16:41 Labs: Laboratory Last Values WBC 2.9 K/mm3 (4.5-11.0) L 03/31/22 16:41 RBC 4.59 M/mm3 (3.65-5.03) 03/31/22 16:41 Hgb 16.3 gm/dl (11.8-15.2) H 03/31/22 16:41 Hct 47.7 % (35.5-45.6) H 03/31/22 16:41 MCV 104 fl (84-94) H 03/31/22 16:41 MCH 36 pg (28-32) H 03/31/22 16:41 MCHC 34 % (32-34) 03/31/22 16:41 RDW 17.7 % (13.2-15.2) H 03/31/22 16:41 Plt Count 57 K/mm3 (140-440) L 03/31/22 16:41 Lymph % (Auto) 44.7 % (13.4-35.0) H 03/31/22 16:41 [place] % (Auto) 14.1 % (0.0-7.3) H 03/31/22 16:41 Eos % (Auto) 0.7 % (0.0-4.3) 03/31/22 16:41 Baso % (Auto) 1.5 % (0.0-1.8) 03/31/22 16:41 Lymph # (Auto) 1.3 K/mm3 (1.2-5.4) 03/31/22 16:41 [place] # (Auto) 0.4 K/mm3 (0.0-0.8) 03/31/22 16:41 Eos # (Auto) 0.0 K/mm3 (0.0-0.4) 03/31/22 16:41 Baso # (Auto) 0.0 K/mm3 (0.0-0.1) 03/31/22 16:41 Seg Neutrophils % 39.0 % (40.0-70.0) L 03/31/22 16:41 Seg Neutrophils # 1.1 K/mm3 (1.8-7.7) L 03/31/22 16:41 Sodium 139 mmol/L (137-145) 03/31/22 16:41 Potassium 4.5 mmol/L (3.6-5.0) 03/31/22 16:41 Chloride 93.1 mmol/L (98-107) L 03/31/22 16:41 Carbon Dioxide 26 mmol/L (22-30) 03/31/22 16:41 Anion Gap 24 mmol/L 03/31/22 16:41 BUN 9 mg/dL (9-20) 03/31/22 16:41 Creatinine 0.9 mg/dL (0.8-1.3) 03/31/22 16:41 Estimated GFR > 60 ml/min 03/31/22 16:41 BUN/Creatinine Ratio 10 % 03/31/22 16:41 Glucose 95 mg/dL (75-100) 03/31/22 16:41 Calcium 9.7 mg/dL (8.4-10.2) 03/31/22 16:41 Total Bilirubin 1.10 mg/dL (0.1-1.2) 03/31/22 16:41 AST 724 units/L (5-40) H 03/31/22 16:41 ALT 308 units/L (7-56) H 03/31/22 16:41 Alkaline Phosphatase 83 units/L (35-129) 03/31/22 16:41 Troponin T < 0.010 ng/mL (0.00-0.029) 03/31/22 23:00 Total Protein 9.2 g/dL (6.3-8.2) H 03/31/22 16:41 Albumin 4.9 g/dL (3.9-5) 03/31/22 16:41 Albumin/Globulin Ratio 1.1 % 03/31/22 16:41 Lipase 48 units/L (13-60) 03/31/22 23:00 - Imaging and Cardiology CT scan - abdomen: report reviewed Assessment and Plan VTE prophylaxis?: Mechanical Plan of care discussed with patient/family: Yes - Patient Problems (1) Alcohol withdrawal Current Visit: Yes Status: Acute Qualifiers: Complication of substance-induced condition: with unspecified complication Qualified Code(s): F10.939 - Alcohol use, unspecified with withdrawal, unspecified Plan to address problem: Admit the patient to the medical telemetry. We will put the patient on folic acid 1 mg p.o. daily, thiamine 100 mg IV daily. And banana bag daily. We also put the patient on CIWA protocol. We will monitor the patient closely (2) Epigastric abdominal pain Current Visit: Yes Status: Acute Plan to address problem: Pepcid 20 mg p.o. twice daily. Zofran 4 mg every 6 hours as needed. Morphine 2 mg IV every 4 hours as needed (3) Chronic pulmonary embolism Current Visit: No Status: Acute Plan to address problem: Eliquis 5 mg p.o. twice daily. We will continue the home medication (4) HTN (hypertension) Current Visit: No Status: Chronic Plan to address problem: Hydralazine 10 mg IV every 6 hours as needed. We continue the home medication (5) Tobacco use Current Visit: No Status: Chronic Plan to address problem: We counseled the patient regarding quitting smoking. We will put the patient on nicotine patch (6) DVT prophylaxis Current Visit: No Status: Acute Plan to address problem: Eliquis 5 mg p.o. twice daily for DVT prophylaxis. Pepcid 20 mg p.o. twice daily for GI prophylaxis. Patient is a full code
[2022-04-01] MEDS ORDERED: [UNRECOGNIZED DRUG - OTHER] PO SCH (06:30)
[2022-04-01] MEDS ORDERED: NICOTINE 14 MG/24 HR PATCH TD ONE (07:00)
[2022-04-01 07:30] LABS: Hematocrit 43.1 % (35.5-45.6); Hemoglobin 14.8 gm/dl (11.8-15.2); Mean Corpuscular HGB Conc 34 % (32-34); Mean Corpuscular Volume 103 fl (84-94); Red Blood Count 4.18 M/mm3 (3.65-5.03); Red Cell Distribution Width 17.4 % (13.2-15.2)
[2022-04-01 07:31] LABS: Platelet Count 43 K/mm3 (140-440)
[2022-04-01 07:40] LABS: INR 0.87 (0.87-1.13)
[2022-04-01 07:41] LABS: Partial Thromboplastin Time 26.1 Sec. (24.2-36.6)
[2022-04-01] MEDS: D5W/0.45% NACL 1,000 ML IV SCH (08:14)
[2022-04-01] MEDS: IPRATROPIUM/ALBUTEROL SULFATE 3 ML AMPUL.NEB IH SCH ×2 (09:20→19:08)
[2022-04-01] MEDS ORDERED: NON-FORMULARY EACH (Apixaban 5 MG Tablet) PO SCH (10:00)
[2022-04-01] MEDS ORDERED: APIXABAN 5 MG TAB PO SCH (10:00)
[2022-04-01] MEDS ORDERED: FAMOTIDINE 20 MG TAB PO SCH (10:00)
[2022-04-01] MEDS: METOPROLOL TARTRATE 25 MG TAB PO SCH ×2 (10:16→22:46)
[2022-04-01] MEDS: FAMOTIDINE 20 MG TAB PO SCH ×2 (10:17→22:46)
--- NOTE | 2022-04-01 10:35 | Progress Note ---
Assessment and Plan Assessment and plan: 56-year-old alcoholic male who now presents with chest/epigastric pain radiating to the back that started about 4 days ago progressively getting worse. Patient is heavy alcoholic who drinks about a quart every day drinking for the last 10 years. When asked specifically for the location of pain patient pointed to the epigastric area and the left upper abdomen. Patient reports some nausea without any emesis. No fever or chills reported. Patient also reported that when he walks his gait is falling to one side of his body. This has been going on for weeks. He also reports some bilateral hand shakiness. No other modifying or associated factors. In the emergency room CT scan of the abdomen pelvis showed no acute abnormality but patient is found to have acute alcohol withdrawal Past Medical History: DVT (Pulmonary embolism, bilateral DVT), hypertension, other (Alcohol abuse) 04/01: Patient seen and examined, will continue treatment for withdrawals and management of DTs, abdominal pain is improving likely ETOH related gastritis, reviewed his previous imaging, No PE on last chest CT in October 2021, DVT noted in Oct. Considering his ETOH use and Severe thrombocytopenia will discontinue Eliquis at this time. Risk of Bleeding outweighs benefit. (1) Alcohol withdrawal with delirium tremens Current Visit: Yes Status: Acute Qualifiers: Complication of substance-induced condition: with unspecified complication Qualified Code(s): F10.939 - Alcohol use, unspecified with withdrawal, unspecified Plan to address problem: Admit the patient to the medical telemetry. We will put the patient on folic acid 1 mg p.o. daily, thiamine 100 mg IV daily. And banana bag daily. We also put the patient on CIWA protocol. We will monitor the patient closely (2) Epigastric abdominal pain Current Visit: Yes Status: Acute Plan to address problem: Pepcid 20 mg p.o. twice daily. Zofran 4 mg every 6 hours as needed. Morphine 2 mg IV every 4 hours as needed (3) Chronic pulmonary embolism Current Visit: No Status: Acute Plan to address problem: Eliquis 5 mg p.o. twice daily. We will continue the home medication (4) HTN (hypertension) Current Visit: No Status: Chronic Plan to address problem: Hydralazine 10 mg IV every 6 hours as needed. We continue the home medication (5) Tobacco use Current Visit: No Status: Chronic Plan to address problem: We counseled the patient regarding quitting smoking. We will put the patient on nicotine patch (6) Thrombocytoepnia (7) DVT prophylaxis Current Visit: No Status: Acute Plan to address problem: Eliquis 5 mg p.o. twice daily for DVT prophylaxis. Pepcid 20 mg p.o. twice daily for GI prophylaxis. Patient is a full code History Interval history: Patient seen and examined still with tremors unsteady gait per nursing staff. Could not articulate why he still drinks alcohol despite multiple counseling provided in the past. However denies any chest pain shortness of breath nausea vomiting Hospitalist Physical - Physical exam Narrative exam: General appearance: Present: no acute distress, well-nourished, TREMOR - EENT Eyes: Present: PERRL, Anicteric sclera ENT: hearing intact, clear oral mucosa - Neck Neck: Present: supple, normal ROM - Respiratory Respiratory effort: normal Respiratory: bilateral: CTA - Cardiovascular Heart Sounds: Present: S1 & S2. Absent: rub, click - Extremities Extremities: pulses symmetrical, No edema Peripheral Pulses: within normal limits - Abdominal General gastrointestinal: Present: soft, non-tender, non-distended, normal bowel sounds Male genitourinary: Present: normal - Integumentary Integumentary: Present: clear, warm, dry - Musculoskeletal Musculoskeletal: gait normal, strength equal bilaterally - Psychiatric Psychiatric: appropriate mood/affect, intact judgment & insight - Neurologic Neurologic: CNII-XII intact, moves all extremities, tremors, unsteady gait - Constitutional Vitals: Temp Pulse Resp BP Pulse Ox 98.6 F 84 18 154/93 98 04/01/22 07:51 04/01/22 07:51 04/01/22 07:51 04/01/22 07:51 04/01/22 07:51 General appearance: Present: no acute distress, well-nourished HEART Score - HEART Score EKG: Normal Age: 45-65 Risk factors: No known risk factors Troponin: Troponin T < 0.010 ng/mL (0.00-0.029) 03/31/22 23:00 Troponin: < normal limit - Critical Actions Critical Actions: 0-3 pts:0.9-1.7%risk of adverse cardiac event.Candidate for discharge Results - Labs CBC & Chem 7: 04/01/22 07:01 04/01/22 07:01 Labs: Laboratory Last Values WBC 3.4 K/mm3 (4.5-11.0) L 04/01/22 07:01 RBC 4.18 M/mm3 (3.65-5.03) 04/01/22 07:01 Hgb 14.8 gm/dl (11.8-15.2) 04/01/22 07:01 Hct 43.1 % (35.5-45.6) 04/01/22 07:01 MCV 103 fl (84-94) H 04/01/22 07:01 MCH 36 pg (28-32) H 04/01/22 07:01 MCHC 34 % (32-34) 04/01/22 07:01 RDW 17.4 % (13.2-15.2) H 04/01/22 07:01 Plt Count 43 K/mm3 (140-440) L 04/01/22 07:01 Lymph % (Auto) 44.7 % (13.4-35.0) H 03/31/22 16:41 Stevens % (Auto) 14.1 % (0.0-7.3) H 03/31/22 16:41 Eos % (Auto) 0.7 % (0.0-4.3) 03/31/22 16:41 Baso % (Auto) 1.5 % (0.0-1.8) 03/31/22 16:41 Lymph # (Auto) 1.3 K/mm3 (1.2-5.4) 03/31/22 16:41 Stevens # (Auto) 0.4 K/mm3 (0.0-0.8) 03/31/22 16:41 Eos # (Auto) 0.0 K/mm3 (0.0-0.4) 03/31/22 16:41 Baso # (Auto) 0.0 K/mm3 (0.0-0.1) 03/31/22 16:41 Seg Neutrophils % 39.0 % (40.0-70.0) L 03/31/22 16:41 Seg Neutrophils # 1.1 K/mm3 (1.8-7.7) L 03/31/22 16:41 PT 12.7 Sec. (12.2-14.9) 04/01/22 07:01 INR 0.87 (0.87-1.13) 04/01/22 07:01 APTT 26.1 Sec. (24.2-36.6) 04/01/22 07:01 Sodium 139 mmol/L (137-145) 03/31/22 16:41 Potassium 4.5 mmol/L (3.6-5.0) 03/31/22 16:41 Chloride 93.1 mmol/L (98-107) L 03/31/22 16:41 Carbon Dioxide 26 mmol/L (22-30) 03/31/22 16:41 Anion Gap 24 mmol/L 03/31/22 16:41 BUN 9 mg/dL (9-20) 03/31/22 16:41 Creatinine 0.8 mg/dL (0.8-1.3) 04/01/22 07:01 Estimated GFR > 60 ml/min 04/01/22 07:01 BUN/Creatinine Ratio 10 % 03/31/22 16:41 Glucose 95 mg/dL (75-100) 03/31/22 16:41 Calcium 9.7 mg/dL (8.4-10.2) 03/31/22 16:41 Total Bilirubin 1.10 mg/dL (0.1-1.2) 03/31/22 16:41 AST 724 units/L (5-40) H 03/31/22 16:41 ALT 308 units/L (7-56) H 03/31/22 16:41 Alkaline Phosphatase 83 units/L (35-129) 03/31/22 16:41 Troponin T < 0.010 ng/mL (0.00-0.029) 03/31/22 23:00 Total Protein 9.2 g/dL (6.3-8.2) H 03/31/22 16:41 Albumin 4.9 g/dL (3.9-5) 03/31/22 16:41 Albumin/Globulin Ratio 1.1 % 03/31/22 16:41 Lipase 48 units/L (13-60) 03/31/22 23:00 Active Medications - Current Medications Current Medications: Generic Name Dose Route Start Last Admin Trade Name Freq PRN Reason Stop Dose Admin Acetaminophen 650 mg 04/01/22 06:19 Acetaminophen 325 Mg Tab PO Q4H PRN Pain MILD(1-3)/Fever >100.5/TROY Albuterol 2.5 mg 04/01/22 06:19 Albuterol 2.5 Mg/3 Ml Nebu IH Q3HRT PRN Shortness Of Breath Albuterol/Ipratropium 1 ampul 04/01/22 08:00 04/01/22 09:20 Ipratropium/Albuterol Sulfate 3 Ml Ampul.Neb IH 1 ampul Q6HRT VERENICE Administration Chlordiazepoxide HCl 50 mg 04/01/22 06:19 04/01/22 08:13 Chlordiazepoxide 25 Mg Cap PO 50 mg Q1H PRN Administration CIWA-Ar 8-15 Chlordiazepoxide HCl 100 mg 04/01/22 06:19 Chlordiazepoxide 25 Mg Cap PO Q1H PRN CIWA-Ar 16-25 Famotidine 20 mg 04/01/22 10:00 04/01/22 10:17 Famotidine 20 Mg Tab PO 20 mg BID VERENICE Administration Folic Acid 1 mg 04/02/22 10:00 Folic Acid [address] Tab [address] [facility] Dextrose/Sodium Chloride 1,000 mls @ 100 mls/hr 04/01/22 07:00 04/01/22 08:14 D5/0.45ns IV 100 mls/hr DIRECT VERENICE Administration Lorazepam 2 mg 04/01/22 06:19 Lorazepam 2 Mg/Ml Vial IV Q1H PRN CIWA-Ar 8-15 Lorazepam 4 mg 04/01/22 06:19 Lorazepam 2 Mg/Ml Vial IV Q1H PRN CIWA-Ar 16-25 Lorazepam 4 mg 04/01/22 06:19 Lorazepam 2 Mg/Ml Vial IV Q15MIN PRN CIWA-Ar >25 Metoprolol Tartrate 25 mg 04/01/22 10:00 04/01/22 10:16 Metoprolol Tartrate 25 Mg Tab PO 25 mg BID VERENICE Administration Morphine Sulfate 2 mg 04/01/22 06:19 Morphine 2 Mg/1 Ml Inj IV Q4H PRN Pain, Moderate (4-6) Morphine Sulfate 4 mg 04/01/22 06:19 Morphine 4 Mg/1 Ml Inj IV Q4H PRN Pain , Severe (7-10) Multivitamins 1 each 04/02/22 10:00 Multivitamins ,Therapeutic Tab PO QDAY VERENICE Ondansetron HCl 4 mg 04/01/22 06:19 04/01/22 08:13 Ondansetron 4 Mg/2 Ml Inj IV 4 mg Q8H PRN Administration Nausea And Vomiting Sodium Chloride 10 ml 04/01/22 10:00 04/01/22 10:17 Sodium Chloride 0.9% 10 Ml Flush Syringe IV 10 ml BID VERENICE Administration Sodium Chloride 10 ml 04/01/22 06:19 Sodium Chloride 0.9% 10 Ml Flush Syringe IV PRN PRN LINE FLUSH Thiamine HCl 100 mg 04/02/22 10:00 Thiamine 100 Mg Tab PO QDAY VERENICE
--- NOTE | 2022-04-01 10:41 | Electrocardiograph Report ---
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
[2022-04-02] MEDS: D5W/0.45% NACL 1,000 ML IV SCH (05:17)
[2022-04-02 05:32] VITALS: BP 121/81
[2022-04-02 08:33] LABS: Hematocrit 42.6 % (35.5-45.6); Mean Corpuscular HGB Conc 33 % (32-34); Mean Corpuscular Volume 105 fl (84-94); Red Blood Count 4.07 M/mm3 (3.65-5.03); Red Cell Distribution Width 16.8 % (13.2-15.2)
[2022-04-02 08:35] LABS: Platelet Count 37 K/mm3 (140-440)
[2022-04-02 08:59] LABS: Alanine Aminotransferase 163 units/L (7-56); Albumin 4.2 g/dL (3.9-5); Blood Urea Nitrogen 8 mg/dL (9-20); Calcium 8.4 mg/dL (8.4-10.2); Hemolysis Index 2
[2022-04-02 09:11] LABS: BUN/Creatinine Ratio 11
[2022-04-02] MEDS: METOPROLOL TARTRATE 25 MG TAB PO SCH (09:40)
[2022-04-02] MEDS: FAMOTIDINE 20 MG TAB PO SCH (09:41)
--- NOTE | 2022-04-02 09:47 | Discharge Summary ---
Providers - Providers Date of Admission: 04/01/22 06:19 Attending physician: CORAL PARRA MD Primary care physician: PAULA WASHINGTON Hospitalization Reason for admission: ETOH WITHDRAWAL Condition: Stable Hospital course: 56-year-old alcoholic male who now presents with chest/epigastric pain radiating to the back that started about 4 days ago progressively getting worse. Patient is heavy alcoholic who drinks about a quart every day drinking for the last 10 years. When asked specifically for the location of pain patient pointed to the epigastric area and the left upper abdomen. Patient reports some nausea without any emesis. No fever or chills reported. Patient also reported that when he walks his gait is falling to one side of his body. This has been going on for weeks. He also reports some bilateral hand shakiness. No other modifying or associated factors. In the emergency room CT scan of the abdomen pelvis showed no acute abnormality but patient is found to have acute alcohol withdrawal Past Medical History: DVT (Pulmonary embolism, bilateral DVT), hypertension, other (Alcohol abuse) 04/01: Patient seen and examined, will continue treatment for withdrawals and management of DTs, abdominal pain is improving likely ETOH related gastritis, reviewed his previous imaging, No PE on last chest CT in October 2021, DVT noted in Oct. Considering his ETOH use and Severe thrombocytopenia will discontinue Eliquis at this time. Risk of Bleeding outweighs benefit. 04/02: Patient seen and examined this morning clinically stable able to ambulate at this time no new complaints. Still with mild tremor but no confusion. I did discuss with him about need to quit tobacco use alcohol and to follow-up at an AA meeting if needed. He verbalized understanding states that he lives with his girlfriend he does not want me to speak with anybody in his family. He does have severe thrombocytopenia which is likely from bone marrow disruption from alcohol use and will likely improve if he has persistent cessation of alcohol as a result I will like him to follow-up with a primary care physician. He verbalized understanding. I also discontinued his Eliquis considering that his CTA was negative and Doppler of his lower extremities were also negative. (1) Alcohol withdrawal with delirium tremens Current Visit: Yes Status: Acute Qualifiers: Complication of substance-induced condition: with unspecified complication Qualified Code(s): F10.939 - Alcohol use, unspecified with withdrawal, unspecified Plan to address problem: Admit the patient to the medical telemetry. We will put the patient on folic acid 1 mg p.o. daily, thiamine 100 mg IV daily. And banana bag daily. We also put the patient on CIWA protocol. We will monitor the patient closely (2) Epigastric abdominal pain Current Visit: Yes Status: Acute Plan to address problem: Pepcid 20 mg p.o. twice daily. Zofran 4 mg every 6 hours as needed. Morphine 2 mg IV every 4 hours as needed (3) Chronic pulmonary embolism Current Visit: No Status: Acute Plan to address problem: Eliquis 5 mg p.o. twice daily. We will continue the home medication (4) HTN (hypertension) Current Visit: No Status: Chronic Plan to address problem: Hydralazine 10 mg IV every 6 hours as needed. We continue the home medication (5) Tobacco use Current Visit: No Status: Chronic Plan to address problem: We counseled the patient regarding quitting smoking. We will put the patient on nicotine patch (6) Thrombocytoepnia Disposition: 01 HOME / SELF CARE / HOMELESS Final Discharge Diagnosis (Prints w/discharge instructions): EtOH withdrawal with delirium tremens. Severe thrombocytopenia Time spent for discharge: 35 minutes Core Measure Documentation - Palliative Care Palliative Care/ Comfort Measures: Not Applicable - Core Measures Any of the following diagnoses?: none Exam - Physical Exam Narrative exam: General appearance: Present: no acute distress, well-nourished, - EENT Eyes: Present: PERRL, Anicteric sclera ENT: hearing intact, clear oral mucosa - Neck Neck: Present: supple, normal ROM - Respiratory Respiratory effort: normal Respiratory: bilateral: CTA - Cardiovascular Heart Sounds: Present: S1 & S2. Absent: rub, click - Extremities Extremities: pulses symmetrical, No edema Peripheral Pulses: within normal limits - Abdominal General gastrointestinal: Present: soft, non-tender, non-distended, normal bowel sounds Male genitourinary: Present: normal - Integumentary Integumentary: Present: clear, warm, dry - Musculoskeletal Musculoskeletal: gait normal, strength equal bilaterally - Psychiatric Psychiatric: appropriate mood/affect, intact judgment & insight - Neurologic Neurologic: CNII-XII intact, moves all extremities, tremors, unsteady gait - Constitutional Vitals: Temp Pulse Resp BP Pulse Ox 98.5 F 105 H 18 121/81 100 04/02/22 04:37 04/02/22 09:40 04/02/22 04:37 04/02/22 04:37 04/02/22 04:37 Plan Activity: advance as tolerated, fall precautions Diet: low fat Special Instructions: record daily BP diary, record blood sugar diary, smoking cessation, other (must quit etoh, strongly encouraged to enroll in a local AA meeting) Care Plan Goals: must follow with Primary doctor to repeat PLTS. Follow up with: PAULA WASHINGTON MD [Primary Care Provider] - 3-5 Days Prescriptions: Multivitamin with Folic Acid [Cvs One Daily Essential Tablet] 400 mcg PO QDAY #30 tablet Folic Acid [Folvite] 1 mg PO DAILY #30 tablet chlordiazePOXIDE [Librium] 25 mg PO Q6H 5 Days #20 cap NS Metoprolol [Lopressor TAB] 25 mg PO BID #60 tablet Famotidine [Pepcid] 20 mg PO BID #60 tablet Omeprazole Magnesium [PriLOSEC Otc] 20 mg PO BID 30 Days #60 tab NS Thiamine [Vitamin B-1] 100 mg PO QDAY #30 tablet Ondansetron (Nf) [Zofran TAB] 8 mg PO Q8HR PRN 5 Days #15 tablet NS PRN Reason: Nausea
--- NOTE | 2022-04-02 09:47 | Electrocardiograph Report ---
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
[2022-04-02] MEDS ORDERED: MULTIVITAMINS ,THERAPEUTIC TAB PO SCH (10:00)
[2022-04-02] MEDS ORDERED: FOLIC ACID 1 MG TAB PO SCH (10:00)
[2022-04-02] MEDS ORDERED: THIAMINE 100 MG TAB PO SCH (10:00)
[2022-04-02 11:15] LABS: Eosinophils % (Manual) 0 % (0.0-4.3); Total Cells Counted 100
[2022-04-02 11:16] LABS: Basophils % (Manual) 0 % (0.0-1.8); Giant Platelets Few; Platelet Estimate Consistent w Auto
== END 2022-04-02 13:25 | disposition home or self-care (01) | DRG 392 ==
LOC: ED 13:53 → 3A 04-01 06:19
PROVIDERS: ADMIT Hospitalist; ATTEND Internal Medicine
DX: R10.13 Epigastric pain (principal); F10.231 Alcohol dependence with withdrawal delirium; I27.82 Chronic pulmonary embolism; Z72.0 Tobacco use; I10 Essential (primary) hypertension; D69.6 Thrombocytopenia, unspecified; Y90.9 Presence of alcohol in blood, level not specified; Z82.49 Family history of ischemic heart disease and other diseases of the circulatory system
CPT/HCPCS: 36415; 71046; 74177; 80053; 82565; 83690; 84484; 85007; 85025; 85027; 85610; 85730; 93005; 94640; G0378; J3490; J7070; J2250; J2405; J3411; J7030; Q9967